=== PATIENT | female | born 1955 | race Caucasian/White ===

== ENCOUNTER 2016-06-05 23:19 | Emergency (ER) | payer OTHER ==
[~2016-06-05 23:19] MED LIST: /ESOM40CA; ALBU17IN INH; ANAS0.12; ASPI81TA7 PO; ASPI81TAEC PO; ATOR40TA PO; CEFT500T3 PO; CILO100T PO; CILO50TA PO; COLA100C2; DEPA500T2 PO; GABA800T PO; GABA800T3; JANT10TA; JANT5TAB; JANT7.5T; LEVO50TA2; LIPI80TA; NICO14DI TD; NICO14PA TD; OMEP20CA3 PO; OMEP40CA2 PO; OXYC-517 PO; OXYC10TA12 PO; OXYC40TA12 PO; PARO30TA PO; PAXI20TA; PLAV75TA2; PROT20TA11 PO; SUCR1TAB56 PO; VICO5TAB; XARE20TA PO
[2016-06-06] MEDS ORDERED: HYDROmorphone HCL 1 MG/ML SYRINGE (J1170) As Ordered ONE (00:12)
--- NOTE | 2016-06-06 00:36 | EDDOCDS ---
Nurse's Notes [facility] Name: Marisol Disla Age: 60 yrs Sex: Female : 1955 Arrival Date: 06/05/2016 Time: 23:19 Bed 6 Private MD: Morris Navarro D Diagnosis: Other chronic pain-neck;Opioid dependence Presentation: 06/05 23:30 Presenting complaint: Patient states: Had surgery on her carotids two months ago in 1 [place] (Dr. Melara) and states she has increased pain in back and sides of neck. Pain is currently 7/10. Pt is restless and anxious in triage area. Risk Factors No acute neurological deficit is noted. Adult Sepsis Screening: The patient does not have new or worsening altered mentation. Patient's respiratory rate is less than 22. Systolic blood pressure is greater than 100. Patient has a qSOFA score of 0- Negative Sepsis Screen. Suicide/Homicide risk assessment- the patient denies having any suicidal and/or homicidal ideations and does not present with any other emotional, behavioral or mental health complaints. Status: Patient is not a patient services assistant or dependent. Transition of care: patient was not received from another setting of care. 23:30 Acuity: WIN Level 3 lf1 23:30 Method Of Arrival: Wheelchair lf1 Triage Assessment: 23:37 General: Appears distressed, obese, uncomfortable, unkempt, Behavior is anxious, fussy, lf1 restless. Pain: Location: neck Pain currently is 7 out of 10 on a pain scale. HIV screening NA for this visit Offered previously. Neurological: Level of Consciousness is awake, alert, Oriented to person, place, time. EENT: No deficits noted. Respiratory: Respiratory effort is even, unlabored, Respiratory pattern is regular. GI: Reports nausea. Derm: Skin is normal. Musculoskeletal: Reports pain in neck, shoulder, right arm. Injury Description: No known injury. Historical: - Allergies: Fentanyl (shortness of breath); Imitrex (Hypertension); PROPOFOL (itching); Toradol (itching); - Home Meds: 1. aspirin 81 mg Oral tab 1 tab once daily (Last dose: 06/05/2016 12:00) 2. atorvastatin 40 mg oral tab 1 tab once daily (Last dose: 06/05/2016 12:00) 3. cilostazol 100 mg oral tab 1 tab 2 times per day (Last dose: 06/05/2016 12:00) 4. gabapentin 800 mg Oral tab 1 tab four times a day (Last dose: 06/05/2016 12:00) 5. oxycodone 20 mg Oral TR12 1 tab four times a day (Last dose: 06/05/2016 19:00) 6. OxyContin 40 mg Oral Tb12 1 tab every 12 hours (Last dose: 06/05/2016 12:00) 7. paroxetine HCl 30 mg Oral tab 2 tabs once daily (Last dose: 06/05/2016 12:00) 8. Protonix 40 mg Oral TbEC once daily (Last dose: 06/05/2016 12:00) 9. Xarelto 20 mg oral tab 1 tab once daily (Last dose: 06/05/2016 12:00) - PMHx: CAD; DVT; GERD; Hypercholesterolemia; Migraine Headaches; Stroke; - PSHx: Cholecystectomy; ; Appendectomy; Tonsillectomy; Hysterectomy; fempop x4; Carpal Tunnel Repair- Left; aorotic bypass graft; Above Knee Amputation- Left (April 14, 2009); - Social history: Smoking status: Patient uses tobacco products, heavy tobacco smoker. No barriers to communication noted, The patient speaks fluent Serbian, Speaks appropriately for age, Preferred Language: Serbian. - Family history: No immediate family members are acutely ill. - : The pt / caregiver states he / she is on anticoagulants: Xarelto Home medication list is obtained from the patient. - Exposure Risk Screening:: None identified. Screenin/28 00:21 Screening information is obtained from the patient. Fall risk: At risk due to gait nn1 disturbance. Assistance ADL's: requires no assistance with activities of daily living. Abuse/DV Screen: The patient / caregiver reports he/she is: not in a situation that causes fear, pain or injury. Nutritional screening: No deficits noted. Advance Directives: There is no active DNR order. home support is adequate. Assessment: 00:20 General: Appears in no apparent distress, uncomfortable, Behavior is appropriate for nn1 age, cooperative. Pain: Location: back and neck Pain currently is 8 out of 10 on a pain scale. Pain began 1 day ago. Neurological: Level of Consciousness is awake, alert, obeys commands, Oriented to person, place, time. Respiratory: Airway is patent Respiratory effort is even, unlabored, Respiratory pattern is regular, symmetrical. Derm: Skin is pink, warm & dry. 00:34 Pain: Pain currently is 5 out of 10 on a pain scale. nn1 Vital Signs: 06/05 23:21 BP 121 / 69; Pulse 92; Resp 20; Temp 99.1(O); Pulse Ox 96% on R/A; Weight 100.24 kg lr2 (R); Height 5 ft. 8 in. (172.72 cm) (R); Pain 7/10; 06/06 00:35 BP 126 / 56; Pulse 88; Resp 20; Temp 98.7(O); Pulse Ox 97% on R/A; Pain 5/10; nn1 06/05 23:21 Body Mass Index 33.60 (100.24 kg, 172.72 cm) lr2 Vitals: 06/05 23:21 Log In Time: June 05, 2016 at 23:19. lr2 ED Course: 23:21 Patient visited by Swapna Pryor. lr2 23:21 Patient moved to Waiting lr2 23:22 Morris Navarro is Private Physician. lr2 23:23 Patient moved to Pre RCE lr2 23:34 Triage Initiated lf1 23:44 Patient moved to 6 cz 23:49 Naun Torres DO is Attending Physician. cs11 23:49 Patient visited by Naun Torres DO. cs11 06/06 00:00 Morris Navarro is Referral Physician. cs11 00:22 No IV's were initiated during this patient's visit. No procedures done that require nn1 assistance. 00:36 The patient / caregiver is instructed regarding the plan of care and ED course. nn1 Administered Medications: 00:20 Drug: Dilaudid - HYDROmorphone 1 mg [hydromorphone 1 mg/mL injection syringe (1 mL)] nn1 Route: IM; Site: right deltoid; Order Results: There are currently no results for this order. Outcome: 00:01 Discharge ordered by Provider. cs11 00:35 Discharge Assessment: Patient awake, alert and oriented x 3. No cognitive and/or nn1 functional deficits noted. Patient verbalized understanding of disposition instructions. patient administered narcotics - yes. Pt provided with safe discharge. The following High Risk Discharge criteria are identified: None. Discharged to home via wheelchair, with family. Condition: stable. No special radiology studies were completed. Property :Personal belongings accompany Pt. 00:36 Patient left the ED. nn1 Signatures: Chris Zhou, RN RN cz Savanna Stevens RN RN lf1 Naun Torres DO DO 11 Kofi Wesley RN RN nn1 Swapna Pryor MTDD
--- NOTE | 2016-06-06 00:36 | EDDOCDS ---
Physician Documentation [facility] Name: Marisol Disla Age: 60 yrs Sex: Female : 1955 Arrival Date: 06/05/2016 Time: 23:19 Bed 6 Private MD: Morris Navarro D Disposition: 06/06/16 00:01 Discharged to Home/Self Care. Impression: Other chronic pain - neck, Opioid dependence. - Condition is Stable. - Medication Reconciliation, Local Pharmacy Hours form. - Follow up: Morris Navarro; When: Call to arrange an appointment; Reason: Recheck today's complaints. - Problem is chronic. - Symptoms have improved. Historical: - Allergies: Fentanyl (shortness of breath); Imitrex (Hypertension); PROPOFOL (itching); Toradol (itching); - Home Meds: 1. aspirin 81 mg Oral tab 1 tab once daily (Last dose: 06/05/2016 12:00) 2. atorvastatin 40 mg oral tab 1 tab once daily (Last dose: 06/05/2016 12:00) 3. cilostazol 100 mg oral tab 1 tab 2 times per day (Last dose: 06/05/2016 12:00) 4. gabapentin 800 mg Oral tab 1 tab four times a day (Last dose: 06/05/2016 12:00) 5. oxycodone 20 mg Oral TR12 1 tab four times a day (Last dose: 06/05/2016 19:00) 6. OxyContin 40 mg Oral Tb12 1 tab every 12 hours (Last dose: 06/05/2016 12:00) 7. paroxetine HCl 30 mg Oral tab 2 tabs once daily (Last dose: 06/05/2016 12:00) 8. Protonix 40 mg Oral TbEC once daily (Last dose: 06/05/2016 12:00) 9. Xarelto 20 mg oral tab 1 tab once daily (Last dose: 06/05/2016 12:00) - PMHx: CAD; DVT; GERD; Hypercholesterolemia; Migraine Headaches; Stroke; - PSHx: Cholecystectomy; ; Appendectomy; Tonsillectomy; Hysterectomy; fempop x4; Carpal Tunnel Repair- Left; aorotic bypass graft; Above Knee Amputation- Left (April 14, 2009); - Social history: Smoking status: Patient uses tobacco products, heavy tobacco smoker. No barriers to communication noted, The patient speaks fluent Japanese, Speaks appropriately for age, Preferred Language: Japanese. - Family history: No immediate family members are acutely ill. - : The pt / caregiver states he / she is on anticoagulants: Xarelto Home medication list is obtained from the patient. - Exposure Risk Screening:: None identified. Vital Signs: 06/05 23:21 BP 121 / 69; Pulse 92; Resp 20; Temp 99.1(O); Pulse Ox 96% on R/A; Weight 100.24 kg / lr2 220.99 lbs (R); Height 5 ft. 8 in. (172.72 cm) (R); Pain 7/10; 06/06 00:35 BP 126 / 56; Pulse 88; Resp 20; Temp 98.7(O); Pulse Ox 97% on R/A; Pain 5/10; nn1 06/05 23:21 Body Mass Index 33.60 (100.24 kg, 172.72 cm) lr2 MDM: 00:01 Dilaudid - HYDROmorphone 1 mg IM once ordered. cs11 00:21 Financial registration complete. [facility] Administered Medications: 00:20 Drug: Dilaudid - HYDROmorphone 1 mg [hydromorphone 1 mg/mL injection syringe (1 mL)] nn1 Route: IM; Site: right deltoid; Signatures: Savanna Stevens,RN RN lf1 Naun Torres DO DO cs11 Marni Jacques [facility] Kofi Wesley RN RN nn1 MTDD
--- NOTE | 2016-06-08 01:37 | EDDOCDS ---
Physician Documentation [facility] Name: Marisol Disla Age: 60 yrs Sex: Female : 1955 Arrival Date: 06/05/2016 Time: 23:19 Bed 6 Private MD: Morris Navarro D Disposition: 06/06/16 00:01 Discharged to Home/Self Care. Impression: Other chronic pain - neck, Opioid dependence. - Condition is Stable. - Medication Reconciliation, Local Pharmacy Hours form. - Follow up: Morris Navarro; When: Call to arrange an appointment; Reason: Recheck today's complaints. - Problem is chronic. - Symptoms have improved. Historical: - Allergies: Fentanyl (shortness of breath); Imitrex (Hypertension); PROPOFOL (itching); Toradol (itching); - Home Meds: 1. aspirin 81 mg Oral tab 1 tab once daily (Last dose: 06/05/2016 12:00) 2. atorvastatin 40 mg oral tab 1 tab once daily (Last dose: 06/05/2016 12:00) 3. cilostazol 100 mg oral tab 1 tab 2 times per day (Last dose: 06/05/2016 12:00) 4. gabapentin 800 mg Oral tab 1 tab four times a day (Last dose: 06/05/2016 12:00) 5. oxycodone 20 mg Oral TR12 1 tab four times a day (Last dose: 06/05/2016 19:00) 6. OxyContin 40 mg Oral Tb12 1 tab every 12 hours (Last dose: 06/05/2016 12:00) 7. paroxetine HCl 30 mg Oral tab 2 tabs once daily (Last dose: 06/05/2016 12:00) 8. Protonix 40 mg Oral TbEC once daily (Last dose: 06/05/2016 12:00) 9. Xarelto 20 mg oral tab 1 tab once daily (Last dose: 06/05/2016 12:00) - PMHx: CAD; DVT; GERD; Hypercholesterolemia; Migraine Headaches; Stroke; - PSHx: Cholecystectomy; ; Appendectomy; Tonsillectomy; Hysterectomy; fempop x4; Carpal Tunnel Repair- Left; aorotic bypass graft; Above Knee Amputation- Left (April 14, 2009); - Social history: Smoking status: Patient uses tobacco products, heavy tobacco smoker. No barriers to communication noted, The patient speaks fluent Indonesian, Speaks appropriately for age, Preferred Language: Indonesian. - Family history: No immediate family members are acutely ill. - : The pt / caregiver states he / she is on anticoagulants: Xarelto Home medication list is obtained from the patient. - Exposure Risk Screening:: None identified. Vital Signs: 06/05 23:21 BP 121 / 69; Pulse 92; Resp 20; Temp 99.1(O); Pulse Ox 96% on R/A; Weight 100.24 kg / lr2 220.99 lbs (R); Height 5 ft. 8 in. (172.72 cm) (R); Pain 7/10; 06/06 00:35 BP 126 / 56; Pulse 88; Resp 20; Temp 98.7(O); Pulse Ox 97% on R/A; Pain 5/10; nn1 06/05 23:21 Body Mass Index 33.60 (100.24 kg, 172.72 cm) lr2 MDM: 00:01 Dilaudid - HYDROmorphone 1 mg IM once ordered. cs11 00:21 Financial registration complete. [facility] 01:29 [facility] Payment Agreement was scanned into [employer] and attached to record. [facility] Administered Medications: 00:20 Drug: Dilaudid - HYDROmorphone 1 mg [hydromorphone 1 mg/mL injection syringe (1 mL)] nn1 Route: IM; Site: right deltoid; Signatures: Savanna Stevens RN RN lf1 Naun Torres DO DO cs11 Marni Jacques [facility] Kofi Wesley RN RN nn1 The chart was reviewed and I authenticate all verbal orders and agree with the evaluation and treatment provided.Attachments: 01:29 [facility] Payment Agreement [facility] Chart Complete MTDD
--- NOTE | 2016-06-08 01:38 | EDDOCDS ---
Nurse's Notes [facility] Name: Marisol Disla Age: 60 yrs Sex: Female : 1955 Arrival Date: 06/05/2016 Time: 23:19 Bed 6 Private MD: Morris Navarro D Diagnosis: Other chronic pain-neck;Opioid dependence Presentation: 06/05 23:30 Presenting complaint: Patient states: Had surgery on her carotids two months ago in 1 [place] (Dr. Melara) and states she has increased pain in back and sides of neck. Pain is currently 7/10. Pt is restless and anxious in triage area. Risk Factors No acute neurological deficit is noted. Adult Sepsis Screening: The patient does not have new or worsening altered mentation. Patient's respiratory rate is less than 22. Systolic blood pressure is greater than 100. Patient has a qSOFA score of 0- Negative Sepsis Screen. Suicide/Homicide risk assessment- the patient denies having any suicidal and/or homicidal ideations and does not present with any other emotional, behavioral or mental health complaints. Status: Patient is not a food services director or dependent. Transition of care: patient was not received from another setting of care. 23:30 Acuity: WIN Level 3 lf1 23:30 Method Of Arrival: Wheelchair lf1 Triage Assessment: 23:37 General: Appears distressed, obese, uncomfortable, unkempt, Behavior is anxious, fussy, lf1 restless. Pain: Location: neck Pain currently is 7 out of 10 on a pain scale. HIV screening NA for this visit Offered previously. Neurological: Level of Consciousness is awake, alert, Oriented to person, place, time. EENT: No deficits noted. Respiratory: Respiratory effort is even, unlabored, Respiratory pattern is regular. GI: Reports nausea. Derm: Skin is normal. Musculoskeletal: Reports pain in neck, shoulder, right arm. Injury Description: No known injury. Historical: - Allergies: Fentanyl (shortness of breath); Imitrex (Hypertension); PROPOFOL (itching); Toradol (itching); - Home Meds: 1. aspirin 81 mg Oral tab 1 tab once daily (Last dose: 06/05/2016 12:00) 2. atorvastatin 40 mg oral tab 1 tab once daily (Last dose: 06/05/2016 12:00) 3. cilostazol 100 mg oral tab 1 tab 2 times per day (Last dose: 06/05/2016 12:00) 4. gabapentin 800 mg Oral tab 1 tab four times a day (Last dose: 06/05/2016 12:00) 5. oxycodone 20 mg Oral TR12 1 tab four times a day (Last dose: 06/05/2016 19:00) 6. OxyContin 40 mg Oral Tb12 1 tab every 12 hours (Last dose: 06/05/2016 12:00) 7. paroxetine HCl 30 mg Oral tab 2 tabs once daily (Last dose: 06/05/2016 12:00) 8. Protonix 40 mg Oral TbEC once daily (Last dose: 06/05/2016 12:00) 9. Xarelto 20 mg oral tab 1 tab once daily (Last dose: 06/05/2016 12:00) - PMHx: CAD; DVT; GERD; Hypercholesterolemia; Migraine Headaches; Stroke; - PSHx: Cholecystectomy; ; Appendectomy; Tonsillectomy; Hysterectomy; fempop x4; Carpal Tunnel Repair- Left; aorotic bypass graft; Above Knee Amputation- Left (April 14, 2009); - Social history: Smoking status: Patient uses tobacco products, heavy tobacco smoker. No barriers to communication noted, The patient speaks fluent Croatian, Speaks appropriately for age, Preferred Language: Croatian. - Family history: No immediate family members are acutely ill. - : The pt / caregiver states he / she is on anticoagulants: Xarelto Home medication list is obtained from the patient. - Exposure Risk Screening:: None identified. Screenin/28 00:21 Screening information is obtained from the patient. Fall risk: At risk due to gait nn1 disturbance. Assistance ADL's: requires no assistance with activities of daily living. Abuse/DV Screen: The patient / caregiver reports he/she is: not in a situation that causes fear, pain or injury. Nutritional screening: No deficits noted. Advance Directives: There is no active DNR order. home support is adequate. Assessment: 00:20 General: Appears in no apparent distress, uncomfortable, Behavior is appropriate for nn1 age, cooperative. Pain: Location: back and neck Pain currently is 8 out of 10 on a pain scale. Pain began 1 day ago. Neurological: Level of Consciousness is awake, alert, obeys commands, Oriented to person, place, time. Respiratory: Airway is patent Respiratory effort is even, unlabored, Respiratory pattern is regular, symmetrical. Derm: Skin is pink, warm & dry. 00:34 Pain: Pain currently is 5 out of 10 on a pain scale. nn1 Vital Signs: 06/05 23:21 BP 121 / 69; Pulse 92; Resp 20; Temp 99.1(O); Pulse Ox 96% on R/A; Weight 100.24 kg lr2 (R); Height 5 ft. 8 in. (172.72 cm) (R); Pain 7/10; 06/06 00:35 BP 126 / 56; Pulse 88; Resp 20; Temp 98.7(O); Pulse Ox 97% on R/A; Pain 5/10; nn1 06/05 23:21 Body Mass Index 33.60 (100.24 kg, 172.72 cm) lr2 Vitals: 06/05 23:21 Log In Time: June 05, 2016 at 23:19. lr2 ED Course: 23:21 Patient visited by Swapna Pryor. lr2 23:21 Patient moved to Waiting lr2 23:22 Morris Navarro is Private Physician. lr2 23:23 Patient moved to Pre RCE lr2 23:34 Triage Initiated lf1 23:44 Patient moved to 6 cz 23:49 Naun Torres DO is Attending Physician. cs11 23:49 Patient visited by Naun Torres DO. cs11 06/06 00:00 Morris Navarro is Referral Physician. cs11 00:22 No IV's were initiated during this patient's visit. No procedures done that require nn1 assistance. 00:36 The patient / caregiver is instructed regarding the plan of care and ED course. nn1 01:29 [facility] Payment Agreement was scanned into [employer] and attached to record. [facility] 01:31 Patient name changed from Marisol\S\\S\Naif\S\ to Marisol\S\Jennie\S\Naif. EDMS Administered Medications: 00:20 Drug: Dilaudid - HYDROmorphone 1 mg [hydromorphone 1 mg/mL injection syringe (1 mL)] nn1 Route: IM; Site: right deltoid; Order Results: There are currently no results for this order. Outcome: 00:01 Discharge ordered by Provider. cs11 00:35 Discharge Assessment: Patient awake, alert and oriented x 3. No cognitive and/or nn1 functional deficits noted. Patient verbalized understanding of disposition instructions. patient administered narcotics - yes. Pt provided with safe discharge. The following High Risk Discharge criteria are identified: None. Discharged to home via wheelchair, with family. Condition: stable. No special radiology studies were completed. Property :Personal belongings accompany Pt. 00:36 Patient left the ED. nn1 Signatures: Dispatcher [employer] Chris Spence, RN RN cz Savanna StevensRN RN lf1 Naun Torres, DO cs11 Marni Jacques NikkoleRN RN nn1 Swapna Pryor2 Chart Complete MOHAN
--- NOTE | 2016-06-08 01:38 | EDDOCDS ---
Physician Documentation [facility] Name: Marisol Disla Age: 60 yrs Sex: Female : 1955 Arrival Date: 06/05/2016 Time: 23:19 Bed 6 Private MD: Morris Navarro D Disposition: 06/06/16 00:01 Discharged to Home/Self Care. Impression: Other chronic pain - neck, Opioid dependence. - Condition is Stable. - Medication Reconciliation, Local Pharmacy Hours form. - Follow up: Morris Navarro; When: Call to arrange an appointment; Reason: Recheck today's complaints. - Problem is chronic. - Symptoms have improved. Historical: - Allergies: Fentanyl (shortness of breath); Imitrex (Hypertension); PROPOFOL (itching); Toradol (itching); - Home Meds: 1. aspirin 81 mg Oral tab 1 tab once daily (Last dose: 06/05/2016 12:00) 2. atorvastatin 40 mg oral tab 1 tab once daily (Last dose: 06/05/2016 12:00) 3. cilostazol 100 mg oral tab 1 tab 2 times per day (Last dose: 06/05/2016 12:00) 4. gabapentin 800 mg Oral tab 1 tab four times a day (Last dose: 06/05/2016 12:00) 5. oxycodone 20 mg Oral TR12 1 tab four times a day (Last dose: 06/05/2016 19:00) 6. OxyContin 40 mg Oral Tb12 1 tab every 12 hours (Last dose: 06/05/2016 12:00) 7. paroxetine HCl 30 mg Oral tab 2 tabs once daily (Last dose: 06/05/2016 12:00) 8. Protonix 40 mg Oral TbEC once daily (Last dose: 06/05/2016 12:00) 9. Xarelto 20 mg oral tab 1 tab once daily (Last dose: 06/05/2016 12:00) - PMHx: CAD; DVT; GERD; Hypercholesterolemia; Migraine Headaches; Stroke; - PSHx: Cholecystectomy; ; Appendectomy; Tonsillectomy; Hysterectomy; fempop x4; Carpal Tunnel Repair- Left; aorotic bypass graft; Above Knee Amputation- Left (April 14, 2009); - Social history: Smoking status: Patient uses tobacco products, heavy tobacco smoker. No barriers to communication noted, The patient speaks fluent Maori, Speaks appropriately for age, Preferred Language: Maori. - Family history: No immediate family members are acutely ill. - : The pt / caregiver states he / she is on anticoagulants: Xarelto Home medication list is obtained from the patient. - Exposure Risk Screening:: None identified. Vital Signs: 06/05 23:21 BP 121 / 69; Pulse 92; Resp 20; Temp 99.1(O); Pulse Ox 96% on R/A; Weight 100.24 kg / lr2 220.99 lbs (R); Height 5 ft. 8 in. (172.72 cm) (R); Pain 7/10; 06/06 00:35 BP 126 / 56; Pulse 88; Resp 20; Temp 98.7(O); Pulse Ox 97% on R/A; Pain 5/10; nn1 06/05 23:21 Body Mass Index 33.60 (100.24 kg, 172.72 cm) lr2 MDM: 00:01 Dilaudid - HYDROmorphone 1 mg IM once ordered. cs11 00:21 Financial registration complete. [facility] 01:29 [facility] Payment Agreement was scanned into [employer] and attached to record. [facility] Administered Medications: 00:20 Drug: Dilaudid - HYDROmorphone 1 mg [hydromorphone 1 mg/mL injection syringe (1 mL)] nn1 Route: IM; Site: right deltoid; Signatures: Savanna Stevens RN RN lf1 Naun Torres DO DO cs11 Marni Jacques [facility] Kofi Wesley RN RN nn1 The chart was reviewed and I authenticate all verbal orders and agree with the evaluation and treatment provided.Attachments: 01:29 [facility] Payment Agreement [facility] Chart Complete MTDD
== END 2016-06-06 00:36 | disposition home or self-care (01) ==
LOC: M ED 23:19
DX: M54.2 Cervicalgia (principal); G89.29 Other chronic pain; F11.20 Opioid dependence, uncomplicated; I25.10 Atherosclerotic heart disease of native coronary artery without angina pectoris; K21.9 Gastro-esophageal reflux disease without esophagitis; E78.00 Pure hypercholesterolemia, unspecified; G43.909 Migraine, unspecified, not intractable, without status migrainosus; F17.210 Nicotine dependence, cigarettes, uncomplicated; Z89.612 Acquired absence of left leg above knee; Z86.718 Personal history of other venous thrombosis and embolism; Z79.01 Long term (current) use of anticoagulants; Z79.82 Long term (current) use of aspirin; Z79.899 Other long term (current) drug therapy; Z88.5 Allergy status to narcotic agent; Z88.8 Allergy status to other drugs, medicaments and biological substances

== ENCOUNTER → 2016-09-20 | Outpatient (CLI) | payer OTHER ==
[~2016-09-20] MED LIST changes: -OXYC40TA12 PO; +OXYC40TA13 PO
--- NOTE | 2016-09-20 16:04 | REP ---
MRI LEFT WRIST: TECHNIQUE: Multiple sequences obtained in the axial, coronal, and sagittal planes. There is no definite tear of the triangular fibrocartilage complex. The scapholunate and lunatotriquetral ligaments appear intact. The flexor and extensor tendons appear intact. There is on evidence for tendosynovitis. Carpal tunnel region appears unremarkable. There is a history of prior surgery at the base of the thumb. There appears to have been resection of portions of the trapezium bone and distal scaphoid bone. There is ill-defined soft tissue signal which is hypointense on T1 and T2 compatible with postsurgical fibrotic scarring. No fluid collection, cyst, or joint effusion is seen. There is mild to moderate narrow edema in the capitate bone laterally with no other abnormal marrow signal. IMPRESSION: No evidence for tendon or ligament tear. Triangular fibrocartilage complex would be better evaluated with an MR arthrogram if clinically indicated. Postsurgical soft tissue scarring at the base of the first metacarpal. Nonspecific marrow edema in the capitate bone primarily in the lateral aspect. This could be related to arthritic change versus bone bruising. Signed by Juan J Nicholson MD 09/20/2016 07:49 P
== END ==
LOC: M RAD 13:52
PROVIDERS: ATTEND Plastic Surgery Surgery of the Hand
DX: M25.532 Pain in left wrist (principal)

== ENCOUNTER → 2017-01-24 | Outpatient (CLI) | payer OTHER ==
[~2017-01-24] MED LIST changes: +ASPI1TAB15 PO; -ASPI81TA7 PO; -ATOR40TA PO; +ATOR40TA75 PO; -OXYC40TA13 PO; +OXYC40TA29 PO
--- NOTE | 2017-01-24 13:46 | REP ---
Report below cancelled as exam ordered using wrong patient ) (ordering provider aware incorrect patient). Comparison made to wrong patient as well. Incorrect order (#[id number]) cancelled and exam re- ordered on correct patient ([id number]). Correct patient exam read by Dr. Leong - - see report #[id number]. Chest two views HISTORY: Preop Comparison: 07/29/2013 The lungs are clear. The heart is normal in size. The pulmonary vasculature is normal in appearance. The bony structure is intact. IMPRESSION: No acute disease. edited: 02/06/2017 0939 tkf MTDD
--- NOTE | 2017-01-26 17:50 | REP ---
PA and lateral chest three views: Comparison 10/25/2015. There is a small nodular density inferior left lung today measuring 6 mm, decreased in size from the prior study. Lung thorne otherwise clear. Cardiac size is upper normal. The pravin, mediastinum, and bony thorax are unremarkable. Impression: Essentially negative PA and lateral chest. The small nodule inferiorly in the right lung has decreased size from the prior study. Surgical clips are incidentally noted in the left shoulder, unchanged.
== END ==
LOC: M CLY 12:43
PROVIDERS: ATTEND Family Medicine
DX: M25.532 Pain in left wrist (principal)

== ENCOUNTER → 2017-01-24 | Outpatient (REF) | payer OTHER ==
[2017-01-24 17:30] LABS: BASO % 0.5 % (0.0-1.0); IMMATURE GRANULOCYTE % 0.5 % (0-0); LYMPH # 1.9 10^3/uL (1.5-4.5); LYMPH % 24.7 % (24.0-44.0); MEAN CORPUSCULAR HEMOGLOBIN 26.6 pg (27.0-33.0); MEAN CORPUSCULAR HGB CONC 30.5 g/dl (32.0-36.5); MEAN CORPUSCULAR VOLUME 86.9 fl (80.0-96.0); MONO # 0.7 10^3/uL (0.0-0.8); MONO % 9.7 % (0.0-5.0); NEUTROPHILS # 4.9 10^3/uL (1.8-7.7); NEUTROPHILS % 64.6 % (36.0-66.0); PLATELET COUNT, AUTOMATED 220 10^3/uL (150-450); RED CELL DISTRIBUTION WIDTH 14.6 % (11.5-14.5); WHITE BLOOD COUNT 7.6 10^3/uL (4.0-10.0)
[2017-01-24 17:40] LABS: ALBUMIN 3.3 GM/DL (3.2-5.2); ALBUMIN/GLOBULIN RATIO 0.77 (1.00-1.93); ALKALINE PHOSPHATASE 172 U/L (45-117); ALT/SGPT 13 U/L (12-78); ANION GAP 5 MEQ/L (8-16); AST/SGOT 8 U/L (15-37); BILIRUBIN,TOTAL 0.2 MG/DL (0.2-1.0); BLOOD UREA NITROGEN 7 MG/DL (7-18); CALCIUM LEVEL 8.4 MG/DL (8.5-10.1); CARBON DIOXIDE LEVEL 32 MEQ/L (21-32); CHLORIDE LEVEL 100 MEQ/L (98-107); CHOLESTEROL LEVEL 188 MG/DL (<200); CREATININE FOR GFR 0.77 MG/DL (0.55-1.02); GLOMERULAR FILTRATION RATE > 60.0 (>51); GLUCOSE, FASTING 127 MG/DL (70-105); POTASSIUM SERUM 3.7 MEQ/L (3.5-5.1); SODIUM LEVEL 137 MEQ/L (136-145); TOTAL PROTEIN 7.6 GM/DL (6.4-8.2); TRIGLYCERIDES LEVEL 283 MG/DL (<150)
[2017-01-24 17:44] LABS: INR 1.07
== END ==
LOC: M SFHCCLAY 12:50
PROVIDERS: ATTEND Family Medicine
DX: M25.532 Pain in left wrist (principal); Z01.818 Encounter for other preprocedural examination; R73.01 Impaired fasting glucose; E78.2 Mixed hyperlipidemia

== ENCOUNTER → 2017-01-31 | Outpatient (CLI) | payer OTHER ==
--- NOTE | 2017-01-31 11:34 | REP ---
CT of the left femur: Axial images are acquired helical scanning and a reformatted sagittal and coronal projections. Comparison is the plain film study 09/30/2009. The the patient has an [id number] amputation. This was also present on the comparison study. At the distal tip of the femoral stump there is a 1.3 cm bone spur pointing posteriorly. This was also present on the prior study. In the soft tissues distal to this spur extending posteriorly, there is a soft tissue mass-like density extending posteriorly to the skin surface. This could represent fibrosis, edema, inflammation or infection. There is slight skin thickening posteriorly. There is no focal fluid collection to suggest abscess. There are no lytic, blastic or destructive skeletal changes to suggest osteomyelitis. There is a 6 mm calcification in the soft tissues distal to the stump and there are calcifications in the soft tissues medial to the distal stump. Impression: Fibrosis versus inflammation in the soft tissues posterior to the distal tip of the stump . There are calcifications adjacent to the distal tip of the stump within the soft tissues. There are no lytic, blastic or destructive skeletal changes. There is a 13 mm spur pointing posteriorly from the distal tip of the stump. Signed by Juan J Leong MD 01/31/2017 11:26 A
== END ==
LOC: M RAD 10:13
PROVIDERS: ATTEND Nurse Practitioner
DX: M89.9 Disorder of bone, unspecified (principal)

== ENCOUNTER → 2017-06-07 | Outpatient (REF) | payer OTHER ==
[2017-06-08 11:56] LABS: ALBUMIN 3.3 GM/DL (3.2-5.2); ALBUMIN/GLOBULIN RATIO 0.79 (1.00-1.93); ALKALINE PHOSPHATASE 157 U/L (45-117); ALT/SGPT 11 U/L (12-78); ANION GAP 5 MEQ/L (8-16); AST/SGOT 14 U/L (7-37); BILIRUBIN,TOTAL 0.2 MG/DL (0.2-1.0); BLOOD UREA NITROGEN 9 MG/DL (7-18); CALCIUM LEVEL 8.5 MG/DL (8.5-10.1); CARBON DIOXIDE LEVEL 29 MEQ/L (21-32); CHLORIDE LEVEL 105 MEQ/L (98-107); CREATININE FOR GFR 0.75 MG/DL (0.55-1.30); GLOMERULAR FILTRATION RATE > 60.0 (>51); GLUCOSE, FASTING 127 MG/DL (70-100); POTASSIUM SERUM 4.1 MEQ/L (3.5-5.1); SODIUM LEVEL 139 MEQ/L (136-145); TOTAL PROTEIN 7.5 GM/DL (6.4-8.2)
[2017-06-08 12:39] LABS: ESTIMATED AVERAGE GLUCOSE 143 MG/DL (60-110); HEMOGLOBIN A1c 6.6 %
== END ==
LOC: M SFHCCLAY 14:51
DX: E11.42 Type 2 diabetes mellitus with diabetic polyneuropathy (principal)
CPT/HCPCS: 83036

== ENCOUNTER → 2017-06-07 | Outpatient (CLI) | payer OTHER | LOC: M CLY 14:59 | DX: M19.032 Primary osteoarthritis, left wrist (principal) | CPT/HCPCS: 73110 ==

== ENCOUNTER → 2017-09-12 | Outpatient (REF) | payer OTHER ==
[2017-09-12 17:19] LABS: ESTIMATED AVERAGE GLUCOSE 151 MG/DL (60-110); HEMOGLOBIN A1c 6.9 %
[2017-09-12 17:47] LABS: ALBUMIN 3.3 GM/DL (3.2-5.2); ALBUMIN/GLOBULIN RATIO 0.75 (1.00-1.93); ALKALINE PHOSPHATASE 138 U/L (45-117); ALT/SGPT 12 U/L (12-78); ANION GAP 6 MEQ/L (8-16); AST/SGOT 9 U/L (7-37); BILIRUBIN,TOTAL 0.2 MG/DL (0.2-1.0); BLOOD UREA NITROGEN 10 MG/DL (7-18); CALCIUM LEVEL 8.5 MG/DL (8.5-10.1); CARBON DIOXIDE LEVEL 28 MEQ/L (21-32); CHLORIDE LEVEL 105 MEQ/L (98-107); CREATININE FOR GFR 0.79 MG/DL (0.55-1.30); GLOMERULAR FILTRATION RATE > 60.0 (>51); GLUCOSE, FASTING 122 MG/DL (70-100); SODIUM LEVEL 139 MEQ/L (136-145); TOTAL PROTEIN 7.7 GM/DL (6.4-8.2)
== END ==
LOC: M SFHCCLAY 13:26
DX: E11.42 Type 2 diabetes mellitus with diabetic polyneuropathy (principal); R94.6 Abnormal results of thyroid function studies
CPT/HCPCS: 84443

== ENCOUNTER 2017-09-25 06:16 | Day surgery (SDC) | payer OTHER ==
[2017-09-25] MEDS ORDERED: LR 1,000 ML IV ×3 (06:30→09:15)
[2017-09-25] MEDS ORDERED: LIDOCAINE 1% MDV 20ML VIAL SQ (06:30)
[2017-09-25] MEDS ORDERED: ONDANSETRON 4MG/2ML VIAL (J2405) As Ordered (08:05)
[2017-09-25] MEDS ORDERED: MIDAZOLAM INJ 2 MG/2 ML VIAL (J2250) As Ordered (08:05)
[2017-09-25] MEDS ORDERED: dexameTHASONE 4 MG/ML 1ML VIAL (J1100) As Ordered (08:05)
[2017-09-25] MEDS ORDERED: PROPOFOL 200 MG/20 ML VIAL As Ordered (08:05)
[2017-09-25] MEDS ORDERED: LIDOCAINE 2% INJ 100 MG/5 ML SDV (FOR ANES.) As Ordered (08:05)
[2017-09-25] MEDS ORDERED: fentaNYL 100 MCG/2 ML INJECTION (J3010) As Ordered ×2 (08:05→09:40)
[2017-09-25] MEDS ORDERED: SUCCINYLCHOLINE 100 MG/5 ML SYRINGE (J0330) As Ordered (08:05)
[2017-09-25] MEDS ORDERED: ROCURONIUM BROMIDE 50 MG/5 ML VIAL As Ordered (08:08)
[2017-09-25] MEDS: BUPIVACAINE HCL 0.25% 30 ML VIAL As Ordered (08:26)
[2017-09-25] MEDS ORDERED: ACETAMINOPH W/CODEINE #3 TAB UD PO ×2 (09:00)
[2017-09-25] MEDS ORDERED: ALBUTEROL SULFATE 2.5 MG/0.5 ML INH NEB SOLN As Ordered (09:01)
[2017-09-25] MEDS: ALBUTEROL SULFATE 2.5 MG/0.5 ML INH NEB SOLN INH (09:05)
[2017-09-25] MEDS ORDERED: ONDANSETRON 4MG/2ML VIAL (J2405) IV (09:15)
[2017-09-25] MEDS: PERCOCET 5MG/325MG TAB PO (09:33)
[2017-09-25] MEDS: fentaNYL 100 MCG/2 ML INJECTION (J3010) IV ×3 (09:43→10:02)
== END 2017-09-25 11:11 | disposition home or self-care (01) ==
LOC: M SDC 06:16
DX: G56.01 Carpal tunnel syndrome, right upper limb (principal); G56.21 Lesion of ulnar nerve, right upper limb; E11.9 Type 2 diabetes mellitus without complications; E03.9 Hypothyroidism, unspecified; K21.9 Gastro-esophageal reflux disease without esophagitis; Z79.899 Other long term (current) drug therapy; Z79.82 Long term (current) use of aspirin; Z86.73 Personal history of transient ischemic attack (TIA), and cerebral infarction without residual deficits; F17.210 Nicotine dependence, cigarettes, uncomplicated; I25.10 Atherosclerotic heart disease of native coronary artery without angina pectoris; Z88.8 Allergy status to other drugs, medicaments and biological substances; D64.9 Anemia, unspecified
CPT/HCPCS: 64718

== ENCOUNTER → 2018-04-12 | Outpatient (REF) | payer OTHER ==
[~2018-04-12] MED LIST changes: -GABA800T PO; +GABA800T4 PO; +PREG100CA PO
[2018-04-12 19:13] LABS: ALBUMIN 3.3 GM/DL (3.2-5.2); ALT/SGPT 14 U/L (12-78); BILIRUBIN,TOTAL 0.2 MG/DL (0.2-1.0); BLOOD UREA NITROGEN 10 MG/DL (7-18); CALCIUM LEVEL 8.3 MG/DL (8.8-10.2); CARBON DIOXIDE LEVEL 25 MEQ/L (21-32); CHLORIDE LEVEL 105 MEQ/L (98-107); CHOLESTEROL LEVEL 193 MG/DL (<200); CHOLESTEROL RISK RATIO 4.488 (<5); CREATININE FOR GFR 0.96 MG/DL (0.55-1.30); GLOMERULAR FILTRATION RATE > 60.0 (>45); GLUCOSE, FASTING 114 MG/DL (70-100); HDL CHOLESTEROL 43 MG/DL (>40); LDL CHOLESTEROL 113 MG/DL (<100); NON-HDL-C 150 MG/DL; POTASSIUM SERUM 3.8 MEQ/L (3.5-5.1); SODIUM LEVEL 139 MEQ/L (136-145); TOTAL PROTEIN 7.5 GM/DL (6.4-8.2); TRIGLYCERIDES LEVEL 187 MG/DL (<150)
[2018-04-12 19:21] LABS: MAU/CREAT RATIO 52.7 MCG/MG (0.0-30.0)
[2018-04-12 19:38] LABS: HEMOGLOBIN A1c 6.6 %
== END ==
LOC: M SFHCCLAY 10:53
PROVIDERS: ATTEND Family Medicine
DX: E11.42 Type 2 diabetes mellitus with diabetic polyneuropathy (principal)

== ENCOUNTER 2018-05-25 21:21 | Day surgery (SDC) | payer OTHER ==
[~2018-05-25] VITALS: Ht 154.9 cm; Wt 100.0 kg
[2018-05-25] MEDS ORDERED: GLUCAGON FOR INJ 1 MG VIAL (J1610) IV STA (22:15)
[2018-05-25] MEDS ORDERED: IPRATROPIUM 0.5MG/ALBUTEROL 2.5MG INH SOL UD 3ML (DUONEB)(J7620) NEB ONE (23:00)
[2018-05-26] MEDS ORDERED: VENTAER INH (01:25)
[2018-05-26] MEDS ORDERED: LYRI200C PO (01:27)
[2018-05-26] MEDS ORDERED: PARO40TA2 PO (01:27)
[2018-05-26] MEDS ORDERED: LR 1,000 ML IV SCH ×2 (01:27→05:45)
[2018-05-26] MEDS ORDERED: OXYC15TA76 PO (01:28)
[2018-05-26] MEDS ORDERED: OXYC60TA8 PO (01:29)
[2018-05-26] MEDS ORDERED: SYMB16INH INH (01:30)
[2018-05-26] MEDS ORDERED: NEUR800T PO (01:30)
[2018-05-26] MEDS ORDERED: BUSP5TA PO (01:31)
[2018-05-26 02:02] LABS: HEMATOCRIT 42.2 % (36.0-47.0); HEMOGLOBIN 13.3 g/dl (12.0-15.5); MEAN CORPUSCULAR HEMOGLOBIN 26.8 pg (27.0-33.0); MEAN CORPUSCULAR HGB CONC 31.5 g/dl (32.0-36.5); MEAN CORPUSCULAR VOLUME 85.1 fl (80.0-96.0); PLATELET COUNT, AUTOMATED 207 10^3/uL (150-450); RED BLOOD COUNT 4.96 10^6/uL (4.00-5.40)
[2018-05-26] MEDS ORDERED: LIDOCAINE 2% INJ 100 MG/5 ML SDV (FOR ANES.) As Ordered ONE (02:05)
[2018-05-26] MEDS ORDERED: SUCCINYLCHOLINE 100 MG/5 ML SYRINGE (J0330) As Ordered ONE (02:06)
[2018-05-26] MEDS ORDERED: ONDANSETRON 4MG/2ML VIAL (J2405) As Ordered ONE (02:06)
[2018-05-26] MEDS ORDERED: PROPOFOL 200 MG/20 ML VIAL As Ordered ONE (02:06)
[2018-05-26] MEDS ORDERED: dexameTHASONE 4 MG/ML 1ML VIAL (J1100) As Ordered ONE (02:06)
[2018-05-26] MEDS ORDERED: METOCLOPRAMIDE INJ 10MG/2ML VIAL (J2765) As Ordered ONE (02:06)
[2018-05-26 02:23] LABS: BLOOD UREA NITROGEN 8 MG/DL (7-18); CALCIUM LEVEL 8.6 MG/DL (8.8-10.2); CARBON DIOXIDE LEVEL 28 MEQ/L (21-32); CHLORIDE LEVEL 105 MEQ/L (98-107); CREATININE FOR GFR 0.77 MG/DL (0.55-1.30); GLOMERULAR FILTRATION RATE > 60.0 (>45); GLUCOSE, FASTING 103 MG/DL (70-100); POTASSIUM SERUM 4.4 MEQ/L (3.5-5.1); SODIUM LEVEL 140 MEQ/L (136-145)
[2018-05-26] MEDS ORDERED: MORPHINE 10 MG/ML 1ML VIAL (J2270) As Ordered ONE (02:37)
[2018-05-26] MEDS ORDERED: ROCURONIUM BROMIDE 50 MG/5 ML VIAL As Ordered ONE ×2 (02:49→03:48)
[2018-05-26] MEDS ORDERED: ePHEDrine SULFATE 25 MG/5 ML(5MG/ML) SYRINGE As Ordered ONE (03:01)
[2018-05-26] MEDS ORDERED: PHENYLephrine HCL 500 MCG/5 ML (100MCG/ML) SYRINGE (J2370) As Ordered ONE ×2 (03:01→03:41)
[2018-05-26] MEDS ORDERED: SUGAMMADEX SODIUM 500 MG/5 ML VIAL (BRIDION) As Ordered ONE (03:49)
[2018-05-26] MEDS ORDERED: LEVALBUTEROL 1.25 MG/0.5 ML CONCENTRATE NEB As Ordered ONE (05:42)
[2018-05-26] MEDS ORDERED: MORPHINE 10 MG/ML 1ML VIAL (J2270) IV PRN (05:45)
[2018-05-26] MEDS ORDERED: ALBUTEROL 90 MCG/ACT 8GM HFA INHALER INH PRN (05:45)
[2018-05-26] MEDS ORDERED: ONDANSETRON 4MG/2ML VIAL (J2405) IV PRN (05:45)
[2018-05-26 06:30] VITALS: BP 130/61
[2018-05-26] MEDS ORDERED: LEVALBUTEROL 1.25 MG/0.5 ML CONCENTRATE NEB INH ONE (06:30)
[2018-05-26 07:00] VITALS: BP 131/61
[2018-05-26 07:30] VITALS: BP 134/64
[2018-05-26] MEDS ORDERED: SYMBICORT 160/4.5MCG INHALER 6GM INH SCH (09:00)
--- NOTE | 2018-05-28 18:03 | RO ---
DATE OF PROCEDURE: 05/26/2018 PREOPERATIVE DIAGNOSIS: Esophageal food impaction. POSTOPERATIVE DIAGNOSIS: Esophageal food impaction. PROCEDURE PERFORMED: Esophagogastroduodenoscopy with removal of food impaction. SURGEON: Dr. Scott Soto ANESTHESIA: General. INDICATIONS FOR PROCEDURE: Patient is a 62-year-old woman who reported having pot roast of beef on 05/25/2018. She reports having taken a bite of the roast and found that her swallowing was obstructed at this point. During the course of the evening, she had recurring episodes of spitting up. In the emergency department, they had tried several times giving her thang natalee to try to stimulate passage without success. She is now for upper endoscopy and relief of her impacted food bolus. DESCRIPTION OF PROCEDURE: The patient was brought to the operating room. She was placed under general anesthesia. She was rolled into a left lateral position. The adult video endoscope was inserted and advanced under continuous video monitoring. A bolus of meat was identified in her distal esophagus. Initial attempts to try gently to push this through were without any success. I then attempted to use a Dennis net to grasp a portion of the meat, but it was impossible to get the net to engage. I subsequently used a snare again to try to grasp portions of the food bolus, but this was also very limited success. I then obtained a grasping forceps to attempt removal. Ultimately, it proved to be very difficult. The meat was too soft to grasp and remove in one bolus but too firm to allow this to pass through into the stomach. Therefore, a prolonged period of time was taken to pick away multiple small fragments of the food bolus. A total of approximately 2-1/2 hours was spent whittling the piece of meat down to a size and breaking into portions that could be passed through into the stomach. Ultimately the entire bolus was cleared. Probably half or two-thirds was removed with multiple passes of the scope and the rest could be advanced into the stomach with the scope. There was not any discrete abnormality or stricture noted in the distal esophagus. This appeared just to have hung up just superior to the gastroesophageal junction. The stomach was examined, and there were no obvious abnormalities. The pylorus distended normally, and the first and second portions of the duodenum were also noted and appeared normal. The patient tolerated the procedure well without apparent complication. She was awakened in the operating room, extubated and moved to the recovery room in stable condition. MOHAN
== END 2018-05-26 08:32 | disposition home or self-care (01) ==
LOC: M ED 21:21 → M SDC 22:49 → M PED 05-26 06:30 → M SDC 05-26 08:32
PROVIDERS: ATTEND Surgery
DX: T18.128A Food in esophagus causing other injury, initial encounter (principal); Y92.000 Kitchen of unspecified non-institutional (private) residence as the place of occurrence of the external cause; I10 Essential (primary) hypertension; E78.5 Hyperlipidemia, unspecified; J44.9 Chronic obstructive pulmonary disease, unspecified; E66.9 Obesity, unspecified; G47.30 Sleep apnea, unspecified; M54.5 Low back pain; Z79.01 Long term (current) use of anticoagulants; Z79.51 Long term (current) use of inhaled steroids; Z79.899 Other long term (current) drug therapy; Z88.1 Allergy status to other antibiotic agents; Z88.8 Allergy status to other drugs, medicaments and biological substances; Z86.73 Personal history of transient ischemic attack (TIA), and cerebral infarction without residual deficits
CPT/HCPCS: 43247; 80048; 85027; 94640; 96361; 96374; 99284; J0330; J1100; J1610; J2270; J2370; J2405; J2765

== ENCOUNTER 2018-09-21 05:55 | Inpatient (IN) | payer OTHER ==
[~2018-09-21] VITALS: Ht 175.3 cm; Wt 93.3 kg
[~2018-09-21 05:55] MED LIST changes: -/ESOM40CA; +BUSP5TA PO; +LYRI200C PO; +NEUR800T PO; +NEXI1CAP3; +OXYC15TA76 PO; +OXYC60TA8 PO; +PARO40TA2 PO; +SYMB16INH INH; +VENTAER INH
[2018-09-21] MEDS ORDERED: IPRATROPIUM 0.5MG/ALBUTEROL 2.5MG INH SOL UD 3ML (DUONEB)(J7620) NEB ONE (06:45)
[2018-09-21 07:25] LABS: BASO % 0.2 % (0.0-1.0); HEMATOCRIT 35.4 % (36.0-47.0); HEMOGLOBIN 11.6 g/dl (12.0-15.5); LYMPH # 0.4 10^3/uL (1.5-4.5); LYMPH % 3.2 % (24.0-44.0); MEAN CORPUSCULAR HEMOGLOBIN 26.6 pg (27.0-33.0); MEAN CORPUSCULAR HGB CONC 32.8 g/dl (32.0-36.5); MEAN CORPUSCULAR VOLUME 81.2 fl (80.0-96.0); MONO # 0.7 10^3/uL (0.0-0.8); MONO % 5.5 % (0.0-5.0); NEUTROPHILS # 11.7 10^3/uL (1.8-7.7); NEUTROPHILS % 89.2 % (36.0-66.0); PLATELET COUNT, AUTOMATED 190 10^3/uL (150-450); RED BLOOD COUNT 4.36 10^6/uL (4.00-5.40); WHITE BLOOD COUNT 13.2 10^3/uL (4.0-10.0)
[2018-09-21 07:51] LABS: ALBUMIN 2.3 GM/DL (3.2-5.2); ALT/SGPT 9 U/L (12-78); BILIRUBIN,DIRECT 0.4 MG/DL (0.0-0.2); BLOOD UREA NITROGEN 7 MG/DL (7-18); CALCIUM LEVEL 8.4 MG/DL (8.8-10.2); CARBON DIOXIDE LEVEL 27 MEQ/L (21-32); CHLORIDE LEVEL 94 MEQ/L (98-107); CK-MB VALUE MASS < 1.0 NG/ML (<3.6); CPK CREATINE PHOSPHOKINASE 54 U/L (26-192); CREATININE FOR GFR 0.82 MG/DL (0.55-1.30); GLOMERULAR FILTRATION RATE > 60.0 (>45); GLUCOSE, FASTING 146 MG/DL (70-100); MB/CK RELATIVE INDEX 1.85 (< OR =4); NT-PRO BNP 1037 PG/ML (<125); POTASSIUM SERUM 3.2 MEQ/L (3.5-5.1); SODIUM LEVEL 129 MEQ/L (136-145); TOTAL PROTEIN 7.7 GM/DL (6.4-8.2); TROPONIN I < 0.02 NG/ML (< 0.10)
[2018-09-21 07:51] LABS: INFLUENZA A AMPLIFICATION NEGATIVE (NEGATIVE); INFLUENZA B AMPLIFICATION NEGATIVE (NEGATIVE)
[2018-09-21] MEDS ORDERED: DOXYCYCLINE HYCLATE 100 MG in D5W MINI-BAG PLUS 100 ML IV ONE (08:00)
[2018-09-21] MEDS ORDERED: cefTRIAXone SOD 2 GM in D5W MINI-BAG PLUS 50 ML IV ONE (08:00)
[2018-09-21] MEDS ORDERED: ACETAMINOPHEN 325 MG TAB PO ONE (08:45)
[2018-09-21] MEDS ORDERED: ENOXAPARIN 40 MG/0.4 ML SYRINGE (J1650) SC SCH (09:00)
[2018-09-21] MEDS: NICOTINE 14 MG/24 HR TRANSDERMAL TD SCH (09:00)
[2018-09-21] MEDS ORDERED: NICOTINE 14 MG/24 HR TRANSDERMAL TD SCH (09:00)
[2018-09-21] MEDS: KCL 10MEQ/100ML SWI (KRUN) 10 MEQ in APPROPRIATE DILUENT 1 EA IV SCH ×3 (09:00→12:08)
[2018-09-21] MEDS ORDERED: NICO14DI24 TD (09:11)
[2018-09-21] MEDS ORDERED: AZITHROMYCIN INJ 500 MG, VIAL MATE ADAPTER 1 EACH in D5W 250 ML IV ONE (09:15)
[2018-09-21] MEDS ORDERED: busPIRone 5 MG TAB PO PRN (09:30)
[2018-09-21] MEDS ORDERED: KCL 40MEQ IN D5/0.45NS 1000ML 1,000 ML IV SCH (09:30)
[2018-09-21] MEDS: GASTROGRAFIN SOLUTION 30ML PO SCH ×2 (09:35→10:08)
[2018-09-21 09:38] LABS: HEMOGLOBIN A1c 6.6 %
[2018-09-21] MEDS ORDERED: LEVALBUTEROL 1.25 MG/0.5 ML CONCENTRATE NEB INH PRN (09:45)
--- NOTE | 2018-09-21 10:17 | REP ---
CHEST, TWO VIEWS: Two views of the chest are performed. There is dense right lower lobe infiltrate. Mild chronic changes are seen in the left lung. There is mild infiltrate in the right upper lobe. Right hilum is prominent and underlying right hilar adenopathy is not excluded. Heart is not significantly enlarged. IMPRESSION: Dense right lower lobe infiltrate. Mild right upper lobe infiltrate. Suspect right hilar adenopathy. Electronically Signed by Juan J Nicholson MD 09/21/2018 07:22 P
--- NOTE | 2018-09-21 10:21 | REP ---
CT CHEST WITHOUT IV CONTRAST: CT chest was performed without IV contrast. Sagittal and coronal reconstruction images are performed. Comparison made with prior study of 11/22/2015. There is dense infiltrate in the superior portion of the right lower lobe with consolidation and air bronchograms. Posteriorly there is an oval nodular opacity 1.2 cm in diameter This appears to have increased in size compared the prior study. I suspect right hilar adenopathy. Although evaluation is limited without IV contrast. There is a 1.1 cm lymph node in the subcarinal region and a 1 cm lymph node in the precarinal region. Heart is not enlarged there is no pleural or pericardial effusion. There is mild atherosclerotic calcification of the thoracic aorta without aneurysm. There is underlying scattered fibrotic change bilaterally which is stable. There is also mild patchy infiltrate in the right upper lobe posterolaterally. In the visualized portions of the upper abdomen there are cysts seen in the liver, the largest is in the left lobe superiorly, measuring approximately 3.2 cm in diameter. The adrenal glands are normal. There are degenerative changes of the spine. IMPRESSION: Dense consolidative infiltrate in the superior aspect of the right lower lobe with air bronchograms. In this region posteriorly there is a subpleural oval nodule which has increased since prior study of 11/22/2015 measuring 1.2 cm in diameter. I also suspect right hilar adenopathy although evaluation is limited without the use of intravenous contrast. There is mild patchy infiltrate in the right upper lobe. Followup is recommended to exclude underlying neoplasm. Electronically Signed by Juan J Nicholson MD 09/21/2018 07:22 P
[2018-09-21] MEDS ORDERED: KCL 40MEQ in NS 1000ML 1,000 ML IV SCH (10:30)
--- NOTE | 2018-09-21 10:34 | HPE ---
DATE OF ADMISSION: 09/21/2018 PRIMARY CARE PROVIDER: Dr. Navarro CHIEF COMPLAINT: Abdominal pain, diarrhea, cough, shortness of breath. 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 The patient also complains of diffuse abdominal pain and decreased appetite without any weight loss. She has noted increasing urinary frequency without dysuria or urgency. The patient denies any flank pain. In the emergency room, she was found to have a community-acquired pneumonia and treated with IV ceftriaxone. Urinalysis is pending. She had a white count of 13,000 but remained afebrile with a temperature of 98.1. The hospitalist was called to admit for pneumonia and evaluation of the patient's diarrhea. The patient denies any chest pain, pressure or tightness. She otherwise denies any dyspnea on exertion. She has a chronic left above the knee amputation stump. PAST MEDICAL HISTORY: 1. Peripheral vascular disease. 2. Left below the knee amputation. 3. Esophageal impaction in May 2018 with extraction, esophagogastroduodenoscopy (EGD) by Dr. Soto. 4. Depression. 5. Obstructive sleep apnea. 6. Hypothyroidism. 7. CVA. 8. Chronic pain. 9. Reflux. 10. Migraines. 11. Hypercholesterolemia. 12. Deep vein thrombosis (DVT). 13. Coronary artery disease. 14. 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 15. Diabetic neuropathy. 16. Neuroma of the left amputation stump. 17. COPD. 18. Anxiety. 19. Uterine cancer with bilateral oophorectomy and hysterectomy in 1984. PAST SURGICAL HISTORY: 1. Peripheral vascular disease with bilateral carotid endarterectomies. 2. Left above the knee amputation. 3. Left carpal tunnel. 4. Right ulnar decompression. 5. Right carpal tunnel with Dr. Kelley 09/2017. 6. Bilateral breast biopsy, negative, 03/2018. 7. Hysterectomy. 8. section. 9. Appendectomy. 10. Tonsillectomy. 11. Aortic bypass graft. HOME MEDICATIONS: - albuterol two puffs every 4 hours as needed - aspirin 81 mg daily - atorvastatin 40 mg daily - Symbicort two puffs inhaled twice a day - buspirone 5 mg twice a day as needed for anxiety - nicotine patch 14 mg daily - gabapentin 800 mg twice a day - oxycodone 15 mg by mouth every 6 hours as needed - oxycodone 60 mg every 12 hours - paroxetine 60 mg daily - Lyrica 200 mg three times a day - Xarelto 20 daily ALLERGIES: FENTANYL causes breathing issues, TORADOL, SUMATRIPTAN, TETRACYCLINE, ZETIA causes cramps, IMITREX causes hypertension, TRAMADOL causes itching, MORPHINE causes headaches, itching. AMITRIPTYLINE causes fogginess, fatigue. CYMBALTA causes headache. ANORO ELLIPTA felt throat irritation, SPIRIVA with lack of therapeutic effect. SOCIAL HISTORY: Previously smoked a pack a day for 20 years. Lives alone. Social alcohol use. History of cocaine, last use was over 7 years ago. FAMILY HISTORY: Five sisters, one with breast cancer. Both parents with heart disease. REVIEW OF SYSTEMS: The patient had a fever of 102 two days ago. No chills currently. No night sweats. No weight gain or weight loss. Negative aside from positive findings in history of present illness. 12-point system obtained. PHYSICAL EXAMINATION: Temperature 98.1, pulse 89, respiratory rate 22, blood pressure 123/50, 95% on room air. GENERAL: The patient is awake, alert, oriented times three. Answering questions appropriately. She is moaning at the bedside, lying on the right side on the stretcher. She is not use accessory muscles. No cyanosis. No clubbing. No icterus. No jaundice. Pupils are round and reactive. Moist mucous membranes. Missing teeth and poor dentition. NECK: Supple with full range of motion. No jugular venous distention (JVD), cervical lymphadenopathy, thyromegaly. LUNGS: Diminished. Bilateral wheezing and crackles in right base. Air entry is diminished with prolonged expiration. HEART: S1, S2. Sinus rhythm. No murmurs, rubs or gallops. ABDOMEN: Obese, soft. Tender diffusely. No rebound or guarding. Positive bowel sounds times four quadrants. EXTREMITIES: Left above the knee amputation. No pitting edema, cyanosis or any clubbing. LABORATORY DATA: White count 13, hemoglobin 11, hematocrit 35, platelet count 190. Sodium 129, potassium 3.2, chloride 94, bicarbonate 27, BUN 7, creatinine 0.82, glucose 146, lactic acid of 1.5, calcium 8.4, total bilirubin 1, direct bilirubin 0.4, AST 17, ALT 9, alkaline phosphatase 121, total CK 54, MB fraction less than 1, troponin is less than 0.02, BNP 1037, total protein 7.7, albumin 2.3. Microbiology: GI panel pending. Urine Legionella, urine Streptococcus, blood cultures, sputum culture, respiratory panel are all pending. CT of the chest on 09/21/2018 at 0753 hours is pending official report. Chest x-ray is pending report. ASSESSMENT AND PLAN: 62-year-old with right basilar pneumonia with diarrhea. PLAN: 1. Community-acquired pneumonia. The patient will be admitted to medical/surgical floor as an inpatient for two midnights. She will complete 7 days of IV ceftriaxone, five days of azithromycin. We will check sputum culture, urine Legionella, Streptococcus pneumo antigen in the urine, two sets of blood cultures, tailor antibiotics accordingly. Nebulizer treatments, supplemental oxygen if the patient clinically worsens. 2. Diarrhea. GI panel has been obtained. Bacid to prevent Clostridium (C.) difficile. 3. Chronic obstructive pulmonary disease (COPD) exacerbation with audible wheezing secondary to pneumonia. The patient will be given Solu-Medrol, nebulizer treatments around the clock and continued on until clinically improved. Supplemental oxygen if needed. 4. Sepsis, tachycardia, increased respiratory rate, and increased white count of 13,000 secondary to community-acquired pneumonia. The patient will be given antibiotic and has supplemental oxygen if needed. Nebulizer treatments. 5. Hyponatremia secondary to diarrhea. Normal saline bolus times 1 liter. Recheck metabolic panel and monitor for mental status changes. 6. Peripheral vascular disease, status post left above the knee amputation. Postoperative management per outpatient surgeon. 7. Reflux disease. Continue on proton pump inhibitor. 8. Migraine headaches. Currently no issues. 9. History of CVA and deep vein thrombosis (DVT). Continue on anticoagulation. 10. History of uterine cancer, status post hysterectomy and bilateral oophorectomy, chronic. 11. Hypokalemia, supplemented, secondary to diarrhea. 12. History of pulmonary nodule. Outpatient followup. 13. History of obstructive sleep apnea. May consider resuming home continuous positive airway pressure (CPAP) at home settings. 14. Obesity. Body Mass Index (BMI) of 31, complicating care.
[2018-09-21 11:15] VITALS: BP 115/56
--- NOTE | 2018-09-21 11:36 | REP ---
CT ABDOMEN AND PELVIS WITH ORAL CONTRAST: CT abdomen and pelvis performed with oral contrast only. No IV contrast was administered. There are cystic structures in the liver, the largest is in the left lobe, measuring approximately 3.2 cm in maximum diameter. The spleen, adrenals, pancreas, and kidneys are grossly unremarkable. There is no renal, ureteral, or bladder calculus and no hydroureteronephrosis. Atherosclerotic calcifications are noted of the abdominal aorta. There is evidence of prior aortobifemoral bypass graft surgery. There is no adenopathy. There is no free air or free fluid. No bowel wall thickening is seen. There is no evidence of bowel obstruction. Patient has had a prior cholecystectomy. No pelvic mass is seen. The patient has had a hysterectomy. Urinary bladder is not well distended and not optimally evaluated. There are degenerative changes of the spine. IMPRESSION: No acute intra-abdominal or pelvic pathology. Cysts are again seen in the liver. There is evidence of prior aortobifemoral bypass graft surgery. No free air or free fluid. No evidence of bowel obstruction or inflammation. Prior cholecystectomy. Electronically Signed by Juan J Nicholson MD 09/21/2018 07:26 P
[2018-09-21] MEDS: LEVALBUTEROL 1.25 MG/0.5 ML CONCENTRATE NEB INH SCH ×4 (11:57→23:27)
[2018-09-21] MEDS: SYMBICORT 160/4.5MCG INHALER 6GM INH SCH ×2 (11:57→20:31)
[2018-09-21] MEDS: IPRATROPIUM 0.02% SOLN 0.5MG/2.5 ML NEB INH SCH ×4 (11:57→23:27)
[2018-09-21] MEDS: methylPREDNISolone INJ 125 MG/2 ML VIAL (J2930) IV SCH ×2 (12:01→22:08)
[2018-09-21] MEDS: LACTOBACILLUS ACIDOPHILUS CAP (BACID) PO SCH ×2 (12:02→18:41)
[2018-09-21] MEDS: GABAPENTIN 400 MG CAP PO SCH ×2 (12:02→22:09)
[2018-09-21] MEDS: ATORVASTATIN 20 MG TAB PO SCH (12:02)
[2018-09-21] MEDS: OMEPRAZOLE 20 MG CAP PO SCH ×2 (12:02→22:08)
[2018-09-21] MEDS: CILOSTAZOL 100 MG TAB (PLETAL) PO SCH ×2 (12:02→22:09)
[2018-09-21] MEDS: PARoxetine 20 MG TAB PO SCH (12:03)
[2018-09-21] MEDS: PREGABALIN 100 MG CAP (LYRICA) PO SCH ×3 (12:03→22:08)
[2018-09-21] MEDS: ASPIRIN 81 MG ENTERIC TAB PO SCH (12:09)
[2018-09-21] MEDS: oxyCODONE 20 MG CR TAB PO SCH ×2 (12:17→22:08)
[2018-09-21] MEDS ORDERED: POTASSIUM CHLORIDE 10 MEQ SR TABLET PO ONE ×2 (13:15→14:15)
[2018-09-21] MEDS ORDERED: ALPRAZolam 0.5 MG TAB PO ONE (13:15)
[2018-09-21 22:00] VITALS: BP 111/62
[2018-09-22] MEDS: IPRATROPIUM 0.02% SOLN 0.5MG/2.5 ML NEB INH SCH ×6 (03:03→23:44)
[2018-09-22] MEDS: LEVALBUTEROL 1.25 MG/0.5 ML CONCENTRATE NEB INH SCH ×7 (03:03→23:44)
[2018-09-22 06:00] VITALS: BP 126/89
[2018-09-22 06:16] LABS: HEMATOCRIT 36.7 % (36.0-47.0); HEMOGLOBIN 11.7 g/dl (12.0-15.5); MEAN CORPUSCULAR HEMOGLOBIN 25.9 pg (27.0-33.0); MEAN CORPUSCULAR HGB CONC 31.9 g/dl (32.0-36.5); MEAN CORPUSCULAR VOLUME 81.2 fl (80.0-96.0); PLATELET COUNT, AUTOMATED 258 10^3/uL (150-450); RED BLOOD COUNT 4.52 10^6/uL (4.00-5.40); WHITE BLOOD COUNT 14.5 10^3/uL (4.0-10.0)
[2018-09-22 06:32] LABS: ALBUMIN 2.4 GM/DL (3.2-5.2); BILIRUBIN,TOTAL 0.3 MG/DL (0.2-1.0); CALCIUM LEVEL 9.6 MG/DL (8.8-10.2); CREATININE FOR GFR 1.55 MG/DL (0.55-1.30); GLOMERULAR FILTRATION RATE 36.3 (>45); MAGNESIUM LEVEL 2.3 MG/DL (1.8-2.4); POTASSIUM SERUM 3.9 MEQ/L (3.5-5.1); TOTAL PROTEIN 8.2 GM/DL (6.4-8.2)
[2018-09-22] MEDS: SYMBICORT 160/4.5MCG INHALER 6GM INH SCH (07:55)
[2018-09-22] MEDS: TIOTROPIUM INHALER/CAPSULE (SPIRIVA) INH SCH (08:00)
[2018-09-22] MEDS ORDERED: NS 1,000 ML IV ONE (09:00)
[2018-09-22] MEDS: NICOTINE 14 MG/24 HR TRANSDERMAL TD SCH (09:27)
[2018-09-22] MEDS: ASPIRIN 81 MG ENTERIC TAB PO SCH (09:32)
[2018-09-22] MEDS: PREGABALIN 100 MG CAP (LYRICA) PO SCH ×3 (09:32→21:45)
[2018-09-22] MEDS: OMEPRAZOLE 20 MG CAP PO SCH ×2 (09:32→21:45)
[2018-09-22] MEDS: AZITHROMYCIN 250 MG TAB PO SCH (09:32)
[2018-09-22] MEDS: RIVAROXABAN 20 MG TAB (XARELTO) PO SCH (09:32)
[2018-09-22] MEDS: CILOSTAZOL 100 MG TAB (PLETAL) PO SCH ×2 (09:32→21:45)
[2018-09-22] MEDS: oxyCODONE 20 MG CR TAB PO SCH ×2 (09:32→21:45)
[2018-09-22] MEDS: ATORVASTATIN 20 MG TAB PO SCH (09:32)
[2018-09-22] MEDS: LACTOBACILLUS ACIDOPHILUS CAP (BACID) PO SCH ×3 (09:32→17:34)
[2018-09-22] MEDS: PARoxetine 20 MG TAB PO SCH (09:32)
[2018-09-22] MEDS: methylPREDNISolone INJ 125 MG/2 ML VIAL (J2930) IV SCH ×4 (09:33→23:55)
[2018-09-22] MEDS: cefTRIAXone SOD 2 GM in D5W MINI-BAG PLUS 50 ML IV SCH (09:33)
--- NOTE | 2018-09-22 10:45 | IPNPDOC ---
Date Seen The patient was seen on 09/22/18. Progress Note SUBJECTIVE: Sob is improved but still with audible wheezing despite iv solumedrol, nebs. c/o yellow thick productive sputum. no sputum sample sent yet. no c/o fever or chills. 09/21/18 CT chest:" subpleural oval nodule which has increased since prior study of 11/22/2015 measuring 1.2 cm in diameter. I also suspect right hilar adenopathy." PHYSICAL EXAMINATION: VITALS: PLS SEE BELOW GENERAL: The patient is awake, alert, oriented times three. Answering questions appropriately. She is moaning at the bedside, lying on the right side on the stretcher. She is not use accessory muscles. No cyanosis. No clubbing. No icterus. No jaundice. Pupils are round and reactive. Moist mucous membranes. Missing teeth and poor dentition. NECK: Supple with full range of motion. No jugular venous distention (JVD), cervical lymphadenopathy, thyromegaly. LUNGS: Diminished. Bilateral wheezing and crackles in right base. Air entry is diminished with prolonged expiration.rhonchi b/l. HEART: S1, S2. Sinus rhythm. No murmurs, rubs or gallops. ABDOMEN: Obese, soft. Tender diffusely. No rebound or guarding. Positive bowel sounds times four quadrants. EXTREMITIES: Left above the knee amputation. No pitting edema, cyanosis or any clubbing. ADMISSION LABORATORY DATA: White count 13, hemoglobin 11, hematocrit 35, platelet count 190. Sodium 129, potassium 3.2, chloride 94, bicarbonate 27, BUN 7, creatinine 0.82, glucose 146, lactic acid of 1.5, calcium 8.4, total bilirubin 1, direct bilirubin 0.4, AST 17, ALT 9, alkaline phosphatase 121, total CK 54, MB fraction less than 1, troponin is less than 0.02, BNP 1037, total protein 7.7, albumin 2.3. Microbiology: GI panel pending. Urine Legionella, urine Streptococcus, blood cultures, sputum culture, respiratory panel are all pending. LABORATORY DATA, IMAGING STUDIES, MICROBIOLOGY: PLS SEE BELOW 09/21/18 CT chest was performed without IV contrast. Sagittal and coronal reconstruction images are performed. Comparison made with prior study of 11/22/2015. There is dense infiltrate in the superior portion of the right lower lobe with consolidation and air bronchograms. Posteriorly there is an oval nodular opacity 1.2 cm in diameter This appears to have increased in size compared the prior study. I suspect right hilar adenopathy. Although evaluation is limited without IV contrast. There is a 1.1 cm lymph node in the subcarinal region and a 1 cm lymph node in the precarinal region. Heart is not enlarged there is no pleural or pericardial effusion. There is mild atherosclerotic calcification of the thoracic aorta without aneurysm. There is underlying scattered fibrotic change bilaterally which is stable. There is also mild patchy infiltrate in the right upper lobe posterolaterally. In the visualized portions of the upper abdomen there are cysts seen in the liver, the largest is in the left lobe superiorly, measuring approximately 3.2 cm in diameter. The adrenal glands are normal. There are degenerative changes of the spine. IMPRESSION: Dense consolidative infiltrate in the superior aspect of the right lower lobe with air bronchograms. In this region posteriorly there is a subpleural oval nodule which has increased since prior study of 11/22/2015 measuring 1.2 cm in diameter. I also suspect right hilar adenopathy although evaluation is limited without the use of intravenous contrast. There is mild patchy infiltrate in the right upper lobe. Followup is recommended to exclude underlying neoplasm. Electronically Signed by Juan J Nicholson MD 09/21/2018 07:22 P 09/21/18 CT abdomen and pelvis performed with oral contrast only. No IV contrast was administered. There are cystic structures in the liver, the largest is in the left lobe, measuring approximately 3.2 cm in maximum diameter. The spleen, adrenals, pancreas, and kidneys are grossly unremarkable. There is no renal, ureteral, or bladder calculus and no hydroureteronephrosis. Atherosclerotic calcifications are noted of the abdominal aorta. There is evidence of prior aortobifemoral bypass graft surgery. There is no adenopathy. There is no free air or free fluid. No bowel wall thickening is seen. There is no evidence of bowel obstruction. Patient has had a prior cholecystectomy. No pelvic mass is seen. The patient has had a hysterectomy. Urinary bladder is not well distended and not optimally evaluated. There are degenerative changes of the spine. IMPRESSION: No acute intra-abdominal or pelvic pathology. Cysts are again seen in the liver. There is evidence of prior aortobifemoral bypass graft surgery. No free air or free fluid. No evidence of bowel obstruction or inflammation. Prior cholecystectomy. 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 The patient also complains of diffuse abdominal pain and decreased appetite without any weight loss. She has noted increasing urinary frequency without dysuria or urgency. The patient denies any flank pain. In the emergency room, she was found to have a community-acquired pneumonia and treated with IV ceftriaxone. Urinalysis is pending. She had a white count of 13,000 but remained afebrile with a temperature of 98.1. The hospitalist was called to admit for pneumonia and evaluation of the patient's diarrhea. The patient denies any chest pain, pressure or tightness. Right lower lobe postobstructive pneumonia: -admitted to medical/surgical floor as an inpatient for two midnights. She will complete 7 days of IV ceftriaxone, five days of azithromycin. We will check sputum culture, urine Legionella, Streptococcus pneumo antigen in the urine, two sets of blood cultures, tailor antibiotics accordingly. Nebulizer treatments, supplemental oxygen if the patient clinically worsens. Pulmonary nodule -enlarging per Dr. Nicholson 09/21/18 -09/21/18 CT chest :"subpleural oval nodule which has increased since prior study of 11/22/2015 measuring 1.2 cm in diameter. I also suspect right hilar adenopathy " -once acute infectious process is resolved, biopsy of new enlarging nodule is warranted to rule out malignancy. Diarrhea. GI panel has been obtained. Bacid to prevent Clostridium (C.) difficile. Chronic obstructive pulmonary disease (COPD) exacerbation with audible wheezing secondary to pneumonia. The patient will be given Solu-Medrol, nebulizer treatments around the clock and continued on until clinically improved. Supplemental oxygen if needed. Sepsis, tachycardia, increased respiratory rate, and increased white count of 13,000 secondary to community-acquired pneumonia. The patient will be given antibiotic and has supplemental oxygen if needed. Nebulizer treatments. Hyponatremia secondary to diarrhea. Normal saline bolus times 1 liter. Recheck metabolic panel and monitor for mental status changes. Peripheral vascular disease, status post left above the knee amputation. Postoperative management per outpatient surgeon. Reflux disease. Continue on proton pump inhibitor. Migraine headaches. Currently no issues. History of CVA and deep vein thrombosis (DVT). Continue on anticoagulation. History of uterine cancer, status post hysterectomy and bilateral oophorectomy, chronic. Hypokalemia, supplemented, secondary to diarrhea. History of obstructive sleep apnea. May consider resuming home continuous positive airway pressure (CPAP) at home settings. Obesity. Body Mass Index (BMI) of 31, complicating care. VS, I&O[facility]O Vital Signs Date Time Temp Pulse Resp B/P (MAP) Pulse Ox O2 Delivery O2 Flow Rate FiO2 09/22/18 09:32 18 09/22/18 06:00 97.0 83 126/89 (101) 91 09/21/18 11:11 Room Air I&O- Last 24 Hours up to 6 AM 09/22/18 06:00 Intake Total 1550 ml Output Total 250 ml Balance 1300 ml Laboratory Data 24H LABS Laboratory Tests 2 09/22/18 05:46: Nucleated Red Blood Cells % (auto) 0.0, Anion Gap 8, Glomerular Filtration Rate 36.3L, Blood Urea Nitrogen 20#H, Creatinine 1.55#H, Sodium Level 135L, Potassium Level 3.9#, Chloride Level 103, Carbon Dioxide Level 24, Calcium Level 9.6, Aspartate Amino Transf (AST/SGOT) 13, Alanine Aminotransferase (ALT/SGPT) 10L, Alkaline Phosphatase 123H, Total Bilirubin 0.3#, Total Protein 8.2, Albumin 2.4L , Magnesium Level 2.3, Albumin/Globulin Ratio 0.41L CBC/BMP Laboratory Tests 09/22/18 05:46 Red Blood Count 4.52, Mean Corpuscular Volume 81.2, Mean Corpuscular Hemoglobin 25.9 L, Mean Corpuscular Hemoglobin Concent 31.9 L, Red Cell Distribution Width 15.9 H, Calcium Level 9.6, Aspartate Amino Transf (AST/SGOT) 13, Alanine Aminotransferase (ALT/SGPT) 10 L, Alkaline Phosphatase 123 H, Total Bilirubin 0.3 #, Total Protein 8.2, Albumin 2.4 L Microbiology Microbiology 09/21/18 Blood Culture - Preliminary, Resulted No growth after 24 hours . All specim... 09/21/18 Gastrointestinal Tract Panel (PCR) - Final, Complete 09/22/18 Respiratory Virus Panel (PCR) ([facility]) - Final, Complete ERIC CANTRELL MD Sep 22, 2018 10:38
[2018-09-22] MEDS ORDERED: LEVALBUTEROL 1.25 MG/0.5 ML CONCENTRATE NEB NEB ONE (11:00)
[2018-09-22] MEDS: oxyCODONE 5MG TAB PO PRN (11:36)
[2018-09-22 14:00] VITALS: BP 157/70
[2018-09-22] MEDS ORDERED: THIAMINE HCL 200 MG/2 ML VIAL (J3411) IV ONE (14:00)
[2018-09-22] MEDS: ONDANSETRON 4MG/2ML VIAL (J2405) IV PRN (17:33)
--- NOTE | 2018-09-22 18:44 | ECGEPIP ---
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
[2018-09-22] MEDS: BUDESONIDE 0.5 MG/2 ML INHALATION SUSPENSION INH SCH (20:00)
[2018-09-22 22:00] VITALS: BP 150/67
[2018-09-23] MEDS: LEVALBUTEROL 1.25 MG/0.5 ML CONCENTRATE NEB INH SCH ×6 (04:00→23:48)
[2018-09-23] MEDS: IPRATROPIUM 0.02% SOLN 0.5MG/2.5 ML NEB INH SCH ×6 (04:00→23:48)
[2018-09-23 06:00] VITALS: BP 135/60
[2018-09-23] MEDS: methylPREDNISolone INJ 125 MG/2 ML VIAL (J2930) IV SCH ×3 (06:03→17:02)
--- NOTE | 2018-09-23 07:33 | REP ---
MRI BRAIN WITHOUT CONTRAST: Multiple sequences obtained in the sagittal and axial planes. No IV contrast was administered. The study is limited by patient motion. Comparison made with prior MRI of 03/21/2016. There is mild to moderate atrophy. There is no midline shift or mass effect. There is an area of old ischemic change and gliosis in the left posterior parietal and occipital region which is unchanged since the prior exam. No acute abnormalities are seen on the diffusion weighted or ADC images. There is no acute infarct. No mass effect or white matter edema is seen. There is no other signal abnormality in the brain, brain stem or cerebellum. The seventh and eighth cranial nerve complexes are grossly unremarkable. Mild scattered opacification is seen in bilateral ethmoid sinuses. IMPRESSION: Stable chronic findings. No acute infarct or other acute edema or mass effect. Scattered moderate mucosal thickening in the ethmoid sinuses. Please note that in order to completely exclude a metastatic lesion, MRI should be performed with IV contrast. Electronically Signed by Juan J Nicholson MD 09/23/2018 08:32 A
[2018-09-23] MEDS: BUDESONIDE 0.5 MG/2 ML INHALATION SUSPENSION INH SCH ×2 (08:25→19:49)
[2018-09-23] MEDS: TIOTROPIUM INHALER/CAPSULE (SPIRIVA) INH SCH (08:25)
[2018-09-23] MEDS: cefTRIAXone SOD 2 GM in D5W MINI-BAG PLUS 50 ML IV SCH (08:36)
[2018-09-23] MEDS: oxyCODONE 20 MG CR TAB PO SCH ×2 (08:37→21:46)
[2018-09-23] MEDS: NICOTINE 14 MG/24 HR TRANSDERMAL TD SCH (08:38)
[2018-09-23] MEDS: LACTOBACILLUS ACIDOPHILUS CAP (BACID) PO SCH ×3 (08:38→17:02)
[2018-09-23] MEDS: ASPIRIN 81 MG ENTERIC TAB PO SCH (08:38)
[2018-09-23] MEDS: PARoxetine 20 MG TAB PO SCH (08:38)
[2018-09-23] MEDS: RIVAROXABAN 20 MG TAB (XARELTO) PO SCH (08:38)
[2018-09-23] MEDS: ATORVASTATIN 20 MG TAB PO SCH (08:38)
[2018-09-23] MEDS: AZITHROMYCIN 250 MG TAB PO SCH (08:38)
[2018-09-23] MEDS: PREGABALIN 100 MG CAP (LYRICA) PO SCH ×3 (08:38→21:38)
[2018-09-23] MEDS: OMEPRAZOLE 20 MG CAP PO SCH ×2 (08:38→21:38)
[2018-09-23] MEDS: CILOSTAZOL 100 MG TAB (PLETAL) PO SCH ×2 (09:32→21:38)
[2018-09-23 09:45] LABS: HEMATOCRIT 31.9 % (36.0-47.0); HEMOGLOBIN 10.1 g/dl (12.0-15.5); MEAN CORPUSCULAR HEMOGLOBIN 26.6 pg (27.0-33.0); MEAN CORPUSCULAR HGB CONC 31.7 g/dl (32.0-36.5); MEAN CORPUSCULAR VOLUME 84.2 fl (80.0-96.0); PLATELET COUNT, AUTOMATED 269 10^3/uL (150-450); RED BLOOD COUNT 3.79 10^6/uL (4.00-5.40); WHITE BLOOD COUNT 11.8 10^3/uL (4.0-10.0)
[2018-09-23 10:27] LABS: CALCIUM LEVEL 8.4 MG/DL (8.8-10.2); CREATININE FOR GFR 1.5 MG/DL (0.55-1.30); GLOMERULAR FILTRATION RATE 37.7 (>45); LYMPHOCYTES 2 % (16-52); METAMYELOCYTES 1 % (0-0); MONOCYTES 2 % (0-8); MYELOCYTES 2 % (0-0); NEUTROPHILS 93 % (35-75); PLATELET ESTIMATE NORMAL (NORMAL); POTASSIUM SERUM 4.2 MEQ/L (3.5-5.1)
[2018-09-23 10:28] LABS: ANISOCYTOSIS 1+
[2018-09-23] MEDS ORDERED: NS 500 ML IV ONE (10:45)
[2018-09-23] MEDS: NS 1,000 ML IV SCH (10:56)
--- NOTE | 2018-09-23 11:00 | IPNPDOC ---
Date Seen The patient was seen on 09/23/18. Progress Note SUBJECTIVE: Pt denies visual hallucinations. "I was making that up, but do you see the cat there?" Looking at the ceiling, pt said she has ceramics at home that look like the frog, there. MRI brain-no CVA. MRI brain w contrast to rule out mets pending. creatinine 1.55 on ivfluids to prevent contrast nephropathy. no fevers overnights. still w wheezing and cough productive of yellow sputum, afebrile without chills. Pt agrees to have a biopsy for pulmonary nodule, but once respirtaory status improves. PHYSICAL EXAMINATION: VITALS: PLS SEE BELOW GENERAL: The patient is awake, alert, oriented times three. Answering questions appropriately. She is moaning at the bedside, lying on the right side on the stretcher. She is not use accessory muscles. No cyanosis. No clubbing. No icterus. No jaundice. Pupils are round and reactive. Moist mucous membranes. Missing teeth and poor dentition. NECK: Supple with full range of motion. No jugular venous distention (JVD), cervical lymphadenopathy, thyromegaly. LUNGS: Diminished. Bilateral wheezing and crackles in right base. Air entry is diminished with prolonged expiration.rhonchi b/l. HEART: S1, S2. Sinus rhythm. No murmurs, rubs or gallops. ABDOMEN: Obese, soft. Tender diffusely. No rebound or guarding. Positive bowel sounds times four quadrants. EXTREMITIES: Left above the knee amputation. No pitting edema, cyanosis or any clubbing. ADMISSION LABORATORY DATA: White count 13, hemoglobin 11, hematocrit 35, platelet count 190. Sodium 129, potassium 3.2, chloride 94, bicarbonate 27, BUN 7, creatinine 0.82, glucose 146, lactic acid of 1.5, calcium 8.4, total bilirubin 1, direct bilirubin 0.4, AST 17, ALT 9, alkaline phosphatase 121, total CK 54, MB fraction less than 1, troponin is less than 0.02, BNP 1037, total protein 7.7, albumin 2.3. Microbiology: GI panel pending. Urine Legionella, urine Streptococcus, blood cultures, sputum culture, respiratory panel are all pending. LABORATORY DATA, IMAGING STUDIES, MICROBIOLOGY: PLS SEE BELOW 09/21/18 CT chest was performed without IV contrast. Sagittal and coronal reconstruction images are performed. Comparison made with prior study of 11/22/2015. There is dense infiltrate in the superior portion of the right lower lobe with consolidation and air bronchograms. Posteriorly there is an oval nodular opacity 1.2 cm in diameter This appears to have increased in size compared the prior study. I suspect right hilar adenopathy. Although evaluation is limited without IV contrast. There is a 1.1 cm lymph node in the subcarinal region and a 1 cm lymph node in the precarinal region. Heart is not enlarged there is no pleural or pericardial effusion. There is mild atherosclerotic calcification of the thoracic aorta without aneurysm. There is underlying scattered fibrotic change bilaterally which is stable. There is also mild patchy infiltrate in the right upper lobe posterolaterally. In the visualized portions of the upper abdomen there are cysts seen in the liver, the largest is in the left lobe superiorly, measuring approximately 3.2 cm in diameter. The adrenal glands are normal. There are degenerative changes of the spine. IMPRESSION: Dense consolidative infiltrate in the superior aspect of the right lower lobe with air bronchograms. In this region posteriorly there is a subpleural oval nodule which has increased since prior study of 11/22/2015 measuring 1.2 cm in diameter. I also suspect right hilar adenopathy although evaluation is limited without the use of intravenous contrast. There is mild patchy infiltrate in the right upper lobe. Followup is recommended to exclude underlying neoplasm. Electronically Signed by Juan J Nicholson MD 09/21/2018 07:22 P 09/21/18 CT abdomen and pelvis performed with oral contrast only. No IV contrast was administered. There are cystic structures in the liver, the largest is in the left lobe, measuring approximately 3.2 cm in maximum diameter. The spleen, adrenals, pancreas, and kidneys are grossly unremarkable. There is no renal, ureteral, or bladder calculus and no hydroureteronephrosis. Atherosclerotic calcifications are noted of the abdominal aorta. There is evidence of prior aortobifemoral bypass graft surgery. There is no adenopathy. There is no free air or free fluid. No bowel wall thickening is seen. There is no evidence of bowel obstruction. Patient has had a prior cholecystectomy. No pelvic mass is seen. The patient has had a hysterectomy. Urinary bladder is not well distended and not optimally evaluated. There are degenerative changes of the spine. IMPRESSION: No acute intra-abdominal or pelvic pathology. Cysts are again seen in the liver. There is evidence of prior aortobifemoral bypass graft surgery. No free air or free fluid. No evidence of bowel obstruction or inflammation. Prior cholecystectomy. 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 The patient also complains of diffuse abdominal pain and decreased appetite without any weight loss. She has noted increasing urinary frequency without dysuria or urgency. The patient denies any flank pain. In the emergency room, she was found to have a community-acquired pneumonia and treated with IV ceftriaxone. Urinalysis is pending. She had a white count of 13,000 but remained afebrile with a temperature of 98.1. The hospitalist was called to admit for pneumonia and evaluation of the patient's diarrhea. The patient denies any chest pain, pressure or tightness. Right lower lobe postobstructive pneumonia: -admitted to medical/surgical floor as an inpatient for two midnights. She will complete 7 days of IV ceftriaxone, five days of azithromycin. We will check sputum culture, urine Legionella, Streptococcus pneumo antigen in the urine, two sets of blood cultures, tailor antibiotics accordingly. Nebulizer treatments, supplemental oxygen if the patient clinically worsens. Pulmonary nodule -enlarging per Dr. Nicholson 09/21/18 -09/21/18 CT chest :"subpleural oval nodule which has increased since prior study of 11/22/2015 measuring 1.2 cm in diameter. I also suspect right hilar adenopathy " -once acute infectious process is resolved, biopsy of new enlarging nodule is warranted to rule out malignancy. Diarrhea. GI panel has been obtained. Bacid to prevent Clostridium (C.) difficile. Acute encephalopathy may be due to pneumonia r/o mets from known pulm nodule most likely malignancy. Chronic obstructive pulmonary disease (COPD) exacerbation with audible wheezing secondary to pneumonia. The patient will be given Solu-Medrol, nebulizer treatments around the clock and continued on until clinically improved. Supplemental oxygen if needed. Sepsis, tachycardia, increased respiratory rate, and increased white count of 13,000 secondary to community-acquired pneumonia. The patient will be given antibiotic and has supplemental oxygen if needed. Nebulizer treatments. Hyponatremia secondary to diarrhea. Normal saline bolus times 1 liter. Recheck metabolic panel and monitor for mental status changes. Peripheral vascular disease, status post left above the knee amputation. Postoperative management per outpatient surgeon. Reflux disease. Continue on proton pump inhibitor. Migraine headaches. Currently no issues. History of CVA and deep vein thrombosis (DVT). Continue on anticoagulation. History of uterine cancer, status post hysterectomy and bilateral oophorectomy, chronic. Hypokalemia, supplemented, secondary to diarrhea. History of obstructive sleep apnea. May consider resuming home continuous positive airway pressure (CPAP) at home settings. Obesity. Body Mass Index (BMI) of 31, complicating care. VS, I&O, 24H, Fishbone Vital Signs/I&O Vital Signs Date Time Temp Pulse Resp B/P (MAP) Pulse Ox O2 Delivery O2 Flow Rate FiO2 09/23/18 08:37 22 09/23/18 06:00 96.9 74 135/60 (85) 93 09/21/18 11:11 Room Air I&O- Last 24 Hours up to 6 AM 09/23/18 06:00 Intake Total 4230 ml Output Total 300 ml Balance 3930 ml Laboratory Data Microbiology Microbiology 09/21/18 Blood Culture - Preliminary, Resulted No growth after 24 hours . All specim... 09/21/18 Gastrointestinal Tract Panel (PCR) - Final, Complete 09/22/18 Gram Stain - Final, Resulted 09/22/18 Sputum Culture, Resulted Pending 09/22/18 Respiratory Virus Panel (PCR) ([facility]) - Final, Complete ERIC CANTRELL MD Sep 23, 2018 08:47
[2018-09-23 14:00] VITALS: BP 130/89
[2018-09-23] MEDS ORDERED: PROHANCE 279.3MG/ML 5ML VIAL (A9576) As Ordered ONE (20:30)
[2018-09-23 22:00] VITALS: BP 124/78
--- NOTE | 2018-09-23 22:29 | REPVR ---
EXAM: MR Head With Contrast EXAM DATE/TIME: 09/23/2018 8:50 PM CLINICAL HISTORY: 62 years old, female; Abnormal findings; Abnormal radiologic findings of head/skull; Not specified; Patient HX: F/u prior noncon mri on pacs; Additional info: R/O mets pulmonary nodule most likely malignancy TECHNIQUE: Imaging protocol: MR of the head with intravenous contrast. Contrast material: PROHANCE; Contrast volume: 8 ml; Contrast route: 20G ANGIOCATH; COMPARISON: MRI-Brain without Contrast 09/22/2018 1:21 PM FINDINGS: Brain: No contrast is seen in the brain to suggest any abnormality. Exam is also limited by motion artifact. Ventricles: Mild prominence of the ventricles and sulci representing mild volume loss. Bones/joints: Unremarkable. Soft tissues: Normal. Sinuses: Mild mucosal thickening of ethmoidal air cells. Mastoid air cells: Normal as visualized. No mastoid effusion. Orbits: Unremarkable. IMPRESSION: No contrast is seen in the brain to suggest any abnormality. Exam is also limited by motion artifact. Repeat exam with contrast if clinically concerned for metastatic disease. Electronically signed by: Jess Ramos On 09/23/2018 22:28:56 PM
[2018-09-24] MEDS: methylPREDNISolone INJ 125 MG/2 ML VIAL (J2930) IV SCH ×4 (00:43→17:11)
[2018-09-24] MEDS: LEVALBUTEROL 1.25 MG/0.5 ML CONCENTRATE NEB INH SCH ×4 (02:49→16:00)
[2018-09-24] MEDS: IPRATROPIUM 0.02% SOLN 0.5MG/2.5 ML NEB INH SCH ×4 (02:49→16:00)
[2018-09-24 06:00] VITALS: BP 162/69
[2018-09-24] MEDS: NS 1,000 ML IV SCH (06:42)
[2018-09-24] MEDS: TIOTROPIUM INHALER/CAPSULE (SPIRIVA) INH SCH (07:45)
[2018-09-24] MEDS: BUDESONIDE 0.5 MG/2 ML INHALATION SUSPENSION INH SCH (07:46)
[2018-09-24] MEDS: AZITHROMYCIN 250 MG TAB PO SCH (08:22)
[2018-09-24] MEDS: ATORVASTATIN 20 MG TAB PO SCH (08:22)
[2018-09-24] MEDS: RIVAROXABAN 20 MG TAB (XARELTO) PO SCH (08:22)
[2018-09-24] MEDS: PARoxetine 20 MG TAB PO SCH (08:22)
[2018-09-24] MEDS: NICOTINE 14 MG/24 HR TRANSDERMAL TD SCH (08:22)
[2018-09-24] MEDS: PREGABALIN 100 MG CAP (LYRICA) PO SCH ×3 (08:22→21:54)
[2018-09-24] MEDS: CILOSTAZOL 100 MG TAB (PLETAL) PO SCH ×2 (08:22→21:54)
[2018-09-24] MEDS: cefTRIAXone SOD 2 GM in D5W MINI-BAG PLUS 50 ML IV SCH (08:22)
[2018-09-24] MEDS: LACTOBACILLUS ACIDOPHILUS CAP (BACID) PO SCH ×3 (08:22→17:11)
[2018-09-24] MEDS: OMEPRAZOLE 20 MG CAP PO SCH ×2 (08:22→21:54)
[2018-09-24] MEDS: oxyCODONE 20 MG CR TAB PO SCH ×2 (08:23→21:55)
[2018-09-24] MEDS: ASPIRIN 81 MG ENTERIC TAB PO SCH (08:23)
[2018-09-24] MEDS: oxyCODONE 5MG TAB PO PRN ×2 (12:19→18:54)
[2018-09-24] MEDS: ONDANSETRON 4MG/2ML VIAL (J2405) IV PRN (13:58)
[2018-09-24 14:00] VITALS: BP 153/67
--- NOTE | 2018-09-24 19:09 | IPNPDOC ---
Subjective Date Seen The patient was seen on 09/24/18. Subjective Chief Complaint/HPI The patient feels fatigued and "lousy." She denies a fever, chills, but has chronic cough and shortness of breath. Wheezing has improved, but she still has difficulty breathing. She has pain in the amputation stump. General: Reports: Fatigue Constitutional: Denies: Chills, Fever, Malaise, Night Sweats, Weakness, Fatigue, Weight Loss, Lethargy, Other Eyes: Denies: Pain, Vision change, Conjunctivae inflammation, Eyelid inflammation, Redness, Other ENT: Denies: Head Aches, Ear Pain, Dysphagia, Sinus Congestion, Post Nasal Drip, Sore Throat, Epistaxis, Other Symptoms Skin: Denies: Rash, Lesions, Jaundice, Bruising, Itching, Dry, Breakdown, Nail Changes, Other Pulmonary: Reports: Dyspnea, Cough Cardiovascular: Denies: Chest Pain, Palpitations, Orthopnea, Paroxysmal Noc. Dyspnea, Edema, Lt Headedness, Other Symptoms Gastrointestinal: Denies: Nausea, Vomiting, Abdominal Pain, Diarrhea, Constipation, Melena, Hematochezia, Other Symptoms Genitourinary: Denies: Dysuria, Frequency, Incontinence, Hematuria, Retention, Other Symptoms Hematologic: Denies: Bruising, Bleeding Excessively, Petecchia, Purpura, Enlarged Lymph Nodes, Other Hematologic Endocrine: Denies: Polydipsia, Polyphagia, Polyuria, Heat Intolerance, Cold Intolerance, Other Endocrine Sx Musculoskeletal: Denies: Neck Pain, Back Pain, Shoulder Pain, Arm Pain, Hand Pain, Leg Pain, Foot Pain, Joint Pain, Muscle Pain, Spasms, Other Symptoms Neurological: Denies: Weakness, Numbness, Incoordination, Change in speech, Confusion, Seizures, Other Symptoms Psych: Denies: Mood Normal, Anxiety, Depression, Memory Issues, Thoughts of Self Harm, Anger, Thoughts of Harming Other, Other Psych Objective Physical Examination General Exam: Positive: Alert Eye Exam: Positive: PERRLA, Conjunctiva & lids normal ENT Exam: Positive: Atraumatic Neck Exam: Positive: Supple Chest Exam: Positive: Wheezing Heart Exam: Positive: Rate Normal Telemetry: Positive: No significant arrhythmia Abdomen Exam: Positive: Normal bowel sounds Extremity Exam: Positive: Other (no edema) Skin Exam: Positive: Nl turgor and temperature Neuro Exam: Positive: Normal Speech Psych Exam: Positive: Mood NL Assessment /Plan Assessment # Right lower lobe pneumonia, acute exacerbation of COPD, sepsis from community acquired pneumonia - Continue ceftriazone and azithromycin - Taper down solu-medrol to 40 q8h. Continue breathing treatment. # Pulmonary nodule - Enlarging per Dr. Nicholson 09/21/18. 09/21/18 CT chest :"subpleural oval nodule which has increased since prior study of 11/22/2015 measuring 1.2 cm in diameter. I also suspect right hilar adenopathy" Once acute infectious process is resolved, biopsy of new enlarging nodule is warranted to rule out malignancy. # Diarrhea - Improved. # Acute encephalopathy - Likely due to pneumonia # Peripheral vascular disease, status post left above the knee amputation. Postoperative management per outpatient surgeon. - Cont. cilostazol. # History of CVA and deep vein thrombosis (DVT) - Cont. xarelto # Depression - Cont. home medications. # History of uterine cancer, status post hysterectomy and bilateral oophorectomy, chronic. Plan/VTE VTE Prophylaxis Ordered?: Yes VS, I&O, 24H, Fishbone Vital Signs/I&O Vital Signs Date Time Temp Pulse Resp B/P (MAP) Pulse Ox O2 Delivery O2 Flow Rate FiO2 09/24/18 18:54 18 09/24/18 14:00 96.4 89 153/67 (95) 94 09/24/18 12:49 1.0 09/21/18 11:11 Room Air I&O- Last 24 Hours up to 6 AM 09/24/18 06:00 Intake Total 2620 ml Output Total 1450 ml Balance 1170 ml Laboratory Data Microbiology Microbiology 09/21/18 Blood Culture - Preliminary, Resulted No Growth after 72 hours. All specime... 09/21/18 Gastrointestinal Tract Panel (PCR) - Final, Complete 09/22/18 Gram Stain - Final, Complete 09/22/18 Sputum Culture - Final, Complete Yeast Like Organism 09/22/18 Respiratory Virus Panel (PCR) (JOHN) - Final, Complete TAMRA CALDERÓN MD Sep 24, 2018 19:09
[2018-09-24 22:00] VITALS: BP 152/67
[2018-09-24] MEDS: SYMBICORT 160/4.5MCG INHALER 6GM INH SCH (22:53)
[2018-09-24] MEDS: IPRATROPIUM 0.5MG/ALBUTEROL 2.5MG INH SOL UD 3ML (DUONEB)(J7620) NEB SCH (22:54)
[2018-09-25] MEDS: methylPREDNISolone INJ 40 MG/1 ML VIAL (J2920) IV SCH ×3 (01:39→17:05)
[2018-09-25] MEDS: IPRATROPIUM 0.5MG/ALBUTEROL 2.5MG INH SOL UD 3ML (DUONEB)(J7620) NEB SCH ×4 (02:00→19:49)
[2018-09-25 06:00] VITALS: BP 177/74
[2018-09-25 06:44] LABS: HEMATOCRIT 31.6 % (36.0-47.0); MEAN CORPUSCULAR HEMOGLOBIN 26.7 pg (27.0-33.0); MEAN CORPUSCULAR HGB CONC 31.6 g/dl (32.0-36.5); MEAN CORPUSCULAR VOLUME 84.3 fl (80.0-96.0); PLATELET COUNT, AUTOMATED 296 10^3/uL (150-450); RED BLOOD COUNT 3.75 10^6/uL (4.00-5.40); WHITE BLOOD COUNT 7.6 10^3/uL (4.0-10.0)
[2018-09-25 07:07] LABS: ALBUMIN 2.2 GM/DL (3.2-5.2); ALT/SGPT 12 U/L (12-78); BILIRUBIN,TOTAL 0.2 MG/DL (0.2-1.0); BLOOD UREA NITROGEN 21 MG/DL (7-18); CALCIUM LEVEL 8.5 MG/DL (8.8-10.2); CARBON DIOXIDE LEVEL 28 MEQ/L (21-32); CHLORIDE LEVEL 107 MEQ/L (98-107); CREATININE FOR GFR 0.95 MG/DL (0.55-1.30); GLOMERULAR FILTRATION RATE > 60.0 (>45); GLUCOSE, FASTING 125 MG/DL (70-100); SODIUM LEVEL 140 MEQ/L (136-145); TOTAL PROTEIN 6.7 GM/DL (6.4-8.2)
[2018-09-25] MEDS: NICOTINE 14 MG/24 HR TRANSDERMAL TD SCH (08:42)
[2018-09-25] MEDS: CILOSTAZOL 100 MG TAB (PLETAL) PO SCH ×2 (08:42→21:58)
[2018-09-25] MEDS: cefTRIAXone SOD 2 GM in D5W MINI-BAG PLUS 50 ML IV SCH (08:42)
[2018-09-25] MEDS: ASPIRIN 81 MG ENTERIC TAB PO SCH (08:43)
[2018-09-25] MEDS: LACTOBACILLUS ACIDOPHILUS CAP (BACID) PO SCH ×3 (08:43→17:05)
[2018-09-25] MEDS: ATORVASTATIN 20 MG TAB PO SCH (08:43)
[2018-09-25] MEDS: PARoxetine 20 MG TAB PO SCH (08:43)
[2018-09-25] MEDS: OMEPRAZOLE 20 MG CAP PO SCH ×2 (08:43→21:58)
[2018-09-25] MEDS: AZITHROMYCIN 250 MG TAB PO SCH (08:44)
[2018-09-25] MEDS: RIVAROXABAN 20 MG TAB (XARELTO) PO SCH (08:44)
[2018-09-25] MEDS: PREGABALIN 100 MG CAP (LYRICA) PO SCH ×3 (08:44→21:58)
[2018-09-25] MEDS: oxyCODONE 20 MG CR TAB PO SCH ×2 (08:44→21:59)
[2018-09-25] MEDS: SYMBICORT 160/4.5MCG INHALER 6GM INH SCH ×2 (08:47→19:49)
[2018-09-25] MEDS: oxyCODONE 5MG TAB PO PRN (13:50)
[2018-09-25 14:00] VITALS: BP 149/67
[2018-09-25] MEDS ORDERED: LORazepam 0.5 MG TAB PO PRN (15:30)
--- NOTE | 2018-09-25 16:56 | IPNPDOC ---
Subjective Date Seen The patient was seen on 09/25/18. Subjective Chief Complaint/HPI The patient feels better today. She still has cough and shortness of breath, overall feeling better today. She feels anxious. No fevers, chills, nausea, or vomiting. General: Denies: ROS Unobtainable, Chills, Night Sweats, Fatigue, Malaise, Normal Appetite, Other Symptoms Constitutional: Denies: Chills, Fever, Malaise, Night Sweats, Weakness, Fatigue, Weight Loss, Lethargy, Other Eyes: Denies: Pain, Vision change, Conjunctivae inflammation, Eyelid inflammation, Redness, Other ENT: Denies: Head Aches, Ear Pain, Dysphagia, Sinus Congestion, Post Nasal D rip, Sore Throat, Epistaxis, Other Symptoms Skin: Denies: Rash, Lesions, Jaundice, Bruising, Itching, Dry, Breakdown, Nail Changes, Other Pulmonary: Reports: Dyspnea, Cough Cardiovascular: Denies: Chest Pain, Palpitations, Orthopnea, Paroxysmal Noc. Dyspnea, Edema, Lt Headedness, Other Symptoms Gastrointestinal: Denies: Nausea, Vomiting, Abdominal Pain, Diarrhea, Constipation, Melena, Hematochezia, Other Symptoms Genitourinary: Denies: Dysuria, Frequency, Incontinence, Hematuria, Retention, Other Symptoms Hematologic: Denies: Bruising, Bleeding Excessively, Petecchia, Purpura, Enlarged Lymph Nodes, Other Hematologic Endocrine: Denies: Polydipsia, Polyphagia, Polyuria, Heat Intolerance, Cold Intolerance, Other Endocrine Sx Musculoskeletal: Denies: Neck Pain, Back Pain, Shoulder Pain, Arm Pain, Hand Pain, Leg Pain, Foot Pain, Joint Pain, Muscle Pain, Spasms, Other Symptoms Neurological: Denies: Weakness, Numbness, Incoordination, Change in speech, Confusion, Seizures, Other Symptoms Psych: Reports: Anxiety Objective Physical Examination General Exam: Positive: Alert Eye Exam: Positive: PERRLA, Conjunctiva & lids normal ENT Exam: Positive: Atraumatic Neck Exam: Positive: Supple Chest Exam: Positive: Wheezing Heart Exam: Positive: Rate Normal Telemetry: Positive: No significant arrhythmia Abdomen Exam: Positive: Normal bowel sounds Extremity Exam: Positive: Other (no edema) Skin Exam: Positive: Nl turgor and temperature Neuro Exam: Positive: Normal Speech Psych Exam: Positive: Mood NL Assessment /Plan Assessment # Right lower lobe pneumonia, acute exacerbation of COPD, sepsis from community acquired pneumonia - Continue ceftriazone and azithromycin - Taper down solu-medrol to 40 q12h from tonight. Continue breathing treatment. # Pulmonary nodule - Enlarging per Dr. Nicholson 09/21/18. 09/21/18 CT chest :"subpleural oval nodule which has increased since prior study of 11/22/2015 measuring 1.2 cm in diameter. I also suspect right hilar adenopathy" Once acute infectious process is resolved, biopsy of new enlarging nodule is warranted to rule out malignancy. # Diarrhea - Improved. # Acute kidney injury - This is likely from sepsis. Improved today. # Acute encephalopathy - Likely due to pneumonia # Peripheral vascular disease, status post left above the knee amputation. Postoperative management per outpatient surgeon. - Cont. cilostazol. # History of CVA and deep vein thrombosis (DVT) - Cont. xarelto # Depression - Cont. home medications. # History of uterine cancer, status post hysterectomy and bilateral ooph orectomy, chronic. Plan/VTE VTE Prophylaxis Ordered?: Yes VS, I&O, 24H, [facility] Vital Signs/I&O Vital Signs Date Time Temp Pulse Resp B/P (MAP) Pulse Ox O2 Delivery O2 Flow Rate FiO2 09/25/18 14:50 16 09/25/18 14:00 97.6 90 149/67 (94) 95 09/24/18 12:49 1.0 09/21/18 11:11 Room Air I&O- Last 24 Hours up to 6 AM 09/25/18 06:00 Intake Total 2450 ml Output Total 0 ml Balance 2450 ml Laboratory Data 24H LABS Laboratory Tests 2 09/25/18 06:08: Nucleated Red Blood Cells % (auto) 0.8H, Anion Gap 5L, Glomerular Filtration Rate > 60.0, Blood Urea Nitrogen 21H, Creatinine 0.95, Sodium Level 140#, Potassium Level 5.0, Chloride Level 107, Carbon Dioxide Level 28, Calcium Level 8.5L, Aspartate Amino Transf (AST/SGOT) 15, Alanine Aminotransferase (ALT/SGPT) 12, Alkaline Phosphatase 85, Total Bilirubin 0.2, Total Protein 6.7, Albumin 2.2L, Albumin/Globulin Ratio 0.49L CBC/BMP Laboratory Tests 09/25/18 06:08 Red Blood Count 3.75 L, Mean Corpuscular Volume 84.3, Mean Corpuscular Hemoglobin 26.7 L, Mean Corpuscular Hemoglobin Concent 31.6 L, Red Cell Distribution Width 17.0 H, Calcium Level 8.5 L, Aspartate Amino Transf (AST/SGOT) 15, Alanine Aminotransferase (ALT/SGPT) 12, Alkaline Phosphatase 85, Total Bilirubin 0.2, Total Protein 6.7, Albumin 2.2 L Microbiology Microbiology 09/21/18 Blood Culture - Preliminary, Resulted No Growth after 72 hours. All specime... 09/21/18 Gastrointestinal Tract Panel (PCR) - Final, Complete 09/22/18 Gram Stain - Final, Complete 09/22/18 Sputum Culture - Final, Complete Yeast Like Organism 09/22/18 Respiratory Virus Panel (PCR) (JOHN) - Final, Complete TAMRA CALDERÓN MD Sep 25, 2018 16:56
[2018-09-25 22:00] VITALS: BP 136/79
[2018-09-26] MEDS: methylPREDNISolone INJ 40 MG/1 ML VIAL (J2920) IV SCH (01:14)
[2018-09-26] MEDS: IPRATROPIUM 0.5MG/ALBUTEROL 2.5MG INH SOL UD 3ML (DUONEB)(J7620) NEB SCH ×4 (02:00→20:00)
[2018-09-26 06:00] VITALS: BP 144/68
[2018-09-26 06:33] LABS: HEMATOCRIT 35.1 % (36.0-47.0); MEAN CORPUSCULAR HEMOGLOBIN 26.4 pg (27.0-33.0); MEAN CORPUSCULAR HGB CONC 31.3 g/dl (32.0-36.5); MEAN CORPUSCULAR VOLUME 84.2 fl (80.0-96.0); PLATELET COUNT, AUTOMATED 329 10^3/uL (150-450); RED BLOOD COUNT 4.17 10^6/uL (4.00-5.40); WHITE BLOOD COUNT 9.6 10^3/uL (4.0-10.0)
[2018-09-26 06:53] LABS: ALBUMIN 2.2 GM/DL (3.2-5.2); ALT/SGPT 12 U/L (12-78); BILIRUBIN,TOTAL 0.3 MG/DL (0.2-1.0); BLOOD UREA NITROGEN 18 MG/DL (7-18); CALCIUM LEVEL 8.6 MG/DL (8.8-10.2); CARBON DIOXIDE LEVEL 28 MEQ/L (21-32); CHLORIDE LEVEL 106 MEQ/L (98-107); CREATININE FOR GFR 0.91 MG/DL (0.55-1.30); GLOMERULAR FILTRATION RATE > 60.0 (>45); GLUCOSE, FASTING 153 MG/DL (70-100); POTASSIUM SERUM 4.7 MEQ/L (3.5-5.1); SODIUM LEVEL 139 MEQ/L (136-145); TOTAL PROTEIN 6.4 GM/DL (6.4-8.2)
[2018-09-26] MEDS: SYMBICORT 160/4.5MCG INHALER 6GM INH SCH ×2 (07:33→19:29)
[2018-09-26] MEDS: NICOTINE 14 MG/24 HR TRANSDERMAL TD SCH (08:33)
[2018-09-26] MEDS: oxyCODONE 20 MG CR TAB PO SCH ×2 (08:33→20:46)
[2018-09-26] MEDS: LACTOBACILLUS ACIDOPHILUS CAP (BACID) PO SCH ×3 (08:34→17:18)
[2018-09-26] MEDS: ATORVASTATIN 20 MG TAB PO SCH (08:34)
[2018-09-26] MEDS: RIVAROXABAN 20 MG TAB (XARELTO) PO SCH (08:34)
[2018-09-26] MEDS: OMEPRAZOLE 20 MG CAP PO SCH ×2 (08:34→20:42)
[2018-09-26] MEDS: CILOSTAZOL 100 MG TAB (PLETAL) PO SCH ×2 (08:34→20:42)
[2018-09-26] MEDS: ASPIRIN 81 MG ENTERIC TAB PO SCH (08:34)
[2018-09-26] MEDS: PARoxetine 20 MG TAB PO SCH (08:34)
[2018-09-26] MEDS: PREGABALIN 100 MG CAP (LYRICA) PO SCH ×3 (08:34→20:43)
[2018-09-26] MEDS: cefTRIAXone SOD 2 GM in D5W MINI-BAG PLUS 50 ML IV SCH (08:39)
[2018-09-26] MEDS: oxyCODONE 5MG TAB PO PRN (12:18)
[2018-09-26] MEDS: predniSONE 20 MG TAB PO SCH (12:18)
--- NOTE | 2018-09-26 12:32 | IPNPDOC ---
Subjective Date Seen The patient was seen on 09/26/18. Subjective Chief Complaint/HPI Cough and wheezing have improved. Denies a fever, chills. Overall physical strength has improved. I explained that she has a nodule, 1.2 cm in RLL, growing, and she understood. General: Denies: ROS Unobtainable, Chills, Night Sweats, Fatigue, Malaise, Normal Appetite, Other Symptoms Constitutional: Denies: Chills, Fever, Malaise, Night Sweats, Weakness, Fatigue, Weight Loss, Lethargy, Other Eyes: Denies: Pain, Vision change, Conjunctivae inflammation, Eyelid inflammation, Redness, Other ENT: Denies: Head Aches, Ear Pain, Dysphagia, Sinus Congestion, Post Nasal Drip, Sore Throat, Epistaxis, Other Symptoms Skin: Denies: Rash, Lesions, Jaundice, Bruising, Itching, Dry, Breakdown, Nail Changes, Other Pulmonary: Reports: Dyspnea, Cough Cardiovascular: Denies: Chest Pain, Palpitations, Orthopnea, Paroxysmal Noc. Dyspnea, Edema, Lt Headedness, Other Symptoms Gastrointestinal: Denies: Nausea, Vomiting, Abdominal Pain, Diarrhea, Constipation, Melena, Hematochezia, Other Symptoms Genitourinary: Denies: Dysuria, Frequency, Incontinence, Hematuria, Retention, Other Symptoms Hematologic: Denies: Bruising, Bleeding Excessively, Petecchia, Purpura, Enlarged Lymph Nodes, Other Hematologic Endocrine: Denies: Polydipsia, Polyphagia, Polyuria, Heat Intolerance, Cold Intolerance, Other Endocrine Sx Musculoskeletal: Denies: Neck Pain, Back Pain, Shoulder Pain, Arm Pain, Hand Pain, Leg Pain, Foot Pain, Joint Pain, Muscle Pain, Spasms, Other Symptoms Neurological: Denies: Weakness, Numbness, Incoordination, Change in speech, Confusion, Seizures, Other Symptoms Psych: Denies: Mood Normal, Anxiety, Depression, Memory Issues, Thoughts of Self Harm, Anger, Thoughts of Harming Other, Other Psych Objective Physical Examination General Exam: Positive: Alert Eye Exam: Positive: PERRLA, Conjunctiva & lids normal ENT Exam: Positive: Atraumatic Neck Exam: Positive: Supple Chest Exam: Positive: Clear to auscultation (wheezing has improved) Heart Exam: Positive: Rate Normal Telemetry: Positive: No significant arrhythmia Abdomen Exam: Positive: Normal bowel sounds Extremity Exam: Positive: Other (no edema) Skin Exam: Positive: Nl turgor and temperature Neuro Exam: Positive: Normal Speech Psych Exam: Positive: Mood NL Assessment /Plan Assessment # Right lower lobe pneumonia, acute exacerbation of COPD, sepsis from community acquired pneumonia - Continue ceftriazone and azithromycin - Taper off solu-medrol, starting prednisone 40 mg daily from today. # Pulmonary nodule - Enlarging per Dr. Nicholson 09/21/18. 09/21/18 CT chest :"subpleural oval nodule which has increased since prior study of 11/22/2015 measuring 1.2 cm in diameter. I also suspect right hilar adenopathy" Once acute infectious process is resolved, biopsy of new enlarging nodule is warranted to rule out malignancy. - This was updated the patient. She has active pneumonia currently, and she will need biopsy of the nodule after her pneumonia is cleared. She has an appointment on 09/30/2018, and she will discuss it with her PCP. # Diarrhea - Improved. # Acute kidney injury - This is likely from sepsis. Resolved. # Acute encephalopathy - Likely due to pneumonia # Peripheral vascular disease, status post left above the knee amputation. Postoperative management per outpatient surgeon. - Cont. cilostazol. # History of CVA and deep vein thrombosis (DVT) - Cont. xarelto # Depression - Cont. home medications. # History of uterine cancer, status post hysterectomy and bilateral oophorectomy, chronic. Plan/VTE VTE Prophylaxis Ordered?: Yes VS, I&O, 24H, Fishbone Vital Signs/I&O Vital Signs Date Time Temp Pulse Resp B/P (MAP) Pulse Ox O2 Delivery O2 Flow Rate FiO2 09/26/18 12:18 18 09/26/18 06:00 98.0 68 144/68 (93) 96 09/24/18 12:49 1.0 09/21/18 11:11 Room Air I&O- Last 24 Hours up to 6 AM 09/26/18 06:00 Intake Total 2230 ml Output Total 0 ml Balance 2230 ml Laboratory Data 24H LABS Laboratory Tests 2 09/26/18 06:08: Nucleated Red Blood Cells % (auto) 1.4H, Anion Gap 5L, Glomerular Filtration Rate > 60.0, Blood Urea Nitrogen 18, Creatinine 0.91, Sodium Level 139, Potassium Level 4.7, Chloride Level 106, Carbon Dioxide Level 28, Calcium Level 8.6L, Aspartate Amino Transf (AST/SGOT) 9, Alanine Aminotransferase (ALT/SGPT) 12, Alkaline Phosphatase 81, Total Bilirubin 0.3, Total Protein 6.4, Albumin 2.2L, Albumin/Globulin Ratio 0.52L CBC/BMP Laboratory Tests 09/26/18 06:08 Red Blood Count 4.17, Mean Corpuscular Volume 84.2, Mean Corpuscular Hemoglobin 26.4 L, Mean Corpuscular Hemoglobin Concent 31.3 L, Red Cell Distribution Width 17.2 H, Calcium Level 8.6 L, Aspartate Amino Transf (AST/SGOT) 9, Alanine Aminotransferase (ALT/SGPT) 12, Alkaline Phosphatase 81, Total Bilirubin 0.3, Total Protein 6.4, Albumin 2.2 L Microbiology Microbiology 09/21/18 Blood Culture - Final, Complete NO GROWTH AFTER 5 DAYS 09/21/18 Gastrointestinal Tract Panel (PCR) - Final, Complete 09/22/18 Gram Stain - Final, Complete 09/22/18 Sputum Culture - Final, Complete Yeast Like Organism 09/22/18 Respiratory Virus Panel (PCR) (JOHN) - Final, Complete TAMRA CALDERÓN MD Sep 26, 2018 12:32
[2018-09-26] MEDS ORDERED: FLUC150T PO (12:36)
[2018-09-26] MEDS ORDERED: CEFD1CAP8 PO (12:36)
[2018-09-26] MEDS ORDERED: RISATAB3 PO (12:36)
[2018-09-26] MEDS ORDERED: PRED20TA PO (12:36)
[2018-09-26 14:00] VITALS: BP 114/59
[2018-09-26 22:00] VITALS: BP 127/60
[2018-09-27] MEDS: oxyCODONE 5MG TAB PO PRN (00:35)
[2018-09-27] MEDS: IPRATROPIUM 0.5MG/ALBUTEROL 2.5MG INH SOL UD 3ML (DUONEB)(J7620) NEB SCH ×2 (00:47→07:21)
[2018-09-27] MEDS: cefTRIAXone SOD 1 GM in D5W MINI-BAG PLUS 50 ML IV ONE ×2 (05:59→06:36)
[2018-09-27 06:00] VITALS: BP 140/72
[2018-09-27 06:27] LABS: HEMATOCRIT 30.8 % (36.0-47.0); HEMOGLOBIN 9.7 g/dl (12.0-15.5); MEAN CORPUSCULAR HEMOGLOBIN 25.9 pg (27.0-33.0); MEAN CORPUSCULAR HGB CONC 31.5 g/dl (32.0-36.5); MEAN CORPUSCULAR VOLUME 82.4 fl (80.0-96.0); PLATELET COUNT, AUTOMATED 305 10^3/uL (150-450); RED BLOOD COUNT 3.74 10^6/uL (4.00-5.40); WHITE BLOOD COUNT 11.8 10^3/uL (4.0-10.0)
[2018-09-27 06:48] LABS: ALT/SGPT 12 U/L (12-78); BILIRUBIN,TOTAL 0.2 MG/DL (0.2-1.0); BLOOD UREA NITROGEN 19 MG/DL (7-18); CALCIUM LEVEL 8.1 MG/DL (8.8-10.2); CARBON DIOXIDE LEVEL 30 MEQ/L (21-32); CHLORIDE LEVEL 105 MEQ/L (98-107); CREATININE FOR GFR 0.77 MG/DL (0.55-1.30); GLOMERULAR FILTRATION RATE > 60.0 (>45); GLUCOSE, FASTING 109 MG/DL (70-100); POTASSIUM SERUM 4.2 MEQ/L (3.5-5.1); SODIUM LEVEL 141 MEQ/L (136-145); TOTAL PROTEIN 5.7 GM/DL (6.4-8.2)
[2018-09-27] MEDS: SYMBICORT 160/4.5MCG INHALER 6GM INH SCH (07:21)
[2018-09-27] MEDS: OMEPRAZOLE 20 MG CAP PO SCH (08:24)
[2018-09-27] MEDS: ASPIRIN 81 MG ENTERIC TAB PO SCH (08:24)
[2018-09-27] MEDS: PARoxetine 20 MG TAB PO SCH (08:24)
[2018-09-27] MEDS: CILOSTAZOL 100 MG TAB (PLETAL) PO SCH (08:24)
[2018-09-27] MEDS: ATORVASTATIN 20 MG TAB PO SCH (08:24)
[2018-09-27] MEDS: NICOTINE 14 MG/24 HR TRANSDERMAL TD SCH (08:24)
[2018-09-27] MEDS: predniSONE 20 MG TAB PO SCH (08:24)
[2018-09-27] MEDS: RIVAROXABAN 20 MG TAB (XARELTO) PO SCH (08:24)
[2018-09-27] MEDS: PREGABALIN 100 MG CAP (LYRICA) PO SCH (08:24)
[2018-09-27] MEDS: LACTOBACILLUS ACIDOPHILUS CAP (BACID) PO SCH (08:24)
[2018-09-27] MEDS: oxyCODONE 20 MG CR TAB PO SCH (08:52)
--- NOTE | 2018-09-27 13:21 | DS.PDOC ---
Discharge Summary General Date of Admission Sep 21, 2018 at 08:43 Date of Discharge 09/27/2018 Discharge Summary PROCEDURES PERFORMED DURING STAY: [None]. ADMITTING DIAGNOSES: 1. Shortness of breath DISCHARGE DIAGNOSES: 1. COPD exacerbation COMPLICATIONS/CHIEF COMPLAINT: Abd Pain. 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 The patient also complains of diffuse abdominal pain and decreased appetite without any weight loss. She has noted increasing urinary frequency without dysuria or urgency. The patient denies any flank pain. In the emergency room, she was found to have a community-acquired pneumonia and treated with IV ceftriaxone. Urinalysis is pending. She had a white count of 13,000 but remained afebrile with a temperature of 98.1. The hospitalist was called to admit for pneumonia and evaluation of the patient's diarrhea. The patient denies any chest pain, pressure or tightness. HOSPITAL COURSE: For right lower lobe pneumonia, acute exacerbation of COPD, sepsis from community acquired pneumonia. The patient was started on solumedrol initially, and it was tapered down to prednisone. The patient received ceftriazone and azithromycin. The patient was discharged on cefdinir 300 BID and prednisone 40 for two more days. Before discharge, she did not have any wheezing, and she was breathing on RA without any issues. CT chest showed a 1.2 cm mass: Enlarging per Dr. Nicholson 09/21/18. 09/21/18 CT chest :"subpleural oval nodule which has increased since prior study of 11/22/2015 measuring 1.2 cm in diameter. I also suspect right hilar adenopathy" Once acute infectious process is resolved, biopsy of new enlarging nodule is warranted to rule out malignancy. This was updated the patient. She has active pneumonia currently, and she will need biopsy of the nodule after her pneumonia is cleared. She has an appointment on 09/30/2018, and she will discuss it with her PCP. She had acute kidney injury, and this is likely from sepsis. Resolved. She has a history of CVA and deep vein thrombosis (DVT). Cont. xarelto. DISCHARGE MEDICATIONS: Please see below. ALLERGIES: Please see below. PHYSICAL EXAMINATION ON DISCHARGE: VITAL SIGNS: Please see below. General Exam: Positive: Alert Eye Exam: Positive: PERRLA, Conjunctiva & lids normal ENT Exam: Positive: Atraumatic Neck Exam: Positive: Supple Chest Exam: Positive: Clear to auscultation (wheezing has improved) Heart Exam: Positive: Rate Normal Telemetry: Positive: No significant arrhythmia Abdomen Exam: Positive: Normal bowel sounds Extremity Exam: Positive: Other (no edema) Skin Exam: Positive: Nl turgor and temperature Neuro Exam: Positive: Normal Speech Psych Exam: Positive: Mood NL LABORATORY DATA: Please see below. DISCHARGE PLAN: She will be seen by her PCP on 09/30/2018. Vital Signs/I&Os Vital Signs Date Time Temp Pulse Resp B/P (MAP) Pulse Ox O2 Delivery O2 Flow Rate FiO2 09/27/18 08:52 18 09/27/18 06:00 97.2 74 140/72 (94) 92 09/26/18 14:00 2.0 09/21/18 11:11 Room Air I&O- Last 24 Hours up to 6 AM 09/27/18 06:00 Intake Total 2340 ml Output Total 100 ml Balance 2240 ml Laboratory Data Labs 24H Laboratory Tests 2 09/27/18 06:02: Nucleated Red Blood Cells % (auto) 1.1H, Anion Gap 6L, Glomerular Filtration Rate > 60.0, Blood Urea Nitrogen 19H, Creatinine 0.77, Sodium Level 141, Potassium Level 4.2, Chloride Level 105, Carbon Dioxide Level 30, Calcium Level 8.1L, Aspartate Amino Transf (AST/SGOT) 6L, Alanine Aminotransferase (ALT/SGPT) 12, Alkaline Phosphatase 70, Total Bilirubin 0.2, Total Protein 5.7L, Albumin 2.0L, Albumin/Globulin Ratio 0.54L CBC/BMP Laboratory Tests 09/27/18 06:02 Red Blood Count 3.74 L, Mean Corpuscular Volume 82.4, Mean Corpuscular Hemoglobin 25.9 L, Mean Corpuscular Hemoglobin Concent 31.5 L, Red Cell Distribution Width 17.4 H, Calcium Level 8.1 L, Aspartate Amino Transf (AST/SGOT) 6 L, Alanine Aminotransferase (ALT/SGPT) 12, Alkaline Phosphatase 70, Total Bilirubin 0.2, Total Protein 5.7 L, Albumin 2.0 L Microbiology Microbiology 09/21/18 Blood Culture - Final, Complete NO GROWTH AFTER 5 DAYS 09/21/18 Gastrointestinal Tract Panel (PCR) - Final, Complete 09/22/18 Gram Stain - Final, Complete 09/22/18 Sputum Culture - Final, Complete Yeast Like Organism 09/22/18 Respiratory Virus Panel (PCR) (JOHN) - Final, Complete Discharge Medications Scheduled Aspirin (Aspirin EC) 81 Mg Tabec, 81 MG PO DAILY, (Reported) Atorvastatin Calcium (Atorvastatin Calcium) 40 Mg Tab, 40 MG PO DAILY, (Reported) Budesonide/Formoterol (Symbicort 160-4.5 Mcg Inhaler) 60 Puff/Inhaler Aers, 2 PUFF INH BID, (Reported) Cefdinir (Cefdinir) 300 Mg Capsule, 300 MG PO BID Cilostazol (Cilostazol) 100 Mg Tab, 100 MG PO BID, (Reported) Fluconazole (Fluconazole) 150 Mg Tablet, 150 MG PO ONCE for yeast infection Gabapentin (Neurontin) 800 Mg Tab, 800 MG PO BID, (Reported) L.acidoph/L.bulg/B.bif/S.therm (Jeannette-Bid Caplet) 1 Each Tablet, 2 EA PO WM Nicotine (Nicotine Patch) 14 Mg Patch.td24, 14 MG TD DAILY, (Reported) Omeprazole (Omeprazole) 40 Mg Cap, 40 MG PO BID, (Reported) PT HAS A NEW SCRIPT FOR PANTOPRAZOLE 40MG BID TO TRY AND SEE WHICH MED WORKS BETTER Oxycodone HCl (Oxycontin) 60 Mg Tab, 60 MG PO Q12H, (Reported) Paroxetine HCl (Paroxetine HCl) 40 Mg Tab, 60 MG PO DAILY, (Reported) Prednisone (Prednisone) 20 Mg Tablet, 40 MG PO DAILY Pregabalin (Lyrica) 200 Mg Cap, 200 MG PO TID, (Reported) Rivaroxaban (Xarelto) 20 Mg Tab, 20 MG PO DAILY, (Reported) Scheduled PRN Albuterol Sulfate (Ventolin Hfa) 108 Mcg/Act Aer, 2 PUFFS INH Q4H PRN for SHORTNESS OF BREATH, (Reported) Buspirone HCl (Buspirone HCl) 5 Mg Tab, 5 MG PO BID PRN for ANXIETY, (Reported) Oxycodone Hcl (Oxycodone HCl) 15 Mg Tab, 15 MG PO Q6H PRN for PAIN, (Reported) Allergies Coded Allergies: fentanyl (Verified Allergy, Severe, Can't Breath, 09/21/18) ketorolac (Verified Allergy, Intermediate, Hives, 09/21/18) sumatriptan (Verified Allergy, Intermediate, Elevated HR & BP , 09/21/18) tetracycline (Verified Allergy, Intermediate, Rash, 09/21/18) TAMRA CALDERÓN MD Sep 27, 2018 13:21
== END 2018-09-27 09:09 | disposition home or self-care (01) | DRG 720 ==
LOC: M ED 05:55 → M ED INP 08:43 → M MSPAV 11:15
PROVIDERS: ADMIT General Practice; ATTEND Internal Medicine
DX: A41.9 Sepsis, unspecified organism (principal); G93.41 Metabolic encephalopathy; N17.9 Acute kidney failure, unspecified; J18.9 Pneumonia, unspecified organism; E11.51 Type 2 diabetes mellitus with diabetic peripheral angiopathy without gangrene; J44.1 Chronic obstructive pulmonary disease with (acute) exacerbation; E87.1 Hypo-osmolality and hyponatremia; G43.909 Migraine, unspecified, not intractable, without status migrainosus; I25.10 Atherosclerotic heart disease of native coronary artery without angina pectoris; F41.9 Anxiety disorder, unspecified; Z86.72 Personal history of thrombophlebitis; Z85.42 Personal history of malignant neoplasm of other parts of uterus; E78.00 Pure hypercholesterolemia, unspecified; R91.1 Solitary pulmonary nodule; Z86.718 Personal history of other venous thrombosis and embolism; Z79.01 Long term (current) use of anticoagulants; Z79.82 Long term (current) use of aspirin; Z79.899 Other long term (current) drug therapy; Z88.8 Allergy status to other drugs, medicaments and biological substances; Z89.512 Acquired absence of left leg below knee; G47.33 Obstructive sleep apnea (adult) (pediatric); Z87.891 Personal history of nicotine dependence; R19.7 Diarrhea, unspecified; K21.9 Gastro-esophageal reflux disease without esophagitis; E87.6 Hypokalemia; E66.9 Obesity, unspecified; Z68.31 Body mass index [BMI] 31.0-31.9, adult

== ENCOUNTER 2018-10-09 13:18 | Emergency (ER) | payer OTHER ==
[~2018-10-09] VITALS: Ht 172.7 cm; Wt 97.3 kg
[~2018-10-09 13:18] MED LIST changes: +OMEP1CAP73 PO; -OMEP20CA4 PO; -OMEP40CA2 PO; +OMEP40CA97 PO
[2018-10-09 15:07] LABS: BASO % 0.3 % (0.0-1.0); HEMATOCRIT 41.2 % (36.0-47.0); HEMOGLOBIN 12.3 g/dl (12.0-15.5); LYMPH # 1.8 10^3/uL (1.5-4.5); MEAN CORPUSCULAR HEMOGLOBIN 26.7 pg (27.0-33.0); MEAN CORPUSCULAR HGB CONC 29.9 g/dl (32.0-36.5); MEAN CORPUSCULAR VOLUME 89.6 fl (80.0-96.0); MONO # 0.5 10^3/uL (0.0-0.8); NEUTROPHILS # 3.7 10^3/uL (1.8-7.7); PLATELET COUNT, AUTOMATED 216 10^3/uL (150-450)
[2018-10-09] MEDS ORDERED: MORPHINE 4 MG/ML 1ML VIAL/SYRINGE (J2270) IV ONE (15:30)
[2018-10-09] MEDS ORDERED: NS 1,000 ML IV ONE (15:30)
[2018-10-09 15:32] LABS: ALBUMIN 2.9 GM/DL (3.2-5.2); ALT/SGPT 15 U/L (12-78); BILIRUBIN,DIRECT < 0.1 MG/DL (0.0-0.2); BILIRUBIN,TOTAL < 0.1 MG/DL (0.2-1.0); BLOOD UREA NITROGEN 13 MG/DL (7-18); CALCIUM LEVEL 8.2 MG/DL (8.8-10.2); CARBON DIOXIDE LEVEL 29 MEQ/L (21-32); CHLORIDE LEVEL 105 MEQ/L (98-107); CREATININE FOR GFR 1.27 MG/DL (0.55-1.30); GLOMERULAR FILTRATION RATE 45.5 (>45); GLUCOSE, FASTING 120 MG/DL (70-100); POTASSIUM SERUM 4.3 MEQ/L (3.5-5.1); SODIUM LEVEL 143 MEQ/L (136-145)
--- NOTE | 2018-10-09 16:19 | REP ---
Clinical: Hematuria and flank pain. Technique: Axial noncontrast images from the lung bases to the pubic symphysis with coronal and sagittal re-formations. Comparison: 09/21/2018. Findings: Lung bases are clear. Visualized heart and pericardium normal. Scattered hepatic hypodensities remain stable and consistent with cysts. Spleen, pancreas, bilateral adrenal glands and kidneys are normal. Specifically, no perinephric stranding, hydroureteronephrosis, intrarenal or obstructing ureteral calculi are identified. The enteric system is without obstruction or acute inflammatory process. Pelvis demonstrates collapsed normal bladder and evidence of prior hysterectomy. Atherosclerotic changes to the aorta and vasculature noted without aneurysm. Evidence for aorto-biiliac stent graft. Musculoskeletal structures demonstrate degenerative changes without focal osseous abnormality. Impression: No acute abdominopelvic pathology appreciated. Chronic stable changes. Electronically Signed by Robbin Cadet MD 10/09/2018 04:11 P
--- NOTE | 2018-10-09 16:21 | REP ---
Clinical: Cough with recent pneumonia . Comparison: 09/21/2018 . Technique: PA and lateral. Findings: The mediastinum and cardiac silhouette are normal. The lung thorne are clear and without acute consolidation, effusion, or pneumothorax. Previous multifocal pneumonia resolved. The skeletal structures are intact and normal. Impression: 1. No acute cardiopulmonary process. Electronically Signed by Robbin Cadet MD 10/09/2018 04:12 P
[2018-10-09] MEDS ORDERED: diazePAM 5 MG TAB PO ONE (16:45)
[2018-10-09 18:37] VITALS: BP 105/60
[2018-11-19] MEDS ORDERED: BUSP5TA PO (08:54)
[2018-11-19] MEDS ORDERED: ALBU83IN INH (08:54)
== END 2018-10-09 18:47 | disposition home or self-care (01) ==
LOC: M ED 13:18
DX: M54.5 Low back pain (principal); G89.29 Other chronic pain; R31.9 Hematuria, unspecified; I10 Essential (primary) hypertension; K21.9 Gastro-esophageal reflux disease without esophagitis; E03.9 Hypothyroidism, unspecified; G43.909 Migraine, unspecified, not intractable, without status migrainosus; Z88.1 Allergy status to other antibiotic agents; Z88.5 Allergy status to narcotic agent; Z88.8 Allergy status to other drugs, medicaments and biological substances; Z88.4 Allergy status to anesthetic agent; Z79.899 Other long term (current) drug therapy; Z79.01 Long term (current) use of anticoagulants; Z79.82 Long term (current) use of aspirin; Z79.51 Long term (current) use of inhaled steroids; Z86.19 Personal history of other infectious and parasitic diseases; Z87.09 Personal history of other diseases of the respiratory system
CPT/HCPCS: 36415; 71046; 74176; 80048; 80076; 81001; 85025; 96361; 96374; 96375; 99284; J2270

== ENCOUNTER → 2018-10-09 | Outpatient (REF) | payer OTHER ==
[~2018-10-09] MED LIST changes: +CEFD1CAP8 PO; +FLUC150T PO; +NICO14DI24 TD; -OMEP20CA3 PO; +OMEP20CA4 PO; +PRED20TA PO; +RISATAB3 PO
[2018-10-09 18:09] LABS: BASO % 0.3 % (0.0-1.0); HEMATOCRIT 41.2 % (36.0-47.0); HEMOGLOBIN 12.4 g/dl (12.0-15.5); LYMPH # 1.9 10^3/uL (1.5-4.5); LYMPH % 30.7 % (24.0-44.0); MEAN CORPUSCULAR HEMOGLOBIN 26.2 pg (27.0-33.0); MEAN CORPUSCULAR HGB CONC 30.1 g/dl (32.0-36.5); MEAN CORPUSCULAR VOLUME 86.9 fl (80.0-96.0); MONO # 0.5 10^3/uL (0.0-0.8); MONO % 7.9 % (0.0-5.0); NEUTROPHILS # 3.7 10^3/uL (1.8-7.7); NEUTROPHILS % 60.4 % (36.0-66.0); PLATELET COUNT, AUTOMATED 232 10^3/uL (150-450); RED BLOOD COUNT 4.74 10^6/uL (4.00-5.40); WHITE BLOOD COUNT 6.1 10^3/uL (4.0-10.0)
[2018-10-09 18:20] LABS: FOLATE 4.3 NG/ML (>5.4)
== END ==
LOC: M SFHCCLAY 11:17
PROVIDERS: ATTEND Family Medicine
DX: D64.9 Anemia, unspecified (principal)

== ENCOUNTER → 2018-10-17 | Outpatient (REF) | payer OTHER ==
[~2018-10-17] MED LIST changes: +ALBU83IN INH; +PANT-23 PO; +PANT40TA3
== END ==
LOC: M SFHCCLAY 13:56
PROVIDERS: ATTEND Family Medicine
DX: R31.9 Hematuria, unspecified (principal); N39.0 Urinary tract infection, site not specified

== ENCOUNTER → 2018-10-28 | Outpatient (REF) | payer OTHER ==
[~2018-10-28] MED LIST changes: -ALBU83IN INH; -OMEP1CAP73 PO; +OMEP20CA4 PO; +OMEP40CA2 PO; -OMEP40CA97 PO
== END ==
LOC: M SFHCCLAY 16:20
PROVIDERS: ATTEND Family Medicine
DX: N39.0 Urinary tract infection, site not specified (principal)

== ENCOUNTER 2018-10-29 15:21 | Inpatient (IN) | payer OTHER ==
[~2018-10-29] VITALS: Ht 172.7 cm; Wt 99.1 kg
[~2018-10-29 15:21] MED LIST changes: -PANT-23 PO; -PANT40TA3
[2018-10-29] MEDS ORDERED: PANT40TA3 (16:14)
[2018-10-29] MEDS ORDERED: NS 1,000 ML IV ONE (16:30)
--- NOTE | 2018-10-29 17:12 | REP ---
Right shoulder three views: There is acromioclavicular osteoarthritis. The glenohumeral joint is unremarkable. There is no fracture or dislocation. There are no calcifications or foreign bodies. Impression: Acromioclavicular osteoarthritis, otherwise negative right shoulder. Electronically Signed by Juan J Leong MD 10/29/2018 05:04 P
--- NOTE | 2018-10-29 17:15 | REP ---
AP pelvis: There is no pelvic fracture. Mineralization is normal. The sacroiliac articulations are unremarkable. The hip articulations are unremarkable. Send there are surgical clips in the mid lower abdomen and in the hip areas bilaterally. Impression: Negative AP pelvis. Right hip two views: Mineralization and joint space are normal. There is no fracture or dislocation. There are no calcifications or foreign bodies. There are surgical clips in the right femoral area. Impression: Essentially negative right hip. Electronically Signed by Juan J Leong MD 10/29/2018 05:07 P
--- NOTE | 2018-10-29 17:17 | REP ---
Portable AP chest, the patient supine: Comparison is 10/09/2018. The lung thorne are clear. Cardiac size is normal. The pravin, mediastinum, skeletal structures are unremarkable. Taking into consideration positioning. Impression: Negative AP supine portable chest. Electronically Signed by Juan J Leong MD 10/29/2018 05:09 P
[2018-10-29] MEDS ORDERED: IPRATROPIUM 0.5MG/ALBUTEROL 2.5MG INH SOL UD 3ML (DUONEB)(J7620) NEB ONE (17:30)
[2018-10-29] MEDS: MORPHINE 2 MG/ML 1ML SYRINGE (J2270) IV PRN ×4 (17:48→22:37)
[2018-10-29 17:49] LABS: BASO % 0.2 % (0.0-1.0); HEMOGLOBIN 11.2 g/dl (12.0-15.5); LYMPH # 1.4 10^3/uL (1.5-4.5); LYMPH % 10.2 % (24.0-44.0); MEAN CORPUSCULAR HEMOGLOBIN 25.9 pg (27.0-33.0); MEAN CORPUSCULAR HGB CONC 30.3 g/dl (32.0-36.5); MEAN CORPUSCULAR VOLUME 85.5 fl (80.0-96.0); MONO # 0.7 10^3/uL (0.0-0.8); MONO % 5.2 % (0.0-5.0); NEUTROPHILS # 11.3 10^3/uL (1.8-7.7); PLATELET COUNT, AUTOMATED 185 10^3/uL (150-450); RED BLOOD COUNT 4.33 10^6/uL (4.00-5.40); WHITE BLOOD COUNT 13.4 10^3/uL (4.0-10.0)
[2018-10-29 18:01] LABS: INR 1.49; PROTHROMBIN TIME 17.7 SECONDS (11.8-14.0)
[2018-10-29 18:02] LABS: PARTIAL THROMBOPLASTIN TIME 44.9 SECONDS (25.0-38.4)
[2018-10-29 18:23] LABS: ALBUMIN 2.7 GM/DL (3.2-5.2); ALT/SGPT 15 U/L (12-78); BILIRUBIN,DIRECT < 0.1 MG/DL (0.0-0.2); BILIRUBIN,TOTAL 0.2 MG/DL (0.2-1.0); BLOOD UREA NITROGEN 16 MG/DL (7-18); CALCIUM LEVEL 7.9 MG/DL (8.8-10.2); CARBON DIOXIDE LEVEL 29 MEQ/L (21-32); CHLORIDE LEVEL 102 MEQ/L (98-107); CK-MB VALUE MASS 9.1 NG/ML (<3.6); CPK CREATINE PHOSPHOKINASE 3322 U/L (26-192); CREATININE FOR GFR 1.19 MG/DL (0.55-1.30); GLOMERULAR FILTRATION RATE 49.1 (>45); GLUCOSE, FASTING 198 MG/DL (70-100); MB/CK RELATIVE INDEX 0.27 (< OR =4); NT-PRO BNP 3737 PG/ML (<125); POTASSIUM SERUM 4.4 MEQ/L (3.5-5.1); SODIUM LEVEL 137 MEQ/L (136-145); THYROID STIMULATING HORMONE 0.596 uIU/ML (0.358-3.740); TOTAL PROTEIN 6.5 GM/DL (6.4-8.2); TROPONIN I 0.06 NG/ML (< 0.10)
[2018-10-29] MEDS ORDERED: ISOVUE-370 76% 100ML VIAL (Q9967) As Ordered ONE (18:49)
--- NOTE | 2018-10-29 19:44 | REPVR ---
EXAM: CT Abdomen and Pelvis With Contrast EXAM DATE/TIME: 10/29/2018 6:48 PM CLINICAL HISTORY: 63 years old, female; Abdominal pain TECHNIQUE: Imaging protocol: Axial computed tomography images of the abdomen and pelvis with intravenous contrast. Coronal and sagittal reformatted images were created and reviewed. Radiation optimization: All CT scans at this facility use at least one of these dose optimization techniques: automated exposure control; mA and/or kV adjustment per patient size (includes targeted exams where dose is matched to clinical indication); or iterative reconstruction. Contrast material: ISO 370; Contrast volume: 100 ml; Contrast route: IV; COMPARISON: CT ABD PELVIS W/O CONTRAST 10/09/2018 3:52 PM FINDINGS: Lungs: Bibasilar patchy infiltrates associated with thickened bronchial earl with several segments of bronchi occluded with inspissated secretions. Findings consistent with multifocal pneumonitis and bronchitis. Liver: There are cysts in the liver measuring up to 3.1 cm in the left lobe. No complex features demonstrated. Gallbladder and bile ducts: There has been a cholecystectomy. Pancreas: Normal. No ductal dilation. Spleen: Normal. No splenomegaly. Adrenals: Normal. No mass. Kidneys and ureters: Normal. No hydronephrosis. Stomach and bowel: There is modest increased feces throughout the colon consistent with constipation. Appendix: No evidence of appendicitis. Intraperitoneal space: Normal. No free air. No significant fluid collection. Vasculature: The aorta demonstrates moderate atherosclerotic calcification. Status post aortobiiliac stent graft. There is occlusion of the left common iliac, external iliac, and common femoral arteries. Right iliac arteries patent. Lymph nodes: Normal. No enlarged lymph nodes. Bladder: Unremarkable as visualized. Reproductive: There has been a hysterectomy. Bones/joints: Compression deformity of the superior endplate of L2 stable in comparison to the earlier examination of 10/09/2018. Posterior disc protrusion L5-S1 which may impinge on the left S1 exiting nerve. Mild central spinal stenosis L3-4 and L4-5. Soft tissues: Unremarkable. IMPRESSION: 1. Bibasilar patchy infiltrates associated with thickened bronchial earl with several segments of bronchi occluded with inspissated secretions. Findings consistent with multifocal pneumonitis and bronchitis. 2. There has been a cholecystectomy. 3. The aorta demonstrates moderate atherosclerotic calcification. Status post aortobiiliac stent graft. There is occlusion of the left common iliac, external iliac, and common femoral arteries. Right iliac arteries patent. 4. There has been a hysterectomy. 5. There is modest increased feces throughout the colon consistent with constipation. Electronically signed by: Esau Fan On 10/29/2018 19:44:15 PM
[2018-10-29] MEDS ORDERED: PANT-23 PO (21:52)
[2018-10-29] MEDS ORDERED: oxyCODONE 5MG TAB PO PRN (22:15)
[2018-10-29] MEDS ORDERED: busPIRone 5 MG TAB PO PRN (22:15)
[2018-10-29] MEDS ORDERED: PERCOCET 5MG/325MG TAB PO PRN (22:15)
[2018-10-29] MEDS ORDERED: ACETAMINOPHEN TAB 650MG DOSE (2X325MG) PO PRN (22:15)
--- NOTE | 2018-10-29 22:26 | HPEPDOC ---
General Date of Admission 10/29/18 Date of Service: Oct 29, 2018 Attending Physician: GURPREET DUKES MD Chief Complaint The patient is a 63-year-old female admitted with a reason for visit of Fall-Jer e Pain. Source: Patient Exam Limitations: No limitations Timing/Duration: Day(s) Severity: Moderate Associated Symptoms: Other (pain right side of body) History of Present Illness 63 years old white female presented to the ED with chief complaints of fall last night into bed from a standing position and landed on the right side complaining of her difficulty ambulating ever since. Complaining of right-sided arm and leg pain. Patient has a history of left leg amputation. No loss of consciousness and no syncope. No chest pain, no shortness of breath, no nausea, vomiting, diarrhea. We are asked to admit patient for observation and physical therapy evaluation in a.m. Home Medications Scheduled Aspirin (Aspirin EC) 81 Mg Tabec, 81 MG PO DAILY, (Reported) Atorvastatin Calcium (Atorvastatin Calcium) 40 Mg Tab, 40 MG PO DAILY, (Reported) Budesonide/Formoterol (Symbicort 160-4.5 Mcg Inhaler) 60 Puff/Inhaler Aers, 2 PUFF INH BID, (Reported) Cilostazol (Cilostazol) 100 Mg Tab, 100 MG PO BID, (Reported) Gabapentin (Neurontin) 800 Mg Tab, 800 MG PO BID, (Reported) Oxycodone HCl (Oxycontin) 60 Mg Tab, 60 MG PO Q12H, (Reported) Pantoprazole Sodium (Pantoprazole Sodium) 40 Mg Tablet.dr, 40 MG PO BID, (Reported) Paroxetine HCl (Paroxetine HCl) 40 Mg Tab, 60 MG PO DAILY, (Reported) Pregabalin (Lyrica) 200 Mg Cap, 200 MG PO TID, (Reported) Rivaroxaban (Xarelto) 20 Mg Tab, 20 MG PO DAILY, (Reported) Scheduled PRN Albuterol Sulfate (Ventolin Hfa) 108 Mcg/Act Aer, 2 PUFFS INH QID PRN for SHORTNESS OF BREATH, (Reported) Buspirone HCl (Buspirone HCl) 5 Mg Tab, 5 MG PO BID PRN for ANXIETY, (Reported) Oxycodone Hcl (Oxycodone HCl) 15 Mg Tab, 15 MG PO Q6H PRN for PAIN, (Reported) Allergies Coded Allergies: fentanyl (Verified Allergy, Severe, Can't Breath, 09/21/18) ketorolac (Verified Allergy, Intermediate, Hives, 09/21/18) tetracycline (Verified Allergy, Intermediate, Rash, 09/21/18) sumatriptan (Verified Adverse Reaction, Intermediate, Elevated HR & BP , 10/29/18) Past Medical History Medical History Compartment syndrome, TIA, migraine headache. DVT left arm smoker with chronic emphysema, left eye, blackouts history of leukoplakia and throat chronic pain syndrome, DJD, bulging disc Surgical History Colonoscopy fissurectomy, appendectomy, cholecystectomy, carpal tunnel, right arm. Left BKA, lumpectomy, , hysterectomy with bilateral nephrectomy Family History Significant Family History: No pertinent family hx Social History * Smoker: current smoker Alcohol: Denies Drugs: denies A-FIB/CHADSVASC A-FIB History Current/History of A-Fib/PAF?: No Current PO Anticoag Therapy: Yes Review of Systems Constitutional: Denies: Chills, Fever, Malaise, Night Sweats, Weakness, Fatigue, Weight Loss, Lethargy, Other Eyes: Denies: Pain, Vision change, Conjunctivae inflammation, Eyelid inflammation, Redness, Other ENT: Denies: Head Aches, Ear Pain, Dysphagia, Sinus Congestion, Post Nasal Drip, Sore Throat, Epistaxis, Other Symptoms Skin: Denies: Rash, Lesions, Jaundice, Bruising, Itching, Dry, Breakdown, Nail Changes, Other Pulmonary: Denies: Dyspnea, Cough, Pleuritic Chest Pain, Other Symptoms Cardiovascular: Denies: Chest Pain, Palpitations, Orthopnea, Paroxysmal Noc. Dyspnea, Edema, Lt Headedness, Other Symptoms Gastrointestinal: Denies: Nausea, Vomiting, Abdominal Pain, Diarrhea, Constipation, Melena, Hematochezia, Other Symptoms Genitourinary: Denies: Dysuria, Frequency, Incontinence, Hematuria, Retention, Other Symptoms Hematologic: Denies: Bruising, Bleeding Excessively, Petecchia, Purpura, Enlarged Lymph Nodes, Other Hematologic Endocrine: Denies: Polydipsia, Polyphagia, Polyuria, Heat Intolerance, Cold Intolerance, Other Endocrine Sx Musculoskeletal: Reports: Other Symptoms Neurological: Denies: Weakness, Numbness, Incoordination, Change in speech, Confusion, Seizures, Other Symptoms Psych: Denies: Mood Normal, Anxiety, Depression, Memory Issues, Thoughts of Self Harm, Anger, Thoughts of Harming Other, Other Psych Physical Examination General Exam: Positive: Alert Eye Exam: Positive: PERRLA, Conjunctiva & lids normal ENT Exam: Positive: Atraumatic, Mucous membr. moist/pink Neck Exam: Positive: Supple, JVD, thyromegaly Chest Exam: Positive: Clear to auscultation, Normal air movement Heart Exam: Positive: Rate Normal, Normal S1, Normal S2 Abdomen Exam: Positive: Normal bowel sounds Extremity Exam: Positive: Normal pulses Skin Exam: Positive: Nl turgor and temperature Psych Exam: Positive: Mental status NL, Mood NL, Oriented x 3 Vital Signs Vital Signs Date Time Temp Pulse Resp B/P (MAP) Pulse Ox O2 Delivery O2 Flow Rate FiO2 10/29/18 21:54 20 10/29/18 21:30 79 131/63 (85) 95 Room Air 10/29/18 19:09 3.0 10/29/18 18:48 98.7 Laboratory Data Labs 24H Laboratory Tests 2 10/29/18 17:33: Immature Granulocyte % (Auto) 0.4, White Blood Count 13.4H, Red Blood Count 4.33, Hemoglobin 11.2L, Hematocrit 37.0, Mean Corpuscular Volume 85.5, Mean Corpuscular Hemoglobin 25.9L, Mean Corpuscular Hemoglobin Concent 30.3L, Red Cell Distribution Width 17.3H, Platelet Count 185, Neutrophils (%) (Auto) 84.0H, Lymphocytes (%) (Auto) 10.2L, Monocytes (%) (Auto) 5.2H, Eosinophils (%) (Auto) 0.0, Basophils (%) (Auto) 0.2, Neutrophils # (Auto) 11.3H, Lymphocytes # (Auto) 1.4L, Monocytes # (Auto) 0.7, Eosinophils # (Auto) 0.0, Basophils # (Auto) 0.0, Nucleated Red Blood Cells % (auto) 0.0, Prothrombin Time 17.7H, Prothromb Time International Ratio 1.49, Activated Partial Thromboplast Time 44.9H, Anion Gap 6L, Glomerular Filtration Rate 49.1, Calcium Level 7.9L, Aspartate Amino Transf (AST/SGOT) 118H, Alanine Aminotransferase (ALT/SGPT) 15, Alkaline Phosphatase 130H, Total Bilirubin 0.2, Direct Bilirubin < 0.1, Total Creatine Kinase 3322H, Creatine Kinase MB 9.1H, Creatine Kinase MB Relative Index 0.27, Troponin I 0.06, C-Reactive Protein, Quantitative 13.70H, QN-Nxh-L-Type Natriuretic Peptide 3737H, Total Protein 6.5, Albumin 2.7L, Albumin/Globulin Ratio 0.71L, Thyroid Stimulating Hormone (TSH) 0.596 CBC/BMP Laboratory Tests 10/29/18 17:33 Red Blood Count 4.33, Mean Corpuscular Volume 85.5, Mean Corpuscular Hemoglobin 25.9 L, Mean Corpuscular Hemoglobin Concent 30.3 L, Red Cell Distribution Width 17.3 H, Neutrophils (%) (Auto) 84.0 H, Lymphocytes (%) (Auto) 10.2 L, Monocytes (%) (Auto) 5.2 H, Eosinophils (%) (Auto) 0.0, Basophils (%) (Auto) 0.2, Neutrophils # (Auto) 11.3 H, Lymphocytes # (Auto) 1.4 L, Monocytes # (Auto) 0.7, Eosinophils # (Auto) 0.0, Basophils # (Auto) 0.0 Problems (1) Decreased ambulation status Status: Acute Problem Text: 66 years old female with a left BKA. His status post fall, complaining of severe right-sided pain and unable to ambulate Admit to [facility] Physical therapy in a.m. Pain management Continue home meds Possible discharge once cleared by physical therapy DVT prophylaxis, patient is already on anticoagulation for DVT Regular diet Activity as tolerated Plan / VTE VTE Prophylaxis Ordered?: Yes GURPREET DUKES MD Oct 29, 2018 22:26
[2018-10-29] MEDS: GABAPENTIN 400 MG CAP PO SCH (22:37)
[2018-10-29] MEDS: PREGABALIN 100 MG CAP (LYRICA) PO SCH (22:37)
[2018-10-29 23:30] VITALS: BP 123/69
[2018-10-29] MEDS: oxyCODONE 20 MG CR TAB PO SCH (23:48)
[2018-10-30] MEDS: CILOSTAZOL 100 MG TAB (PLETAL) PO SCH ×3 (00:27→21:00)
--- NOTE | 2018-10-30 00:28 | ECGEPIP ---
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
[2018-10-30 05:56] VITALS: BP 112/82
[2018-10-30 07:23] LABS: HEMATOCRIT 33.2 % (36.0-47.0); HEMOGLOBIN 10.1 g/dl (12.0-15.5); MEAN CORPUSCULAR HEMOGLOBIN 25.8 pg (27.0-33.0); MEAN CORPUSCULAR HGB CONC 30.4 g/dl (32.0-36.5); MEAN CORPUSCULAR VOLUME 84.9 fl (80.0-96.0); PLATELET COUNT, AUTOMATED 172 10^3/uL (150-450); RED BLOOD COUNT 3.91 10^6/uL (4.00-5.40); WHITE BLOOD COUNT 9.3 10^3/uL (4.0-10.0)
[2018-10-30] MEDS: SYMBICORT 160/4.5MCG INHALER 6GM INH SCH ×2 (07:46→20:00)
[2018-10-30 08:15] LABS: ALBUMIN 2.4 GM/DL (3.2-5.2); ALT/SGPT 13 U/L (12-78); BILIRUBIN,TOTAL 0.4 MG/DL (0.2-1.0); BLOOD UREA NITROGEN 12 MG/DL (7-18); CARBON DIOXIDE LEVEL 31 MEQ/L (21-32); CHLORIDE LEVEL 102 MEQ/L (98-107); CPK CREATINE PHOSPHOKINASE 2285 U/L (26-192); CREATININE FOR GFR 0.82 MG/DL (0.55-1.30); GLOMERULAR FILTRATION RATE > 60.0 (>45); GLUCOSE, FASTING 137 MG/DL (70-100); MAGNESIUM LEVEL 1.9 MG/DL (1.8-2.4); POTASSIUM SERUM 3.6 MEQ/L (3.5-5.1); SODIUM LEVEL 137 MEQ/L (136-145); TOTAL PROTEIN 6.5 GM/DL (6.4-8.2)
[2018-10-30] MEDS: PREGABALIN 100 MG CAP (LYRICA) PO SCH ×2 (08:20→16:42)
[2018-10-30] MEDS: GABAPENTIN 400 MG CAP PO SCH (08:20)
[2018-10-30] MEDS: oxyCODONE 20 MG CR TAB PO SCH (08:21)
[2018-10-30] MEDS ORDERED: ATORVASTATIN 20 MG TAB PO SCH (09:00)
[2018-10-30] MEDS ORDERED: ASPIRIN 81 MG ENTERIC TAB PO SCH (09:00)
[2018-10-30] MEDS ORDERED: PARoxetine 20 MG TAB PO SCH (09:00)
[2018-10-30] MEDS ORDERED: RIVAROXABAN 20 MG TAB (XARELTO) PO SCH ×2 (09:00→18:00)
[2018-10-30] MEDS ORDERED: ENOXAPARIN 40 MG/0.4 ML SYRINGE (J1650) SC SCH (09:00)
--- NOTE | 2018-10-30 11:58 | IPNPDOC ---
Subjective Date Seen The patient was seen on 10/30/18. Subjective Chief Complaint/HPI Patient seen and examined at the bedside. Denies any acute complaints at this time. States that it has been more difficult to ambulate due to her underlying left AKA as she has had a recurrent falls. Objective Physical Examination General Exam: Positive: Alert, Cooperative, No Acute Distress ENT Exam: Positive: Atraumatic, Mucous membr. moist/pink Neck Exam: Negative: JVD Chest Exam: Positive: Clear to auscultation, Normal air movement Heart Exam: Positive: Rate Normal, Normal S1, Normal S2 Abdomen Exam: Positive: Soft; Negative: Tenderness Extremity Exam: Positive: Other (left AKA); Negative: Tenderness, Swelling Psych Exam: Positive: Mental status NL, Mood NL, Oriented x 3 Assessment /Plan Plan/VTE VTE Prophylaxis Ordered?: Yes Plan Ambulatory Dysfunction PT on board for functional optimization Rhabdomyolysis 2/2 Fall CPK Improving History of PVD s/p Left AKA Continue Pletal, aspirin, statin COPD Continue therapy as ordered History of DVT Continue Xarelto History of uterine cancer, status post hysterectomy and bilateral oophorectomy Follow-up as an outpatient Known Left Lung Nodule Patient extensively counseled on the need to follow up with this as an outpatient. She has verbalized understanding of the same, and has assured me that she will follow up with this and the concern that this might be underlying malignancy. Obesity BMI of 31 Complicating medical care VS, I&O, 24H, Fishbone Vital Signs/I&O Vital Signs Date Time Temp Pulse Resp B/P (MAP) Pulse Ox O2 Delivery O2 Flow Rate FiO2 10/30/18 08:21 18 10/30/18 05:56 98.7 85 112/82 (92) 93 2.0 10/29/18 22:38 Room Air I&O- Last 24 Hours up to 6 AM 10/30/18 06:00 Intake Total 955 ml Output Total 450 ml Balance 505 ml Laboratory Data 24H LABS Laboratory Tests 2 10/29/18 17:33: Immature Granulocyte % (Auto) 0.4, White Blood Count 13.4H, Red Blood Count 4.33, Hemoglobin 11.2L, Hematocrit 37.0, Mean Corpuscular Volume 85.5, Mean Corpuscular Hemoglobin 25.9L, Mean Corpuscular Hemoglobin Concent 30.3L, Red Cell Distribution Width 17.3H, Platelet Count 185, Neutrophils (%) (Auto) 84.0H, Lymphocytes (%) (Auto) 10.2L, Monocytes (%) (Auto) 5.2H, Eosinophils (%) (Auto) 0.0, Basophils (%) (Auto) 0.2, Neutrophils # (Auto) 11.3H, Lymphocytes # (Auto) 1.4L, Monocytes # (Auto) 0.7, Eosinophils # (Auto) 0.0, Basophils # (Auto) 0.0, Nucleated Red Blood Cells % (auto) 0.0, Prothrombin Time 17.7H, Prothromb Time International Ratio 1.49, Activated Partial Thromboplast Time 44.9H, Anion Gap 6L, Glomerular Filtration Rate 49.1, Calcium Level 7.9L, Aspartate Amino Transf (AST/SGOT) 118H, Alanine Aminotransferase (ALT/SGPT) 15, Alkaline Phosphatase 130H, Total Bilirubin 0.2, Direct Bilirubin < 0.1, Total Creatine Kinase 3322H, Creatine Kinase MB 9.1H, Creatine Kinase MB Relative Index 0.27, Troponin I 0.06, C-Reactive Protein, Quantitative 13.70H, MV-Hcm-Q-Type Natriuretic Peptide 3737H, Total Protein 6.5, Albumin 2.7L, Albumin/Globulin Ratio 0.71L, Thyroid Stimulating Hormone (TSH) 0.596 10/30/18 06:53: Nucleated Red Blood Cells % (auto) 0.0, Anion Gap 4L, Glomerular Filtration Rate > 60.0, Calcium Level 8.0L, Aspartate Amino Transf (AST/SGOT) 100H, Alanine Aminotransferase (ALT/SGPT) 13, Alkaline Phosphatase 111, Total Bilirubin 0.4#, Total Creatine Kinase 2285H, Total Protein 6.5, Albumin 2.4L, Albumin/Globulin Ratio 0.59L, Blood Urea Nitrogen 12, Creatinine 0.82, Sodium Level 137, Potassium Level 3.6, Chloride Level 102, Carbon Dioxide Level 31, Magnesium Level 1.9 CBC/BMP Laboratory Tests 10/29/18 17:33 Red Blood Count 4.33, Mean Corpuscular Volume 85.5, Mean Corpuscular Hemoglobin 25.9 L, Mean Corpuscular Hemoglobin Concent 30.3 L, Red Cell Distribution Width 17.3 H, Neutrophils (%) (Auto) 84.0 H, Lymphocytes (%) (Auto) 10.2 L, Monocytes (%) (Auto) 5.2 H, Eosinophils (%) (Auto) 0.0, Basophils (%) (Auto) 0.2, Neutrophils # (Auto) 11.3 H, Lymphocytes # (Auto) 1.4 L, Monocytes # (Auto) 0.7, Eosinophils # (Auto) 0.0, Basophils # (Auto) 0.0 10/30/18 06:53 Red Blood Count 3.91 L, Mean Corpuscular Volume 84.9, Mean Corpuscular H emoglobin 25.8 L, Mean Corpuscular Hemoglobin Concent 30.4 L, Red Cell Distribution Width 17.4 H, Calcium Level 8.0 L, Aspartate Amino Transf (AST/SGOT) 100 H, Alanine Aminotransferase (ALT/SGPT) 13, Total Creatine Kinase 2285 H, Alkaline Phosphatase 111, Total Bilirubin 0.4 #, Total Protein 6.5, Al bumin 2.4 L HOUSTON RICHARD MD Oct 30, 2018 11:58
[2018-10-30 12:24] VITALS: BP 140/70
[2018-10-30] MEDS: ALBUTEROL 90 MCG/ACT 8GM HFA INHALER INH PRN ×2 (12:30→13:12)
[2018-10-30 13:02] LABS: ABG BASE EXCESS 0.2 (-2.0-2.0); ABG HCO3 27.1 MEQ/L (22.0-26.0); ABG O2 SATURATION 90.3 % (95.0-99.0); ABG PARTIAL PRESSURE CO2 54.4 mmHg (35.0-45.0); ABG PARTIAL PRESSURE O2 62.3 mmHg (75.0-100.0); ABG STANDARD HCO3 24.5 MEQ/L (22.0-26.0); ABG TOTAL CO2 28.8 MEQ/L (23.0-31.0); ABG pH (ARTERIAL) 7.316 UNITS (7.350-7.450)
[2018-10-30] MEDS ORDERED: NALOXONE INJ 0.4 MG/1 ML VIAL (J2310) As Ordered ONE (13:26)
[2018-10-30] MEDS: NALOXONE INJ 0.4 MG/1 ML VIAL (J2310) IV PRN ×6 (13:28→19:00)
[2018-10-30 14:00] VITALS: BP 114/72
[2018-10-30] MEDS: IPRATROPIUM 0.5MG/ALBUTEROL 2.5MG INH SOL UD 3ML (DUONEB)(J7620) NEB SCH ×2 (14:00→20:00)
[2018-10-30] MEDS ORDERED: IPRATROPIUM 0.5MG/ALBUTEROL 2.5MG INH SOL UD 3ML (DUONEB)(J7620) NEB PRN (15:00)
[2018-10-30 16:22] VITALS: BP 98/65
[2018-10-30] MEDS ORDERED: HALOPERIDOL 5 MG/ML VIAL (J1630) IM STA (19:56)
[2018-10-30] MEDS ORDERED: diphenhydrAMINE INJ 50MG/ML VIAL (J1200) IM ONE (21:00)
--- NOTE | 2018-10-30 22:21 | IPNPDOC ---
Text Note Date of Service The patient was seen on 10/30/18. NOTE Called by RN to see patient as she is been very agitated and refusing any int ervention, treatment and even speaking to her by nursing staff. Patient seen and examined in the room. Patient very agitated uses foul language to express her frustrations, belligerent and she thinks that nursing staff is putting some kind of chemicals in her tissues and they are making her feel sick and thaats why she now has wheezing.I tried to calm her down, but she refused to listen to any of my considerations. 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 He recommended Haldol 5 mg followed by Benadryl 50 mg followed by again Haldol 5 mg in a few hours for agitation , which is most likely secondary to delirium. Patient wants to sign out AMA, but she is not Able mentally to sign out AMA . Unless Her healthcare proxy comes, and they're willing to sign her off but will try to talk her healthcare proxy omce they get here. Pt refused to listen to any suggestions and was continuously using foul language for me to get out of the the room. VS,Fishbone, I+O VS, Fishbone, I+O Laboratory Tests 10/30/18 06:53 Red Blood Count 3.91 L, Mean Corpuscular Volume 84.9, Mean Corpuscular Hemoglobin 25.8 L, Mean Corpuscular Hemoglobin Concent 30.4 L, Red Cell Distribution Width 17.4 H, Calcium Level 8.0 L, Aspartate Amino Transf (AST/SGOT) 100 H, Alanine Aminotransferase (ALT/SGPT) 13, Total Creatine Kinase 2285 H, Alkaline Phosphatase 111, Total Bilirubin 0.4 #, Total Protein 6.5, Albumin 2.4 L Vital Signs Date Time Temp Pulse Resp B/P (MAP) Pulse Ox O2 Delivery O2 Flow Rate FiO2 10/30/18 16:22 98.6 104 14 98/65 (29) 93 2.0 10/29/18 22:38 Room Air I&O- Last 24 Hours up to 6 AM 10/30/18 06:00 Intake Total 955 ml Output Total 450 ml Balance 505 ml GURPREET DUKES MD Oct 30, 2018 22:21
[2018-11-19] MEDS ORDERED: BUSP5TA PO (08:54)
[2018-11-19] MEDS ORDERED: ALBU83IN INH (08:54)
== END 2018-10-30 21:55 | disposition left against medical advice (07) | DRG 351 ==
LOC: M ED 15:21 → EDBD 15:21 → M ED INP 15:22 → M MS4PR 23:30 → M ICU 10-30 13:25 → OBSVTOIN 10-30 15:59
PROVIDERS: ADMIT Internal Medicine; ATTEND Internal Medicine
DX: M62.82 Rhabdomyolysis (principal); J44.9 Chronic obstructive pulmonary disease, unspecified; Z89.612 Acquired absence of left leg above knee; Z79.01 Long term (current) use of anticoagulants; Z86.718 Personal history of other venous thrombosis and embolism; Z85.42 Personal history of malignant neoplasm of other parts of uterus; R91.1 Solitary pulmonary nodule; I73.9 Peripheral vascular disease, unspecified; R29.6 Repeated falls

== ENCOUNTER → 2018-11-06 | Outpatient (REF) | payer OTHER ==
[~2018-11-06] MED LIST changes: +PANT-23 PO; +PANT40TA3
== END ==
LOC: M SFHCCLAY 15:06
PROVIDERS: ATTEND Nurse Practitioner Family
DX: N76.1 Subacute and chronic vaginitis (principal)

== ENCOUNTER → 2018-11-18 | Outpatient (CLI) | payer OTHER ==
[~2018-11-18] MED LIST changes: +ALBU83IN INH; +OMEP1CAP73 PO; -OMEP20CA4 PO; -OMEP40CA2 PO; +OMEP40CA97 PO
[2018-11-18 14:20] LABS: PLATELET COUNT, AUTOMATED 281 10^3/uL (150-450)
[2018-11-18 14:32] LABS: INR 1.33; PARTIAL THROMBOPLASTIN TIME 41.7 SECONDS (25.0-38.4); PROTHROMBIN TIME 16.2 SECONDS (11.8-14.0)
== END ==
LOC: M SMT 13:46
PROVIDERS: ATTEND Internal Medicine Pulmonary Disease
DX: R91.1 Solitary pulmonary nodule (principal); Z79.01 Long term (current) use of anticoagulants

== ENCOUNTER 2019-01-03 18:13 | Emergency (ER) | payer OTHER ==
[~2019-01-03] VITALS: Ht 172.7 cm; Wt 96.4 kg
[~2019-01-03 18:13] MED LIST changes: -OMEP1CAP73 PO; +OMEP20CA4 PO; +OMEP40CA2 PO; -OMEP40CA97 PO
[2019-01-03] MEDS ORDERED: ALBUTEROL SULFATE 2.5 MG/0.5 ML INH NEB SOLN As Ordered ONE (18:47)
[2019-01-03] MEDS ORDERED: ALBUTEROL SULFATE 2.5 MG/0.5 ML INH NEB SOLN NEB ONE (19:00)
--- NOTE | 2019-01-03 19:23 | REP ---
AP PORTABLE CHEST: 01/03/2019. Comparison: 10/29/2018, CT chest 09/21/2018. Clinical history: Dyspnea and cough. Findings: Lordotic projection limits evaluation of the posterior and lower lung zones. There is peribronchial thickening consistent with reactive airway disease or bronchitis. Some increased markings in the right medial base may reflect some patchy infiltrate. (She had an extensive right lower lobe pneumonia on the 09/21/2018 CT exam). No definite effusion. Heart not enlarged. Aorta and airway intact. No widening the mediastinum. Impression: 1. Patchy right medial base opacity suggesting infiltrate or atelectasis in the right lower lobe medial basal segment. The posterior lower lung zones are not well evaluated on this lordotic chest. 2. No cardiomegaly or edema. Electronically Signed by Aaron Hermosillo MD 01/03/2019 08:28 P
[2019-01-03 19:59] LABS: INFLUENZA A AMPLIFICATION NEGATIVE (NEGATIVE); INFLUENZA B AMPLIFICATION NEGATIVE (NEGATIVE)
[2019-01-03 20:08] LABS: BASO % 0.6 % (0.0-1.0); HEMATOCRIT 45.4 % (36.0-47.0); HEMOGLOBIN 13.7 g/dl (12.0-15.5); LYMPH # 1.8 10^3/uL (1.5-5.0); LYMPH % 24.6 % (24.0-44.0); MEAN CORPUSCULAR HEMOGLOBIN 25.2 pg (27.0-33.0); MEAN CORPUSCULAR HGB CONC 30.2 g/dl (32.0-36.5); MEAN CORPUSCULAR VOLUME 83.5 fl (80.0-96.0); MONO # 0.5 10^3/uL (0.0-0.8); MONO % 7.4 % (0.0-5.0); NEUTROPHILS # 4.8 10^3/uL (1.5-8.5); NEUTROPHILS % 66.7 % (36.0-66.0); PLATELET COUNT, AUTOMATED 254 10^3/uL (150-450); RED BLOOD COUNT 5.44 10^6/uL (4.00-5.40); WHITE BLOOD COUNT 7.3 10^3/uL (4.0-10.0)
[2019-01-03] MEDS ORDERED: NALOXONE INJ 2 MG/2 ML SYRINGE (J2310) IV STA (20:20)
[2019-01-03 20:22] LABS: BLOOD UREA NITROGEN 10 MG/DL (7-18); CALCIUM LEVEL 9.2 MG/DL (8.8-10.2); CARBON DIOXIDE LEVEL 29 MEQ/L (21-32); CHLORIDE LEVEL 107 MEQ/L (98-107); CREATININE FOR GFR 1.35 MG/DL (0.55-1.30); GLOMERULAR FILTRATION RATE 42.4 (>45); GLUCOSE, FASTING 107 MG/DL (70-100); SODIUM LEVEL 142 MEQ/L (136-145)
--- NOTE | 2019-01-03 20:23 | ECGEPIP ---
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
[2019-01-03 20:41] LABS: ALBUMIN 3.5 GM/DL (3.2-5.2); ALT/SGPT 11 U/L (12-78); BILIRUBIN,DIRECT 0.1 MG/DL (0.0-0.2); BILIRUBIN,TOTAL 0.3 MG/DL (0.2-1.0); ETHYL ALCOHOL (ETHANOL) < 0.003 % (0.000-0.010); TOTAL PROTEIN 8.2 GM/DL (6.4-8.2)
[2019-01-03 22:31] VITALS: BP 189/84
== END 2019-01-03 23:50 | disposition home or self-care (01) ==
LOC: M ED 18:13 → EDBD 18:13 → M ED 23:50
DX: F11.229 Opioid dependence with intoxication, unspecified (principal); J44.9 Chronic obstructive pulmonary disease, unspecified; K21.9 Gastro-esophageal reflux disease without esophagitis; I73.9 Peripheral vascular disease, unspecified; Z79.899 Other long term (current) drug therapy; Z79.82 Long term (current) use of aspirin; Z79.01 Long term (current) use of anticoagulants; Z88.1 Allergy status to other antibiotic agents; Z88.8 Allergy status to other drugs, medicaments and biological substances; F17.210 Nicotine dependence, cigarettes, uncomplicated
CPT/HCPCS: 36415; 36600; 71045; 80048; 80076; 82803; 85025; 87040; 87502; 93005; 93041; 96374; 99285; G0480; J2310

== ENCOUNTER → 2019-01-07 | Outpatient (REF) | payer OTHER | LOC: M SFHCCLAY 11:03 | PROVIDERS: ATTEND Family Medicine | DX: T81.31XA Disruption of external operation (surgical) wound, not elsewhere classified, initial encounter (principal) ==

== ENCOUNTER → 2019-04-04 | Outpatient (CLI) | payer OTHER ==
[~2019-04-04] MED LIST changes: +ISOVUE-370 76% 100ML VIAL (Q9967) As Ordered ONE; +OMEP-172 PO; -OMEP20CA4 PO; -OMEP40CA2 PO; +OMEP40CA97 PO
--- NOTE | 2019-04-04 12:09 | REP ---
CT LEFT FEMUR: CT left femur performed in the axial plane. Sagittal and coronal reconstruction images are performed. Comparison made with prior study of 01/31/2017. Patient complains of increased pain after recent stump revision 3 months ago. Callus formation is seen at the distal end of the remaining femur. I do not see evidence of acute fracture or acute osseous destruction. Multiple metallic clips are seen in the soft tissues of the left inguinal region and also in the thigh. There are scattered vascular calcifications. I do not see a definite fluid collection in the soft tissues. There is ill-defined soft tissue density adjacent to the distal end of the remaining femur. This probably represents postsurgical scarring. However, superimposed cellulitis at that location would be impossible to exclude. Clinical correlation is necessary. Electronically Signed by Juan J Nicholson MD 04/04/2019 05:12 P
== END ==
LOC: M RAD 10:30
PROVIDERS: ATTEND Nurse Practitioner
DX: T87.89 Other complications of amputation stump (principal); L84 Corns and callosities; Z89.512 Acquired absence of left leg below knee
CPT/HCPCS: 73701; Q9967

== ENCOUNTER → 2019-05-26 | Outpatient (REF) | payer OTHER ==
[~2019-05-26] MED LIST changes: -ISOVUE-370 76% 100ML VIAL (Q9967) As Ordered ONE; -OMEP-172 PO; +OMEP1CAP73 PO
[2019-05-27 11:41] LABS: BASO % 0.8 % (0.0-1.0); HEMATOCRIT 41.1 % (36.0-47.0); HEMOGLOBIN 12.6 g/dl (12.0-15.5); LYMPH # 1.7 10^3/uL (1.5-5.0); LYMPH % 33.2 % (24.0-44.0); MEAN CORPUSCULAR HEMOGLOBIN 25.7 pg (27.0-33.0); MEAN CORPUSCULAR HGB CONC 30.7 g/dl (32.0-36.5); MEAN CORPUSCULAR VOLUME 83.7 fl (80.0-96.0); MONO # 0.4 10^3/uL (0.0-0.8); MONO % 7.8 % (0.0-5.0); NEUTROPHILS # 2.9 10^3/uL (1.5-8.5); NEUTROPHILS % 57.8 % (36.0-66.0); PLATELET COUNT, AUTOMATED 209 10^3/uL (150-450); RED BLOOD COUNT 4.91 10^6/uL (4.00-5.40)
[2019-05-27 11:42] LABS: ALBUMIN 3.5 GM/DL (3.2-5.2); ALT/SGPT 13 U/L (12-78); BILIRUBIN,TOTAL 0.1 MG/DL (0.2-1.0); BLOOD UREA NITROGEN 9 MG/DL (7-18); CALCIUM LEVEL 8.9 MG/DL (8.8-10.2); CARBON DIOXIDE LEVEL 31 MEQ/L (21-32); CHLORIDE LEVEL 104 MEQ/L (98-107); CHOLESTEROL LEVEL 195 MG/DL (<200); CHOLESTEROL RISK RATIO 4.534 (<5); CREATININE FOR GFR 0.94 MG/DL (0.55-1.30); GLOMERULAR FILTRATION RATE > 60.0 (>45); GLUCOSE, FASTING 157 MG/DL (70-100); HDL CHOLESTEROL 43 MG/DL (>40); IRON (FE) 39 UG/DL (50-170); LDL CHOLESTEROL 103 MG/DL (<100); NON-HDL-C 152 MG/DL; POTASSIUM SERUM 4.3 MEQ/L (3.5-5.1); SODIUM LEVEL 139 MEQ/L (136-145); TOTAL PROTEIN 7.6 GM/DL (6.4-8.2); TRIGLYCERIDES LEVEL 246 MG/DL (<150)
[2019-05-27 12:06] LABS: HEMOGLOBIN A1c 6.1 %
== END ==
LOC: M SFHCCLAY 14:55
PROVIDERS: ATTEND Family Medicine
DX: E11.42 Type 2 diabetes mellitus with diabetic polyneuropathy (principal); E78.2 Mixed hyperlipidemia; D64.9 Anemia, unspecified

== ENCOUNTER → 2019-09-15 | Outpatient (REF) | payer OTHER ==
[~2019-09-15] MED LIST changes: +OXYC-1 PO; -OXYC15TA76 PO; -PARO30TA PO; +PARO30TA65 PO
[2019-09-16 11:47] LABS: BASO # 0.1 10^3/uL (0.0-0.2); BASO % 0.9 % (0.0-1.0); HEMATOCRIT 40.9 % (36.0-47.0); HEMOGLOBIN 12.1 g/dl (12.0-15.5); LYMPH # 1.6 10^3/uL (1.5-5.0); LYMPH % 29.8 % (24.0-44.0); MEAN CORPUSCULAR HEMOGLOBIN 24.4 pg (27.0-33.0); MEAN CORPUSCULAR HGB CONC 29.6 g/dl (32.0-36.5); MEAN CORPUSCULAR VOLUME 82.6 fl (80.0-96.0); MONO # 0.6 10^3/uL (0.0-0.8); MONO % 11.1 % (0.0-5.0); NEUTROPHILS # 3.2 10^3/uL (1.5-8.5); NEUTROPHILS % 57.5 % (36.0-66.0); PLATELET COUNT, AUTOMATED 270 10^3/uL (150-450); RED BLOOD COUNT 4.95 10^6/uL (4.00-5.40); WHITE BLOOD COUNT 5.5 10^3/uL (4.0-10.0)
[2019-09-16 12:08] LABS: ALBUMIN 3.2 GM/DL (3.2-5.2); ALT/SGPT 13 U/L (12-78); BILIRUBIN,TOTAL 0.3 MG/DL (0.2-1.0); BLOOD UREA NITROGEN 11 MG/DL (7-18); CALCIUM LEVEL 8.9 MG/DL (8.8-10.2); CARBON DIOXIDE LEVEL 32 MEQ/L (21-32); CHLORIDE LEVEL 104 MEQ/L (98-107); CREATININE FOR GFR 0.88 MG/DL (0.55-1.30); GLOMERULAR FILTRATION RATE > 60.0 (>45); GLUCOSE, FASTING 70 MG/DL (70-100); POTASSIUM SERUM 4.2 MEQ/L (3.5-5.1); SODIUM LEVEL 137 MEQ/L (136-145); TOTAL PROTEIN 7.8 GM/DL (6.4-8.2)
[2019-09-16 13:10] LABS: HEMOGLOBIN A1c 6.6 %
== END ==
LOC: M SFHCCLAY 14:38
PROVIDERS: ATTEND Family Medicine
DX: E78.2 Mixed hyperlipidemia (principal); I73.9 Peripheral vascular disease, unspecified; E11.42 Type 2 diabetes mellitus with diabetic polyneuropathy

== ENCOUNTER 2020-01-01 13:11 | Emergency (ER) | payer OTHER ==
[~2020-01-01] VITALS: Ht 172.7 cm; Wt 95.9 kg
[~2020-01-01 13:11] MED LIST changes: +ASPI-546 PO; -ASPI1TAB15 PO; +PANT40TA29; -PANT40TA3
[2020-01-01 14:03] LABS: HEMATOCRIT 42.1 % (36.0-47.0); HEMOGLOBIN 12.7 g/dl (12.0-15.5); MEAN CORPUSCULAR HGB CONC 30.2 g/dl (32.0-36.5); PLATELET COUNT, AUTOMATED 199 10^3/uL (150-450); RED BLOOD COUNT 5.07 10^6/uL (4.00-5.40)
--- NOTE | 2020-01-01 14:30 | REPVR ---
PROCEDURE INFORMATION: Exam: XR Chest, 1 View Exam date and time: 01/01/2020 2:09 PM Age: 64 years old Clinical indication: Screening exam; Pre-operative exam; Other: Leg; Additional info: Preop for leg surgery TECHNIQUE: Imaging protocol: XR of the chest Views: 1 view. COMPARISON: CR PORTABLE CHEST X-RAY 01/03/2019 6:36 PM FINDINGS: Tubes, catheters and devices: Electronic device projects over the left hemithorax. Lungs: Mild linear atelectasis or scarring in the left lung base. No confluent consolidation. Pleural space: Unremarkable. No pleural effusion. No pneumothorax. Heart/Mediastinum: Unremarkable. No cardiomegaly. Bones/joints: Degenerative change of the spine. Left acromioclavicular joint DJD. IMPRESSION: No acute cardiopulmonary abnormality. Electronically signed by: Carol Burns On 01/01/2020 14:29:52 PM
[2020-01-01] MEDS ORDERED: NS 500 ML IV ONE (15:00)
[2020-01-01 15:10] LABS: BLOOD UREA NITROGEN 10 MG/DL (7-18); CALCIUM LEVEL 9.1 MG/DL (8.8-10.2); CARBON DIOXIDE LEVEL 28 MEQ/L (21-32); CHLORIDE LEVEL 105 MEQ/L (98-107); CREATININE FOR GFR 0.88 MG/DL (0.55-1.30); GLOMERULAR FILTRATION RATE > 60.0 (>45); GLUCOSE, FASTING 109 MG/DL (70-100); SODIUM LEVEL 140 MEQ/L (136-145)
[2020-01-01] MEDS ORDERED: NALOXONE INJ 0.4MG/1ML VIAL (J2310 PER 1MG) IV STA (15:52)
[2020-01-01 17:00] VITALS: BP 146/76
--- NOTE | 2020-01-01 20:56 | ECGEPIP ---
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
== END 2020-01-01 17:07 | disposition short-term general hospital (02) ==
LOC: M ED 13:11
DX: I99.8 Other disorder of circulatory system (principal); E03.9 Hypothyroidism, unspecified; I63.9 Cerebral infarction, unspecified; F17.200 Nicotine dependence, unspecified, uncomplicated; Z79.51 Long term (current) use of inhaled steroids; Z79.891 Long term (current) use of opiate analgesic; Z88.1 Allergy status to other antibiotic agents; Z88.6 Allergy status to analgesic agent; Z88.8 Allergy status to other drugs, medicaments and biological substances; Z89.612 Acquired absence of left leg above knee
CPT/HCPCS: 71045; 80048; 82803; 83605; 85027; 93005; 96361; 96374; 99284; J2310; U0002

== ENCOUNTER → 2020-06-04 | Outpatient (REF) | payer OTHER ==
[~2020-06-04] MED LIST changes: +ASPI-569 PO; -ASPI81TAEC PO
[2020-06-04 16:49] LABS: ALBUMIN 3.3 GM/DL (3.2-5.2); ALT/SGPT 12 U/L (12-78); BILIRUBIN,TOTAL 0.1 MG/DL (0.2-1.0); BLOOD UREA NITROGEN 8 MG/DL (7-18); CALCIUM LEVEL 8.7 MG/DL (8.8-10.2); CARBON DIOXIDE LEVEL 26 MEQ/L (21-32); CHLORIDE LEVEL 107 MEQ/L (98-107); CHOLESTEROL LEVEL 190 MG/DL (<200); CREATININE FOR GFR 0.85 MG/DL (0.55-1.30); GLOMERULAR FILTRATION RATE > 60.0 (>45); GLUCOSE, FASTING 178 MG/DL (70-100); HDL CHOLESTEROL 46 MG/DL (>40); LDL CHOLESTEROL 102 MG/DL (<100); NON-HDL-C 144 MG/DL; POTASSIUM SERUM 5.1 MEQ/L (3.5-5.1); SODIUM LEVEL 140 MEQ/L (136-145); TOTAL PROTEIN 7.6 GM/DL (6.4-8.2); TRIGLYCERIDES LEVEL 210 MG/DL (<150)
[2020-06-04 17:52] LABS: HEMOGLOBIN A1c 6.6 %
== END ==
LOC: M SFHCCLAY 11:08
PROVIDERS: ATTEND Family Medicine
DX: E11.42 Type 2 diabetes mellitus with diabetic polyneuropathy (principal); E78.2 Mixed hyperlipidemia

== ENCOUNTER → 2020-11-01 | Outpatient (REF) | payer OTHER ==
[~2020-11-01] MED LIST changes: +OMEP40CA4 PO; -OMEP40CA97 PO
[2020-11-01 16:46] LABS: BASO % 0.3 % (0.0-1.0); EOS % 0.2 % (0.0-3.0); HEMATOCRIT 32.5 % (36.0-47.0); HEMOGLOBIN 9.4 g/dl (12.0-15.5); LYMPH % 18.1 % (24.0-44.0); MEAN CORPUSCULAR HEMOGLOBIN 24.9 pg (27.0-33.0); MEAN CORPUSCULAR HGB CONC 28.9 g/dl (32.0-36.5); MONO # 0.5 10^3/uL (0.0-0.8); MONO % 9.2 % (2.0-8.0); NEUTROPHILS # 4.1 10^3/uL (1.5-8.5); NEUTROPHILS % 71.7 % (36.0-66.0); PLATELET COUNT, AUTOMATED 244 10^3/uL (150-450); RED BLOOD COUNT 3.78 10^6/uL (4.00-5.40); WHITE BLOOD COUNT 5.8 10^3/uL (4.0-10.0)
[2020-11-01 17:06] LABS: ALBUMIN 2.6 GM/DL (3.2-5.2); ALT/SGPT 12 U/L (12-78); BILIRUBIN,TOTAL 0.3 MG/DL (0.2-1.0); BLOOD UREA NITROGEN 6 MG/DL (7-18); C REACTIVE PROTEIN QUANTITATIV 4.24 MG/DL (0.00-0.30); CALCIUM LEVEL 8.5 MG/DL (8.8-10.2); CARBON DIOXIDE LEVEL 30 MEQ/L (21-32); CHLORIDE LEVEL 106 MEQ/L (98-107); CREATININE FOR GFR 0.88 MG/DL (0.55-1.30); GLOMERULAR FILTRATION RATE > 60.0 (>45); GLUCOSE, FASTING 135 MG/DL (70-100); POTASSIUM SERUM 3.8 MEQ/L (3.5-5.1); SODIUM LEVEL 140 MEQ/L (136-145); TOTAL PROTEIN 7.3 GM/DL (6.4-8.2); VANCOMYCIN LEVEL TROUGH 13.1 UG/ML (10.0-20.0)
[2020-11-01 17:18] LABS: ERYTHROCYTE SEDIMENTATION RATE 58 mm/hr (0-30)
== END ==
LOC: M LAB REF 15:50
PROVIDERS: ATTEND Internal Medicine Infectious Disease
DX: T82.7XXD Infection and inflammatory reaction due to other cardiac and vascular devices, implants and grafts, subsequent encounter (principal); Z79.2 Long term (current) use of antibiotics

== ENCOUNTER → 2020-11-08 | Outpatient (REF) | payer OTHER ==
[2020-11-08 17:34] LABS: ALBUMIN 2.9 GM/DL (3.2-5.2); ALT/SGPT 10 U/L (12-78); BILIRUBIN,TOTAL 0.2 MG/DL (0.2-1.0); BLOOD UREA NITROGEN 9 MG/DL (7-18); C REACTIVE PROTEIN QUANTITATIV 5.12 MG/DL (0.00-0.30); CALCIUM LEVEL 8.4 MG/DL (8.8-10.2); CARBON DIOXIDE LEVEL 29 MEQ/L (21-32); CHLORIDE LEVEL 104 MEQ/L (98-107); CREATININE FOR GFR 0.94 MG/DL (0.55-1.30); GLOMERULAR FILTRATION RATE > 60.0 (>45); GLUCOSE, FASTING 112 MG/DL (70-100); POTASSIUM SERUM 3.8 MEQ/L (3.5-5.1); SODIUM LEVEL 138 MEQ/L (136-145); TOTAL PROTEIN 7.5 GM/DL (6.4-8.2); VANCOMYCIN LEVEL TROUGH 11.1 UG/ML (10.0-20.0)
[2020-11-08 17:39] LABS: BASO % 0.4 % (0.0-1.0); EOS % 0.2 % (0.0-3.0); HEMOGLOBIN 9.5 g/dl (12.0-15.5); LYMPH # 1.4 10^3/uL (1.5-5.0); LYMPH % 26.1 % (24.0-44.0); MEAN CORPUSCULAR HEMOGLOBIN 25.2 pg (27.0-33.0); MEAN CORPUSCULAR HGB CONC 28.8 g/dl (32.0-36.5); MEAN CORPUSCULAR VOLUME 87.5 fl (80.0-96.0); MONO # 0.6 10^3/uL (0.0-0.8); NEUTROPHILS # 3.2 10^3/uL (1.5-8.5); NEUTROPHILS % 60.5 % (36.0-66.0); PLATELET COUNT, AUTOMATED 242 10^3/uL (150-450); RED BLOOD COUNT 3.77 10^6/uL (4.00-5.40); WHITE BLOOD COUNT 5.3 10^3/uL (4.0-10.0)
[2020-11-08 18:51] LABS: ERYTHROCYTE SEDIMENTATION RATE 50 mm/hr (0-30)
== END ==
LOC: M LAB REF 15:44
PROVIDERS: ATTEND Internal Medicine Infectious Disease
DX: Z79.2 Long term (current) use of antibiotics (principal); Z79.899 Other long term (current) drug therapy

== ENCOUNTER 2020-11-12 15:44 | Emergency (ER) | payer OTHER ==
[~2020-11-12] VITALS: Ht 172.7 cm; Wt 100.0 kg
[2020-11-12 15:44] VITALS: BP 159/67
[~2020-11-12 15:44] MED LIST changes: -ALBU83IN INH; +ALBU83IN NEB; -CEFD1CAP8 PO; +CEFD300C41 PO; -FLUC150T PO; +FLUC150T9 PO
[2020-11-12] MEDS ORDERED: VANCOMYCIN HCL 2,000 MG in D5W 500 ML IV ONE (17:55)
[2020-11-12] MEDS ORDERED: VANCOMYCIN HCL 1,000 MG, VIAL MATE ADAPTER 1 EACH in NS 250 ML IV ONE ×2 (18:00→19:00)
== END 2020-11-12 19:40 | disposition left against medical advice (07) ==
LOC: M ED 18:40
DX: T82.524A Displacement of infusion catheter, initial encounter (principal); Z53.9 Procedure and treatment not carried out, unspecified reason; G43.909 Migraine, unspecified, not intractable, without status migrainosus; Z86.718 Personal history of other venous thrombosis and embolism; G47.33 Obstructive sleep apnea (adult) (pediatric); C55 Malignant neoplasm of uterus, part unspecified; E03.9 Hypothyroidism, unspecified; F17.200 Nicotine dependence, unspecified, uncomplicated; Z88.8 Allergy status to other drugs, medicaments and biological substances; Z88.1 Allergy status to other antibiotic agents; Z79.899 Other long term (current) drug therapy

== ENCOUNTER → 2020-11-17 | Outpatient (REF) | payer OTHER ==
[~2020-11-17] MED LIST changes: +ATOR80TA59 PO; +CEFD1CAP8 PO; -CEFD300C41 PO; +FLUC150T PO; -FLUC150T9 PO; +OXYC20TA2 PO
[2020-11-17 17:04] LABS: BASO % 0.3 % (0.0-1.0); HEMATOCRIT 28.6 % (36.0-47.0); HEMOGLOBIN 8.2 g/dl (12.0-15.5); LYMPH # 1.4 10^3/uL (1.5-5.0); LYMPH % 22.2 % (24.0-44.0); MEAN CORPUSCULAR HEMOGLOBIN 24.6 pg (27.0-33.0); MEAN CORPUSCULAR HGB CONC 28.7 g/dl (32.0-36.5); MEAN CORPUSCULAR VOLUME 85.6 fl (80.0-96.0); MONO # 0.8 10^3/uL (0.0-0.8); MONO % 11.7 % (2.0-8.0); NEUTROPHILS # 4.2 10^3/uL (1.5-8.5); NEUTROPHILS % 65.2 % (36.0-66.0); PLATELET COUNT, AUTOMATED 154 10^3/uL (150-450); RED BLOOD COUNT 3.34 10^6/uL (4.00-5.40); WHITE BLOOD COUNT 6.4 10^3/uL (4.0-10.0)
[2020-11-17 17:57] LABS: ALBUMIN 2.6 GM/DL (3.2-5.2); BILIRUBIN,TOTAL 0.3 MG/DL (0.2-1.0); C REACTIVE PROTEIN QUANTITATIV 10.2 MG/DL (0.00-0.30); CALCIUM LEVEL 8.3 MG/DL (8.8-10.2); CREATININE FOR GFR 3.05 MG/DL (0.55-1.30); GLOMERULAR FILTRATION RATE 16.5 (>45); POTASSIUM SERUM 3.5 MEQ/L (3.5-5.1); TOTAL PROTEIN 6.8 GM/DL (6.4-8.2)
[2020-11-17 17:58] LABS: VANCOMYCIN LEVEL TROUGH 40.3 UG/ML (10.0-20.0)
[2020-11-17 19:34] LABS: ERYTHROCYTE SEDIMENTATION RATE 65 mm/hr (0-30)
== END ==
LOC: M LAB REF 15:49
PROVIDERS: ATTEND Internal Medicine Infectious Disease
DX: T82.7XXD Infection and inflammatory reaction due to other cardiac and vascular devices, implants and grafts, subsequent encounter (principal); Z79.2 Long term (current) use of antibiotics

== ENCOUNTER 2020-11-19 15:15 | Inpatient (IN) | payer OTHER ==
[~2020-11-19] VITALS: Ht 172.7 cm; Wt 104.2 kg
[~2020-11-19 15:15] MED LIST changes: -ATOR80TA59 PO; -OXYC20TA2 PO
[2020-11-19 15:40] LABS: BASO % 0.1 % (0.0-1.0); HEMATOCRIT 29.9 % (36.0-47.0); HEMOGLOBIN 8.7 g/dl (12.0-15.5); LYMPH # 0.3 10^3/uL (1.5-5.0); LYMPH % 3.1 % (24.0-44.0); MEAN CORPUSCULAR HEMOGLOBIN 24.2 pg (27.0-33.0); MEAN CORPUSCULAR HGB CONC 29.1 g/dl (32.0-36.5); MEAN CORPUSCULAR VOLUME 83.1 fl (80.0-96.0); MONO # 0.4 10^3/uL (0.0-0.8); MONO % 3.5 % (2.0-8.0); NEUTROPHILS # 9.9 10^3/uL (1.5-8.5); NEUTROPHILS % 92.5 % (36.0-66.0); PLATELET COUNT, AUTOMATED 210 10^3/uL (150-450); WHITE BLOOD COUNT 10.7 10^3/uL (4.0-10.0)
[2020-11-19] MEDS ORDERED: COMBIVENT RESPIMAT 100-20MCG INHALER 4GM INH ONE (15:50)
[2020-11-19 15:58] LABS: ABG BASE EXCESS -3.4 (-2.0-2.0); ABG O2 SATURATION 98.2 % (95.0-99.0); ABG PARTIAL PRESSURE O2 124.7 mmHg (75.0-100.0); ABG STANDARD HCO3 21.7 MEQ/L (22.0-26.0); ABG TOTAL CO2 23.3 MEQ/L (23.0-31.0); ABG pH (ARTERIAL) 7.348 UNITS (7.350-7.450)
--- NOTE | 2020-11-19 16:19 | REP ---
INDICATION: CHEST PAIN. COMPARISON: 01/01/2020 TECHNIQUE: AP view FINDINGS: Removed lungs clear. Heart not enlarged. No failure or effusion. PICC line in place with tip in right atrium. IMPRESSION: PICC line in place with tip in the right atrium. <Electronically signed by Konstantin Mckeon > 11/19/20 [id number]
[2020-11-19 16:56] LABS: ALBUMIN 2.7 GM/DL (3.2-5.2); BILIRUBIN,DIRECT 0.1 MG/DL (0.0-0.2); BILIRUBIN,TOTAL 0.2 MG/DL (0.2-1.0); CALCIUM LEVEL 7.9 MG/DL (8.8-10.2); CK-MB VALUE MASS 4.2 NG/ML (<3.6); CREATININE FOR GFR 3.04 MG/DL (0.55-1.30); FREE T4 1.12 NG/DL (0.76-1.46); GLOMERULAR FILTRATION RATE 16.5 (>45); MB/CK RELATIVE INDEX 1.97 (< OR =4); POTASSIUM SERUM 3.6 MEQ/L (3.5-5.1); THYROID STIMULATING HORMONE 0.618 uIU/ML (0.358-3.740); TOTAL PROTEIN 7.5 GM/DL (6.4-8.2); TROPONIN I 0.17 NG/ML (< 0.10)
[2020-11-19] MEDS ORDERED: SODIUM CHLORIDE 0.9% INJ 10 ML SYR IV PRN (17:00)
[2020-11-19] MEDS ORDERED: OXYC20TA2 PO (17:10)
[2020-11-19] MEDS ORDERED: IPRATROPIUM 0.5MG/ALBUTEROL 2.5MG INH SOL UD 3ML (DUONEB) NEB ONE ×2 (17:45→20:15)
[2020-11-19] MEDS ORDERED: LABETALOL 100MG/20ML VIAL IV STA ×2 (17:53→19:17)
[2020-11-19] MEDS ORDERED: ATOR80TA59 PO (20:37)
[2020-11-19] MEDS ORDERED: HOME MED LIST COMPLETE! XX SCH (20:40)
[2020-11-19] MEDS ORDERED: MAALOX 30 ML SUSP *UDC PO PRN (21:30)
[2020-11-19] MEDS ORDERED: MOM 30ML SUSPENSION UDC PO PRN (21:30)
[2020-11-19] MEDS ORDERED: ALBUTEROL 90 MCG/ACT 8GM HFA INHALER INH PRN (21:30)
[2020-11-19] MEDS ORDERED: LABETALOL 100MG TAB PO ONE (21:50)
[2020-11-19] MEDS ORDERED: LABETALOL 100MG TAB PO SCH (22:30)
--- NOTE | 2020-11-19 22:58 | HPEPDOC ---
[facility] Medical History & Physical Date of Admission Nov 19, 2020 Date of Service: Nov 19, 2020 Primary Care Physician: Morris Navarro Attending Physician: JAYLEN PERSON MD History and Physical TIME OF SERVICE [id number] CHIEF COMPLAINT: shortness of breath HISTORY OF PRESENT ILLNESS: , a 65 yr old F, noticed that she was short of breath when she woke up this morning; as the day went on her shortness of breath got worse. Her shortness of breath is worse with any exertion and even with minimal exertion such as turning over in bed or sitting up. The breathing improved a bit with the nebs that she received in the ER. She can't think of anything that might have triggered her symptoms. She denies missing any doses of medications, denies having any sick contacts or traveling. She denies having a runny nose, fever, chills, change in her chronic cough, chest pain or dizziness. She denies feeling like she is choking or like her shortness of breath is worse when she lies down flat on her back. Per ER intake notes EMS put her on CPAP prior to transport, at the time her O2 sats were 98%; when they removed the CPAP her O2 sats dropped to 65% on room air. Per d/w recently had a revised axillo-fem bypass; her course was complicated by a post-procedure infection which required revision in September. The plan initially was to send the patient to [facility] for continuity of care, but her file was reviewed by the Utilization management team at [facility] who declined her transfer. With regards to the wound the patient reports that the drain has been removed and the wound is healing well. ROS: 10 point ROS negative except as listed in HPI PAST MEDICAL / SURGICAL HISTORY: PVD s/p right axillo fem by pass in August of 2020 & Left AKA (prior hx of left fem-pop bypass with subsequent thrombectomy & balloon angioplasty to manage thrombosis, subsequent debridement to manage skin & fat necrosis of groin incision), Depression, DARRICK (unable to tolerate CPAP), Hypothyroidism, Hx of right arm DVT, Hx of left temporal & parietal embolic CVA (work-up neg for cardiac source), DLP, Chronic Migraines, Chronic tension ROOT, Chronic HFrEF (30% Echo 2016), GERD, Chronic CAD, Esophageal food impaction requiring EGD, Carotid artery disease s/p CEA, Resection of bilateral benign breast lesion, Left ulnar decompression to manage carpal tunnel, PANDA to manage uterine cancer, Lap [place] SOCIAL HISTORY:She continues to smoke 11 to 12 cigarettes per day FAMILY HISTORY: father had CAD / mother had CAD / one sister has breast cancer and unspecified thyroid disease ALLERGIES: Please see below. HOME MEDICATIONS: Please see below. PHYSICAL EXAMINATION: Vital Signs Date Time Temp Pulse Resp B/P (MAP) Pulse Ox O2 Delivery O2 Flow Rate FiO2 11/19/20 15:35 96.9 86 22 162/69 (100) 98 Nasal Cannula 4.0 GENERAL APPEARANCE: well nourished & developed/ anxious INTEGUMENT: she is not pale, diaphoretic / she doesn't have plethora or peripheral cyanosis / she has flat keloid scars that are healing well from the recent aorto-fem bypass, there is no discharge or excessive redness / the incision site closer to her groin is covered in clean and dry dressings HEENT: EOMI / neck short therefore unable to assess for JVP CARDIOVASCULAR: RRR/NMRG/ trace RLE edema LUNGS: she has difficulties speaking a full sentence w/o stopping to take a breath / she is using her accessory muscles to breath / she is having difficulties moving air / she is coughing / she has severe wheezing which is even audible w/o a stethoscope / she is attempting to sit up and tripod ABDOMEN: contour obese MUSCULOSKELETAL: NCAT / ALISSA in arms and right leg NEUROLOGICAL: speech not dysarthric PSYCHIATRIC: A&Ox 3 / able to understand and follow simple commands LABORATORY DATA: Immature Granulocyte % (Auto) 0.8, Neutrophils (%) (Auto) 92.5H, Lymphocytes (%) (Auto) 3.1L, Monocytes (%) (Auto) 3.5, Eosinophils (%) (Auto) 0.0, Basophils (%) (Auto) 0.1, Neutrophils # (Auto) 9.9H, Lymphocytes # (Auto) 0.3L, Monocytes # (Auto) 0.4, Eosinophils # (Auto) 0.0, Basophils # (Auto) 0.0, Nucleated Red Blood Cells % (auto) 0.0, Anion Gap 9, Glomerular Filtration Rate 16.5L, Calcium Level 7.9L, Total Bilirubin 0.2, Direct Bilirubin 0.1, Aspartate Amino Transf (AST/SGOT) 35, Alanine Aminotransferase (ALT/SGPT) 87H, Alkaline Phosphatase 97, Total Creatine Kinase 213H, Creatine Kinase MB 4.2H, Creatine Kinase MB Relative Index 1.97, Troponin I 0.17H, TZ-Xxb-H-Type Natriuretic Peptide 38798K, Total Protein 7.5, Albumin 2.7L, Albumin/Globulin Ratio 0.6L, Thyroid Stimulating Hormone (TSH) 0.618, Free Thyroxine 1.12 Blood Gas Bicarbonate Standard 21.7L, Arterial Blood pH 7.348L, Arterial Blood Partial Pressure CO2 41.0, Arterial Blood Partial Pressure O2 124.7H, Arterial Blood Total CO2 23.3, Arterial Blood HCO3 22.0, Arterial Blood Base Excess - 3.4L, Arterial Blood Oxygen Saturation 98.2 Bedside Glucose (Misc Panel) 111 11/19/20 20:31: Troponin I 0.31#H IMAGING: Chest xray "FINDINGS: Removed lungs clear. Heart not enlarged. No failure or effusion. PICC line in place with tip in right atrium. IMPRESSION: PICC line in place with tip in the right atrium." MICROBIOLOGY: Respiratory panel is neg ASSESSMENT: is a 65 yr old F w PVD, Depression, Hypothyroidism, Hx of right arm DVT, Hx of embolic CVA, DLP, Migraines, Chronic HFrEF, CAD, Carotid artery disease who is admitted for acute COPD, HTN urgency, RITU, elevated troponins and subacute anemia. PLAN: 1. Dyspnea & wheezing 2/2 Acute COPD Likely 2/2 tobacco abuse Paramount chronic obstructive pulmonary disease risk scare (OCRS) guide to admission vs discharge in COPD exacerbation = 7 points = Very high risk Risk gr oup. 62.6 % Risk of adverse event (MA, intubation, etc;) Plan: admit to PCU / supplemental O2 / continuous pulse oximetry / aspiration precautions / DuoNeb Q6H, Albuterol Q1HP, Prednisone / will not give Levofloxacin because the patient does not have a change in her cough / smoking cessation education /the day time team can refer her to [employer] [employer] for repeat PFTs & referral for Pulmonary Rehab which has been shown to reduce exacerbation & mortality if patient attends within 4 weeks of episode of acute COPD 2 Hypertensive Crisis She is asymptomatic but the acute elevation in her CR and elevated troponin may be due to acutely elevated BP This may have also been triggered by tobacco abuse The EKG showed NSR w a rate of 91 and PVCs but no acute ST elevation Her BP hasn't improved despite several doses of labetalol Plan: will aim to lower BP by 25% w/in the first 2-4 hours with target BP of <160/100 / avoid excessive environmental stimuli / resume home meds + add hydralazine / low salt diet 3 RITU Likely due to accelerated HTN Despite the hx of CHF I don't think this is type 1 cardiorenal syndrome because clinically she is euvolemic Plan: place bryan to monitor UOP / manage HTN / f/u renal panel, Ulytes for FENa or FEUrea, PTH, Phoshp / renal US / hold nephrotoxic drugs /Nephrology consult 4 Elevated Troponin This is likely due to acute elevation in BP and reduced renal clearance of troponin because of the RITU Less likely NSTEMI bc she denied chest pain Plan: telemetry / trend troponin 5 Subacute Anemia Suspect this is anemia of renal disease Plan: f/u Iron panel w ferritin / trend Hg and aim for Hg >8 (bc she has CAD) 6 Chronic HFrEF (30% Echo 2016) Despite the elevated BNP, I suspect likely elevated as a result of COPD and reduced renal clearance of BNP, she is clinically euvolemic, there is no cardiomegaly or pulmonary vacular congestion on the chest xray and she doesn't have crackles or an excessive amount of LE edema Plan: f/u Is and Os / daily weights/ for unclear reasons she is not on a BB, ACEI, ARB or ARNI / the day time team may consider repeating an Echo to determine if she has HFrecEF during this admission if they feel that it is warranted 7 PVD / Carotid artery disease/ Chronic CAD / hx of CVA / DLP Plan: ASA, cilostazol & statin / f/u w Vascular on an out patient basis 8 Depression Plan: paroxetine 9 Chronic pain Plan: oxycodone 10 hx of UE DVT Plan: rivaroxaban 11 Class 2 obesity complicates 12 Tobacco abuse Plan: smoking cessation education DVT Px n/a she is on a DOAC Dispo: home after more than 2 midnight's stay Her LACE Index score is 13 points she is at high risk for readmission or within the next 30 days. A PFS consult has been placed Home Medications Scheduled Aspirin (Aspirin EC) 81 Mg Tabec, 81 MG PO DAILY Atorvastatin Calcium (Atorvastatin Calcium) 80 Mg Tablet, 80 MG PO DAILY Budesonide/Formoterol (Symbicort 160-4.5 Mcg Inhaler) 60 Puff/Inhaler Aers, 2 PUFF INH BID Buspirone HCl (Buspirone HCl) 5 Mg Tablet, 5 MG PO BID Cilostazol (Cilostazol) 100 Mg Tab, 100 MG PO BID Gabapentin (Neurontin) 800 Mg Tab, 800 MG PO BID Oxycodone HCl (Oxycontin) 60 Mg Tab, 60 MG PO Q12H Pantoprazole Sodium (Pantoprazole Sodium) 40 Mg Tablet.dr, 80 MG PO DAILY Paroxetine HCl (Paroxetine HCl) 40 Mg Tab, 60 MG PO DAILY Pregabalin (Lyrica) 200 Mg Cap, 200 MG PO BID Rivaroxaban (Xarelto) 20 Mg Tab, 20 MG PO DAILY Scheduled PRN Albuterol Sulf (Albuterol Sulfate) 2.5 Mg/3 Ml Vial.neb, 3 ML NEB Q4H PRN for SHORTNESS OF BREATH Albuterol Sulfate (Ventolin Hfa) 108 Mcg/Act Aer, 2 PUFFS INH Q4H PRN for SHORTNESS OF BREATH Oxycodone Hcl (Oxycodone HCl) 20 Mg Tablet, 20 MG PO Q4-6HP PRN for PAIN LEVEL 6-10 Allergies Coded Allergies: fentanyl (Verified Allergy, Severe, Can't Breath, 01/03/19) ketorolac (Verified Allergy, Intermediate, Hives, 01/03/19) tetracycline (Verified Allergy, Intermediate, Rash, 01/03/19) ezetimibe (Verified Allergy, Unknown, 01/01/20) sumatriptan (Verified Adverse Reaction, Intermediate, Elevated HR & BP , 01/03/19) A-FIB/CHADSVASC A-FIB History Current/History of A-Fib/PAF?: No Current PO Anticoag Therapy: No JAYLEN PERSON MD Nov 19, 2020 22:57
[2020-11-20] VITALS (8 sets, daily range): BP systolic 101–176; BP diastolic 54–83
[2020-11-20] MEDS ORDERED: FUROSEMIDE 40MG/4ML VIAL (J1940) IV SCH
[2020-11-20] MEDS: oxyCODONE 5MG TAB PO PRN (00:38)
[2020-11-20] MEDS: GABAPENTIN 400MG CAP PO SCH ×3 (00:39→21:00)
[2020-11-20] MEDS: busPIRone 5 MG TAB PO SCH ×3 (00:39→21:00)
[2020-11-20] MEDS: **hydrALAZINE** 50 MG TAB PO SCH ×5 (00:40→23:57)
[2020-11-20] MEDS: IPRATROPIUM 0.5MG/ALBUTEROL 2.5MG INH SOL UD 3ML (DUONEB) NEB SCH ×3 (01:02→13:16)
[2020-11-20] MEDS: CILOSTAZOL 100 MG TAB (PLETAL) PO SCH ×3 (02:06→17:11)
[2020-11-20] MEDS: oxyCODONE 20 MG CR TAB PO SCH ×3 (02:07→21:00)
[2020-11-20 04:45] LABS: CALCIUM LEVEL 8.2 MG/DL (8.8-10.2); CREATININE FOR GFR 2.79 MG/DL (0.55-1.30); GLOMERULAR FILTRATION RATE 18.2 (>45); MAGNESIUM LEVEL 1.7 MG/DL (1.8-2.4); PHOSPHORUS LEVEL 3.8 MG/DL (2.5-4.9); POTASSIUM SERUM 3.6 MEQ/L (3.5-5.1); TROPONIN I 0.38 NG/ML (< 0.10)
[2020-11-20 07:30] LABS: HEMATOCRIT 28.8 % (36.0-47.0); HEMOGLOBIN 8.4 g/dl (12.0-15.5); MEAN CORPUSCULAR HGB CONC 29.2 g/dl (32.0-36.5); MEAN CORPUSCULAR VOLUME 82.3 fl (80.0-96.0); PLATELET COUNT, AUTOMATED 214 10^3/uL (150-450); WHITE BLOOD COUNT 7.3 10^3/uL (4.0-10.0)
--- NOTE | 2020-11-20 08:55 | ECGEPIP ---
[facility] - ED Test Date: 2020-11-19 Pat Name: ABE KINSEY Department: Room: - Gender: Female Lead Cook: CAMILO : 1955 Requested By: DARREN Marcelino Order Number: [id number] Reading MD: Wicho Rojas Measurements Intervals Cope Rate: 91 P: 68 [place]: 136 QRS: 49 QRSD: 88 T: 0 QT: 364 QTc: 447 Interpretive Statements Sinus rhythm with occasional premature ventricular complexes and premature atrial complexes Nonspecific ST and T wave abnormality Electronically Signed on 11-20-2020 8:55:31 EDT by Wicho Rojas
[2020-11-20] MEDS ORDERED: predniSONE 20 MG TAB PO SCH (09:00)
[2020-11-20] MEDS: PREGABALIN 100 MG CAP (LYRICA) PO SCH ×2 (09:57→21:00)
[2020-11-20] MEDS: ATORVASTATIN 20 MG TAB PO SCH (09:57)
[2020-11-20] MEDS: PANTOPRAZOLE 40MG TAB (PROTONIX) PO SCH (09:57)
[2020-11-20] MEDS: PARoxetine 20MG TABLET PO SCH (09:58)
[2020-11-20] MEDS: RIVAROXABAN 20 MG TAB (XARELTO) PO SCH (09:58)
[2020-11-20] MEDS: ASPIRIN 81MG ENTERIC TABLET PO SCH (09:58)
[2020-11-20] MEDS ORDERED: POTASSIUM CHLORIDE 10 MEQ SR TABLET PO ONE (10:50)
--- NOTE | 2020-11-20 11:21 | REP ---
INDICATION: Shortness of breath. COMPARISON: 11/19/2020 TECHNIQUE: AP view FINDINGS: Chronic interstitial changes in both lungs. No evidence of active parenchymal disease. No interval change but compared to yesterday's exam. The heart is not enlarged. There is no failure or effusion. PICC line in place with tip in superior vena cava. IMPRESSION: No acute process and no interval change. <Electronically signed by Konstantin Mckeon > 11/20/20 1113
[2020-11-20] MEDS: FUROSEMIDE 100MG/10ML VIAL (J1940) IV SCH ×3 (12:03→23:57)
--- NOTE | 2020-11-20 12:48 | IPNPDOC ---
Text Note Date of Service The patient was seen on 11/20/20. NOTE SUBJECTIVE: -No acute complaints this morning, dyspnea has improved. OBJECTIVE: GENERAL APPEARANCE: well nourished & developed, NAD INTEGUMENT:Well healing scars from the recent aorto-fem bypass without discharge or excessive redness with incision site close to groin in clean and dry dressing HEENT: EOMI, MMM CARDIOVASCULAR: RRR, no m/r/g LUNGS: No tripoding this AM, wheezing still present but now rare with stethoscope, speaking without conversational dyspnea, no crackles, on 4L ABDOMEN: Obese, normoactive bowel sounds, soft, NTND NEUROLOGICAL: speech not dysarthric PSYCHIATRIC: A&Ox 3 LABORATORY DATA: Reviewed WBC 7.3 Hgb 8.4 platelets 214 na 142 K 3.6 Cr 2.79 IMAGING: Chest xray "FINDINGS: lungs clear. Heart not enlarged. No effusion. PICC line in place with tip in right atrium. MICROBIOLOGY: Respiratory panel is neg ASSESSMENT: 65 yr old F w PVD, Depression, Hypothyroidism, Hx of right arm DVT, Hx of embolic CVA, DLP, Migraines, Chronic HFrEF, CAD, Carotid artery disease who is admitted for acute COPD, HTN urgency, RITU, elevated troponins and cason bacute anemia. PLAN: Acute COPD exacerbation -supplemental O2 with goal >89% -aspiration precautions -DuoNeb Q6H -Albuterol Q4HP -continue Prednisone -smoking cessation education Hypertensive Crisis: Was asymptomatic but the acute elevation in her CR and elevated troponin may be due to acutely elevated BP -EKG showed NSR w a rate of 91 and PVCs but no acute ST elevation -amlodipine 10mg daily and 50Q6H hydralazine -2g salt diet 3 RITU: mildly improved -Likely 2/2 HTN -Despite the hx of CHF she is clinically euvolemic unlikely to be cardiorenal -monitor UOP -manage HTN -f/u renal US -avoid nephrotoxic drugs -Nephrology consult 4 Elevated Troponin: likely 2/2 acute elevation in BP and reduced renal clearance of troponin because of the RITU -Less likely NSTEMI -telemetry -Troponin eventually downtrended 5 Subacute Anemia -f/u Iron panel w ferritin / trend Hg and aim for Hg >8 6 Chronic HFrEF (30% Echo 2016) -Despite the elevated BNP, likely elevated as a result of COPD and reduced renal clearance of BNP, she is clinically euvolemic, there is no cardiomegaly or pulmonary vacular congestion on the chest xray and she doesn't have crackles or an excessive amount of LE edema -f/u Is and Os -daily weights -For unclear reasons she is not on a BB, ACEI, ARB or ARNI -TTE to determine if she has HFrEF and place on appropriate therapy 7 PVD / Carotid artery disease/ Chronic CAD / hx of CVA / DLP -ASA, cilostazol & statin -f/u w Vascular on an out patient basis 8 Depression -paroxetine 9 chronic pain -oxycodone per home script 10 hx of UE DVT -rivaroxaban DVT ppx: on rivaroxaban Dispo: home after more than 2 midnight's stay VS,Fishbone, I+O VS, Fishbone, I+O Laboratory Tests 11/19/20 15:31 11/20/20 03:59 11/20/20 06:59 Vital Signs Date Time Temp Pulse Resp B/P (MAP) Pulse Ox O2 Delivery O2 Flow Rate FiO2 11/20/20 06:00 4.0 11/20/20 05:37 176/83 11/20/20 05:09 97.5 75 18 98 Nasal Cannula I&O- Last 24 Hours up to 6 AM 11/20/20 06:00 Intake Total 60 ml Balance 60 ml CAYLA CHAVEZ MD Nov 20, 2020 09:00
[2020-11-20] MEDS: IRON SUCROSE 200 MG in NS 100 ML IV SCH (14:51)
--- NOTE | 2020-11-20 21:24 | CR ---
CONSULTATION DATE: 11/20/2020 REQUESTING PHYSICIAN: Kandy Mullen MD CONSULTING PHYSICIAN: Shen Rodas M.D. REASON FOR CONSULTATION: Management of acute kidney injury and volume status. CHIEF COMPLAINT: The patient presented to the hospital last night with progressive shortness of breath. HISTORY OF PRESENT ILLNESS: Miss Marisol Disla is a 65-year-old female with past medical history of peripheral vascular disease, status post left above-knee amputation in the past, near normal kidney function with a baseline creatinine of 0.9 as of November 08, 2020. History of heart failure with reduced ejection fraction, multiple other comorbidities as mentioned below. She presented to the hospital yesterday with progressive shortness of breath. It was getting worse with exertion. Even moving around in the bed was making her short of her breath. She used her nebulizations at home that did not help her much. She was taking her medications. She denied any fevers or chills or cough with phlegm. She was initially placed on CPAP in the emergency room because of hypoxemia. She was admitted under the hospitalist service last night with acute COPD exacerbation and hypertensive urgency. She was given steroids and nebulizations. Her creatinine on arrival was 3 so nephrology service was called for further help in the management of this patient. I saw and evaluated the patient today morning at the bedside. She was still in moderate respiratory distress. However, she reported that her breathing was slightly better today as compared with yesterday. PAST MEDICAL HISTORY: 1. Past medical history of baseline creatinine less than 1. 2. Peripheral vascular disease, status post right axillofemoral bypass in Aug, 2020 complicated by infection and nonhealing wound in the right groin. 3. History of left above-knee amputation because of peripheral vascular disease. 4. History of depression. 5. Obstructive sleep apnea. 6. Hypothyroidism. 7. Right arm DVT in the past. 8. History of left temporal and parietal embolic CVA. 9. Chronic migraines. 10. Chronic heart failure with reduced ejection fraction, LV ejection fraction of 30% as per echocardiogram done in 2016. 11. Carotid artery disease. 12. Status post carotid endarterectomy. PAST SURGICAL HISTORY: 1. Status post laparoscopic cholecystectomy. 2. Total abdominal hysterectomy in the past for uterine cancer. 3. Left ulnar decompression surgery. 4. Bilateral benign breast lesion surgery. 5. Carotid endarterectomy in the past. ALLERGIES: SHE IS ALLERGIC TO EZETIMIBE, FENTANYL, KETOROLAC, SUMATRIPTAN AND TETRACYCLINE. FAMILY HISTORY: No significant family history of end-stage renal disease requiring hemodialysis. SOCIAL HISTORY: She is an active smoker, smokes about 1/2 pack per day, denies any illicit drug abuse or alcohol abuse. REVIEW OF SYSTEMS: Constitutional: Denies any fevers or chills. Eyes: Denies any blurry vision, double vision. ENT: Denies any dysphagia, odynophagia. Cardiovascular: She reports orthopnea and lower extremity edema. Respiratory: She reports progressive shortness of breath. GI: Reports decreased appetite. She denies any constipation. Genitourinary: Reports decreased urine output. Musculoskeletal: Reports lower extremity edema. Hematological/Oncological: Denies any easy bleeding or bruising. Psych: Denies any depression or anxiety at this time. MONOGRAM MACHINE OPERATOR: Denies any strokes, seizures or weakness at this time. Endocrine: Reports history of hypothyroidism. All other review of systems is negative. PHYSICAL EXAM: GENERAL: The patient is awake, alert, oriented x3, moderate respiratory distress, laying in bed. VITAL SIGNS: Temperature is 97.1 degrees Fahrenheit, blood pressure is 101/59, pulse is 72, respiratory rate of 16, saturating 98% on nasal cannula at 3 liters. Her blood pressure overnight was running in 200s with one reading at 218/108. HEAD AND NECK: Extraocular muscles are intact. Pupils are equally round and reactive to light. Mucous membranes are moist. Neck is supple, moderately elevated JUVD is noted. CARDIOVASCULAR: S1, S2, regular rate. EXTREMITIES: 2+ edema of the right leg is noted. RESPIRATORY: Decreased breath sounds at the bases with inspiratory crackles at the bases and expiratory rhonchi in the upper lung zones. ABDOMEN: Soft, obese, positive bowel sounds. A midline abdominal surgical scar is noted. GENITOURINARY: She has an indwelling Dobbs catheter. MUSCULOSKELETAL: She has left above-knee amputation and the right leg has edema as mentioned above. MONOGRAM MACHINE OPERATOR: No focal deficits. Power is 5/5 in all extremities. LAB REVIEW: CBC showed a WBC of 7.3, it was 10.7 on arrival. Hemoglobin is 8.4. Platelets are 214. ABG done yesterday showed pH of 7.34, pCO2 of 41, pO2 of 124, bicarb 22. O2 sat is 98.2%. BMP done on arrival showed sodium 142, potassium 3.6, chloride 111, bicarb 22, BUN 32. Creatinine is 3. Calcium 7.9. BMP done today morning showed sodium 142, potassium 3.6, chloride 112, bicarb 22, BUN 37. Creatinine is 2.7. Glucose 127. Calcium is 8.2. Magnesium 1.7, iron level 43, TIBC 358. Transferrin saturation is 12. Ferritin is 150. Troponin is 0.38. Microbiology: Respiratory viral panel is negative. IMAGING: A chest x-ray was done today morning which showed chronic interstitial changes in both lungs. No active parenchymal disease. HOME MEDICATIONS: 1. Albuterol nebulizations. 2. Aspirin 81 mg daily. 3. Lipitor 80 mg p.o. daily. 4. Buspirone 5 mg. p.o. twice a day. 5. Cilostazol 100 mg p.o. twice a day. 6. Gabapentin 800 mg p.o. twice a day. 7. Oxycodone 60 mg q.12 hourly. 8. Protonix 80 mg p.o. daily. 9. Paroxetine 60 mg p.o. daily. 10. Lyrica 200 mg p.o. twice a day. 11. Xarelto 20 mg p.o. daily. CURRENT INPATIENT MEDICATIONS: The patient's medications were reviewed by myself. She is on: 1. Tylenol p.r.n. 2. Albuterol nebulizations. 3. DuoNeb nebulizations. 4. Mylanta p.r.n. 5. Amlodipine was 10 mg daily. I would decrease it to 5 mg p.o. daily with holding parameters. 6. Aspirin 81 mg p.o. daily. 7. Lipitor 50 mg p.o. daily. 8. Buspirone 5 mg. p.o. twice a day. 9. Cilostazol 100 mg p.o. twice a day. 10. Gabapentin 800 mg p.o. twice a day. 11. She was getting Hydralazine 50 mg p.o. q.6 hourly. I would decrease it to 25 mg q.6 hourly with holding parameters. 12. She was also given IV Labetalol last night. 13. Oxycodone 60 mg p.o. twice a day. 14. Protonix 80 mg p.o. daily. 15. Paroxetine 60 mg p.o. daily. 16. I gave her a dose of potassium chloride 40 mEq p.o. x1 dose. 17. She is on prednisone 40 mg p.o. daily. 18. Lyrica 200 mg p.o. twice a day. 19. Xarelto 20 mg p.o. daily. ASSESSMENT AND PLAN: 1. Acute renal failure. Patient is in decompensated heart failure and she came in with hypertensive urgency. Etiology is unclear but most likely patient has cardiorenal syndrome. She needs to be diuresed for decompensated heart failure as mentioned below. 2. Acute decompensated systolic congestive heart failure. Patient needs an echocardiogram. Latest echocardiogram is four years ago. However, at this time, I have started her on Lasix 80 mg IV q.8 hourly with a net negative fluid balance target of 2 liters a day. Hold the dose if it is more than 3 liters. Continue the Dobbs catheter at this time. 3. Hypertensive urgency. Patient's blood pressures are soft actually at this time. I would decrease the amlodipine dose to 5 mg daily and hydralazine to 25 mg p.o. three times a day. If renal function improves back to baseline, she might be started on Entresto. 4. Acute COPD exacerbation. Okay to continue prednisone and nebulizations at this time. The patient is an active smoker. If needed, she can be given empiric antibiotic coverage as well. 5. Elevated troponins. Most likely it is stress-induced ischemia because of elevated blood pressures and decompensated congestive heart failure. Optimization of the volume status is as mentioned above for CHF management. 6. Iron deficiency anemia. Patient has been started on IV Venofer. Thank you for involving me in the care of this patient. I shall be happy to follow the patient along with you tomorrow morning.
[2020-11-21 03:15] LABS: VENOUS BASE EXCESS -2.8 (-2.0-2.0); VENOUS HCO3 24.2 MEQ/L (23.0-27.0); VENOUS O2 SATURATION 94.1 % (60.0-80.0); VENOUS PARTIAL PRESSURE CO2 53.7 mmHg (38.0-50.0); VENOUS PARTIAL PRESSURE O2 79.1 mmHg (30.0-50.0); VENOUS PH 7.272 UNITS (7.330-7.430); VENOUS TOTAL CO2 25.9 MEQ/L (24.0-28.0)
[2020-11-21 03:18] LABS: HEMATOCRIT 28.6 % (36.0-47.0); HEMOGLOBIN 8.2 g/dl (12.0-15.5); LYMPH # 0.5 10^3/uL (1.5-5.0); LYMPH % 5.8 % (24.0-44.0); MEAN CORPUSCULAR HEMOGLOBIN 24.3 pg (27.0-33.0); MEAN CORPUSCULAR HGB CONC 28.7 g/dl (32.0-36.5); MEAN CORPUSCULAR VOLUME 84.9 fl (80.0-96.0); MONO # 0.6 10^3/uL (0.0-0.8); MONO % 6.7 % (2.0-8.0); NEUTROPHILS # 7.7 10^3/uL (1.5-8.5); NEUTROPHILS % 86.8 % (36.0-66.0); PLATELET COUNT, AUTOMATED 235 10^3/uL (150-450); RED BLOOD COUNT 3.37 10^6/uL (4.00-5.40); WHITE BLOOD COUNT 8.9 10^3/uL (4.0-10.0)
[2020-11-21 03:52] LABS: CALCIUM LEVEL 8.2 MG/DL (8.8-10.2); CREATININE FOR GFR 3.28 MG/DL (0.55-1.30); GLOMERULAR FILTRATION RATE 15.1 (>45); MAGNESIUM LEVEL 1.7 MG/DL (1.8-2.4); POTASSIUM SERUM 4.2 MEQ/L (3.5-5.1)
[2020-11-21 04:00] VITALS: BP 135/72
[2020-11-21] MEDS: **hydrALAZINE** 50 MG TAB PO SCH ×3 (07:31→18:37)
[2020-11-21] MEDS: IPRATROPIUM 0.5MG/ALBUTEROL 2.5MG INH SOL UD 3ML (DUONEB) NEB SCH ×3 (07:55→20:00)
--- NOTE | 2020-11-21 07:58 | REPVR ---
PROCEDURE INFORMATION: Exam: US Duplex Artery or Vein of the Abdominal and/or Reproductive Organs, Limited Exam date and time: 11/21/2020 6:48 AM Age: 65 years old Clinical indication: Condition or disease; Other: Hypertension, R/O viola; Additional info: Hypertension. R/O renal artery stenosis / brian TECHNIQUE: Imaging protocol: Real-time duplex ultrasound scan of the arterial or venous flow of the abdomen and/or reproductive organs, with color Doppler flow and spectral waveform analysis with image documentation. Exam focused on the region of clinical interest. Duplex images were received to evaluate vascular conditions. COMPARISON: Abdomen, limited US 10/28/2014 7:11 AM FINDINGS: Right kidney: No parvus tardus seen in the right kidney. Right renal resistive index measures 0.84 and 0.85 in the upper and mid kidney. The lower pole of the right kidney is obscured. The main right renal artery is obscured by bowel gas. Left kidney: The proximal left main renal artery is obscured by bowel gas. Peak systolic velocity in the mid left renal artery measures 97.6 cm. Peak systolic velocity in the distal left renal artery near the hilum measures 80.6 cm/s. No parvus tardus seen in the left kidney. Resistive index in the left kidney measures 0.76 in the upper pole, 0.76 in the mid pole and 0.81 in the lower pole. Aorta: Aortic peak systolic velocity measures 50.4 cm/s. IMPRESSION: 1. Significantly limited study due to patient's body habitus and gas with a centrally nonvisualization of the right main renal artery. No parvus tardus seen in the right kidney to suggest an indirect sign of hemodynamically significant right renal artery stenosis. 2. No Doppler evidence of renal artery stenosis in the mid and distal segments of the left main renal artery. Proximal left main renal artery is obscured by bowel gas however no parvus tardus seen in the left kidney to suggest an indirect sign of hemodynamically significant left renal artery stenosis. 3. Elevated bilateral renal resistive indices suggestive of medical renal disease PROCEDURE INFORMATION: Exam: US Retroperitoneal Limited, Kidneys Exam date and time: 11/21/2020 6:48 AM Age: 65 years old Clinical indication: Condition or disease; Other: Hypertension, R/O viola; Additional info: Hypertension. R/O renal artery stenosis / brian TECHNIQUE: Imaging protocol: Real-time ultrasound of the retroperitoneum with image documentation. Examination was focused on the kidneys. COMPARISON: Abdomen, limited US 10/28/2014 7:11 AM FINDINGS: Right kidney: The right kidney measures 9.9 x 5.0 x 5.0 cm. There is no gross right renal mass, cyst or hydronephrosis. Left kidney: The left kidney measures 12.3 x 5.4 x 6.4 cm. There is no gross left renal mass, cyst or hydronephrosis. Pancreas: The overall study is limited due to patient's body habitus and gas. IMPRESSION: Limited exam. Within limitations of the exam grossly unremarkable ultrasound of the right and left kidneys. Electronically signed by: Ramses Mcclain On 11/21/2020 07:57:38 AM
[2020-11-21 08:00] VITALS: BP 138/59
[2020-11-21] MEDS: RIVAROXABAN 20 MG TAB (XARELTO) PO SCH (08:34)
[2020-11-21] MEDS: CILOSTAZOL 100 MG TAB (PLETAL) PO SCH ×2 (08:34→18:37)
[2020-11-21] MEDS: FUROSEMIDE 100MG/10ML VIAL (J1940) IV SCH (08:34)
[2020-11-21] MEDS: IRON SUCROSE 200 MG in NS 100 ML IV SCH (09:57)
[2020-11-21] MEDS: oxyCODONE 20 MG CR TAB PO SCH ×2 (09:58→22:08)
[2020-11-21] MEDS: ASPIRIN 81MG ENTERIC TABLET PO SCH (09:58)
[2020-11-21] MEDS: PANTOPRAZOLE 40MG TAB (PROTONIX) PO SCH (09:58)
[2020-11-21] MEDS: ATORVASTATIN 20 MG TAB PO SCH (09:58)
[2020-11-21] MEDS: GABAPENTIN 400MG CAP PO SCH ×2 (09:59→20:16)
[2020-11-21] MEDS: PARoxetine 20MG TABLET PO SCH (09:59)
[2020-11-21] MEDS: PREGABALIN 100 MG CAP (LYRICA) PO SCH ×2 (09:59→20:16)
[2020-11-21] MEDS: amLODIPine 5 MG TAB PO SCH (09:59)
[2020-11-21] MEDS: busPIRone 5 MG TAB PO SCH ×2 (09:59→20:16)
[2020-11-21] MEDS ORDERED: methylPREDNISolone 125MG 2ML VIAL IV SCH ×2 (10:00→18:00)
[2020-11-21] MEDS ORDERED: cefTRIAXone SOD 1 GM in D5W MINI-BAG PLUS 50 ML IV SCH (10:00)
--- NOTE | 2020-11-21 10:17 | IPNPDOC ---
Text Note Date of Service The patient was seen on 11/21/20. NOTE SUBJECTIVE: -No acute complaints this morning, dyspnea has improved. OBJECTIVE: GENERAL APPEARANCE: well nourished & developed, NAD INTEGUMENT:Well healing scars from the recent aorto-fem bypass without discharge or excessive redness with incision site close to groin in clean and dry dressing HEENT: EOMI, MMM CARDIOVASCULAR: RRR, no m/r/g LUNGS: has diffuse wheezing on exam this morning, on 2L ABDOMEN: Obese, normoactive bowel sounds, soft, NTND NEUROLOGICAL: speech not dysarthric PSYCHIATRIC: A&Ox 3 LABORATORY DATA: Reviewed Cr 3.28 IMAGING: Chest xray "FINDINGS: lungs clear. Heart not enlarged. No effusion. PICC line in place with tip in right atrium. MICROBIOLOGY: Respiratory panel is neg ASSESSMENT: 65 yr old F w PVD, Depression, Hypothyroidism, Hx of right arm DVT, Hx of embolic CVA, DLP, Migraines, Chronic HFrEF, CAD, Carotid artery disease who is admitted for acute COPD, HTN urgency, RITU, elevated troponins and subacute anemia. PLAN: Acute COPD exacerbation -supplemental O2 with goal >89% -aspiration precautions -DuoNeb Q6H -Albuterol Q4HP -Discontinue Prednisone 40 QD and escalate to solumedrol 60mg TID -smoking cessation education Hypertensive Crisis: Was asymptomatic but the acute elevation in her CR and elevated troponin may be due to acutely elevated BP -EKG showed NSR w a rate of 91 and PVCs but no acute ST elevation -amlodipine 5mg daily and 25Q6H hydralazine -2g salt diet 3 RITU: congestive i/s/o CHF exacerbation -Likely 2/2 HTN and CHF exacerbation -monitor UOP -manage HTN as above -f/u renal US -avoid nephrotoxic drugs -Nephrology consulted, diuresing 4 Elevated Troponin: likely 2/2 acute elevation in BP and reduced renal clearance of troponin because of the RITU -Less likely NSTEMI -telemetry -Troponin eventually downtrended 5 Subacute Anemia -f/u Iron panel w ferritin / trend Hg and aim for Hg >8 -nephrology giving venofer 6 Acute on chronic HFrEF (30% Echo 2016) -Per nephrology, certainly in acute on chronic HF -f/u Is and Os -daily weights -For unclear reasons she is not on a BB, ACEI, ARB or ARNI -repeat TTE, last was 2015, f/u -diuresis per nephrology 7 PVD / Carotid artery disease/ Chronic CAD / hx of CVA / DLP -ASA, cilostazol & statin -f/u w Vascular on an out patient basis 8 Depression -paroxetine 9 chronic pain -oxycodone per home script 10 hx of UE DVT -rivaroxaban DVT ppx: on rivaroxaban Dispo: home after more than 2 midnight's stay VS,Fishbone, I+O VS, Fishbone, I+O Laboratory Tests 11/21/20 03:02 Vital Signs Date Time Temp Pulse Resp B/P (MAP) Pulse Ox O2 Delivery O2 Flow Rate FiO2 11/21/20 04:00 97.2 85 18 135/72 (93) 98 Nasal Cannula 2.0 I&O- Last 24 Hours up to 6 AM 11/21/20 06:00 Intake Total 360 ml Output Total 1575 ml Balance -1215 ml CAYLA CHAVEZ MD Nov 21, 2020 07:44
[2020-11-21] MEDS ORDERED: MAG SULF 1GM/100ML (MAG RUN) 1 GM in IV 1 EA IV ONE (10:45)
--- NOTE | 2020-11-21 11:14 | ECHO ---
ECHOCARDIOGRAM DATE OF PROCEDURE: 11/20/2020 Age: Gender: Female Height: 173 cm Weight: 101 kg REFERRING PHYSICIAN: Shen Rodas M.D. INDICATION: Heart failure, unspecified. MEASUREMENTS: 2D Measurements: Right ventricle 4.9 cm Left ventricle diastole 5.9 cm Interventricular septum 1.46 cm Posterior wall 1.58 cm Inferior vena cava 2.5 cm with marked reduction of respiratory variation Aortic root 3.4 cm Left atrial volume index 51 questionable Left atrium 4.7 cm Doppler Measurements: LVOT velocity 75.7 cm/sec Mitral E velocity 90.8 cm/sec Mitral A velocity 43.7 cm/sec Mitral E deceleration time 277 msec MITRAL ANNULAR TISSUE DOPPLER: E prime septal 8.6 cm/sec E prime lateral 8.1 cm/sec DESCRIPTION: Rhythm was sinus. This was a technically difficult echocardiogram. Some premature ventricular contractions (PVCs) were observed. CONCLUSIONS: 1. Mildly dilated left ventricle with moderate mixed eccentric/concentric left ventricular hypertrophy. Visual appearance of hyperdynamic left ventricular (LV) systolic function with left ventricular ejection fraction (LVEF) of 70% by visual estimate. LV diastolic assessment was somewhat indeterminate, but was suspicious for restrictive diastolic filling pattern (grade 3 or grade 4 LV diastolic dysfunction). 2. Mildly dilated right ventricle with right ventricular hypertrophy. Normal right ventricular systolic function. Pulmonary artery systolic pressure could not be estimated on this study. At least moderate right atrial dilatation. 3. At least mild mitral annular calcification. No mitral stenosis. 4. Inferior vena cava dilatation with marked reduction of respiratory perfusion suggestive of elevated central venous pressure of at least 20 mmHg. 5. At least moderate left atrial dilatation. 6. Miniscule amount of pericardial effusion seen over the left ventricle apex and superior aspect of the right atrium. No diastolic chamber collapse. 7. Technically difficult echocardiogram. 8. No significant hemodynamic valvular dysfunction detected. However, this was technically difficult.
[2020-11-21] MEDS ORDERED: LevoFLOXacin 750 MG TABLET PO SCH (11:15)
[2020-11-21 12:00] VITALS: BP 126/58
[2020-11-21] MEDS ORDERED: LevoFLOXacin IV 750 MG in IV 1 EA IV SCH (12:00)
[2020-11-21] MEDS: methylPREDNISolone 125MG 2ML VIAL IV SCH ×2 (12:42→20:16)
[2020-11-21 16:00] VITALS: BP 105/54
[2020-11-21] MEDS: oxyCODONE 5MG TAB PO PRN (18:41)
[2020-11-21 20:00] VITALS: BP 128/56
--- NOTE | 2020-11-21 21:35 | IPN ---
NEPHROLOGY PROGRESS NOTE DATE: 11/21/2020 SUBJECTIVE: The patient was seen and examined at the bedside today morning. She continues to complain of shortness of breath and wheezing. She was diuresed aggressively last night with Lasix. However despite the urine output, there is no significant improvement in her breathing and her renal function is actually worse today as compared with yesterday. Her creatinine has bumped up from 2.7 to 3.2 today. OBJECTIVE: VITAL SIGNS: Temperature is 97.4 degrees Fahrenheit, blood pressure 126/58, pulse is 83, respiratory rate of 20, saturating 97% on nasal cannula at 2 liters. INTAKE AND OUTPUT: Urine output recorded as 975 mL yesterday, 600 mL so far today since overnight. By the time I saw her weight on the bed scale is 103 kg. PHYSICAL EXAMINATION: GENERAL APPEARANCE: The patient is awake, alert, oriented x3, obese body habitus, laying in the bed. HEAD AND NECK: Extraocular muscles intact. Pupils are equally round and reactive to light. Mucous membranes are moist. Neck is supple. She has moderately elevated jugular venous distention. CARDIOVASCULAR: S1, S2, regular rate. EXTREMITIES: 1+ edema of the right lower extremity. RESPIRATORY: Decreased breath sounds at the bases with mild inspiratory crackles at the bases and expiratory rhonchi all over the lungs. She is wearing nasal cannula. ABDOMEN: Soft, obese, positive bowel sounds, nontender, no organomegaly. MUSCULOSKELETAL: The patient has left above the knee amputation and right extremity has 1+ edema. [employer]: No focal deficits. Power is 5/5 in all extremities. LAB REVIEW: CBC showed a WBC 8.9, hemoglobin 8.2, platelet count 235. BMP done today morning showed sodium 142, potassium 4.2, chloride 100, bicarbonate 27, BUN is 49, creatinine is 3.2. It was 2.7 yesterday. Procalcitonin is 0.26. IMAGING: A renal ultrasound was done today which showed a significantly limited study due to the patient's body habitus. No significant renal artery stenosis was noted. CURRENT INPATIENT MEDICATIONS: The patient's medications were all reviewed by myself. I started the patient on Ceftriaxone one gram IV daily. However later on I saw the Medical Team and started the patient on Levaquin 750 mg IV q. 48 hourly. She continues to be on IV Venofer. She was getting Lasix 80 mg IV q. 8 hourly. She has received 4 doses so far. I have stopped the Lasix at this time because of bump in the creatinine. She has been started on Solu-Medrol 60 mg IV q. 8 hourly. Oral Prednisone has been stopped. ASSESSMENT AND PLAN: 1. Acute renal failure superimposed on chronic kidney disease - The patient had a very sudden increase in the creatinine. Her renal function was near normal in the beginning of the month. However at this point she has a combination of COPD exacerbation and congestive heart failure exacerbation. Because of bump in the creatinine, I am holding the diuretic now. Further adjustment of the diuretic dose will be done tomorrow morning. 2. Acute decompensated systolic congestive heart failure the patient's latest echocardiogram was noted. It was done yesterday and that showed left ventricular ejection fraction of around 70% with grade 3 to grade 4 diastolic dysfunction. She had a dilated right ventricle. Pulmonary artery pressure was slightly elevated and inferior vena cava was dilated with marked reduction with respiratory movement, suggestive of elevated central venous pressure of at least 20 mm of mercury. The patient was given 4 doses of Lasix. Creatinine has bumped up. Further diuretics will be adjusted tomorrow morning. On repeat evaluation of her urine output in the evening, she was 1.6 liters negative which is adequate for today at least. 3. Acute COPD exacerbation - The patient symptomatically is not better, so her steroids were started IV. Oral Prednisone was stopped. I also started the patient empirically on IV Ceftriaxone. Later on Levaquin was started by the Medical Team. Although Levaquin is a good choice in this patient with acute COPD exacerbation, however, given the setting of acute renal failure and risk of worsening renal function with Levaquin and risk of crystal nephropathy, I am stopping the Levaquin and restarting the patient on a third generation cephalosporin and Cefepime, which would cover the patient for possible pseudomonas infection as well. 4. Hypertension - blood pressure is controlled with Hydralazine and Amlodipine. 5. Iron deficiency anemia - The patient is getting IV Venofer.
--- NOTE | 2020-11-21 22:10 | REPVR ---
PROCEDURE INFORMATION: Exam: US Duplex Right Lower Extremity Veins, Limited Exam date and time: 11/21/2020 9:40 PM Age: 65 years old Clinical indication: Edema, localized; Lower extremity, right; Prior surgery; Surgery date: 1-6 months; Surgery type: Muscle lift; Additional info: SOB right leg swelling TECHNIQUE: Imaging protocol: Real-time Duplex ultrasound of the Right Lower Extremity with 2-D devine scale, color Doppler flow and spectral waveform analysis with image documentation. Limited exam was focused on the right lower extremity veins. COMPARISON: US Abdomen 11/21/2020 6:27 AM FINDINGS: Right deep veins: There is a dressing in place at the right groin. Therefore the right common femoral vein could not be evaluated. The femoral, proximal profunda femoral and popliteal veins are patent without thrombus. Normal Doppler waveforms. Normal compressibility and/or augmentation response. Right superficial veins: Unremarkable. Saphenofemoral junction is patent without thrombus. Soft tissues: Leg swelling. IMPRESSION: No evidence of deep vein thrombosis. Electronically signed by: Jeffrey Watson On 11/21/2020 22:09:56 PM
[2020-11-21 23:55] VITALS: BP 185/84
[2020-11-22] VITALS (17 sets, daily range): BP systolic 143–177; BP diastolic 67–98; O2SAT 90–96
[2020-11-22] MEDS ORDERED: MORPHINE 2 MG/ML 1ML VIAL (J2270) IV ONE ×2 (00:05→01:05)
[2020-11-22] MEDS: **hydrALAZINE** 50 MG TAB PO SCH ×4 (00:10→18:06)
[2020-11-22] MEDS: oxyCODONE 5MG TAB PO PRN ×2 (01:09→12:34)
[2020-11-22] MEDS: IPRATROPIUM 0.5MG/ALBUTEROL 2.5MG INH SOL UD 3ML (DUONEB) NEB SCH ×4 (01:34→19:53)
[2020-11-22 02:16] LABS: HEMATOCRIT 29.5 % (36.0-47.0); HEMOGLOBIN 8.6 g/dl (12.0-15.5); LYMPH # 0.3 10^3/uL (1.5-5.0); LYMPH % 3.5 % (24.0-44.0); MEAN CORPUSCULAR HEMOGLOBIN 24.5 pg (27.0-33.0); MEAN CORPUSCULAR HGB CONC 29.2 g/dl (32.0-36.5); MONO # 0.2 10^3/uL (0.0-0.8); MONO % 2.4 % (2.0-8.0); NEUTROPHILS # 8.1 10^3/uL (1.5-8.5); NEUTROPHILS % 92.3 % (36.0-66.0); PLATELET COUNT, AUTOMATED 238 10^3/uL (150-450); RED BLOOD COUNT 3.51 10^6/uL (4.00-5.40); WHITE BLOOD COUNT 8.8 10^3/uL (4.0-10.0)
[2020-11-22 02:53] LABS: BILIRUBIN,TOTAL 0.2 MG/DL (0.2-1.0); C REACTIVE PROTEIN QUANTITATIV 1.59 MG/DL (0.00-0.30); CREATININE FOR GFR 3.09 MG/DL (0.55-1.30); GLOMERULAR FILTRATION RATE 16.2 (>45); MAGNESIUM LEVEL 1.7 MG/DL (1.8-2.4); POTASSIUM SERUM 4.3 MEQ/L (3.5-5.1); TOTAL PROTEIN 7.8 GM/DL (6.4-8.2)
[2020-11-22] MEDS ORDERED: MORPHINE 4 MG/ML 1ML VIAL/SYRINGE (J2270) IV ONE (03:15)
--- NOTE | 2020-11-22 03:23 | IPNPDOC ---
Text Note Date of Service Significant event. The patient was seen on 11/22/20. NOTE Notify patient with excruciating right lower extremity pain. Patient has had right lower extremity pain that has been vague and investigated however this is an acute change. Patient seen at bedside, writhing and moaning. She is flushed in appearance and complaining of 10 out of 10 right lower extremity pain from her buttock wrapping around to the back of her right knee. The right lower extremity does not appear swollen. It is pink in color, however cool and with decreased pedal pulse. Patient does have a known history of PAD. She had a ultrasound of the right lower extremity completed today that was negative for DVT but imaging was limited given patient has a right femoral site wound. When asked patient to determine 1 spot of pain she notes a singular excruciating point of her right glute. She describes the pain as "charley horse". And she is constantly moving in bed. The right groin wound appears dressing is disheveled but not saturated. There is no overt drainage or redness/erythema to the surrounding area -there is hyperpigmentation suggesting multiple procedure/wound stage healing previously -however the current wound bed does have some milky coloration to it. When asked regarding the wound site patient reports that she "had to have a muscle pulled up". Given patient's clinical presentation with out of proportion examination , significant history of recent surgery, right groin wound, as well as fasciotomy and PAD. Will opt for CT of the pelvis glute region without contrast given patient's RITU and a right lower extremity arterial ultrasound stat. Will check lab work CBC, CMP, mag, lactic. Consider differentials. Pain control. Pending data for further intervention. WCTM VS,Fishbone, I+O VS, Fishbone, I+O Laboratory Tests 11/22/20 02:04 Vital Signs Date Time Temp Pulse Resp B/P (MAP) Pulse Ox O2 Delivery O2 Flow Rate FiO2 11/22/20 01:39 18 11/22/20 00:10 126/58 11/21/20 23:55 2.0 11/21/20 23:55 97.9 92 92 Nasal Cannula I&O- Last 24 Hours up to 6 AM 11/22/20 05:59 Intake Total 660 ml Output Total 2150 ml Balance -1490 ml PEDRO SONI NP Nov 22, 2020 03:23
[2020-11-22] MEDS: methylPREDNISolone 125MG 2ML VIAL IV SCH ×3 (03:42→21:40)
--- NOTE | 2020-11-22 04:10 | IPNPDOC ---
Text Note Date of Service The patient was seen on 11/22/20. NOTE Patient seen at bedside. Patient reports that her right gluteal pain has cecily nged. Now it is a throbbing 10 out of 10 pain she is still rocking and writhing in bed. Upon examination she does react when SI joint palpated and lower lumbar region. She does endorse that it increases pain. She reports a history of low back pain chronic. She denies a history of sciatica. Right foot is cool but is uncovered. It is pink and reassuringly with brisk cap refill. She has no se nsory changes to the right lower extremity no numbness and tingling. She reserves the pain is concentrated to the right glutes and throbbing. She is status post 4 mg morphine blood pressure 177/71 2 L nasal cannula 97% respiratory rate 22. CT pending. Lab work reassuring with lactic 3.1 and CPK 41. We will offer symptom management/supportive care. Consider low back imaging pending CT. WCTM. VS,Fishbone, I+O VS, Fishbone, I+O Laboratory Tests 11/22/20 02:04 Vital Signs Date Time Temp Pulse Resp B/P (MAP) Pulse Ox O2 Delivery O2 Flow Rate FiO2 11/22/20 03:52 96.2 101 18 177/98 (124) 96 Nasal Cannula 4.0 I&O- Last 24 Hours up to 6 AM 11/22/20 06:00 Intake Total 660 ml Output Total 2150 ml Balance -1490 ml PEDRO SONI NP Nov 22, 2020 04:10
[2020-11-22] MEDS ORDERED: MAGNESIUM OXIDE 400MG TAB (MAG-OX) PO ONE (04:35)
--- NOTE | 2020-11-22 04:48 | REPVR ---
PROCEDURE INFORMATION: Exam: CT Pelvis Without Contrast Exam date and time: 11/22/2020 3:18 AM Age: 65 years old Clinical indication: Pain; Other: Right glute; Prior surgery; Additional info: R pelvis to R glute- possible abscess/ myositis TECHNIQUE: Imaging protocol: Computed tomography images of the pelvis without contrast. Radiation optimization: All CT scans at this facility use at least one of these dose optimization techniques: automated exposure control; mA and/or kV adjustment per patient size (includes targeted exams where dose is matched to clinical indication); or iterative reconstruction. COMPARISON: CT ABD/PEL W/IV CONTRAST ONLY 10/29/2018 6:47 PM FINDINGS: Intraperitoneal space: Unremarkable. No free air. No significant fluid collection. Vasculature: A vascular bypass graft is noted in the right lateral subcutaneous abdominal wall extending to the right common femoral artery. There is a fluid collection around the distal aspect of the graft in the right lateral abdominal wall measuring 3.9 x 1.8 x 9.4 cm. Femoral and iliac stents are noted. Vascular patency cannot be evaluated on this and unenhanced exam. Approximately 50% stenosis of the graft distal graft. Lymph nodes: Unremarkable. No enlarged lymph nodes. Urinary bladder: Urinary bladder is decompressed by a Dobbs catheter. Reproductive: Normal as visualized. Bones/joints: Degenerative changes in the spine and pelvis. Asymmetric osteopenia of the left hip and femur. Soft tissues: Mild subcutaneous edema. Left hip and leg musculature are atrophic. IMPRESSION: 1. Subcutaneous fluid collection associated with the distal end of the vascular graft concerning for abscess. 2. Asymmetric atrophy of the left hip and leg musculature and osteopenia of the left hip and femur. Electronically signed by: Curt Quiros On 11/22/2020 04:47:50 AM
[2020-11-22] MEDS: MORPHINE 2 MG/ML 1ML VIAL (J2270) IV PRN ×3 (04:55→15:51)
[2020-11-22] MEDS: LIDOCAINE 5% (LIDODERM) PATCH TD PRN (04:56)
--- NOTE | 2020-11-22 05:17 | IPNPDOC ---
Text Note Date of Service The patient was seen on 11/22/20. NOTE CT pelvis results show concern for abscess collection. Collection around the distal aspect of the graft in the right lateral abdominal wall measuring 3.9 x 1.8 x 9.4 cm. Perhaps patient is feeling radiating pain to the back versus underlying MSK type pain. Patient on Maxipime -thankfully no leukocytosis or lactic acidosis with the labs that were drawn. Ct did note patency could not be evaluated on the exam of the graft itself given on hand-and it was estimated at approximately 50% stenosis of the graft. Patient will be getting the arterial ultrasound today. Plan to monitor for any worsening signs symptoms of infection. Anticipate patient will need IR consult in the morning regarding drainage of abscess. VS,Fishbone, I+O VS, Fishbone, I+O Laboratory Tests 11/22/20 02:04 Vital Signs Date Time Temp Pulse Resp B/P (MAP) Pulse Ox O2 Delivery O2 Flow Rate FiO2 11/22/20 04:55 96.2 101 18 177/98 96 Nasal Cannula 4.0 I&O- Last 24 Hours up to 6 AM 11/22/20 06:00 Intake Total 660 ml Output Total 2150 ml Balance -1490 ml PEDRO SONI NP Nov 22, 2020 05:17
[2020-11-22 07:40] LABS: BASO % 0.2 % (0.0-1.0); HEMATOCRIT 30.1 % (36.0-47.0); HEMOGLOBIN 8.7 g/dl (12.0-15.5); LYMPH # 0.3 10^3/uL (1.5-5.0); LYMPH % 3.2 % (24.0-44.0); MEAN CORPUSCULAR HEMOGLOBIN 24.1 pg (27.0-33.0); MEAN CORPUSCULAR HGB CONC 28.9 g/dl (32.0-36.5); MEAN CORPUSCULAR VOLUME 83.4 fl (80.0-96.0); MONO # 0.2 10^3/uL (0.0-0.8); MONO % 1.5 % (2.0-8.0); NEUTROPHILS # 9.2 10^3/uL (1.5-8.5); PLATELET COUNT, AUTOMATED 265 10^3/uL (150-450); RED BLOOD COUNT 3.61 10^6/uL (4.00-5.40); WHITE BLOOD COUNT 9.9 10^3/uL (4.0-10.0)
[2020-11-22 07:53] LABS: INR 2.13; PROTHROMBIN TIME 24.2 SECONDS (12.7-14.5)
[2020-11-22 07:54] LABS: PARTIAL THROMBOPLASTIN TIME 53.7 SECONDS (25.9-37.0)
[2020-11-22 08:17] LABS: CALCIUM LEVEL 8.2 MG/DL (8.8-10.2); CREATININE FOR GFR 3.11 MG/DL (0.55-1.30); GLOMERULAR FILTRATION RATE 16.1 (>45); MAGNESIUM LEVEL 1.9 MG/DL (1.8-2.4); POTASSIUM SERUM 4.5 MEQ/L (3.5-5.1)
[2020-11-22] MEDS: ATORVASTATIN 20 MG TAB PO SCH (08:35)
[2020-11-22] MEDS: PARoxetine 20MG TABLET PO SCH (08:36)
[2020-11-22] MEDS: PANTOPRAZOLE 40MG TAB (PROTONIX) PO SCH (08:36)
[2020-11-22] MEDS: RIVAROXABAN 20 MG TAB (XARELTO) PO SCH (08:37)
[2020-11-22] MEDS: oxyCODONE 20 MG CR TAB PO SCH ×2 (08:37→21:41)
[2020-11-22] MEDS: PREGABALIN 100 MG CAP (LYRICA) PO SCH ×2 (08:37→21:41)
[2020-11-22] MEDS: ASPIRIN 81MG ENTERIC TABLET PO SCH (08:37)
[2020-11-22] MEDS: CILOSTAZOL 100 MG TAB (PLETAL) PO SCH ×2 (08:37→18:06)
[2020-11-22] MEDS: busPIRone 5 MG TAB PO SCH ×2 (08:38→21:41)
[2020-11-22] MEDS: amLODIPine 5 MG TAB PO SCH (08:38)
[2020-11-22] MEDS ORDERED: GABAPENTIN 400MG CAP PO SCH (09:00)
[2020-11-22] MEDS: CEFEPIME HCL 1 GM in D5W MINI-BAG PLUS 50 ML IV SCH (09:30)
[2020-11-22] MEDS: IRON SUCROSE 200 MG in NS 100 ML IV SCH (10:04)
[2020-11-22 11:21] LABS: FOLATE 4.2 NG/ML (>5.4)
--- NOTE | 2020-11-22 12:12 | IPNPDOC ---
Text Note Date of Service The patient was seen on 11/22/20. NOTE SUBJECTIVE: -Continues to have gluteal pain, improved from prior -Afebrile OBJECTIVE: GENERAL APPEARANCE: well nourished & developed, NAD INTEGUMENT:Well healing scars from the recent aorto-fem bypass without discharge or excessive redness with incision site close to groin in clean and dry dressing HEENT: EOMI, MMM CARDIOVASCULAR: RRR, no m/r/g LUNGS: has diffuse wheezing on exam this morning, on 2L ABDOMEN: Obese, normoactive bowel sounds, soft, NTND NEUROLOGICAL: speech not dysarthric PSYCHIATRIC: A&Ox 3 LABORATORY DATA: Reviewed Cr 3.28 IMAGING: Chest xray "FINDINGS: lungs clear. Heart not enlarged. No effusion. PICC line in place with tip in right atrium. Ct pelvis: Intraperitoneal space: Unremarkable. No free air. No significant fluid collection. Vasculature: A vascular bypass graft is noted in the right lateral subcutaneous abdominal wall extending to the right common femoral artery. There is a fluid collection around the distal aspect of the graft in the right lateral abdominal wall measuring 3.9 x 1.8 x 9.4 cm. Femoral and iliac stents are noted. Vascular patency cannot be evaluated on this and unenhanced exam. Approximately 50% stenosis of the graft distal graft. Lymph nodes: Unremarkable. No enlarged lymph nodes. Urinary bladder: Urinary bladder is decompressed by a Dobbs catheter. Reproductive: Normal as visualized. Bones/joints: Degenerative changes in the spine and pelvis. Asymmetric osteopenia of the left hip and femur. Soft tissues: Mild subcutaneous edema. Left hip and leg musculature are atrophic. Bilateral LE venous doppler US: IMPRESSION: 1. Subcutaneous fluid collection associated with the distal end of the vascular graft concerning for abscess. 2. Asymmetric atrophy of the left hip and leg musculature and osteopenia of the left hip and femur. Right deep veins: There is a dressing in place at the right groin. Therefore the right common femoral vein could not be evaluated. The femoral, proximal profunda femoral and popliteal veins are patent without thrombus. Normal Doppler waveforms. Normal compressibility and/or augmentation response. Right superficial veins: Unremarkable. Saphenofemoral junction is patent without thrombus. Soft tissues: Leg swelling. IMPRESSION: No evidence of deep vein thrombosis. MICROBIOLOGY: Respiratory panel is neg ASSESSMENT: 65 yr old F w PVD, Depression, Hypothyroidism, Hx of right arm DVT, Hx of embolic CVA, DLP, Migraines, Chronic HFrEF, CAD, Carotid artery disease who is admitted for acute COPD, HTN urgency, RITU, elevated troponins and subacute anemia now found to have fluid collection around the distal aspect of her axillo-fem graft in the right lateral abdominal wall measuring 3.9 x 1.8 x 9.4 cm. PLAN: Acute COPD exacerbation -supplemental O2 with goal >89% -aspiration precautions -DuoNeb Q6H -Albuterol Q4HP -Continue solumedrol 60mg TID -smoking cessation education Hypertensive Crisis: Was asymptomatic but the acute elevation in her CR and elevated troponin may be due to acutely elevated BP. Resolved. -EKG showed NSR w a rate of 91 and PVCs but no acute ST elevation -amlodipine 5mg daily and 25Q6H hydralazine -also on loop diuretic -2g salt diet 3 RITU: congestive i/s/o CHF exacerbation -Likely 2/2 HTN and CHF exacerbation -monitor UOP -manage HTN as above -f/u renal US -avoid nephrotoxic drugs -Nephrology consulted, diuresing 4 Elevated Troponin: likely 2/2 acute elevation in BP and reduced renal clearance of troponin because of the RITU -Less likely NSTEMI -telemetry -Troponin eventually downtrended 5 Subacute Anemia -f/u Iron panel w ferritin / trend Hg and aim for Hg >8 -nephrology giving venofer 6 Acute on chronic HFrEF (30% Echo 2016) -Per nephrology, certainly in acute on chronic HF -f/u Is and Os -daily weights -For unclear reasons she is not on a BB, ACEI, ARB or ARNI -repeat TTE, last was 2015, f/u -diuresis per nephrology 7 PVD / Carotid artery disease/ Chronic CAD / hx of CVA / DLP -ASA, cilostazol & statin -f/u w Vascular on an out patient basis 8 Depression -paroxetine 9 chronic pain -oxycodone per home script 10 hx of UE DVT -rivaroxaban 11. Fluid collection around the distal aspect of her axillo-fem graft in the right lateral abdominal wall measuring 3.9 x 1.8 x 9.4 cm i/s/o 08/2020 graft surgery that was c/b graft infection and revision in 09/2020. -placed on cefepime -called [facility] for potential graft infection/abscess, pending more discussion, no beds available -consulting vascular surgery, Dr. Rivera --> recommended transfer to [facility] --> will be reaching out to [facility] vascular to hopefully help with expediency of transfer DVT ppx: on rivaroxaban Dispo: home after more than 2 midnight's stay VS,Fishbone, I+O VS, Fishbone, I+O Laboratory Tests 11/22/20 02:04 11/22/20 07:24 Vital Signs Date Time Temp Pulse Resp B/P (MAP) Pulse Ox O2 Delivery O2 Flow Rate FiO2 11/22/20 08:38 90 145/67 11/22/20 08:37 18 Nasal Cannula 4.0 11/22/20 08:34 97.4 96 I&O- Last 24 Hours up to 6 AM 11/22/20 06:00 Intake Total 660 ml Output Total 2500 ml Balance -1840 ml CAYLA CHAVEZ MD Nov 22, 2020 08:58
--- NOTE | 2020-11-22 12:21 | REP ---
INDICATION: extreme RLE pain, hx PAD TECHNIQUE: Right lower extremity arterial ultrasound with Doppler FINDINGS: Patient refused the parameters necessary for ankle brachial index calculation. All numeric values represent peak systolic velocity in cm/SEC. LEGAL EXAMINER: 21.1 monophasic Profunda: 21.7 monophasic SFA proximal: 17.7 monophasic SFA mid: 8.0 monophasic SFA distal: 6.7 monophasic The remainder of the interrogated vessels in the right lower extremity are seen to be occluded. The technologist noted some occluded vessels in the right upper extremity. This is a lower extremity exam however. IMPRESSION: As above. Since the technologist imaged some occluded upper extremity vessels on the right, a right upper extremity arterial ultrasound may be prudent if clinically relevant. No upper extremity images were obtained. <Electronically signed by Filiberto Polanco > 11/22/20 [id number]
--- NOTE | 2020-11-22 12:57 | CR.PDOC ---
General Date of Consultation: Nov 22, 2020 Consultation REASON FOR CONSULTATION/CHIEF COMPLAINT: Right leg pain and incidental fluid collection identified around an axillofemoral bypass graft. HISTORY OF PRESENT ILLNESS: Marisol gallagher, is a 65 year old woman who has a complicated vascular surgery history. She is being admitted for CHF exacerbation with worsening oxygen demand. During workup it was noted that she has been having right calf and foot pain similar to prior to her axillo right femoral bypass. The history she gives is poor but she does recall having an axillary to femoral bypass graft performed by Dr. Belle in September, she had a complicated hospital stay and there was concern for infection around the graft, she unde rwent revisional surgery including a muscle flap on the right groin. Ultimately after a prolonged hosptial stay she was discharged. She saw Dr. Belle as late as last week. At that point her foot was not hurting. She thinks the pain started shortly after that and she has been having pain now for at least 3-5 days. The foot is cool and slightly mottled. There are doppler signals but no palpable pulses. Her right groin is partially healed and there is no evidence on physical exam of fluctuance or tenderness around the graft site. Overall she has pain all over (palpable of the left femoral for example gives complaint of pain). I Do think however the pain in her right foot is worse than the other complaints. A duplex was done in hospital and this showed no evidence of flow in the graft. The SFA and PFA are patent with low velocity (20cm/s) flow. The popliteal distally is occluded. Of note she is a prior amputee with the left above knee amputation stump well healed. She is dependent on this leg to preserve ambulation status. ALLERGIES: Please see below. HOME MEDICATIONS: Please see below. Impression/Plan: She has rest pain after her ax-fem graft occluded. She either will need a revisional procedure or a major amputation. Given complex medical history and well known to Dr. Belle added to the lack of immediate urgency to this I would recommend transfer to [facility] as soon as a bed becomes available. I called the transfer center at [facility] myself at 11:30am and requested transfer. I also spoke to Dr. Belle who has accepted the patient. Please heparinize patient with 18units/kg/hr heparin gtt and keep NPO. Please test for Covid as patient may need operative revision or thrombolysis in the next few days. Vital Signs/I&O Vital Signs Date Time Temp Pulse Resp B/P (MAP) Pulse Ox O2 Delivery O2 Flow Rate FiO2 11/22/20 12:34 20 96 Nasal Cannula 3.0 11/22/20 12:33 145/68 11/22/20 12:24 98.0 85 I&O- Last 24 Hours up to 6 AM 11/22/20 06:00 Intake Total 660 ml Output Total 2500 ml Balance -1840 ml Laboratory Data Labs 24H Laboratory Tests 2 11/22/20 02:04: Immature Granulocyte % (Auto) 1.8, Neutrophils (%) (Auto) 92.3H, Lymphocytes (%) (Auto) 3.5L, Monocytes (%) (Auto) 2.4, Eosinophils (%) (Auto) 0.0, Basophils (%) (Auto) 0.0, Neutrophils # (Auto) 8.1, Lymphocytes # (Auto) 0.3L, Monocytes # (Auto) 0.2, Eosinophils # (Auto) 0.0, Basophils # (Auto) 0.0, Nucleated Red Blood Cells % (auto) 0.0, Anion Gap 7L, Glomerular Filtration Rate 16.2L, Lactic Acid Level 1.3, Calcium Level 8.0L, Magnesium Level 1.7L, Total Bilirubin 0.2, Aspartate Amino Transf (AST/SGOT) 14, Alanine Aminotransferase (ALT/SGPT) 54, Alkaline Phosphatase 86, Lactate Dehydrogenase 200, Total Creatine Kinase 41#, C-Reactive Protein, Quantitative 1.59H, Total Protein 7.8, Albumin 3.0L, Albumin/Globulin Ratio 0.6L 11/22/20 07:24: Immature Granulocyte % (Auto) 2.1, Neutrophils (%) (Auto) 93.0H, Lymphocytes (%) (Auto) 3.2L, Monocytes (%) (Auto) 1.5L, Eosinophils (%) (Auto) 0.0, Basophils (%) (Auto) 0.2, Neutrophils # (Auto) 9.2H, Lymphocytes # (Auto) 0.3L, Monocytes # (Auto) 0.2, Eosinophils # (Auto) 0.0, Basophils # (Auto) 0.0, Nucleated Red Blood Cells % (auto) 0.0, Anion Gap 6L, Glomerular Filtration Rate 16.1L, Calcium Level 8.2L, Magnesium Level 1.9, Prothrombin Time 24.2H, Prothromb Time International Ratio 2.13, Activated Partial Thromboplast Time 53.7H CBC/BMP Laboratory Tests 11/22/20 02:04 11/22/20 07:24 Microbiology Microbiology 11/22/20 Blood Culture, Received Pending 11/19/20 Respiratory Virus Panel (PCR) (JOHN) - Final, Complete Allergies Coded Allergies: fentanyl (Verified Allergy, Severe, Can't Breath, 01/03/19) ketorolac (Verified Allergy, Intermediate, Hives, 01/03/19) tetracycline (Verified Allergy, Intermediate, Rash, 01/03/19) ezetimibe (Verified Allergy, Unknown, 01/01/20) sumatriptan (Verified Adverse Reaction, Intermediate, Elevated HR & BP , 01/03/19) Home Medications Scheduled Aspirin (Aspirin EC) 81 Mg Tabec, 81 MG PO DAILY, (Reported) Atorvastatin Calcium (Atorvastatin Calcium) 80 Mg Tablet, 80 MG PO DAILY, (Reported) Budesonide/Formoterol (Symbicort 160-4.5 Mcg Inhaler) 60 Puff/Inhaler Aers, 2 PUFF INH BID, (Reported) Buspirone HCl (Buspirone HCl) 5 Mg Tablet, 5 MG PO BID, (Reported) Cilostazol (Cilostazol) 100 Mg Tab, 100 MG PO BID, (Reported) Gabapentin (Neurontin) 800 Mg Tab, 800 MG PO BID, (Reported) Oxycodone HCl (Oxycontin) 60 Mg Tab, 60 MG PO Q12H, (Reported) Pantoprazole Sodium (Pantoprazole Sodium) 40 Mg Tablet.dr, 80 MG PO DAILY, (R eported) Paroxetine HCl (Paroxetine HCl) 40 Mg Tab, 60 MG PO DAILY, (Reported) Pregabalin (Lyrica) 200 Mg Cap, 200 MG PO BID, (Reported) Rivaroxaban (Xarelto) 20 Mg Tab, 20 MG PO DAILY, (Reported) Scheduled PRN Albuterol Sulf (Albuterol Sulfate) 2.5 Mg/3 Ml Vial.neb, 3 ML NEB Q4H PRN for SHORTNESS OF BREATH, (Reported) Albuterol Sulfate (Ventolin Hfa) 108 Mcg/Act Aer, 2 PUFFS INH Q4H PRN for SHORTNESS OF BREATH, (Reported) Oxycodone Hcl (Oxycodone HCl) 20 Mg Tablet, 20 MG PO Q4-6HP PRN for PAIN LEVEL 6 -10, (Reported) Allen Rivera MD Nov 22, 2020 12:57
[2020-11-22] MEDS ORDERED: SODIUM CHLORIDE 0.9% INJ 10 ML SYR IV PRN (14:10)
[2020-11-22] MEDS: SODIUM CHLORIDE 0.9% INJ 10 ML SYR IV SCH (15:52)
[2020-11-22] MEDS ORDERED: **NOTE PATIENT COMMENT** MISC XX PRN (21:00)
--- NOTE | 2020-11-22 21:53 | IPN ---
NEPHROLOGY PROGRESS NOTE DATE: 11/19/2020 SUBJECTIVE: The patient was seen and examined this morning at the bedside. She complains of significant pain in the right pelvis, going to right gluteus and into the right lower extremity. She had a CT of the pelvis without contrast overnight and it showed a fluid collection at the distal aspect of her vascular bypass graft, that is about 4 cm by 9 cm. The patient was seen by Vascular Surgery today and a duplex was done which showed no evidence of flow in the graft, and a plan has been made for transfer of the patient to [facility] when a bed becomes available. The patient tells me that her shortness of breath has been roughly unchanged the past 24 hours. She continues to require 3 liters via nasal cannula. OBJECTIVE: VITAL SIGNS: Temperature 96.8, pulse 98, respiratory rate 19, blood pressure 161/77, saturating 91-92% on 3 liters nasal cannula. Weight in the bed scale today is 104.8 kg. INTAKE AND OUTPUT: Urine output today is 875 mL. Urine output yesterday was 2.7 liters. GENERAL APPEARANCE: The patient is seen lying in bed, awake, alert, oriented, in mild distress, morbidly obese female. HEENT: The extraocular muscles are intact. Tongue is moist. NECK: Supple. Jugular veins are not elevated. HEART: Regular rate and rhythm, S1, S2. LUNGS: Diffuse wheezing on exam. She is on nasal cannula. There is no accessory muscle use nor tachypnea. ABDOMEN: Obese, soft and there are bowel sounds. EXTREMITIES: The patient has a left above the knee amputation and right lower extremity has trace edema. NEUROLOGICAL: She is oriented x3, conversational and cooperative with the physical exam. LABORATORY STUDIES: Sodium 138, potassium 4.5, bicarbonate 26, BUN 55, creatinine 3.1, magnesium 1.9, hemoglobin 8.7, platelet count 265. Blood cultures drawn and pending. INPATIENT MEDICATIONS: The patient continues on IV Cefepime. She was started on a Heparin drip and her Xarelto was stopped. I discontinued her Gabapentin. She received several doses of Morphine. PROBLEMS: 1. Acute kidney injury, non oliguric - The patient has a baseline creatinine of less than 1 and renal function was at baseline as recently as 2 weeks ago (on November 08 her creatinine was 0.9). She now has an acute kidney injury in the setting of occlusion of her axillofemoral bypass graft, and also concern for possible abscess and infection around the graft site, at its distal aspect in the right lateral abdominal wall. I would continue to hold diuretics today. Her last dose of IV Lasix was on November 21 at 8:00 a.m. Her creatinine has been fairly unchanged over the course of this admission at 3.0 on admission and 3.1 today. There is a Dobbs catheter and imaging shows no renal obstruction. 2. Occlusion of right axillofemoral bypass graft and incidental fluid collection at the distal aspect of the graft - This patient is pending urgent transfer to [facility] as soon as a bed becomes available. She is now n.p.o. on Heparin drip. 3. Chronic systolic congestive heart failure echocardiogram in 2016 with left ventricular ejection fraction of 30% and repeat echocardiogram done on this admission now shows left ventricular ejection fraction of 70% along with grade 3 or grade 4 diastolic dysfunction. Her CVP on the echocardiogram was estimated to be at least 20 mm of mercury. She was diuresed on this admission. She made 2.7 liters of urine yesterday. I am holding diuretics today given the occlusion of her right lower extremity graft and threatening ischemia to her legs. 4. Hypertension systolics are ranging from 140's to 160's today and pain is certainly playing a role. Pain medication is adjusted by the Primary Service, and she continues on Amlodipine and Hydralazine. 5. Anemia - hemoglobin was in normal range a year ago but on labs available from this year, her hemoglobin has been 8-9. She did have iron deficiency. She has not needed any blood transfusions thus far in this admission. Latest hemoglobin is 8.7. She is on IV Heparin now because of occlusion of her graft and she is receiving GI prophylaxis with Protonix.
[2020-11-23] VITALS: BP 151/72
[2020-11-23] MEDS: **hydrALAZINE** 50 MG TAB PO SCH ×4 (00:54→17:57)
[2020-11-23] MEDS: IPRATROPIUM 0.5MG/ALBUTEROL 2.5MG INH SOL UD 3ML (DUONEB) NEB SCH ×4 (01:55→20:00)
[2020-11-23] MEDS: busPIRone 5 MG TAB PO SCH ×2 (03:00→08:46)
[2020-11-23] MEDS: MORPHINE 2 MG/ML 1ML VIAL (J2270) IV PRN ×3 (03:47→09:56)
[2020-11-23] MEDS: methylPREDNISolone 125MG 2ML VIAL IV SCH ×2 (03:47→16:41)
[2020-11-23 04:00] VITALS: BP 171/75
[2020-11-23] MEDS: oxyCODONE 5MG TAB PO PRN (04:56)
[2020-11-23] MEDS: SODIUM CHLORIDE 0.9% INJ 10 ML SYR IV SCH ×2 (06:07→17:57)
[2020-11-23 06:12] LABS: BASO % 0.1 % (0.0-1.0); HEMATOCRIT 28.2 % (36.0-47.0); HEMOGLOBIN 8.2 g/dl (12.0-15.5); LYMPH # 0.3 10^3/uL (1.5-5.0); LYMPH % 3.8 % (24.0-44.0); MEAN CORPUSCULAR HEMOGLOBIN 24.6 pg (27.0-33.0); MEAN CORPUSCULAR HGB CONC 29.1 g/dl (32.0-36.5); MEAN CORPUSCULAR VOLUME 84.7 fl (80.0-96.0); MONO # 0.3 10^3/uL (0.0-0.8); NEUTROPHILS # 7.1 10^3/uL (1.5-8.5); NEUTROPHILS % 90.8 % (36.0-66.0); PLATELET COUNT, AUTOMATED 256 10^3/uL (150-450); RED BLOOD COUNT 3.33 10^6/uL (4.00-5.40); WHITE BLOOD COUNT 7.8 10^3/uL (4.0-10.0)
[2020-11-23 06:53] LABS: CALCIUM LEVEL 8.3 MG/DL (8.8-10.2); CREATININE FOR GFR 2.79 MG/DL (0.55-1.30); GLOMERULAR FILTRATION RATE 18.2 (>45); POTASSIUM SERUM 3.8 MEQ/L (3.5-5.1)
[2020-11-23] MEDS ORDERED: HEPARIN DRIP 25,000 UNITS in IV 1 EA IV SCH (08:00)
[2020-11-23] MEDS ORDERED: HEPARIN SOD (PORCINE) 5000UNITS/ML 1ML VIAL/SYRINGE IV PRN (08:00)
[2020-11-23 08:05] VITALS: BP 142/65
[2020-11-23 08:13] VITALS: BP 146/65
[2020-11-23] MEDS: oxyCODONE 20 MG CR TAB PO SCH (08:44)
[2020-11-23] MEDS: ATORVASTATIN 20 MG TAB PO SCH (08:45)
[2020-11-23] MEDS: PARoxetine 20MG TABLET PO SCH (08:45)
[2020-11-23] MEDS: PREGABALIN 100 MG CAP (LYRICA) PO SCH (08:45)
[2020-11-23] MEDS: PANTOPRAZOLE 40MG TAB (PROTONIX) PO SCH (08:45)
[2020-11-23] MEDS: ASPIRIN 81MG ENTERIC TABLET PO SCH (08:45)
[2020-11-23] MEDS: CEFEPIME HCL 1 GM in D5W MINI-BAG PLUS 50 ML IV SCH (08:46)
[2020-11-23] MEDS: CILOSTAZOL 100 MG TAB (PLETAL) PO SCH ×2 (08:46→16:42)
[2020-11-23] MEDS: amLODIPine 5 MG TAB PO SCH (08:46)
[2020-11-23] MEDS ORDERED: HYDROMORPHONE HCL 0.5 MG/ 0.5 ML SYRINGE (J1170 PER 1) IV PRN (10:40)
[2020-11-23] MEDS ORDERED: NALOXONE INJ 0.4MG/1ML VIAL (J2310 PER 1MG) IV PRN (10:45)
--- NOTE | 2020-11-23 10:50 | IPNPDOC ---
Text Note Date of Service The patient was seen on 11/23/20. NOTE SUBJECTIVE: -Continues to have severe RLE pain. -Afebrile OBJECTIVE: GENERAL APPEARANCE: well nourished & developed, NAD INTEGUMENT: Healing scars from the recent aorto-fem bypass without discharge or excessive redness with incision site close to groin in clean and dry dressing. Mottling pattern of RLE foot this AM HEENT: EOMI, MMM CARDIOVASCULAR: RRR, no m/r/g LUNGS: has diffuse wheezing on exam this morning, on 2L ABDOMEN: Obese, normoactive bowel sounds, soft, NTND NEUROLOGICAL: speech not dysarthric PSYCHIATRIC: A&Ox 3 EXT: RLE with severe pain requiring scheduled pain meds, TTP and at rest, cool foot, skin mottling. LABORATORY DATA: Reviewed Cr 2.79 IMAGING: Chest xray "FINDINGS: lungs clear. Heart not enlarged. No effusion. PICC line in place with tip in right atrium. Ct pelvis: Intraperitoneal space: Unremarkable. No free air. No significant fluid collection. Vasculature: A vascular bypass graft is noted in the right lateral subcutaneous abdominal wall extending to the right common femoral artery. There is a fluid collection around the distal aspect of the graft in the right lateral abdominal wall measuring 3.9 x 1.8 x 9.4 cm. Femoral and iliac stents are noted. Vascular patency cannot be evaluated on this and unenhanced exam. Approximately 50% stenosis of the graft distal graft. Lymph nodes: Unremarkable. No enlarged lymph nodes. Urinary bladder: Urinary bladder is decompressed by a Dobbs catheter. Reproductive: Normal as visualized. Bones/joints: Degenerative changes in the spine and pelvis. Asymmetric osteopenia of the left hip and femur. Soft tissues: Mild subcutaneous edema. Left hip and leg musculature are atrophic. Bilateral LE venous doppler US: IMPRESSION: 1. Subcutaneous fluid collection associated with the distal end of the vascular graft concerning for abscess. 2. Asymmetric atrophy of the left hip and leg musculature and osteopenia of the left hip and femur. Right deep veins: There is a dressing in place at the right groin. Therefore the right common femoral vein could not be evaluated. The femoral, proximal profunda femoral and popliteal veins are patent without thrombus. Normal Doppler waveforms. Normal compressibility and/or augmentation response. Right superficial veins: Unremarkable. Saphenofemoral junction is patent without thrombus. Soft tissues: Leg swelling. IMPRESSION: No evidence of deep vein thrombosis. RLE arterial US: Patient refused the parameters necessary for ankle brachial index calculation. All numeric values represent peak systolic velocity in cm/SEC. EMS DIRECTOR: 21.1 monophasic Profunda: 21.7 monophasic SFA proximal: 17.7 monophasic SFA mid: 8.0 monophasic SFA distal: 6.7 monophasic The remainder of the interrogated vessels in the right lower extremity are seen to be occluded. The technologist noted some occluded vessels in the right upper extremity. This is a lower extremity exam however. IMPRESSION: As above. Since the technologist imaged some occluded upper extremity vessels on the right, a right upper extremity arterial ultrasound may be prudent if clinically relevant. No upper extremity images were obtained. Renal Ultrasound: Right kidney: No parvus tardus seen in the right kidney. Right renal resistive index measures 0.84 and 0.85 in the upper and mid kidney. The lower pole of the right kidney is obscured. The main right renal artery is obscured by bowel gas. Left kidney: The proximal left main renal artery is obscured by bowel gas. Peak systolic velocity in the mid left renal artery measures 97.6 cm. Peak systolic velocity in the distal left renal artery near the hilum measures 80.6 cm/s. No parvus tardus seen in the left kidney. Resistive index in the left kidney measures 0.76 in the upper pole, 0.76 in the mid pole and 0.81 in the lower pole. Aorta: Aortic peak systolic velocity measures 50.4 cm/s. IMPRESSION: 1. Significantly limited study due to patient's body habitus and gas with a centrally nonvisualization of the right main renal artery. No parvus tardus seen in the right kidney to suggest an indirect sign of hemodynamically significant right renal artery stenosis. 2. No Doppler evidence of renal artery stenosis in the mid and distal segments of the left main renal artery. Proximal left main renal artery is obscured by bowel gas however no parvus tardus seen in the left kidney to suggest an indirect sign of hemodynamically significant left renal artery stenosis. 3. Elevated bilateral renal resistive indices suggestive of medical renal disease MICROBIOLOGY: Respiratory panel is neg ASSESSMENT: 65 yr old F w PVD, Depression, Hypothyroidism, Hx of right arm DVT, Hx of embolic CVA, DLP, Migraines, Chronic HFrEF, CAD, Carotid artery disease who is admitted for acute COPD, HTN urgency, RITU, elevated troponins and subacute anemia now found to have fluid collection around the distal aspect of her axillo-fem graft in the right lateral abdominal wall measuring 3.9 x 1.8 x 9.4 cm with severe RLE pain with vascular recommending transfer to [facility]. PLAN: Acute COPD exacerbation -supplemental O2 with goal >89% -aspiration precautions -DuoNeb Q6H -Albuterol Q4HP -Continue solumedrol reduce to 60mg BID -smoking cessation education Hypertensive Crisis: Was asymptomatic but the acute elevation in her CR and elevated troponin may be due to acutely elevated BP. Resolved. -EKG showed NSR w a rate of 91 and PVCs but no acute ST elevation -amlodipine 5mg daily and 25Q6H hydralazine -also on loop diuretic per nephrology -2g salt diet 3 RITU: congestive i/s/o CHF exacerbation -Likely 2/2 HTN and CHF exacerbation -monitor UOP -manage HTN as above -renal US as above -avoid nephrotoxic drugs -Nephrology consulted, s/p diuresis 4 Elevated Troponin: likely 2/2 acute elevation in BP and reduced renal clearance of troponin because of the RITU -Less likely NSTEMI -telemetry -Troponin eventually downtrended 5 Subacute Anemia -f/u Iron panel w ferritin / trend Hg and aim for Hg >8 -nephrology giving venofer 6 Acute on chronic HFrEF (30% Echo 2016) -Per nephrology, certainly in acute on chronic HF -f/u Is and Os -daily weights -For unclear reasons she is not on a BB, ACEI, ARB or ARNI -f/u TTE read, last was 2015, f/u -s/p diuresis per nephrology 7 PVD / Carotid artery disease/ Chronic CAD / hx of CVA / DLP -ASA, cilostazol & statin -vascular onboard, pending transfer to [facility], on heparin gtt 8 Depression -paroxetine 9 chronic pain -DC'd all PO meds, starting on dilaudid 1mgQ3P with PRN narcan for severe limb ischemic pain 10 hx of UE DVT -rivaroxaban 11. Fluid collection around the distal aspect of her axillo-fem graft in the right lateral abdominal wall measuring 3.9 x 1.8 x 9.4 cm i/s/o 08/2020 graft surgery that was c/b graft infection and revision in 09/2020 with severe RLE pain -on cefepime -called [facility] for potential graft infection/abscess, pending transfer, no beds available -consulting vascular surgery, Dr. Rivera --> recommended transfer to [facility] -->He spoke with Dr. Malone about has rest pain after her ax-fem graft occluded. She either will need a revisional procedure or a major amputation. Given complex medical history and well known to Dr. Belle added to the lack of immediate urgency he recommended transfer to [facility] as soon as a bed becomes available. -Vascular recommended NPO and heparin gtt -pain management with dilaudid 1Q3IV PRN, with PRN narcan for RR<7 DVT ppx: Dc'd xarelto, now on heparin gtt Dispo: Pending transfer to [facility] VS,[place], I+O VS, [place]bone, I+O Laboratory Tests 11/23/20 05:55 11/23/20 05:56 Vital Signs Date Time Temp Pulse Resp B/P (MAP) Pulse Ox O2 Delivery O2 Flow Rate FiO2 11/23/20 08:13 97.6 87 18 146/65 (92) 95 11/23/20 08:05 Nasal Cannula 3.0 I&O- Last 24 Hours up to 6 AM 11/23/20 06:00 Intake Total 280 ml Output Total 525 ml Balance -245 ml CAYLA CHAVEZ MD Nov 23, 2020 08:47
--- NOTE | 2020-11-23 12:50 | IPN ---
NEPHROLOGY PROGRESS NOTE DATE: 11/23/2020 SUBJECTIVE: The patient is seen and examined this morning at the bedside. She has only one complaint and it is a major complaint severe right lower extremity pain. She continues on a Heparin drip and is pending transfer to [facility] once a bed is available. Diuretics have been held the past two days. She is on a stable amount of oxygen, 3 liters via nasal cannula. She remains n.p.o. Her renal function has slightly improved as compared to yesterday. A Dobbs catheter is in place. OBJECTIVE: VITAL SIGNS: Temperature 97.6, pulse 98, respiratory rate 20, blood pressure 136/83, saturating 95% on 3 liters nasal cannula. INTAKE AND OUTPUT: Intake yesterday was only recorded as 300 mL. Urine output yesterday was 875 mL. Weight in the bed scale today is 107 kg which is increased as compared to the past couple days and probably inaccurate. PHYSICAL EXAMINATION: GENERAL APPEARANCE: The patient is seen lying in bed in moderate distress from pain, obese female, awake, alert, nursing staff present at the bedside. HEENT: The extraocular muscles are intact. Tongue is dry. NECK: Supple. Jugular vein does not look elevated. HEART: Regular, S1, S2. No murmur. LUNGS: Wheezing and there is mild tachypnea due to pain and shallow inspiration. She is nasal cannula. ABDOMEN: Obese, soft and nontender. GENITOURINARY: Indwelling Dobbs catheter draining clear yellow urine. 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 There was no edema on the right. The foot is cool to cough. LABORATORY STUDIES: Sodium 138, potassium 3.8, bicarbonate 24, BUN 59, creatinine 2.7, glucose 333, magnesium 2.0, hemoglobin 8.2, platelet count 256. Blood cultures no growth for 24 hours times one set. INPATIENT MEDICATIONS: The patient is receiving Cefepime one gram IV daily. She is on a Heparin drip. She is receiving Proventil and DuoNebs, Amlodipine 5 mg p.o. daily, Aspirin 81 mg p.o. daily, Lipitor 80 mg p.o. daily, Cilostazol 100 mg p.o. twice daily, Hydralazine 25 mg p.o. q. 6 hourly, Dilaudid p.r.n. for pain, Solu-Medrol 60 mg IV twice daily, Narcan p.r.n., Protonix 80 mg p.o. daily, Paxil 60 mg p.o. daily. PROBLEMS: 1. Acute non oliguric kidney injury in the setting of ischemic limb - The patient also has a history of congestive heart failure. She has been n.p.o. since yesterday. Her diuretics have been held for the past two days. I would continue to hold diuretics at this time. Her creatinine has come down slightly to 2.7. Her electrolytes are acceptable. She has a Dobbs catheter. 2. Hypertension - blood pressures are acceptable on the current regimen. There is no hypotension. I made no changes to her blood pressure medications at this time. 3. Diastolic congestive heart failure echocardiogram done November 20 shows left ventricular systolic ejection fraction of 70% with grade 3 to grade 4 diastolic dysfunction. The patient has been n.p.o. since yesterday. Her diuretics have been held the past two days. She is requiring supplemental oxygen but it is in the setting of a COPD exacerbation. I would continue to hold diuretics at this time while the patient is n.p.o. Most recent lung imaging (chest x-ray November 20) did not show any pulmonary vascular congestion or effusions. 4. Anemia with iron deficiency - hemoglobin is 8.2 on the latest labs. She did receive Venofer on this admission for iron level less than 50 and transferrin saturation of 12%. There is no need for transfusion at this time. 5. COPD exacerbation managed by the Primary Service she is on supplemental oxygen, bronchodilators and steroids. 6. Peripheral vascular disease/carotid artery disease/coronary artery disease/occlusion of axillofemoral graft managed by Vascular Surgery - The patient is n.p.o. on Heparin drip and is pending urgent transfer to [place]. If they have no bed available, may need to consider what more can be done in terms of transferring the patient for surgical care.
[2020-11-23 13:48] VITALS: BP 122/66
[2020-11-23] MEDS: HYDROmorphone HCL 2 MG/ML 1ML VIAL (J1170) IV PRN (14:02)
[2020-11-23 16:10] VITALS: BP 143/65
[2020-11-23] MEDS ORDERED: NS 1,000 ML IV SCH (17:20)
[2020-11-23] MEDS ORDERED: ROCURONIUM BROMIDE 50 MG/5 ML VIAL As Ordered ONE ×3 (17:57→21:43)
[2020-11-23] MEDS ORDERED: LIDOCAINE 2% 100MG/5ML SDV (FOR ANES.) As Ordered ONE (17:57)
[2020-11-23] MEDS ORDERED: propofoL 200 MG/20 ML VIAL As Ordered ONE (17:58)
[2020-11-23] MEDS ORDERED: HYDROmorphone HCL 2 MG/ML 1ML VIAL (J1170) As Ordered ONE ×2 (17:58→21:45)
[2020-11-23] MEDS ORDERED: MIDAZOLAM INJ 2MG/2ML VIAL (J2250 PER 1MG) As Ordered ONE (17:58)
[2020-11-23] MEDS ORDERED: HEPARIN SOD (PORCINE) 5000UNITS/ML 1ML VIAL/SYRINGE As Ordered ONE ×5 (18:07→22:46)
[2020-11-23 18:56] LABS: INR 1.75; PROTHROMBIN TIME 20.8 SECONDS (12.7-14.5)
[2020-11-23 19:01] LABS: PARTIAL THROMBOPLASTIN TIME > 120.0 SECONDS (25.9-37.0)
[2020-11-23] MEDS ORDERED: CEFEPIME 1GM VIAL (MAXIPIME) (J0692 PER 500MG) As Ordered ONE (19:06)
[2020-11-23] MEDS ORDERED: ALTEPLASE 2MG/2ML VIAL XX ONE (19:25)
[2020-11-23] MEDS ORDERED: NITROGLYCERIN IN D5W 25MG/250ML (100MCG/ML) As Ordered ONE (19:36)
[2020-11-23] MEDS ORDERED: PHENYLephrine 500MCG 5ML (100MCG/ML) SYRINGE As Ordered ONE (19:55)
[2020-11-23] MEDS ORDERED: THROMBIN SOLN 20,000 UNITS KIT As Ordered ONE ×2 (20:11→22:41)
[2020-11-23] MEDS ORDERED: SUGAMMADEX SODIUM 500 MG/5 ML VIAL (BRIDION) As Ordered ONE (22:46)
[2020-11-23] MEDS ORDERED: dexameTHASONE 4 MG/ML 1ML VIAL (J1100 PER 1MG) As Ordered ONE (22:46)
[2020-11-23] MEDS ORDERED: ONDANSETRON 4MG/2ML VIAL As Ordered ONE (22:46)
[2020-11-23] MEDS ORDERED: oxyCODONE 5MG TAB PO PRN (23:45)
[2020-11-23] MEDS ORDERED: ONDANSETRON 4MG/2ML VIAL IV PRN (23:45)
[2020-11-24] VITALS (22 sets, daily range): BP systolic 100–200; BP diastolic 56–99
[2020-11-24] MEDS: HYDROMORPHONE HCL 0.5 MG/ 0.5 ML SYRINGE (J1170 PER 1) IV PRN ×2 (00:15→01:19)
[2020-11-24] MEDS ORDERED: ACETAMINOPHEN 500 MG TAB PO ONE (00:30)
[2020-11-24] MEDS: HYDROmorphone HCL 2 MG/ML 1ML VIAL (J1170) IV PRN ×7 (01:09→20:24)
[2020-11-24] MEDS: ACETAMINOPHEN TAB 650MG DOSE (2X325MG) PO PRN (02:34)
[2020-11-24] MEDS ORDERED: NS 1,000 ML IV ONE (03:00)
[2020-11-24] MEDS: **hydrALAZINE** 50 MG TAB PO SCH ×4 (03:00→18:22)
[2020-11-24] MEDS: methylPREDNISolone 125MG 2ML VIAL IV SCH (03:08)
[2020-11-24] MEDS: SODIUM CHLORIDE 0.9% INJ 10 ML SYR IV SCH ×2 (05:38→18:00)
[2020-11-24 05:57] LABS: BASO % 0.1 % (0.0-1.0); HEMATOCRIT 26.1 % (36.0-47.0); HEMOGLOBIN 7.8 g/dl (12.0-15.5); LYMPH # 0.2 10^3/uL (1.5-5.0); LYMPH % 1.2 % (24.0-44.0); MEAN CORPUSCULAR HEMOGLOBIN 25.4 pg (27.0-33.0); MEAN CORPUSCULAR HGB CONC 29.9 g/dl (32.0-36.5); MONO # 0.7 10^3/uL (0.0-0.8); MONO % 3.9 % (2.0-8.0); NEUTROPHILS # 16.9 10^3/uL (1.5-8.5); NEUTROPHILS % 93.7 % (36.0-66.0); PLATELET COUNT, AUTOMATED 186 10^3/uL (150-450); RED BLOOD COUNT 3.07 10^6/uL (4.00-5.40); WHITE BLOOD COUNT 18.1 10^3/uL (4.0-10.0)
[2020-11-24 06:38] LABS: CALCIUM LEVEL 7.7 MG/DL (8.8-10.2); CREATININE FOR GFR 2.11 MG/DL (0.55-1.30); GLOMERULAR FILTRATION RATE 25.2 (>45); POTASSIUM SERUM 4.1 MEQ/L (3.5-5.1)
[2020-11-24] MEDS: IPRATROPIUM 0.5MG/ALBUTEROL 2.5MG INH SOL UD 3ML (DUONEB) NEB SCH ×3 (07:28→20:05)
[2020-11-24] MEDS ORDERED: HEPARIN SOD (PORCINE) 5000UNITS/ML 1ML VIAL/SYRINGE IV PRN (08:25)
[2020-11-24] MEDS: HEPARIN DRIP 25,000 UNITS in IV 1 EA IV SCH ×2 (09:04→18:18)
--- NOTE | 2020-11-24 09:20 | RO ---
OPERATIVE NOTE DATE OF OPERATION: Sunday PREOPERATIVE DIAGNOSIS: Right leg acute limb ischemia. POSTOPERATIVE DIAGNOSIS: Right leg acute limb ischemia. PROCEDURE PERFORMED: 1. Right dtjgxcva-dg-eterilj artery bypass graft thrombectomy. 2. Exploration of the profunda femoral artery and ligation of the profunda femoral artery of the right leg. 3. Right axillofemoral bypass to right yiwpk-xcu-jgea popliteal artery bypass graft using 6 mm polytetrafluoroethylene (PTFE) in an extra-anatomic fashion. SURGEON: Allen Rivera MD FRONT END UI DEVELOPER: No qualified certified surgical assistant was available for the procedure. ANESTHESIA: General endotracheal. ESTIMATED BLOOD LOSS: One liter. Case should be coded as a modifier 22 for difficulty given the fact that this is at least his 7th or 8th re-do surgery and her morbid obesity complicated this also in addition to her severe comorbidities. SPECIMENS: None. COMPLICATIONS: None. PROCEDURE INDICATIONS: Mrs. Marisol Disla is a 65-year-old lady who presented with acute kidney injury, congestive heart failure, and a cold right leg which had been ongoing for at 3-5 days in duration. She is well known to Dr. Belle at [facility]. He has done multiple procedures on her in the past. She has already had an aortobifemoral bypass by Dr. Bueno very remotely in the past. There is a left grivj-sxg-akhs amputation and she has multiple scars from surgeries on her right leg, which she does not know exactly what they were for. Her most recent surgery was a right chyvtfpa-kg-cyyvgrd bypass that was complicated by a wound infection in the groin requiring a sartorius muscle flap and a prolonged stay at [facility]. Ultimately, she healed that and was home for about a month and then suddenly the right leg became cool in the last week or so shortly after seeing Dr. Belle approximately 7-8 days ago in [place]. In either case, with this presentation, she presented to [facility] and I contacted Dr. Belle at [facility]. He is willing to accept the patient; however, there were no hospital beds due to volume overload at [facility]. She might be able to tolerate another day of it healing and thus I allowed her to stay at [facility] while awaiting transfer to [facility]; however, the following day, which was today, after attempting to retransfer her to [facility], there were still no beds likely due to COVID pandemic and we attempted [facility] and other surrounding hospitals, all of which were full. As a result of that, I elected to proceed with a complicated revascularization here at [facility], which I had explained to the patient was quite a large procedure for our hospital here. The patient, nonetheless, agreed to move forward and I felt like waiting any longer would permit her leg to permanent ischemia and not function, and I felt that she would ultimately not have any benefit if she waited any longer for revascularization. We elected to move forward under these extreme and challenging circumstances. PROCEDURE IN DETAIL: The risks, benefits and alternatives were explained to the patient and she was taken down to the operating room; consent obtained; placed on the operating room table; and placed under general anesthesia. A timeout was performed confirming the correct side and site of the procedure. Her entire right axilla, right chest wall, right groin and right leg were prepped and draped into the field. I started by making a transverse incision over the axillofemoral bypass graft on her right lateral abdominal wall trying to stay away from a previous fluid collection that was noted around the graft on previous imaging closer to the groin. With that incision in place, I dissected out the graft by creating a transverse arteriotomy and then using a #4 Anna, performed thrombectomy around 3070 downstream and 3070 for upstream towards the axilla. Downstream, I retrieved some clots but I was unable to pocket more than approximately 30 cm around the area of the femoral. I suspected there was a high-grade stenosis here or kink, or some sort of anatomic problem that was not just fresh thrombus. We did not get any back bleeding at this point. I then passed the Anna upstream towards the axilla and after two passes retrieved a significant amount dark clot and then brighter red clots. Ultimately, we got fresh backflow of blood and this was quite pulsatile. We then controlled the graft, attempted with a Glidewire and a [place] balloon to blindly pass the catheter slightly lower down and I performed a blind angioplasty of what I felt was the common femoral or profunda femoral artery. Nonetheless, this did not work. There was no evidence of back bleeding felt. I then went ahead and dissected and explored the right common femoral and profunda femoral where from a previous ultrasound during this hospitalization they had felt that the arteries were open. I made an incision between two previous incisions and just below the groin/inguinal crease, dissected down carefully sharply to the level of the sartorius muscle and vastus medialis muscle using Doppler on multiple occasions to attempt to identify a signal. Ultimately, I was able to identify the profunda femoral artery but this was rubbery, hard and had no flow within it. An arteriotomy confirmed that I was truly in the profunda, and despite access to the profunda, there was no significant flow and ultimately I aborted from this approach, ligated the profunda artery with Vicryl and silk ties as well as clips and then turned my attention to the below-knee popliteal artery. I then dissected the below-knee popliteal artery. This was rubbery, soft and arteriotomy confirmed antegrade and backward bleeding. I created a 1 cm incision and did an anastomosis and decided to perform an anastomosis with a 6 mm graft in a beveled fashion which was anastomosed to the distal anastomosis first and then flushed multiple times with saline after completion anastomosis for to ensure no clot formation. Heparin was re-administered liberally hourly. This allowed me to get as far away from the groin with the 70cm graft as possible.. I then tunneled it retrograde and performed a trough going through the profunda incision and down to the below-knee popliteal in the subcutaneous plane making sure not to twist it or kink it with a [place] tunneler used to secure it. Once it was tunneled, I then tunneled it more laterally as far as it could go but the graft did not extend as far up to the mid chest wall incision so I made a separate skip incision and dissected out the axillofemoral bypass graft closer towards the groin where there was more inflammation. I was able to perform an end-to-side anastomosis there using 5-0 Prolene sutures. Once completed, I injected 6 mg of tPA, 200 mcg of papaverine and waited approximately one hour while obtaining hemostasis of the needle hole bleeding to allow the graft to be fully saturated with tPA and give the best chance of dissolving any residual thrombus. I should note, the patient was fully heparinized throughout this portion of the procedure. Total blood loss at this point was around one liter in duration. At this point now, with a weak signal at the posterior tibial, I then decided to close up all wounds and did this is a stay fashion starting from proximal to distal, closing with 2-0 Vicryl sutures and thrombin Gelfoam placed in each wound bed and manual pressure held. Each incision was closed with Vicryl and stapled one by one including both tunneled incisions followed by the common femoral and profunda femoral incision which was closed in two layers of 2-0 Vicryl, skin franklyn and then finally the popliteal fossa which was closed with 2-0 Vicryl running and then skin franklyn. The leg was then wrapped and elevated with Kerlix, gauze, Reg wraps and Coban, and the patient was then transferred to the recovery room in stable condition. I was present and performed all critical portions of this procedure. OUTCOME: Successful right leg revascularization. I doubt that this bypass will last intermediate frame tender. I suspect she will end up with an amputation soon, and I will make sure to apprise her of this, that despite any successes we have now, it is unlikely that this will last intermediate frame tender. She will need to be on aspirin, Plavix and a blood thinner, lifelong, as long as the bypass graft remains patent. She can follow up with Dr. Belle in the future. MOHAN
[2020-11-24] MEDS ORDERED: NS 0.45% 1,000 ML IV SCH (10:25)
[2020-11-24] MEDS: CEFEPIME HCL 1 GM in D5W MINI-BAG PLUS 50 ML IV SCH ×2 (10:32→20:23)
[2020-11-24] MEDS: ASPIRIN 81MG ENTERIC TABLET PO SCH (10:38)
[2020-11-24] MEDS: PANTOPRAZOLE 40MG TAB (PROTONIX) PO SCH (10:39)
[2020-11-24] MEDS: amLODIPine 5 MG TAB PO SCH (10:39)
--- NOTE | 2020-11-24 10:39 | IPNPDOC ---
Text Note Date of Service The patient was seen on 11/24/20. NOTE INTERIM EVENTS: -Could not secure bed at [facility] or [facility]. Dr. Rivera took her to the OR yesterday evening and performed at R axilla to bifem thrombectomy, exploration and ligation of deep femoral artery, axillary to popliteal bypass graft and chemical thrombectomy. -She is now back on the heparin gtt and he is following closely. SUBJECTIVE: -Continues to have severe RLE pain requiring Dilaudid OBJECTIVE: GENERAL APPEARANCE: well nourished & developed, NAD EXTREMITIES: Mottling pattern of RLE foot, cold, unable to palpate DP pulse. TTP and at rest. 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 Heart not enlarged. No effusion. PICC line in place with tip in right atrium. Ct pelvis: Intraperitoneal space: Unremarkable. No free air. No significant fluid collection. Vasculature: A vascular bypass graft is noted in the right lateral subcutaneous abdominal wall extending to the right common femoral artery. There is a fluid collection around the distal aspect of the graft in the right lateral abdominal wall measuring 3.9 x 1.8 x 9.4 cm. Femoral and iliac stents are noted. Vascular patency cannot be evaluated on this and unenhanced exam. Approximately 50% stenosis of the graft distal graft. Lymph nodes: Unremarkable. No enlarged lymph nodes. Urinary bladder: Urinary bladder is decompressed by a Dobbs catheter. Reproductive: Normal as visualized. Bones/joints: Degenerative changes in the spine and pelvis. Asymmetric osteopenia of the left hip and femur. Soft tissues: Mild subcutaneous edema. Left hip and leg musculature are atrophic. Bilateral LE venous doppler US: IMPRESSION: 1. Subcutaneous fluid collection associated with the distal end of the vascular graft concerning for abscess. 2. Asymmetric atrophy of the left hip and leg musculature and osteopenia of the left hip and femur. Right deep veins: There is a dressing in place at the right groin. Therefore the right common femoral vein could not be evaluated. The femoral, proximal profunda femoral and popliteal veins are patent without thrombus. Normal Doppler waveforms. Normal compressibility and/or augmentation response. Right superficial veins: Unremarkable. Saphenofemoral junction is patent without thrombus. Soft tissues: Leg swelling. IMPRESSION: No evidence of deep vein thrombosis. RLE arterial US: Patient refused the parameters necessary for ankle brachial index calculation. All numeric values represent peak systolic velocity in cm/SEC. 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 The technologist noted some occluded vessels in the right upper extremity. This is a lower extremity exam however. IMPRESSION: As above. Since the technologist imaged some occluded upper extremity vessels on the right, a right upper extremity arterial ultrasound may be prudent if clinically relevant. No upper extremity images were obtained. Renal Ultrasound: Right kidney: No parvus tardus seen in the right kidney. Right renal resistive index measures 0.84 and 0.85 in the upper and mid kidney. The lower pole of the right kidney is obscured. The main right renal artery is obscured by bowel gas. Left kidney: The proximal left main renal artery is obscured by bowel gas. Peak systolic velocity in the mid left renal artery measures 97.6 cm. Peak systolic velocity in the distal left renal artery near the hilum measures 80.6 cm/s. No parvus tardus seen in the left kidney. Resistive index in the left kidney measures 0.76 in the upper pole, 0.76 in the mid pole and 0.81 in the lower pole. Aorta: Aortic peak systolic velocity measures 50.4 cm/s. IMPRESSION: 1. Significantly limited study due to patient's body habitus and gas with a centrally nonvisualization of the right main renal artery. No parvus tardus seen in the right kidney to suggest an indirect sign of hemodynamically significant right renal artery stenosis. 2. No Doppler evidence of renal artery stenosis in the mid and distal segments of the left main renal artery. Proximal left main renal artery is obscured by bowel gas however no parvus tardus seen in the left kidney to suggest an indirect sign of hemodynamically significant left renal artery stenosis. 3. Elevated bilateral renal resistive indices suggestive of medical renal disease MICROBIOLOGY: Respiratory panel is neg ASSESSMENT: 65 yr old F w PVD, Depression, Hypothyroidism, Hx of right arm DVT, Hx of embolic CVA, DLP, Migraines, Chronic HFrEF, CAD, Carotid artery disease who is admitted for acute COPD, HTN urgency, RITU, elevated troponins and subacute anemia now found to have fluid collection around the distal aspect of her axillo-fem graft in the right lateral abdominal wall measuring 3.9 x 1.8 x 9.4 cm with severe RLE pain with vascular recommending transfer to [facility]. PLAN: Acute COPD exacerbation -supplemental O2 with goal >89% -aspiration precautions -DuoNeb Q6H -Albuterol Q4HP -Continue solumedrol reduce to 60mg daily -smoking cessation education has been provided Hypertensive Crisis: Was asymptomatic but the acute elevation in her CR and elevated troponin may be due to acutely elevated BP. Resolved. -EKG showed NSR w a rate of 91 and PVCs but no acute ST elevation -amlodipine 5mg daily and 25Q6H hydralazine -also was on loop diuretic per nephrology -2g salt diet RITU: congestive i/s/o CHF exacerbation -Likely 2/2 HTN and CHF exacerbation -monitor UOP -manage HTN as above -renal US as above -avoid nephrotoxic drugs -Nephrology consulted, s/p diuresis Elevated Troponin: likely 2/2 acute elevation in BP and reduced renal clearance of troponin because of the RITU -Less likely NSTEMI -telemetry -Troponin eventually downtrended Acute on subacute Anemia, with slight downtrend postop -Goal Hg >8, will give 2u pRBCs today -nephrology gave venofer Acute on chronic HFrEF (30% Echo 2016) -Per nephrology, certainly in acute on chronic HF -f/u Is and Os -daily weights -For unclear reasons she is not on a BB, ACEI, ARB or ARNI -f/u TTE read, last was 2015, f/u -s/p diuresis per nephrology PVD / Carotid artery disease/ Chronic CAD / hx of CVA / DLP -ASA, cilostazol & statin -vascular onboard, s/p R axilla to bifem thrombectomy, exploration and ligation of deep femoral artery, axillary to popliteal bypass graft and chemical thrombectomy on 11/23. -On heparin gtt Depression -paroxetine Chronic pain -DC'd all PO meds, starting on dilaudid 1mgQ3P with PRN narcan for severe limb ischemic pain Hx of UE DVT -Dc'd rivaroxaban, on heparin gtt Fluid collection around the distal aspect of her axillo-fem graft in the right lateral abdominal wall measuring 3.9 x 1.8 x 9.4 cm i/s/o 08/2020 graft surgery that was c/b graft infection and revision in 09/2020 with severe RLE pain -on cefepime -will at least check a MRSA swab. For now will also add vanc -called [facility] for potential graft infection/abscess, no beds available, now s/p R axilla to bifem thrombectomy, exploration and ligation of deep femoral artery, axillary to popliteal bypass graft and chemical thrombectomy by Dr. Rivera on 11/24/2020 -per vascular on heparin gtt -pain management with dilaudid 1Q3IV PRN, with PRN narcan for RR<7 Acute on chronic limb ischemic with known severe PVD and noted fluid collection on distal aspect of axillo-fem graft with acute limb pain: -called [facility] for potential graft infection/abscess, no beds available, now s/p R axilla to bifem thrombectomy, exploration and ligation of deep femoral artery, axillary to popliteal bypass graft and chemical thrombectomy by Dr. Rivera on 11/24/2020 -per vascular on heparin gtt -pain management with dilaudid 1Q3IV PRN, with PRN narcan for RR<7 DVT ppx: on heparin gtt Dispo: PCU VS,Fishbone, I+O VS, Fishbone, I+O Laboratory Tests 11/24/20 05:39 Vital Signs Date Time Temp Pulse Resp B/P (MAP) Pulse Ox O2 Delivery O2 Flow Rate FiO2 11/24/20 08:03 82 20 139/64 97 Nasal Cannula 2.0 11/24/20 04:00 97.0 I&O- Last 24 Hours up to 6 AM 11/24/20 06:00 Intake Total 2727 ml Output Total 3710 ml Balance -983 ml CAYLA CHAVEZ MD Nov 24, 2020 08:47
[2020-11-24] MEDS: busPIRone 5 MG TAB PO SCH ×2 (10:40→21:00)
[2020-11-24] MEDS: CILOSTAZOL 100 MG TAB (PLETAL) PO SCH ×2 (10:40→18:21)
[2020-11-24] MEDS: PARoxetine 20MG TABLET PO SCH (10:40)
[2020-11-24] MEDS: ATORVASTATIN 20 MG TAB PO SCH (10:40)
[2020-11-24] MEDS ORDERED: VANCOMYCIN HCL 1,000 MG, VIAL MATE ADAPTER 1 EACH in NS 250 ML IV SCH (12:00)
[2020-11-24] MEDS ORDERED: VANCOMYCIN HCL 1,000 MG, VIAL MATE ADAPTER 1 EACH in NS 250 ML IV ONE (14:00)
[2020-11-24] MEDS: LIDOCAINE 5% (LIDODERM) PATCH TD PRN (15:44)
--- NOTE | 2020-11-24 21:38 | IPN ---
PROGRESS NOTE DATE: 11/24/2020 SUBJECTIVE: Ms. Marisol Schneider is seen and examined this morning at the bedside. I reviewed the operative note of Dr. Rivera from yesterday. It seems she had quite a challenging and difficult surgery, the like of which is not usually performed at the [facility]. She had about 1 liter of estimated blood loss. She did have 2 units of packed red blood cell transfused yesterday. Patient is seen this morning at the bedside lying in bed. She complains of ongoing pain. She denies shortness of breath. She tells me she is very thirsty and she wants to have something to drink. PHYSICAL EXAMINATION: VITAL SIGNS: Temperature 97.2, pulse 88, respiratory rate 20, blood pressure 134/61, saturating 98% on 2 liter nasal cannula. INTAKE/OUTPUT: Intake yesterday was 2.5 liters. Urine output yesterday was 2.2 liters. Estimated blood loss was 1 liter. Weight in the bed scale today was 107.9 kg. GENERAL: Patient was seen lying fairly flat in bed, morbidly obese female, awake, alert and in mild distress from pain. HEENT: Makes eye contact. Tongue is moist. Nasal cannula is in place. Neck veins are difficult to assess today. HEART: Heart sounds are regular, S1, S2. EXTREMITIES: There is edema of the right lower extremity and right lower extremity is wrapped in dressings up to the mid thigh. There are also various dressings in the right pelvic and right abdominal region. 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 There was no edema on the left stump. LUNGS: Show good breath sounds bilaterally. No crackle or rale. She is comfortable on 2 liters. ABDOMEN: Obese with some dressings on the right side. NEUROLOGIC: She is oriented x3. SKIN: Shows pallor. LABORATORY STUDIES: White count 18.1, hemoglobin 7.8, platelets 186,000. Sodium 143, potassium 4.1, bicarbonate 24, BUN 55, creatinine 2.1. INPATIENT MEDICATIONS: She did receive I.V. fluids yesterday and normal saline at 60 mL/hour. She remains on a Heparin drip. She remains on I.V. Cefepime and I.V. Vancomycin. She is also receiving DuoNebs p.r.n., Amlodipine 5 mg p.o. daily, aspirin 81 mg p.o. daily, Atorvastatin 80 mg p.o. daily, Buspar 5 mg p.o. b.i.d., Cilostazol 100 mg p.o. b.i.d., Heparin drip, Hydralazine 25 mg p.o. every 6 hours, Hydromorphone I.V. p.r.n., Solu-Medrol 60 mg I.V. daily, Protonix 80 mg p.o. daily, Paxil 60 mg p.o. daily. PROBLEMS: 1. Acute kidney injury in the setting of ischemic limb and also with history of congestive heart failure: Patient was n.p.o. yesterday, she did receive I.V. fluids yesterday, she also had 1 liter of blood loss yesterday, but then was subsequently transfused 2 units of packed red blood cells. Her peak creatinine on this admission was on 11/22/2020 with a creatinine of 3.1. Over the past 48 hours, creatinine has improved nicely to 2.1 today and this is the best her renal function has been since she was admitted. Once patient is tolerating a diet, I am going to stop the maintenance I.V. fluids that she is on because of her history of congestive heart failure. 2. Anemia in the setting of acute blood loss with recent blood loss in the OR: She was transfused 2 units yesterday. Her hemoglobin today is 7.8. I suggest she should be transfused 1 more unit of blood today. 3. Diastolic congestive heart failure: Echocardiogram done on this admission showed grade 3 to 4 diastolic dysfunction. Patient was n.p.o. since yesterday and receiving maintenance I.V. fluids. Once she is tolerating a diet, I will stop her I.V. fluids. Diuretics have been held the past several days in the setting of acute ischemic limb and pending revascularization. I would continue to hold diuretic today as well. 4. Hypertension: Blood pressures are acceptable on current regimen and no changes are being made. She is on Amlodipine and Hydralazine.
[2020-11-25] VITALS (14 sets, daily range): BP systolic 108–156; BP diastolic 49–85
[2020-11-25] MEDS: HYDROmorphone HCL 2 MG/ML 1ML VIAL (J1170) IV PRN ×6 (00:51→19:27)
[2020-11-25] MEDS: IPRATROPIUM 0.5MG/ALBUTEROL 2.5MG INH SOL UD 3ML (DUONEB) NEB SCH ×4 (01:26→19:46)
[2020-11-25] MEDS: methylPREDNISolone 125MG 2ML VIAL IV SCH (03:19)
[2020-11-25] MEDS: HEPARIN DRIP 25,000 UNITS in IV 1 EA IV SCH (05:21)
[2020-11-25] MEDS: **hydrALAZINE** 50 MG TAB PO SCH ×5 (05:21→23:59)
[2020-11-25] MEDS: SODIUM CHLORIDE 0.9% INJ 10 ML SYR IV SCH ×2 (05:34→19:17)
[2020-11-25 05:43] LABS: BASO % 0.1 % (0.0-1.0); HEMATOCRIT 21.1 % (36.0-47.0); LYMPH # 0.3 10^3/uL (1.5-5.0); LYMPH % 3.7 % (24.0-44.0); MEAN CORPUSCULAR HEMOGLOBIN 25.3 pg (27.0-33.0); MEAN CORPUSCULAR HGB CONC 29.9 g/dl (32.0-36.5); MEAN CORPUSCULAR VOLUME 84.7 fl (80.0-96.0); MONO # 0.5 10^3/uL (0.0-0.8); MONO % 5.3 % (2.0-8.0); NEUTROPHILS # 8.3 10^3/uL (1.5-8.5); NEUTROPHILS % 89.4 % (36.0-66.0); PLATELET COUNT, AUTOMATED 112 10^3/uL (150-450); RED BLOOD COUNT 2.49 10^6/uL (4.00-5.40); WHITE BLOOD COUNT 9.2 10^3/uL (4.0-10.0)
[2020-11-25 05:47] LABS: HEMOGLOBIN 6.3 g/dl (12.0-15.5)
[2020-11-25] MEDS ORDERED: MORPHINE 2 MG/ML 1ML VIAL (J2270) IV ONE (06:50)
[2020-11-25 07:13] LABS: CALCIUM LEVEL 7.2 MG/DL (8.8-10.2); CREATININE FOR GFR 1.6 MG/DL (0.55-1.30); GLOMERULAR FILTRATION RATE 34.7 (>45); POTASSIUM SERUM 3.8 MEQ/L (3.5-5.1); VANCOMYCIN RANDOM 25.8 UG/ML
[2020-11-25] MEDS: CILOSTAZOL 100 MG TAB (PLETAL) PO SCH ×2 (07:30→17:30)
[2020-11-25 09:08] LABS: INR 1.37; PROTHROMBIN TIME 17.3 SECONDS (12.7-14.5)
[2020-11-25 09:38] LABS: PARTIAL THROMBOPLASTIN TIME 125.7 SECONDS (25.9-37.0)
--- NOTE | 2020-11-25 10:50 | ROOPDOC ---
[facility] Report Of Operation Report of Operation DATE OF PROCEDURE: 11/25/20 PROCEDURE PERFORMED: left internal jugular central venous cannulation. PREPROCEDURE DIAGNOSES: critical limb ischemia. POSTPROCEDURE DIAGNOSES: critical limb ischemia. SURGEON: Dr Mark MD Procedure consent: from patient, written consent, signed. ANESTHESIA: Local 1% lidocaine 5cc. ESTIMATED BLOOD LOSS: Approximately 1 mL. COMPLICATIONS: none. PROCEDURE NOTE: A time out was performed. My hands were washed immediately prior to the procedure. I wore a surgical cap, mask with protective eyewear, full gown and sterile gloves throughout the procedure. The patient was placed in Trendelenburg position. Left neck region was prepped using chlorhexidine scrub and draped in sterile fashion using a full drape and sterile probe cover and sterile gel employed. The medial and lateral heads of the sternocleidomastoid muscle were identified as was the carotid pulse. The Internal Jugular vein was identified using the ultrasound. Anesthesia was achieved over the vein using 1% lidocaine. Using real-time out of plane guidance, the introducer needle was inserted into the Internal Jugular vein under direct ultrasound visualization. Venous blood was withdrawn. The syringe was removed and a guidewire was advanced into the introducer needle. The guidewire was visualized in the Internal Jugular Vein by ultrasound. A small incision was made at the skin surface with a scalpel and the introducer needle was exchanged for a dilator over the guidewire. After appropriate dilation was obtained, the dilator was exchanged over the wire for a triple lumen central venous catheter. The wire was removed and the catheter was sutured in place at 18 cm. A sterile sorbaview shield was placed over the catheter at the insertion site. The patient tolerated the procedure without any hemodynamic compromise. At time of procedure completion, all ports aspirated and flushed properly. Post-procedure chest x-ray is showed catheter tip at distal SVC with no pneumothorax. Estimated blood loss is 1cc. VIRGINIA MALIK MD Nov 25, 2020 10:50
[2020-11-25] MEDS: ATORVASTATIN 20 MG TAB PO SCH (11:06)
[2020-11-25] MEDS: oxyCODONE 20 MG CR TAB PO SCH ×2 (11:07→21:14)
[2020-11-25] MEDS: PARoxetine 20MG TABLET PO SCH (11:07)
[2020-11-25] MEDS: busPIRone 5 MG TAB PO SCH ×2 (11:07→21:12)
[2020-11-25] MEDS: ASPIRIN 81MG ENTERIC TABLET PO SCH (11:08)
[2020-11-25] MEDS: amLODIPine 5 MG TAB PO SCH (11:08)
[2020-11-25] MEDS: PANTOPRAZOLE 40MG TAB (PROTONIX) PO SCH (11:08)
--- NOTE | 2020-11-25 11:19 | IPNPDOC ---
Text Note Date of Service The patient was seen on 11/25/20. NOTE SUBJECTIVE: -Massive LE pain, writhing, franklyn and dressing bloody at this time, supratherapeutic INR, last was ~137 at 2AM, heparin on hold, H/H dropped to 6.3 OBJECTIVE: GENERAL APPEARANCE: moderate to severe distress in pain, writhing. EXTREMITIES: RLE foot pink, warm, however unable to palpate DP pulse even with doppler. TTP and at rest. 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 Heart not enlarged. No effusion. PICC line in place with tip in right atrium. Ct pelvis: Intraperitoneal space: Unremarkable. No free air. No significant fluid collection. Vasculature: A vascular bypass graft is noted in the right lateral subcutaneous abdominal wall extending to the right common femoral artery. There is a fluid collection around the distal aspect of the graft in the right lateral abdominal wall measuring 3.9 x 1.8 x 9.4 cm. Femoral and iliac stents are noted. Vascular patency cannot be evaluated on this and unenhanced exam. Approximately 50% stenosis of the graft distal graft. Lymph nodes: Unremarkable. No enlarged lymph nodes. Urinary bladder: Urinary bladder is decompressed by a Dobbs catheter. Reproductive: Normal as visualized. Bones/joints: Degenerative changes in the spine and pelvis. Asymmetric osteopenia of the left hip and femur. Soft tissues: Mild subcutaneous edema. Left hip and leg musculature are atrophic. Bilateral LE venous doppler US: IMPRESSION: 1. Subcutaneous fluid collection associated with the distal end of the vascular graft concerning for abscess. 2. Asymmetric atrophy of the left hip and leg musculature and osteopenia of the left hip and femur. Right deep veins: There is a dressing in place at the right groin. Therefore the right common femoral vein could not be evaluated. The femoral, proximal profunda femoral and popliteal veins are patent without thrombus. Normal Doppler waveforms. Normal compressibility and/or augmentation response. Right superficial veins: Unremarkable. Saphenofemoral junction is patent without thrombus. Soft tissues: Leg swelling. IMPRESSION: No evidence of deep vein thrombosis. RLE arterial US: Patient refused the parameters necessary for ankle brachial index calculation. All numeric values represent peak systolic velocity in cm/SEC. 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 The technologist noted some occluded vessels in the right upper extremity. This is a lower extremity exam however. IMPRESSION: As above. Since the technologist imaged some occluded upper extremity vessels on the right, a right upper extremity arterial ultrasound may be prudent if clinically relevant. No upper extremity images were obtained. Renal Ultrasound: Right kidney: No parvus tardus seen in the right kidney. Right renal resistive index measures 0.84 and 0.85 in the upper and mid kidney. The lower pole of the right kidney is obscured. The main right renal artery is obscured by bowel gas. Left kidney: The proximal left main renal artery is obscured by bowel gas. Peak systolic velocity in the mid left renal artery measures 97.6 cm. Peak systolic velocity in the distal left renal artery near the hilum measures 80.6 cm/s. No parvus tardus seen in the left kidney. Resistive index in the left kidney measures 0.76 in the upper pole, 0.76 in the mid pole and 0.81 in the lower pole. Aorta: Aortic peak systolic velocity measures 50.4 cm/s. IMPRESSION: 1. Significantly limited study due to patient's body habitus and gas with a centrally nonvisualization of the right main renal artery. No parvus tardus seen in the right kidney to suggest an indirect sign of hemodynamically significant right renal artery stenosis. 2. No Doppler evidence of renal artery stenosis in the mid and distal segments of the left main renal artery. Proximal left main renal artery is obscured by bowel gas however no parvus tardus seen in the left kidney to suggest an indirect sign of hemodynamically significant left renal artery stenosis. 3. Elevated bilateral renal resistive indices suggestive of medical renal disease MICROBIOLOGY: Respiratory panel is neg ASSESSMENT: 65 yr old F w PVD, Depression, Hypothyroidism, Hx of right arm DVT, Hx of embolic CVA, DLP, Migraines, Chronic HFrEF, CAD, Carotid artery disease who is admitted for acute COPD, HTN urgency, RITU, elevated troponins and subacute anemia now found to have fluid collection around the distal aspect of her axillo-fem graft in the right lateral abdominal wall measuring 3.9 x 1.8 x 9.4 cm with severe RLE pain with vascular recommending transfer to [facility]. PLAN: Acute COPD exacerbation -supplemental O2 with goal >89% -aspiration precautions -DuoNeb Q6H -Albuterol Q4HP -DC solumedrol 60mg daily IV to pred 40 PO -smoking cessation education has been provided Hypertensive Crisis: Was asymptomatic but the acute elevation in her CR and elevated troponin may be due to acutely elevated BP. Resolved. -EKG showed NSR w a rate of 91 and PVCs but no acute ST elevation -amlodipine 5mg daily and 25Q6H hydralazine -also was on loop diuretic per nephrology -2g salt diet RITU: congestive i/s/o CHF exacerbation, improved -Likely 2/2 HTN and CHF exacerbation -monitor UOP -manage HTN as above -renal US as above -avoid nephrotoxic drugs -Nephrology consulted, s/p diuresis Elevated Troponin: likely 2/2 acute elevation in BP and reduced renal clearance of troponin because of the RITU -Less likely NSTEMI -telemetry -Troponin eventually downtrended Acute on subacute Anemia, with slight downtrend postop -Goal Hg >8, will give 2u pRBCs today after TLC placement by pulm, appreciate placement of line. -nephrology gave venofer Acute on chronic HFrEF (30% Echo 2016) -Per nephrology, certainly in acute on chronic HF -f/u Is and Os -daily weights -For unclear reasons she is not on a BB, ACEI, ARB or ARNI -f/u TTE read, last was 2016, f/u -s/p diuresis per nephrology PVD / Carotid artery disease/ Chronic CAD / hx of CVA / DLP -ASA, cilostazol & statin -vascular onboard, s/p R axilla to bifem thrombectomy, exploration and ligation of deep femoral artery, axillary to popliteal bypass graft and chemical thrombectomy on 11/23. -On heparin gtt -In severe pain, increasing dilaudid to 3Q3 IV PRN for severe pain, restarting home oxycontin 60Q12H Depression -paroxetine Chronic pain -DC'd all PO meds, starting on dilaudid 1mgQ3P with PRN narcan for severe limb ischemic pain Hx of UE DVT -Dc'd rivaroxaban, on heparin gtt Fluid collection around the distal aspect of her axillo-fem graft in the right lateral abdominal wall measuring 3.9 x 1.8 x 9.4 cm i/s/o 08/2020 graft surgery that was c/b graft infection and revision in 09/2020 with severe RLE pain -on cefepime -MRSA negative. Had added vanc post op, ID consulted, to see her today -called [facility] for potential graft infection/abscess, no beds available, now s/p R axilla to bifem thrombectomy, exploration and ligation of deep femoral artery, axillary to popliteal bypass graft and chemical thrombectomy by Dr. Rivrea on 11/24/2020 -per vascular on heparin gtt -In severe pain, increasing dilaudid to 3Q3 IV PRN for severe pain, restarting home oxycontin 60Q12H. PRN narcan for RR<7 Acute on chronic limb ischemic with known severe PVD and noted fluid collection on distal aspect of axillo-fem graft with acute limb pain: -called [facility] for potential graft infection/abscess, no beds available, now s/p R axilla to bifem thrombectomy, exploration and ligation of deep femoral artery, axillary to popliteal bypass graft and chemical thrombectomy by Dr. Rivera on 11/24/2020 -per vascular on heparin gtt -In severe pain, increasing dilaudid to 3Q3 IV PRN for severe pain, restarting home oxycontin 60Q12H. PRN narcan for RR<7 Acute on chronic anemia with bloody franklyn and access dressings: -ordered for CT, however needs adequate pain manamagent to successfully obtain imaging, should be done within the next 2h -2u pRBCs -needs access pending TLC since she only has a single lumen picc. Pulm willing to place line, pending reduction of supratherapeutic PTT DVT ppx: on heparin gtt Dispo: PCU VS,Fishbone, I+O VS, Fishbone, I+O Laboratory Tests 11/25/20 05:21 Vital Signs Date Time Temp Pulse Resp B/P (MAP) Pulse Ox O2 Delivery O2 Flow Rate FiO2 11/25/20 08:03 38 11/25/20 06:58 97.3 90 142/61 95 Nasal Cannula 2.0 I&O- Last 24 Hours up to 6 AM 11/25/20 05:59 Intake Total 2905 ml Output Total 1700 ml Balance 1205 ml CAYLA CHAVEZ MD Nov 25, 2020 08:41
--- NOTE | 2020-11-25 11:33 | REP ---
INDICATION: central line placement COMPARISON: 11/20/2020 TECHNIQUE: Portable AP view of the chest FINDINGS: Left IJ line in satisfactory position within the subclavian vein/superior vena cava confluence. The mediastinum and cardiac silhouette are stable and within normal limits for portable technique. The lung thorne are relatively clear. No discrete focal consolidation, effusion, or pneumothorax. Skeletal structures are intact. IMPRESSION: No acute cardiopulmonary process appreciated. IJ line in satisfactory position. <Electronically signed by Robbin Cadet > 11/25/20 1123
[2020-11-25] MEDS: CEFEPIME HCL 1 GM in D5W MINI-BAG PLUS 50 ML IV SCH ×2 (11:50→21:12)
--- NOTE | 2020-11-25 13:12 | IPNPDOC ---
[facility], I&O, [facility]/I&O Vital Signs Date Time Temp Pulse Resp B/P (MAP) Pulse Ox O2 Delivery O2 Flow Rate FiO2 11/25/20 11:20 24 11/25/20 11:08 91 148/82 11/25/20 08:00 98.6 96 Nasal Cannula 2.0 I&O- Last 24 Hours up to 6 AM 11/25/20 06:00 Intake Total 2830 ml Output Total 1900 ml Balance 930 ml Laboratory Data 24H LABS Laboratory Tests 2 11/24/20 15:22: Activated Partial Thromboplast Time > 240.0*H 11/25/20 02:30: Activated Partial Thromboplast Time 137.0*H 11/25/20 05:21: Immature Granulocyte % (Auto) 1.5, Neutrophils (%) (Auto) 89.4H, Lymphocytes (%) (Auto) 3.7L, Monocytes (%) (Auto) 5.3, Eosinophils (%) (Auto) 0.0, Basophils (%) (Auto) 0.1, Neutrophils # (Auto) 8.3, Lymphocytes # (Auto) 0.3L, Monocytes # (Auto) 0.5, Eosinophils # (Auto) 0.0, Basophils # (Auto) 0.0, Nucleated Red Blood Cells % (auto) 0.0, Anion Gap 6L, Glomerular Filtration Rate 34.7L, C alcium Level 7.2L, Random Vancomycin Level 25.8 11/25/20 08:44: Activated Partial Thromboplast Time 125.7*H, Prothrombin Time 17.3H, Prothromb Time International Ratio 1.37 CBC/BMP Laboratory Tests 11/25/20 05:21 Microbiology Microbiology 11/22/20 Blood Culture - Preliminary, Resulted No Growth after 72 hours. All specime... 11/19/20 Respiratory Virus Panel (PCR) ([facility]) - Final, Complete Date of Service The patient was seen on 11/25/20. NOTE This morning nurses report loss of the PT signal that was previously present. The foot on my exam is warm and she does still have a PT signal. Remains on heparin. I am concerned that we do not know her true runoff in this disadvantaged bypass graft. I discussed this with the patient and we will move forward with an angiogram later today. R/B/A discussed with patient who agrees. Allen Rivera MD Nov 25, 2020 13:12
[2020-11-25] MEDS ORDERED: ISOVUE-370 76% 100ML VIAL As Ordered ONE (17:11)
[2020-11-25] MEDS ORDERED: HEPARIN SOD (PORCINE) 5000UNITS/ML 1ML VIAL/SYRINGE IV PRN (17:15)
[2020-11-25] MEDS ORDERED: HEPARIN DRIP 25,000 UNITS in IV 1 EA IV SCH (17:15)
--- NOTE | 2020-11-25 19:11 | REPVR ---
PROCEDURE INFORMATION: Exam: CT Abdomen And Pelvis Without Contrast Exam date and time: 11/25/2020 5:35 PM Age: 65 years old Clinical indication: Condition or disease; Other: Axpop graft + tibials); Prior surgery; Surgery date: Post-operative (0-2 days); Additional info: Drop in hemoglobin and recent vascular procedure TECHNIQUE: Imaging protocol: Computed tomography of the abdomen and pelvis without contrast. Radiation optimization: All CT scans at this facility use at least one of these dose optimization techniques: automated exposure control; mA and/or kV adjustment per patient size (includes targeted exams where dose is matched to clinical indication); or iterative reconstruction. COMPARISON: CT Pelvis without contrast 11/22/2020 3:11 AM FINDINGS: Lungs: Minimal dependent atelectasis is seen in both lung bases. Heart: The heart size is at the upper limits of normal. Liver: Hypodense masses are present in the medial and lateral segments of the left lobe of the liver. The largest of these measures 2.7 cm in AP diameter on image 26 of series 201. These masses have benign features with well-defined earl and internal homogeneous low attenuation density of less than 20 Hounsfield units and are likely small simple cysts or hemangiomas. No further follow-up is recommended. Reference: Management of Incidental Liver Lesions on CT: A White Paper of the ACR Incidental Findings Committee. Harman Stokes MD, et al. Journal of the [employer], Feb 2017, Volume 14, Issue 11, 3538-4834. Gallbladder and bile ducts: Prior cholecystectomy. The biliary ducts appear normal. Pancreas: Normal. No dilatation of the main pancreatic duct. Spleen: Normal. No splenomegaly. Adrenal glands: Normal. No mass. Kidneys and ureters: Normal. No hydronephrosis. Stomach and bowel: Unremarkable. No obstruction. No mucosal thickening. Appendix: No evidence of appendicitis. Intraperitoneal space: Unremarkable. No free air. No significant fluid collection. Vasculature: No abdominal aortic aneurysm. An aorticobifemoral vascular graft is present, together with a probable axillofemoral graft on the right. Lymph nodes: Unremarkable. No enlarged lymph nodes. Urinary bladder: There is a Dobbs catheter present within the decompressed urinary bladder. Reproductive: Probable prior hysterectomy. Bones/joints: Unremarkable. No acute fracture. Soft tissues: Unremarkable. IMPRESSION: 1. Minimal dependent atelectasis is seen in both lung bases. 2. The heart size is at the upper limits of normal. 3. Hypodense masses are present in the medial and lateral segments of the left lobe of the liver. The largest of these measures 2.7 cm in AP diameter on image 26 of series 201. These masses have benign features with well-defined earl and internal homogeneous low attenuation density of less than 20 Hounsfield units and are likely small simple cysts or hemangiomas. No further follow-up is recommended. Reference: Management of Incidental Liver Lesions on CT: A White Paper of the ACR Incidental Findings Committee. Harman Stokes MD, et al. Journal of the [employer] [employer], Feb 2017, Volume 14, Issue 11, 0555-2350. 4. Prior cholecystectomy. The biliary ducts appear normal. 5. No abdominal aortic aneurysm. An aorticobifemoral vascular graft is present, together with a probable axillofemoral graft on the right. 6. There is a Dobbs catheter present within the decompressed urinary bladder. 7. Probable prior hysterectomy. Electronically signed by: Jose Villa On 11/25/2020 19:10:37 PM
--- NOTE | 2020-11-25 20:06 | REPVR ---
PROCEDURE INFORMATION: Exam: CTA Angiogram of the Abdominal Aorta and Bilateral Lower Extremities (Run-off) With IV Contrast Exam date and time: 11/25/2020 5:35 PM Age: 65 years old Clinical indication: Condition or disease; Other: Axpop graft + tibials); Prior surgery; Surgery date: Post-operative (0-2 days); Additional info: With run off right leg (axpop graft + tibials) TECHNIQUE: Imaging protocol: CT angiogram of the abdominal aorta, pelvis and bilateral lower extremities with IV iodinated contrast. 3D rendering (Not supervised by radiologist): MIP and/or 3D reconstructed images were created by the technologist. Radiation optimization: All CT scans at this facility use at least one of these dose optimization techniques: automated exposure control; mA and/or kV adjustment per patient size (includes targeted exams where dose is matched to clinical indication); or iterative reconstruction. Contrast material: ISOVUE 370; Contrast volume: 100 ml; Contrast route: INTRAVENOUS (IV); COMPARISON: US Abdomen 11/21/2020 6:27 AM FINDINGS: Aorta: No aortic aneurysm. No aortic dissection. 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 Celiac trunk and mesenteric arteries: No occlusion or significant stenosis. The superior mesenteric artery is patent. The inferior mesenteric artery appears occluded. Renal arteries: No occlusion or significant stenosis. Right iliac arteries: The right iliac arteries are occluded. Right femoral/popliteal arteries: The right common femoral and the right superficial femoral arteries are patent, supplied by the axillofemoral vascular graft. Right infrapopliteal arteries: The right axillopopliteal vascular graft component supplies the anterior tibial artery and the peroneal artery down to the ankle and foot. The posterior tibial artery appears occluded at the level of the middle third of the right tibia. Left iliac arteries: The left iliac arteries are occluded. 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 Lungs: Minimal dependent atelectasis is seen in both lung bases. Heart: The heart size is at the upper limits of normal. Liver: Hypodense masses are present in the medial and lateral segments of the left lobe of the liver. The largest of these measures 2.7 cm in AP diameter on image 26 of series 201. These masses have benign features with well-defined earl and internal homogeneous low attenuation density of less than 20 Hounsfield units and are likely small simple cysts or hemangiomas. No further follow-up is recommended. Reference: Management of Incidental Liver Lesions on CT: A White Paper of the ACR Incidental Findings Committee. Harman Stokes MD, et al. Journal of the [employer], Feb 2017, Volume 14, Issue 11, 0248[address]45[address]. Impression. Gallbladder and bile ducts: Prior cholecystectomy. The biliary ducts appear normal. Pancreas: Normal. No dilatation of the main pancreatic duct. Spleen: Normal. No splenomegaly. Adrenal glands: Normal. No mass. Kidneys and ureters: Normal. No hydronephrosis. Stomach and bowel: Unremarkable. No obstruction. No mucosal thickening. Appendix: No evidence of appendicitis. Intraperitoneal space: Unremarkable. No free air. No significant fluid collection. Vasculature: No abdominal aortic aneurysm. Lymph nodes: Unremarkable. No enlarged lymph nodes. Urinary bladder: There is a Dobbs catheter present within the decompressed urinary bladder. Reproductive: Probable prior hysterectomy. Bones/joints: Unremarkable. No acute fracture. Soft tissues: Unremarkable. IMPRESSION: 1. No aortic aneurysm. No aortic dissection. 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 2. Celiac trunk and mesenteric arteries: No occlusion or significant stenosis. The superior mesenteric artery is patent. The inferior mesenteric artery appears occluded. 3. Renal arteries: No occlusion or significant stenosis. 4. Right lower extremity arteries: The right iliac arteries are occluded. The right common femoral and the right superficial femoral arteries are patent, supplied by the axillofemoral vascular graft. The right axillopopliteal vascular graft component supplies the anterior tibial artery and the peroneal artery down to the ankle and foot. The posterior tibial artery appears occluded at the level of the middle third of the right tibia. 5. Left lower extremity arteries: The left iliac arteries are occluded. 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 6. Minimal dependent atelectasis is seen in both lung bases. 7. The heart size is at the upper limits of normal. 8. Hypodense masses are present in the medial and lateral segments of the left lobe of the liver. The largest of these measures 2.7 cm in AP diameter on image 26 of series 201. These masses have benign features with well-defined earl and internal homogeneous low attenuation density of less than 20 Hounsfield units and are likely small simple cysts or hemangiomas. No further follow-up is recommended. Reference: Management of Incidental Liver Lesions on CT: A White Paper of the ACR Incidental Findings Committee. Harman Stokes MD, et al. Journal of the [employer], Feb 2017, Volume 14, Issue 11, 5762-7809. 8. Prior cholecystectomy. The biliary ducts appear normal. 9. There is a Dobbs catheter present within the decompressed urinary bladder. 10. Probable prior hysterectomy. Electronically signed by: Jose Villa On 11/25/2020 20:05:55 PM
--- NOTE | 2020-11-25 20:14 | IPN ---
NEPHROLOGY PROGRESS NOTE DATE: 11/25/2020 SUBJECTIVE: Ms. Disla is seen and examined this morning at the bedside. She states that her pain is considerably improved today. She denies any shortness of breath. She is for angiogram later today. Her hemoglobin dropped to 6.3 and she has been transfused 2 more units of packed red blood cells today. OBJECTIVE: VITAL SIGNS: Temperature 98.2, pulse 85, respiratory rate 20, blood pressure 112/54, saturating 97% on 2 liters nasal cannula. INTAKE AND OUTPUT: Intake yesterday was 3 liters. Urine output yesterday was 2 liters. Weight in the bed scale today is 105.7 kg. GENERAL: Patient is seen lying in bed. She was speaking on the phone at the time of my visit and looks more comfortable today as compared to prior days. HEENT: Extraocular muscles are intact. Tongue is moist. Nasal cannula is in place. Neck is supple. HEART SOUNDS: Regular. S1, S2. LUNGS: Breath sounds are symmetric. Anterior auscultation only. There was no wheezing or rhonchi. She looks comfortable on nasal cannula. ABDOMEN: Soft, obese. There are some bowel sounds. GENITOURINARY: There is an indwelling Dobbs catheter. EXTREMITIES: The right lower extremity did not have dressings on it today. There was edema notable. There is a left [id number] amputation. NEUROLOGIC: She is oriented times three, interactive, conversational and cooperative with physical examination, but is unable to move around much in bed secondary to pain. LABORATORY DATA: White count 9.2, hemoglobin 6.3, platelets 112. Sodium 144, potassium 3.8, bicarbonate 25, BUN 48, creatinine 1.6. IMAGING: CT of the abdomen and pelvis without contrast done today shows minimal dependent atelectasis in the lungs, hypodense masses in the medial and lateral segments of the left lobe of the liver with benign features. Renal system looks normal. Bladder is decompressed with Dobbs. Chest x-ray done today shows a new left internal jugular line and clear lung thorne. INPATIENT MEDICATIONS: Reviewed by myself. Patient continues on: - intravenous (IV) cefepime - heparin drip - IV vancomycin - amlodipine 5 mg daily - aspirin 81 mg by mouth daily - atorvastatin 80 mg by mouth daily - BuSpar 5 mg by mouth twice a day - cilostazol 100 mg by mouth twice a day - hydralazine 25 mg by mouth every 6 hours - Dilaudid as needed - Solu-Medrol 60 mg IV daily - morphine as needed - Narcan as needed - oxycodone 60 mg by mouth twice a day - Protonix 80 mg by mouth daily - Paxil 60 mg by mouth daily PROBLEMS: 1. Acute kidney injury, nonoliguric, in this patient with baseline creatinine of less than 1. Patient's creatinine peaked on November 22, 2020 (creatinine was 3.1). Since then, she has been in renal recovery and creatinine is down to 1.6 today. She did have lung imaging today that show no signs of any pulmonary edema or congestion. Her diuretics have been on hold for several days and, at this point, I would continue to hold the diuretics. Patient is encouraged for oral fluid intake, as tolerated. She is getting packed red blood cells transfusion today, so I am not going to put her on IV fluids. She is also for contrast-based procedure later today (angiogram) and we will keep a close eye on her renal function, as she is at significant risk of dye induced kidney injury given her recent acute kidney injury and significant anemia. Blood transfusions prior to contrast will help to mitigate that risk. 2. Acute blood loss anemia. Patient continues on a heparin drip for her recently revascularized right lower extremity. She reports bleeding overnight. Hemoglobin is down to 6.3 this morning. She is being transfused 2 units packed red blood cells. She should have a repeat CBC later this evening for surveillance of her blood counts. 3. Systolic congestive heart failure. Continue to hold diuretics at this time. She had lung imaging today that did not reveal any fluid problems. She is for angiogram later today and is not suitable for diuretic at this time. 4. Hypertension. Blood pressures have been stable and ranging from systolic 110s to 150s.
[2020-11-26] VITALS (10 sets, daily range): BP systolic 111–146; BP diastolic 54–72
[2020-11-26] MEDS: IPRATROPIUM 0.5MG/ALBUTEROL 2.5MG INH SOL UD 3ML (DUONEB) NEB SCH ×4 (00:58→19:43)
[2020-11-26] MEDS: methylPREDNISolone 125MG 2ML VIAL IV SCH (03:37)
[2020-11-26] MEDS: HYDROmorphone HCL 2 MG/ML 1ML VIAL (J1170) IV PRN ×4 (03:38→18:11)
[2020-11-26] MEDS ORDERED: HEPARIN SOD (PORCINE) 5000UNITS/ML 1ML VIAL/SYRINGE As Ordered ONE (03:45)
[2020-11-26 05:39] LABS: BASO % 0.2 % (0.0-1.0); HEMATOCRIT 26.8 % (36.0-47.0); HEMOGLOBIN 8.5 g/dl (12.0-15.5); LYMPH # 0.4 10^3/uL (1.5-5.0); LYMPH % 4.6 % (24.0-44.0); MEAN CORPUSCULAR HEMOGLOBIN 27.2 pg (27.0-33.0); MEAN CORPUSCULAR HGB CONC 31.7 g/dl (32.0-36.5); MEAN CORPUSCULAR VOLUME 85.9 fl (80.0-96.0); MONO # 0.5 10^3/uL (0.0-0.8); NEUTROPHILS # 7.6 10^3/uL (1.5-8.5); RED BLOOD COUNT 3.12 10^6/uL (4.00-5.40); WHITE BLOOD COUNT 8.8 10^3/uL (4.0-10.0)
[2020-11-26 05:40] LABS: PLATELET COUNT, AUTOMATED 78 10^3/uL (150-450)
[2020-11-26 06:02] LABS: CALCIUM LEVEL 7.2 MG/DL (8.8-10.2); CREATININE FOR GFR 1.55 MG/DL (0.55-1.30); VANCOMYCIN RANDOM 17.2 UG/ML
[2020-11-26] MEDS: **hydrALAZINE** 50 MG TAB PO SCH ×3 (06:47→18:00)
[2020-11-26] MEDS: SODIUM CHLORIDE 0.9% INJ 10 ML SYR IV SCH (06:47)
[2020-11-26] MEDS: CILOSTAZOL 100 MG TAB (PLETAL) PO SCH ×2 (07:30→17:30)
[2020-11-26] MEDS: amLODIPine 5 MG TAB PO SCH (09:00)
[2020-11-26 09:35] LABS: HEMATOCRIT 25.4 % (36.0-47.0); HEMOGLOBIN 8.1 g/dl (12.0-15.5)
[2020-11-26] MEDS: oxyCODONE 20 MG CR TAB PO SCH ×2 (11:09→21:55)
[2020-11-26] MEDS: CEFEPIME HCL 1 GM in D5W MINI-BAG PLUS 50 ML IV SCH (11:10)
[2020-11-26] MEDS: PANTOPRAZOLE 40MG TAB (PROTONIX) PO SCH (11:11)
[2020-11-26] MEDS: PARoxetine 20MG TABLET PO SCH (11:11)
[2020-11-26] MEDS: ASPIRIN 81MG ENTERIC TABLET PO SCH (11:11)
[2020-11-26] MEDS: busPIRone 5 MG TAB PO SCH ×2 (11:11→21:55)
[2020-11-26] MEDS: predniSONE 20 MG TAB PO SCH (11:12)
[2020-11-26] MEDS: ATORVASTATIN 20 MG TAB PO SCH (11:12)
--- NOTE | 2020-11-26 11:55 | IPNPDOC ---
Text Note Date of Service The patient was seen on 11/26/20. NOTE SUBJECTIVE: -LE pain is better controlled than yesterday AM OBJECTIVE: VITALS: see below GENERAL APPEARANCE: NAD, still reports severe pain in leg however. EXTREMITIES: RLE foot pink, warm, I am not able to palpate a DP pulse. TTP and at rest. 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 Heart not enlarged. No effusion. PICC line in place with tip in right atrium. Ct pelvis: Intraperitoneal space: Unremarkable. No free air. No significant fluid collection. Vasculature: A vascular bypass graft is noted in the right lateral subcutaneous abdominal wall extending to the right common femoral artery. There is a fluid collection around the distal aspect of the graft in the right lateral abdominal wall measuring 3.9 x 1.8 x 9.4 cm. Femoral and iliac stents are noted. Vascular patency cannot be evaluated on this and unenhanced exam. Approximately 50% stenosis of the graft distal graft. Lymph nodes: Unremarkable. No enlarged lymph nodes. Urinary bladder: Urinary bladder is decompressed by a Dobbs catheter. Reproductive: Normal as visualized. Bones/joints: Degenerative changes in the spine and pelvis. Asymmetric osteopenia of the left hip and femur. Soft tissues: Mild subcutaneous edema. Left hip and leg musculature are atrophic. Bilateral LE venous doppler US: IMPRESSION: 1. Subcutaneous fluid collection associated with the distal end of the vascular graft concerning for abscess. 2. Asymmetric atrophy of the left hip and leg musculature and osteopenia of the left hip and femur. Right deep veins: There is a dressing in place at the right groin. Therefore the right common femoral vein could not be evaluated. The femoral, proximal profunda femoral and popliteal veins are patent without thrombus. Normal Doppler waveforms. Normal compressibility and/or augmentation response. Right superficial veins: Unremarkable. Saphenofemoral junction is patent without thrombus. Soft tissues: Leg swelling. IMPRESSION: No evidence of deep vein thrombosis. RLE arterial US: Patient refused the parameters necessary for ankle brachial index calculation. All numeric values represent peak systolic velocity in cm/SEC. NURSING HOME PHYSICIAN: 21.1 monophasic Profunda: 21.7 monophasic SFA proximal: 17.7 monophasic SFA mid: 8.0 monophasic SFA distal: 6.7 monophasic The remainder of the interrogated vessels in the right lower extremity are seen to be occluded. The technologist noted some occluded vessels in the right upper extremity. This is a lower extremity exam however. IMPRESSION: As above. Since the technologist imaged some occluded upper extremity vessels on the right, a right upper extremity arterial ultrasound may be prudent if clinically relevant. No upper extremity images were obtained. Renal Ultrasound: Right kidney: No parvus tardus seen in the right kidney. Right renal resistive index measures 0.84 and 0.85 in the upper and mid kidney. The lower pole of the right kidney is obscured. The main right renal artery is obscured by bowel gas. Left kidney: The proximal left main renal artery is obscured by bowel gas. Peak systolic velocity in the mid left renal artery measures 97.6 cm. Peak systolic velocity in the distal left renal artery near the hilum measures 80.6 cm/s. No parvus tardus seen in the left kidney. Resistive index in the left kidney measures 0.76 in the upper pole, 0.76 in the mid pole and 0.81 in the lower pole. Aorta: Aortic peak systolic velocity measures 50.4 cm/s. IMPRESSION: 1. Significantly limited study due to patient's body habitus and gas with a centrally nonvisualization of the right main renal artery. No parvus tardus seen in the right kidney to suggest an indirect sign of hemodynamically significant right renal artery stenosis. 2. No Doppler evidence of renal artery stenosis in the mid and distal segments of the left main renal artery. Proximal left main renal artery is obscured by bowel gas however no parvus tardus seen in the left kidney to suggest an indirect sign of hemodynamically significant left renal artery stenosis. 3. Elevated bilateral renal resistive indices suggestive of medical renal disease CTA abd: Aorta: No aortic aneurysm. No aortic dissection. 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 Celiac trunk and mesenteric arteries: No occlusion or significant stenosis. The superior mesenteric artery is patent. The inferior mesenteric artery appears occluded. Renal arteries: No occlusion or significant stenosis. Right iliac arteries: The right iliac arteries are occluded. Right femoral/popliteal arteries: The right common femoral and the right superficial femoral arteries are patent, supplied by the axillofemoral vascular graft. Right infrapopliteal arteries: The right axillopopliteal vascular graft component supplies the anterior tibial artery and the peroneal artery down to the ankle and foot. The posterior tibial artery appears occluded at the level of the middle third of the right tibia. Left iliac arteries: The left iliac arteries are occluded. 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 Lungs: Minimal dependent atelectasis is seen in both lung bases. Heart: The heart size is at the upper limits of normal. Liver: Hypodense masses are present in the medial and lateral segments of the left lobe of the liver. The largest of these measures 2.7 cm in AP diameter on image 26 of series 201. These masses have benign features with well-defined earl and internal homogeneous low attenuation density of less than 20 Hounsfield units and are likely small simple cysts or hemangiomas. No further follow-up is recommended. Reference: Management of Incidental Liver Lesions on CT: A White Paper of the ACR Incidental Findings Committee. Harman Stokes MD, et al. Journal [employer] [employer], Feb 2017, Volume 14, Issue 11, 9704-3835. Impression. Gallbladder and bile ducts: Prior cholecystectomy. The biliary ducts appear normal. Pancreas: Normal. No dilatation of the main pancreatic duct. Spleen: Normal. No splenomegaly. Adrenal glands: Normal. No mass. Kidneys and ureters: Normal. No hydronephrosis. Stomach and bowel: Unremarkable. No obstruction. No mucosal thickening. Appendix: No evidence of appendicitis. Intraperitoneal space: Unremarkable. No free air. No significant fluid collection. Vasculature: No abdominal aortic aneurysm. Lymph nodes: Unremarkable. No enlarged lymph nodes. Urinary bladder: There is a Dobbs catheter present within the decompressed urinary bladder. Reproductive: Probable prior hysterectomy. Bones/joints: Unremarkable. No acute fracture. Soft tissues: Unremarkable. IMPRESSION: 1. No aortic aneurysm. No aortic dissection. 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 2. Celiac trunk and mesenteric arteries: No occlusion or significant stenosis. The superior mesenteric artery is patent. The inferior mesenteric artery appears occluded. 3. Renal arteries: No occlusion or significant stenosis. 4. Right lower extremity arteries: The right iliac arteries are occluded. The right common femoral and the right superficial femoral arteries are patent, supplied by the axillofemoral vascular graft. The right axillopopliteal vascular graft component supplies the anterior tibial artery and the peroneal artery down to the ankle and foot. The posterior tibial artery appears occluded at the level of the middle third of the right tibia. 5. Left lower extremity arteries: The left iliac arteries are occluded. 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 6. Minimal dependent atelectasis is seen in both lung bases. 7. The heart size is at the upper limits of normal. 8. Hypodense masses are present in the medial and lateral segments of the left lobe of the liver. The largest of these measures 2.7 cm in AP diameter on image 26 of series 201. These masses have benign features with well-defined earl and internal homogeneous low attenuation density of less than 20 Hounsfield units and are likely small simple cysts or hemangiomas. No further follow-up is recommended. Reference: Management of Incidental Liver Lesions on CT: A White Paper of the ACR Incidental Findings Committee. Harman Stokes MD, et al. Journal of [employer] [employer], Feb 2017, Volume 14, Issue 11, 8756-7089. 8. Prior cholecystectomy. The biliary ducts appear normal. 9. There is a Dobbs catheter present within the decompressed urinary bladder. 10. Probable prior hysterectomy. 11/25 CT A/P: Lungs: Minimal dependent atelectasis is seen in both lung bases. Heart: The heart size is at the upper limits of normal. Liver: Hypodense masses are present in the medial and lateral segments of the left lobe of the liver. The largest of these measures 2.7 cm in AP diameter on image 26 of series 201. These masses have benign features with well-defined earl and internal homogeneous low attenuation density of less than 20 Hounsfield units and are likely small simple cysts or hemangiomas. No further follow-up is recommended. Reference: Management of Incidental Liver Lesions on CT: A White Paper of the ACR Incidental Findings Committee. Harman Stokes MD, et al. Journal [employer] [place] [employer], Feb 2017, Volume 14, Issue 11, 4758[address]. Gallbladder and bile ducts: Prior cholecystectomy. The biliary ducts appear normal. Pancreas: Normal. No dilatation of the main pancreatic duct. Spleen: Normal. No splenomegaly. Adrenal glands: Normal. No mass. Kidneys and ureters: Normal. No hydronephrosis. Stomach and bowel: Unremarkable. No obstruction. No mucosal thickening. Appendix: No evidence of appendicitis. Intraperitoneal space: Unremarkable. No free air. No significant fluid collection. Vasculature: No abdominal aortic aneurysm. An aorticobifemoral vascular graft is present, together with a probable axillofemoral graft on the right. Lymph nodes: Unremarkable. No enlarged lymph nodes. Urinary bladder: There is a Dobbs catheter present within the decompressed urinary bladder. Reproductive: Probable prior hysterectomy. Bones/joints: Unremarkable. No acute fracture. Soft tissues: Unremarkable. IMPRESSION: 1. Minimal dependent atelectasis is seen in both lung bases. 2. The heart size is at the upper limits of normal. 3. Hypodense masses are present in the medial and lateral segments of the left lobe of the liver. The largest of these measures 2.7 cm in AP diameter on image 26 of series 201. These masses have benign features with well-defined earl and internal homogeneous low attenuation density of less than 20 Hounsfield units and are likely small simple cysts or hemangiomas. No further follow-up is recommended. MICROBIOLOGY: Respiratory panel is neg ASSESSMENT: 65 yr old W with PVD, Depression, Hypothyroidism, Hx of right arm DVT, Hx of embolic CVA, DLP, Migraines, Chronic HFrEF, CAD, Carotid artery disease who was admitted for acute COPD, HTN urgency, RITU, elevated troponins and subacute anemia with a course that was c/b sudden severe RLE limb pain and found to have fluid collection around the distal aspect of her axillo-fem graft in the right lateral abdominal wall measuring 3.9 x 1.8 x 9.4 cm with RLE acute on chronic limp ischemia now s/p R axilla to bifem thrombectomy, exploration and ligation of deep femoral artery, axillary to popliteal bypass graft and chemical thrombectomy on 11/23, with course now further c/f by anemia with t hrombocytopenia while on heparin gtt. PLAN: Fluid collection around the distal aspect of her axillo-fem graft in the right lateral abdominal wall measuring 3.9 x 1.8 x 9.4 cm i/s/o 08/2020 graft surgery that was c/b graft infection and revision in 09/2020 with severe RLE pain -on cefepime? Pending ID -MRSA negative. Had added vanc post op, ID consulted, for now dc'd vanc. -called [facility] for potential graft infection/abscess, no beds available, now s/p R axilla to bifem thrombectomy, exploration and ligation of deep femoral artery, axillary to popliteal bypass graft and chemical thrombectomy by Dr. Rivera on 11/24/2020 -per vascular had been on heparin gtt c/b anemia thrombocytopenia now switching to argatroban gtt -On dilaudid to 3Q3 IV PRN for severe pain, restarting home oxycontin 60Q12H. PRN narcan for RR<7 Acute on chronic limb ischemic with known severe PVD and noted fluid collection on distal aspect of axillo-fem graft with acute limb pain: -called [facility] for potential graft infection/abscess, no beds available, now s/p R axilla to bifem thrombectomy, exploration and ligation of deep femoral artery, axillary to popliteal bypass graft and chemical thrombectomy by Dr. Azul lara on 11/24/2020 -per vascular had been on heparin gtt c/b anemia thrombocytopenia now switching to argatroban gtt -on ASA 81 QD -On dilaudid to 3Q3 IV PRN for severe pain, restarting home oxycontin 60Q12H. PRN narcan for RR<7 Acute on chronic anemia with bloody franklyn and access dressings and ecchymosis: -CTs did not show a significant hematoma, will image thigh if H/H continues to drop, thus far responded well to 2u, suspect post op losses more than clinically significant hematoma -s/p 2u pRBCs -s/pTLC since she only has a single lumen picc. Appreciate pulm TLC placement -switching from heparin gtt to argatroban at this time, pending PTT to inform timing. Transferring to ICU for argatroban gtt. Thrombocytopenia: -4T score of 4, with intermediate risk for HIT with ~10% likelihood. However I suspect this is likely consumptive after significant bleeding intraop more than it is heparin immunogenicity and thus HIT -To air on the side of caution will switch to argatroban gtt -Will send HIT antibody test and BAY Acute COPD exacerbation -supplemental O2 with goal >89% -aspiration precautions -DuoNeb Q6H -Albuterol Q4HP -DC solumedrol 60mg daily IV to pred 40 PO -smoking cessation education has been provided Hypertensive Crisis: Was asymptomatic but the acute elevation in her CR and elevated troponin may be due to acutely elevated BP. Resolved. -EKG showed NSR w a rate of 91 and PVCs but no acute ST elevation -amlodipine 5mg daily and 25Q6H hydralazine -also was on loop diuretic per nephrology -2g salt diet RITU: congestive i/s/o CHF exacerbation, improved -Likely 2/2 HTN and CHF exacerbation -monitor UOP -manage HTN as above -renal US as above -avoid nephrotoxic drugs -Nephrology consulted, s/p diuresis Elevated Troponin: likely 2/2 acute elevation in BP and reduced renal clearance of troponin because of the RITU -Less likely NSTEMI -telemetry -Troponin eventually downtrended Acute on chronic HFrEF (30% Echo 2016) -Per nephrology, certainly in acute on chronic HF -f/u Is and Os -daily weights -For unclear reasons she is not on a BB, ACEI, ARB or ARNI -f/u TTE read, last was 2015, f/u -s/p diuresis per nephrology PVD / Carotid artery disease/ Chronic CAD / hx of CVA / DLP -ASA, cilostazol & statin -vascular onboard, s/p R axilla to bifem thrombectomy, exploration and ligation of deep femoral artery, axillary to popliteal bypass graft and chemical thrombectomy on 11/23. -Being switched to argatroban per above -On dilaudid to 3Q3 IV PRN for severe pain, restarting home oxycontin 60Q12H Depression -paroxetine Hx of UE DVT -Dc'd rivaroxaban and heparin gtt, now transitioning to argatroban gtt DVT ppx: now transitioning to argatroban gtt Dispo: Transfer to ICU VS,Jana, I+O VS, Jana, I+O Laboratory Tests 11/26/20 05:20 Vital Signs Date Time Temp Pulse Resp B/P (MAP) Pulse Ox O2 Delivery O2 Flow Rate FiO2 11/26/20 07:59 97.6 74 23 136/65 (88) 98 Nasal Cannula 2.0 l I&O- Last 24 Hours up to 6 AM 11/26/20 06:00 Intake Total 1450 ml Output Total 1150 ml Balance 300 ml CAYLA CHAVEZ MD Nov 26, 2020 08:38
[2020-11-26] MEDS ORDERED: VANCOMYCIN HCL 500 MG in D5W MINI-BAG PLUS 100 ML IV SCH (12:00)
[2020-11-26] MEDS ORDERED: PILL CUTTER 1 EACH XX PRN (13:00)
[2020-11-26] MEDS ORDERED: ARGATROBAN 50MG/50ML for non-ESRD patients IV SCH ×2 (13:00)
[2020-11-26] MEDS: ARGATROBAN 250 MG/250ML for non-ESRD patients IV SCH ×2 (16:33)
--- NOTE | 2020-11-26 18:56 | IPN ---
NEPHROLOGY PROGRESS NOTE DATE: 11/26/2020 SUBJECTIVE: Ms. Disla is seen and examined this morning in the intensive care unit. She is in significant pain. Nurse states that it was six hours since she received her last dose of pain medication. She is now on Argatroban infusion. Renal function continues to improve and patient has a Dobbs catheter with good urine output and diuretics have been held these past several days. OBJECTIVE: VITAL SIGNS: Temperature 97.6, pulse 77, respiratory rate 16, blood pressure 127/58, saturating 97% on 2 liters nasal cannula. INTAKE AND OUTPUT: Intake yesterday was 1.6 liters. Urine output yesterday was 1 liter. Urine output thus far today is 1.2 liters. Weight in the bed scale today is 107.1 kg. GENERAL: Patient is seen lying in bed in the intensive care unit (ICU), obese female, in pain, moaning and restless, in mild distress. HEENT: Extraocular muscles are intact. Tongue is moist. Neck is supple. Nasal cannula is in place. Jugular veins were a little difficult to assess today. HEART SOUNDS: Regular. S1, S2. There is edema throughout the right lower extremity. LUNGS: Show symmetric air movement. No crackle or rales. She is comfortable at 2 liters nasal cannula. ABDOMEN: Obese, soft and nontender. GENITOURINARY: Shows indwelling Dobbs catheter. NEUROLOGIC: She is oriented times three. She is cooperative with physical exam. LABORATORY STUDIES: Hemoglobin yesterday was 8.5, today 8.1. Sodium 142, potassium 4.0, BUN 44, creatinine 1.5. IMAGING: Imaging is reviewed. Her last contrast exposure was on November 25, 2020, when she had a CT angiogram with 100 mL of contrast. INPATIENT MEDICATIONS: Patient is now on Argatroban infusion. Her pain medications were adjusted by the primary team. She is now off of heparin drip. She is on prednisone taper, currently 40 mg daily. The remainder of medications are unchanged as compared with yesterday. PROBLEMS: 1. Acute kidney injury in this patient with a baseline creatinine of less than 1. She was in renal recovery. Yesterday, her urine output did slow down. She only made 1 liter of urine yesterday. That is in the setting of contrast exposure. Patient had a CT angiogram on November 25, 2020. I see today she has already made 1.2 liters of urine and I expect that her renal function should remain fairly stable. I would keep her off diuretics at this time. Patient is also not on any intravenous (IV) fluids. She is tolerating oral intake. Nephrology will continue to monitor this patient's renal function, given her significant ongoing issues and risk for recurrent kidney injury. 2. Anemia related to acute blood loss and also related to iron deficiency. Patient has been transfused now a total of 4 units of blood on this admission and continues on CBC monitoring. She is on Argatroban infusion. She has also received a cumulative of 600 mg of Venofer IV on this admission. I would transfuse for hemoglobin less than 8. 3. Hypertension. Blood pressures are acceptably controlled and no changes are being made to the current antihypertensive regimen.
--- NOTE | 2020-11-26 19:58 | IPNPDOC ---
VS, I&O, 24H, Fishbone Vital Signs/I&O Vital Signs Date Time Temp Pulse Resp B/P (MAP) Pulse Ox O2 Delivery O2 Flow Rate FiO2 11/26/20 18:21 80 20 96 Nasal Cannula 2.0 11/26/20 18:11 103/50 11/26/20 16:00 97.6 I&O- Last 24 Hours up to 6 AM 11/26/20 06:00 Intake Total 1850 ml Output Total 1150 ml Balance 700 ml Laboratory Data 24H LABS Laboratory Tests 2 11/26/20 02:47: Activated Partial Thromboplast Time 45.3H 11/26/20 05:20: Immature Granulocyte % (Auto) 3.2H, Neutrophils (%) (Auto) 86.0H, Lymphocytes (%) (Auto) 4.6L, Monocytes (%) (Auto) 6.0, Eosinophils (%) (Auto) 0.0, Basophils (%) (Auto) 0.2, Neutrophils # (Auto) 7.6, Lymphocytes # (Auto) 0.4L, Monocytes # (Auto) 0.5, Eosinophils # (Auto) 0.0, Basophils # (Auto) 0.0, Nucleated Red Blood Cells % (auto) 0.2H, Immature Platelet Fraction 5.0, Anion Gap 4L, Glomerular Filtration Rate 36.0L, Calcium Level 7.2L, Random Vancomycin Level 17.2 11/26/20 08:50: Activated Partial Thromboplast Time 185.1*H 11/26/20 11:17: Activated Partial Thromboplast Time 66.0H 11/26/20 12:10: Activated Partial Thromboplast Time 46.7H 11/26/20 16:10: Activated Partial Thromboplast Time 81.2H 11/26/20 18:08: Activated Partial Thromboplast Time 88.8H CBC/BMP Laboratory Tests 11/26/20 05:20 11/26/20 08:50 Microbiology Microbiology 11/22/20 Blood Culture - Preliminary, Resulted No Growth after 72 hours. All specime... 11/19/20 Respiratory Virus Panel (PCR) ([facility]) - Final, Complete Date of Service The patient was seen on 11/26/20. NOTE CTA reviewed. Graft is patent. No hematoma. Bloody dressing redressed. She is mentally clear today. Without pain. Limit narcotics. agree with argatroban plan for discharge on Sun/Mon to home if plts stabilize. Allen Rivera MD Nov 26, 2020 19:58
[2020-11-27] VITALS (10 sets, daily range): BP systolic 95–180; BP diastolic 49–75
[2020-11-27] MEDS: **hydrALAZINE** 50 MG TAB PO SCH ×2 (00:29→05:48)
[2020-11-27] MEDS: IPRATROPIUM 0.5MG/ALBUTEROL 2.5MG INH SOL UD 3ML (DUONEB) NEB SCH ×4 (02:00→19:19)
[2020-11-27] MEDS ORDERED: ACETAMINOPHEN *IV* 1,000 MG in IV 1 EA IV ONE (05:00)
[2020-11-27 05:47] LABS: BASO % 0.1 % (0.0-1.0); HEMATOCRIT 24.6 % (36.0-47.0); HEMOGLOBIN 7.8 g/dl (12.0-15.5); LYMPH # 0.7 10^3/uL (1.5-5.0); LYMPH % 6.3 % (24.0-44.0); MEAN CORPUSCULAR HGB CONC 31.7 g/dl (32.0-36.5); MEAN CORPUSCULAR VOLUME 85.1 fl (80.0-96.0); MONO # 0.7 10^3/uL (0.0-0.8); NEUTROPHILS # 8.6 10^3/uL (1.5-8.5); NEUTROPHILS % 83.5 % (36.0-66.0); RED BLOOD COUNT 2.89 10^6/uL (4.00-5.40); WHITE BLOOD COUNT 10.3 10^3/uL (4.0-10.0)
[2020-11-27 05:52] LABS: PLATELET COUNT, AUTOMATED 83 10^3/uL (150-450)
[2020-11-27 06:39] LABS: CALCIUM LEVEL 7.4 MG/DL (8.8-10.2); CREATININE FOR GFR 1.33 MG/DL (0.55-1.30); GLOMERULAR FILTRATION RATE 42.9 (>45); POTASSIUM SERUM 4.4 MEQ/L (3.5-5.1)
[2020-11-27] MEDS: HYDROmorphone HCL 2 MG/ML 1ML VIAL (J1170) IV PRN (06:44)
[2020-11-27] MEDS: ASPIRIN 81MG ENTERIC TABLET PO SCH (08:21)
[2020-11-27] MEDS: ATORVASTATIN 20 MG TAB PO SCH (08:21)
[2020-11-27] MEDS: oxyCODONE 20 MG CR TAB PO SCH ×2 (08:21→21:00)
[2020-11-27] MEDS: PARoxetine 20MG TABLET PO SCH (08:22)
[2020-11-27] MEDS: CILOSTAZOL 100 MG TAB (PLETAL) PO SCH ×2 (08:23→16:52)
[2020-11-27] MEDS: amLODIPine 5 MG TAB PO SCH (08:23)
[2020-11-27] MEDS: PANTOPRAZOLE 40MG TAB (PROTONIX) PO SCH (08:24)
[2020-11-27] MEDS: predniSONE 20 MG TAB PO SCH (08:24)
[2020-11-27] MEDS: **hydrALAZINE HCL** 25 MG TAB PO SCH ×2 (12:00→17:07)
--- NOTE | 2020-11-27 12:10 | IPNPDOC ---
Text Note Date of Service The patient was seen on 11/27/20. NOTE SUBJECTIVE: -No acute changes -LE pain persists but is stably improved OBJECTIVE: VITALS: see below GENERAL APPEARANCE: NAD, still reports severe pain in leg however. EXTREMITIES: RLE foot pink, warm. TTP and at rest. 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 HEENT: EOMI, MMM CARDIOVASCULAR: RRR, no m/r/g LUNGS: No wheezing on exam this morning, on 2L ABDOMEN: Obese, normoactive bowel sounds, soft, NTND NEUROLOGICAL: speech not dysarthric PSYCHIATRIC: A&Ox 3 LABORATORY DATA: Reviewed WBC 7.8 hgb 7.8 Platelets 83 Cr 1.33 K 4.4 na 141 IMAGING: Chest xray "FINDINGS: lungs clear. Heart not enlarged. No effusion. PICC line in place with tip in right atrium. Ct pelvis: Intraperitoneal space: Unremarkable. No free air. No significant fluid collection. Vasculature: A vascular bypass graft is noted in the right lateral subcutaneous abdominal wall extending to the right common femoral artery. There is a fluid collection around the distal aspect of the graft in the right lateral abdominal wall measuring 3.9 x 1.8 x 9.4 cm. Femoral and iliac stents are noted. Vascular patency cannot be evaluated on this and unenhanced exam. Approximately 50% stenosis of the graft distal graft. Lymph nodes: Unremarkable. No enlarged lymph nodes. Urinary bladder: Urinary bladder is decompressed by a Dobbs catheter. Reproductive: Normal as visualized. Bones/joints: Degenerative changes in the spine and pelvis. Asymmetric osteopenia of the left hip and femur. Soft tissues: Mild subcutaneous edema. Left hip and leg musculature are atrophic. Bilateral LE venous doppler US: IMPRESSION: 1. Subcutaneous fluid collection associated with the distal end of the vascular graft concerning for abscess. 2. Asymmetric atrophy of the left hip and leg musculature and osteopenia of the left hip and femur. Right deep veins: There is a dressing in place at the right groin. Therefore the right common femoral vein could not be evaluated. The femoral, proximal profunda femoral and popliteal veins are patent without thrombus. Normal Doppler waveforms. Normal compressibility and/or augmentation response. Right superficial veins: Unremarkable. Saphenofemoral junction is patent without thrombus. Soft tissues: Leg swelling. IMPRESSION: No evidence of deep vein thrombosis. RLE arterial US: Patient refused the parameters necessary for ankle brachial index calculation. All numeric values represent peak systolic velocity in cm/SEC. 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 The technologist noted some occluded vessels in the right upper extremity. This is a lower extremity exam however. IMPRESSION: As above. Since the technologist imaged some occluded upper extremity vessels on the right, a right upper extremity arterial ultrasound may be prudent if clinically relevant. No upper extremity images were obtained. Renal Ultrasound: Right kidney: No parvus tardus seen in the right kidney. Right renal resistive index measures 0.84 and 0.85 in the upper and mid kidney. The lower pole of the right kidney is obscured. The main right renal artery is obscured by bowel gas. Left kidney: The proximal left main renal artery is obscured by bowel gas. Peak systolic velocity in the mid left renal artery measures 97.6 cm. Peak systolic velocity in the distal left renal artery near the hilum measures 80.6 cm/s. No parvus tardus seen in the left kidney. Resistive index in the left kidney measures 0.76 in the upper pole, 0.76 in the mid pole and 0.81 in the lower pole. Aorta: Aortic peak systolic velocity measures 50.4 cm/s. IMPRESSION: 1. Significantly limited study due to patient's body habitus and gas with a centrally nonvisualization of the right main renal artery. No parvus tardus seen in the right kidney to suggest an indirect sign of hemodynamically significant right renal artery stenosis. 2. No Doppler evidence of renal artery stenosis in the mid and distal segments of the left main renal artery. Proximal left main renal artery is obscured by bowel gas however no parvus tardus seen in the left kidney to suggest an indirect sign of hemodynamically significant left renal artery stenosis. 3. Elevated bilateral renal resistive indices suggestive of medical renal disease CTA abd: Aorta: No aortic aneurysm. No aortic dissection. 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 Celiac trunk and mesenteric arteries: No occlusion or significant stenosis. The superior mesenteric artery is patent. The inferior mesenteric artery appears occluded. Renal arteries: No occlusion or significant stenosis. Right iliac arteries: The right iliac arteries are occluded. Right femoral/popliteal arteries: The right common femoral and the right superficial femoral arteries are patent, supplied by the axillofemoral vascular graft. Right infrapopliteal arteries: The right axillopopliteal vascular graft component supplies the anterior tibial artery and the peroneal artery down to the ankle and foot. The posterior tibial artery appears occluded at the level of the middle third of the right tibia. Left iliac arteries: The left iliac arteries are occluded. 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 Lungs: Minimal dependent atelectasis is seen in both lung bases. Heart: The heart size is at the upper limits of normal. Liver: Hypodense masses are present in the medial and lateral segments of the left lobe of the liver. The largest of these measures 2.7 cm in AP diameter on image 26 of series 201. These masses have benign features with well-defined earl and internal homogeneous low attenuation density of less than 20 Hounsfield units and are likely small simple cysts or hemangiomas. No further follow-up is recommended. Reference: Management of Incidental Liver Lesions on CT: A White Paper of the ACR Incidental Findings Committee. Harman Stokes MD, et al. Journal of the [place] [employer], Feb 2017, Volume 14, Issue 11, 2529-9466. Impression. Gallbladder and bile ducts: Prior cholecystectomy. The biliary ducts appear normal. Pancreas: Normal. No dilatation of the main pancreatic duct. Spleen: Normal. No splenomegaly. Adrenal glands: Normal. No mass. Kidneys and ureters: Normal. No hydronephrosis. Stomach and bowel: Unremarkable. No obstruction. No mucosal thickening. Appendix: No evidence of appendicitis. Intraperitoneal space: Unremarkable. No free air. No significant fluid collection. Vasculature: No abdominal aortic aneurysm. Lymph nodes: Unremarkable. No enlarged lymph nodes. Urinary bladder: There is a Dobbs catheter present within the decompressed urinary bladder. Reproductive: Probable prior hysterectomy. Bones/joints: Unremarkable. No acute fracture. Soft tissues: Unremarkable. IMPRESSION: 1. No aortic aneurysm. No aortic dissection. 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 2. Celiac trunk and mesenteric arteries: No occlusion or significant stenosis. The superior mesenteric artery is patent. The inferior mesenteric artery appears occluded. 3. Renal arteries: No occlusion or significant stenosis. 4. Right lower extremity arteries: The right iliac arteries are occluded. The right common femoral and the right superficial femoral arteries are patent, supplied by the axillofemoral vascular graft. The right axillopopliteal vascular graft component supplies the anterior tibial artery and the peroneal artery down to the ankle and foot. The posterior tibial artery appears occluded at the level of the middle third of the right tibia. 5. Left lower extremity arteries: The left iliac arteries are occluded. 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 6. Minimal dependent atelectasis is seen in both lung bases. 7. The heart size is at the upper limits of normal. 8. Hypodense masses are present in the medial and lateral segments of the left lobe of the liver. The largest of these measures 2.7 cm in AP diameter on image 26 of series 201. These masses have benign features with well-defined earl and internal homogeneous low attenuation density of less than 20 Hounsfield units and are likely small simple cysts or hemangiomas. No further follow-up is recommended. Reference: Management of Incidental Liver Lesions on CT: A White Paper of the ACR Incidental Findings Committee. Harman Stokes MD, et al. Journal of the [place] [employer], Feb 2017, Volume 14, Issue 11, 9987-6255. 8. Prior cholecystectomy. The biliary ducts appear normal. 9. There is a Dobbs catheter present within the decompressed urinary bladder. 10. Probable prior hysterectomy. 11/25 CT A/P: Lungs: Minimal dependent atelectasis is seen in both lung bases. Heart: The heart size is at the upper limits of normal. Liver: Hypodense masses are present in the medial and lateral segments of the left lobe of the liver. The largest of these measures 2.7 cm in AP diameter on image 26 of series 201. These masses have benign features with well-defined earl and internal homogeneous low attenuation density of less than 20 Hounsfield units and are likely small simple cysts or hemangiomas. No further follow-up is recommended. Reference: Management of Incidental Liver Lesions on CT: A White Paper of the ACR Incidental Findings Committee. Harman Stokes MD, et al. Journal of the [place] [employer], Feb 2017, Volume 14, Issue 11, 2312-0248. Gallbladder and bile ducts: Prior cholecystectomy. The biliary ducts appear normal. Pancreas: Normal. No dilatation of the main pancreatic duct. Spleen: Normal. No splenomegaly. Adrenal glands: Normal. No mass. Kidneys and ureters: Normal. No hydronephrosis. Stomach and bowel: Unremarkable. No obstruction. No mucosal thickening. Appendix: No evidence of appendicitis. Intraperitoneal space: Unremarkable. No free air. No significant fluid collection. Vasculature: No abdominal aortic aneurysm. An aorticobifemoral vascular graft is present, together with a probable axillofemoral graft on the right. Lymph nodes: Unremarkable. No enlarged lymph nodes. Urinary bladder: There is a Dobbs catheter present within the decompressed urinary bladder. Reproductive: Probable prior hysterectomy. Bones/joints: Unremarkable. No acute fracture. Soft tissues: Unremarkable. IMPRESSION: 1. Minimal dependent atelectasis is seen in both lung bases. 2. The heart size is at the upper limits of normal. 3. Hypodense masses are present in the medial and lateral segments of the left lobe of the liver. The largest of these measures 2.7 cm in AP diameter on image 26 of series 201. These masses have benign features with well-defined earl and internal homogeneous low attenuation density of less than 20 Hounsfield units and are likely small simple cysts or hemangiomas. No further follow-up is recommended. MICROBIOLOGY: Respiratory panel is neg ASSESSMENT: 65 yr old W with PVD, Depression, Hypothyroidism, Hx of right arm DVT, Hx of embolic CVA, DLP, Migraines, Chronic HFrEF, CAD, Carotid artery disease who was admitted for acute COPD, HTN urgency, RITU, elevated troponins and subacute anemia with a course that was c/b sudden severe RLE limb pain and found to have fluid collection around the distal aspect of her axillo-fem graft in the right lateral abdominal wall measuring 3.9 x 1.8 x 9.4 cm with RLE acute on chronic limp ischemia now s/p R axilla to bifem thrombectomy, exploration and ligation of deep femoral artery, axillary to popliteal bypass graft and chemical thrombectomy on 11/23, with course now further c/f by anemia with thrombocytopenia while on heparin gtt and switched to argatroban. PLAN: Fluid collection around the distal aspect of her axillo-fem graft in the right lateral abdominal wall measuring 3.9 x 1.8 x 9.4 cm i/s/o 08/2020 graft surgery that was c/b graft infection and revision in 09/2020 with severe RLE pain -Dc'd IV abx, discussed with ID -MRSA negative. Had added vanc post op, ID consulted, for now dc'd vanc. -called [facility] for potential graft infection/abscess, no beds available, now s/p R axilla to bifem thrombectomy, exploration and ligation of deep femoral artery, axillary to popliteal bypass graft and chemical thrombectomy by Dr. Rivera on 11/24/2020 -Had been on heparin gtt c/b anemia thrombocytopenia now switched to argatroban gtt -On dilaudid to 3Q3 IV PRN for severe pain, restarting home oxycontin 60Q12H. PRN narcan for RR<7 Acute on chronic limb ischemic with known severe PVD and noted fluid collection on distal aspect of axillo-fem graft with acute limb pain: -called [facility] for potential graft infection/abscess, no beds available, now s/p R axilla to bifem thrombectomy, exploration and ligation of deep femoral artery, axillary to popliteal bypass graft and chemical thrombectomy by Dr. Rivera on 11/24/2020 -per vascular had been on heparin gtt c/b anemia thrombocytopenia now switching to argatroban gtt -on ASA 81 QD -On dilaudid to 3Q3 IV PRN for severe pain, restarting home oxycontin 60Q12H. PRN narcan for RR<7 Acute on chronic anemia s/p surgery: -CTs did not show a significant hematoma, will image thigh if H/H continues to drop, thus far responded well to 2u, suspect post op losses more than clinically significant hematoma -s/p 2u pRBCs, will give 1u pRBC today. -s/pTLC since she only has a single lumen picc. Appreciate pulm TLC placement -continue argatroban gtt Thrombocytopenia: -4T score of 4, with intermediate risk for HIT with ~10% likelihood. However I suspect this is likely consumptive after significant bleeding intraop more than it is heparin immunogenicity and thus HIT -To air on the side of caution switched to argatroban gtt -Pending HIT antibody test and BAY Acute COPD exacerbation -supplemental O2 with goal >89% -aspiration precautions -DuoNeb Q6H -Albuterol Q4HP -DC solumedrol IV, decrease pred to 30 PO -smoking cessation education has been provided Hypertensive Crisis: Was asymptomatic but the acute elevation in her CR and elevated troponin may be due to acutely elevated BP. Resolved. -EKG showed NSR w a rate of 91 and PVCs but no acute ST elevation -amlodipine 5mg daily and 25Q6H hydralazine -also was on loop diuretic per nephrology -2g salt diet RITU: congestive i/s/o CHF exacerbation, improved -Likely 2/2 HTN and CHF exacerbation -monitor UOP -manage HTN as above -renal US as above -avoid nephrotoxic drugs -Nephrology consulted, s/p diuresis Elevated Troponin: likely 2/2 acute elevation in BP and reduced renal clearance of troponin because of the RITU -Less likely NSTEMI -telemetry -Troponin eventually downtrended Acute on chronic HFrEF (30% Echo 2016) -Per nephrology, certainly in acute on chronic HF -f/u Is and Os -daily weights -For unclear reasons she is not on a BB, ACEI, ARB or ARNI -f/u TTE read, last was 2015, f/u -s/p diuresis per nephrology PVD / Carotid artery disease/ Chronic CAD / hx of CVA / DLP -ASA, cilostazol & statin -vascular onboard, s/p R axilla to bifem thrombectomy, exploration and ligation of deep femoral artery, axillary to popliteal bypass graft and chemical thrombectomy on 11/23. -Being switched to argatroban per above -On dilaudid to 3Q3 IV PRN for severe pain, restarting home oxycontin 60Q12H Depression -paroxetine Hx of UE DVT -Dc'd rivaroxaban and heparin gtt, now on argatroban gtt DVT ppx: argatroban gtt Dispo: PCU VS,Fishbone, I+O VS, Fishbone, I+O Laboratory Tests 11/26/20 08:50 11/27/20 04:58 Vital Signs Date Time Temp Pulse Resp B/P (MAP) Pulse Ox O2 Delivery O2 Flow Rate FiO2 11/27/20 08:23 75 129/60 11/27/20 08:21 12 11/27/20 07:40 98.0 90 Nasal Cannula 2.0 I&O- Last 24 Hours up to 6 AM 11/27/20 06:00 Intake Total 1152.9 ml Output Total 1720 ml Balance -567.1 ml CAYLA CHAVEZ MD Nov 27, 2020 08:53
[2020-11-27] MEDS: ARGATROBAN 250 MG/250ML for non-ESRD patients IV SCH ×2 (12:13)
[2020-11-27] MEDS: busPIRone 5 MG TAB PO SCH ×2 (12:15→21:00)
--- NOTE | 2020-11-27 13:24 | IPN ---
NEPHROLOGY PROGRESS NOTE DATE: 11/27/2020 SUBJECTIVE: Ms. Disla is seen this morning on her bedside. She reports feeling better and is currently laying in the bed without any acute distress. She denies any nausea, vomiting, fever or chills. PHYSICAL EXAMINATION: GENERAL: She is awake and at her baseline mentation without acute distress. VITAL SIGNS: Temperature 98 degrees Fahrenheit, heart rate 75 per minute, respiratory rate 16 per minute, blood pressure 129/60 mmHg, oxygen saturation 90% on 2 liters oxygen. INTAKE AND OUTPUT: Records from yesterday show a positive fluid balance of about 220 mL. HEAD: Atraumatic. NECK: Supple and jugular venous distention (JVD) difficult to be assessed. HEART SOUNDS: Regular. LUNGS: Slightly diminished breath sounds at dependent parts. ABDOMEN: Obese. Bowel sounds are present. EXTREMITIES: Without any cyanosis or clubbing. She has a previous left [id number] amputation. Surgical incision on her right thigh has franklyn and is without any drainage or bleeding. She does have significant edema of her right lower extremity. NEUROLOGIC: She seems to be grossly intact. LABORATORY REVIEW: Today's labs show sodium 141, potassium 4.4, CO2 26, BUN 44, creatinine 1.33, glucose 99, calcium 7.4. Hemoglobin 7.8, hematocrit 24.6, WBC 10.3, platelets 83. PROBLEMS: 1. Acute kidney injury superimposed on chronic kidney disease. Kidney function is improving nicely. Electrolytes are stable. Her volume status seems to be compensated, though she has localized edema on her right lower extremity, which is most likely related to recent surgery and vascular disease. 2. Anemia. Patient has been transfused 4 units of packed red blood cells so far and is scheduled for another unit today. 3. Generalized vascular disease. Patient has generalized vascular disease and had bypass surgery on her leg. She is being followed by vascular surgery and seems to be doing well.
--- NOTE | 2020-11-27 16:24 | CR ---
INFECTIOUS DISEASE CONSULTATION DATE: 11/25/2020 TIME: 6:00 p.m. REASON FOR CONSULTATION: Asked to consult by Dr. Schulz, hospitalist, for evaluation of flank collection in a patient who is status post aortobifemoral bypass. HISTORY OF PRESENT ILLNESS: Mrs. Disla is a 65-year-old female with a history of Buerger's disease and recent complicated hospitalization at [facility], admitted on September 27, 2020, discharged on October 26, 2020. The patient has a history of left above-knee amputation and right lower extremity superficial femoral artery (SFA) to above-knee (AK) bypass with cephalic vein in December 2019. The patient was transferred to [facility] on 09/27/2020 for wound dehiscence and infection of her previous aortofemoral bypass of the right leg. The patient had bacteremia with Staphylococcus schleiferi and she was treated with cefazolin 2 grams every 8 hours. The patient, on 10/01/2020, underwent a right flank and groin washout with wound vacuum assisted closure (VAC) placement for an abscess. The patient had a mucocutaneous fasciocutaneous flap reconstruction with plastic surgery on 10/07/2020. She continued with intravenous (IV) antibiotics with cefazolin. On 10/15/2020, she was hemodynamically stable and was going to be discharged, but then developed hypertensive crisis and remained in the hospital. Patient then developed acute decompensation, felt to be an anaphylactic reaction to cefazolin, although she did not have a rash with that. Cefazolin was eventually discontinued and the patient was switched to IV vancomycin, which was supposed to be completed on 11/09/2020. The patient went home with a peripherally inserted central catheter (PICC) line in her right arm and did her own infusion. On 10/26/2020, the patient had to be re-qualified for bilevel positive airway pressure (BiPAP), but decided that she was going to leave against medical advice. She left with IV vancomycin infusion through [facility]. The patient presented to our hospital with increasing shortness of breath, but no fever or chills. She did not have complaint of flank pain, but was complaining of increasing right leg pain, right calf pain similar to the pain she was having before her bypass. Dr. Belle was the vascular surgeon at [facility] and Dr. Allen Rivera took care of her during her stay at [facility]. She underwent, on 11/23/2020, a right axiliary to femoral artery bypass graft thrombectomy. Exploration of the profunda femoral artery and ligation of the profunda artery of the right leg, right axillofemoral bypass to right below the knee artery bypass graft using 6 mm polytetrafluoroethylene in an extra anatomic fashion, and that was done in the setting of a right leg acute limb ischemia. Patient did well postoperatively. Dr. Rivera did not feel that the patient was having any evidence of infection and flank collection was from previous hospitalization. Of note, the patient was treated with IV vancomycin and Zosyn and her end of therapy was scheduled to be on 11/09/2020. PAST MEDICAL HISTORY: Significant for: 1. Peripheral vascular disease. 2. Buerger's disease. 3. Cerebrovascular accident (CVA). 4. Left carotid endarterectomy December 2019 for carotid artery stenosis. 5. Right carotid endarterectomy 2015. 6. Left above-knee amputation 2018. 7. Hypertension. 8. Hyperlipidemia. 9. Tobacco abuse. ALLERGIES: ZETIA, FENTANYL, KETORALAC, SUMATRIPTAN, TETRACYCLINE. MEDICATIONS: - prednisone 30 mg daily - hydralazine 25 mg every 6 hours - argatroban 250 mg IV - oxycodone 60 mg twice a day - Dilaudid 3 mg IV every 3 hours as needed - Lidoderm patch - amlodipine 5 mg daily - Paxil 60 mg daily - pantoprazole 80 mg daily - atorvastatin 80 mg daily - aspirin 81 mg daily - albuterol/Atrovent nebulizers every 6 hours as needed - Pletal 100 mg twice a day - BuSpar 5 mg by mouth twice a day - Milk of Magnesia as needed PHYSICAL EXAMINATION: VITAL SIGNS: Temperature 98.2, pulse 85, respirations 20, blood pressure 112/54, oxygen saturation 97% on 2 liters nasal cannula. GENERAL: She is an irritated female in no acute distress, swearing at the nurses for poor care. HEART: Normal. S1, S2. Distant with systolic ejection murmur 2/6 left upper sternal border. Right internal jugular (IJ) line in place. LUNGS: Diminished air entry but clear. No wheezes, rales or rhonchi. ABDOMEN: Obese, soft. Multiple healed scars on the abdomen. EXTREMITIES: Left above knee amputation, well-healed. Right leg with multiple ecchymosis scars, trace edema. NEUROLOGIC: Alert and oriented times three. Moves all extremities. LABORATORY DATA: White count 9.2, hemoglobin 6.3, hematocrit 21.1, platelets 112, 89% neutrophils, 3% lymphocytes, 5% monocytes. Sodium 144, potassium 3.8, chloride 113, bicarbonate 25, BUN 48, creatinine 1.6, glucose 129, calcium 7.2. Procalcitonin on 11/21/2020 was 0.26 Blood culture on 11/22/2020 was no growth. Respiratory panel was negative. IMAGING DATA: 2D echocardiogram technically difficult, but ejection fraction 79%, diastolic function normal, mild aortic stenosis, right ventricular systolic pressure 46 mmHg, pulmonary artery pressure mildly increased. CT angiogram done on 11/25/2020: No aortic aneurysm. No dissection. Celiac trunk and mesenteric arteries with no significant stenosis. Renal arteries with no stenosis. Prior cholecystectomy. Dobbs catheter and prior hysterectomy. Hypodense masses are present in the medial and lateral aspect of the left lobe of the liver, the largest measuring 2.7 cm. These masses have benign features. CT abdomen and pelvis done on 11/25/2020 showed a fluid collection measuring 3.9 x 1.8 x 9.4 cm in the right lateral abdominal wall. Femoral and iliac stents are noted. Renal ultrasound showed no evidence of renal artery stenosis. Chest x-ray on 11/25/2020: No acute changes. Internal jugular (IJ) line in satisfactory position. Lungs are relatively clear. IMPRESSION: This is a 64-year-old lady with a history of peripheral vascular disease, Buerger's disease, status post aortofemoral bypass with wound dehiscence, Staphylococcus bacteremia, not Staphylococcus aureus, who has finished IV antibiotics on 11/09/2020 with a combination of cefazolin and vancomycin. The patient has a peripherally inserted central catheter (PICC) line in her right arm, which needs to be removed. Patient does not have any evidence of a current infection at this time. She finished her antibiotic and probably her collection in the abdomen is postoperative seroma or bleeding. I did discuss the case with Dr. Rivera, vascular surgery, who does not feel that she needs IV antibiotics. I did review the discharge summary from [facility] for the hospitalization from September 27, 2020 to October 26, 2020 and the antibiotics were to be discontinued on 11/09/2020. At this point, I do not see any evidence of infection and antibiotics could be discontinued. This message was relayed to Dr. Schulz, who discontinued antibiotics. Continue to monitor fever, white count.
[2020-11-27] MEDS ORDERED: ONDANSETRON 4MG/2ML VIAL IV PRN (20:40)
[2020-11-27] MEDS ORDERED: LORazepam 2 MG/ML VIAL IV PRN (20:40)
[2020-11-28] VITALS: BP 144/65
[2020-11-28] MEDS: IPRATROPIUM 0.5MG/ALBUTEROL 2.5MG INH SOL UD 3ML (DUONEB) NEB SCH ×4 (01:42→20:08)
[2020-11-28 04:00] VITALS: BP 147/65
[2020-11-28] MEDS: **hydrALAZINE HCL** 25 MG TAB PO SCH ×2 (05:53)
[2020-11-28 07:18] VITALS: BP 137/60
[2020-11-28] MEDS: SYMBICORT 160/4.5MCG INHALER 6GM INH SCH ×2 (07:31→20:00)
[2020-11-28 08:33] LABS: BASO % 0.2 % (0.0-1.0); EOS % 0.1 % (0.0-3.0); HEMATOCRIT 24.3 % (36.0-47.0); HEMOGLOBIN 7.8 g/dl (12.0-15.5); MEAN CORPUSCULAR HEMOGLOBIN 26.8 pg (27.0-33.0); MEAN CORPUSCULAR HGB CONC 32.1 g/dl (32.0-36.5); MEAN CORPUSCULAR VOLUME 83.5 fl (80.0-96.0); MONO # 0.7 10^3/uL (0.0-0.8); MONO % 6.9 % (2.0-8.0); NEUTROPHILS # 7.6 10^3/uL (1.5-8.5); NEUTROPHILS % 79.1 % (36.0-66.0); RED BLOOD COUNT 2.91 10^6/uL (4.00-5.40); WHITE BLOOD COUNT 9.6 10^3/uL (4.0-10.0)
[2020-11-28 08:38] LABS: PLATELET COUNT, AUTOMATED 84 10^3/uL (150-450)
[2020-11-28 08:53] LABS: CALCIUM LEVEL 7.6 MG/DL (8.8-10.2); CREATININE FOR GFR 1.13 MG/DL (0.55-1.30); GLOMERULAR FILTRATION RATE 51.8 (>45); POTASSIUM SERUM 3.9 MEQ/L (3.5-5.1)
[2020-11-28] MEDS: RIVAROXABAN 20 MG TAB (XARELTO) PO SCH (09:05)
[2020-11-28] MEDS: PARoxetine 20MG TABLET PO SCH (09:05)
[2020-11-28] MEDS: busPIRone 5 MG TAB PO SCH ×2 (09:05→20:31)
[2020-11-28] MEDS: ATORVASTATIN 20 MG TAB PO SCH (09:06)
[2020-11-28] MEDS: predniSONE 10 MG TAB PO SCH (09:06)
[2020-11-28] MEDS: PANTOPRAZOLE 40MG TAB (PROTONIX) PO SCH (09:06)
[2020-11-28] MEDS: CILOSTAZOL 100 MG TAB (PLETAL) PO SCH (09:07)
[2020-11-28] MEDS: amLODIPine 5 MG TAB PO SCH (09:07)
[2020-11-28] MEDS: oxyCODONE 20 MG CR TAB PO SCH ×2 (09:07→20:30)
[2020-11-28 09:17] LABS: INR 2.01; PROTHROMBIN TIME 23.1 SECONDS (12.7-14.5)
[2020-11-28 09:18] LABS: PARTIAL THROMBOPLASTIN TIME 52.7 SECONDS (25.9-37.0)
[2020-11-28 11:41] VITALS: BP 105/58
[2020-11-28] MEDS: CLOPIDOGREL 75 MG TAB PO SCH (12:04)
[2020-11-28] MEDS: GABAPENTIN 400MG CAP PO SCH ×2 (13:14→20:29)
--- NOTE | 2020-11-28 15:04 | IPN ---
PROGRESS NOTE DATE: 11/28/2020 SUBJECTIVE: Ms. Disla is seen this morning on her bedside. She reports feeling well and wants to know when she can go home. She denies any dyspnea, chest pain, nausea or vomiting. She does have some bloody drainage from her incision site and her gown is stained. PHYSICAL EXAMINATION: VITALS: Temperature 97.2 degrees Fahrenheit, heart rate 86 per minute, respiratory rate 18 per minute, blood pressure 105/58 mmHg, oxygen saturation 93% on room air. HEENT: Head is atraumatic. Neck is supple and JVD difficult to be assessed. LUNGS: Clear to auscultation. HEART: Sounds are regular. ABDOMEN: Soft and nontender. Bowel sounds are normal. EXTREMITIES: Without any cyanosis or clubbing. Right leg has edema and surgical incisions are intact with franklyn intact. She has left above the knee amputation previously. LABORATORY STUDIES: Today's labs showed WBC 9.6, hemoglobin 7.8 and hematocrit 24.3. Sodium 144, potassium 3.9, BUN 44 and creatinine 1.13, glucose 120 and calcium 7.6. PROBLEMS: 1. Acute kidney injury: Kidney function has improved significantly and she is currently not receiving any I.V. fluid or diuretic. Electrolytes are stable. 2. Anemia: She has required transfusions during this hospitalization and her anemia is essentially unchanged for the last couple of days. She can probably be transfused one more unit before she gets discharged. 3. Peripheral vascular disease; status post bypass surgery on right leg: Patient seems to be doing well, however, does have edema on her leg. At this point, there is no active infection noticed. 4. Hypertension: Blood pressure seems very well controlled, in fact somewhat soft today. I will suggest to not use Hydralazine anymore and hold her Amlodipine for systolic blood pressure less than 120 mmHg.
--- NOTE | 2020-11-28 15:05 | IPNPDOC ---
Subjective Date Seen The patient was seen on 11/28/20. Subjective Chief Complaint/HPI Patient reports that she is doing okay. Does not have any complaints this morning. Wants to go home. She reports that she was able to transfer herself from bed to wheelchair prior to admission. She reports that she has family members to help and if she cannot do it by herself at this time. Will request PT and OT eval. Patient pulled out her PICC line and other IV lines. She reports that she probably did it during her sleep. As per nursing she was picking on the IVs and dressings on the skin. Objective Physical Examination General Exam: Positive: Alert, Cooperative, No Acute Distress Eye Exam: Positive: PERRLA, Conjunctiva & lids normal, EOMI; Negative: Sclera icteric Neck Exam: Positive: Supple; Negative: JVD, thyromegaly Chest Exam: Positive: Clear to auscultation, Normal air movement Heart Exam: Positive: Rate Normal, Regular Rhythm, Normal S1, Normal S2; Negative: Murmurs, Rubs Abdomen Exam: Positive: Normal bowel sounds, Soft; Negative: Tenderness Extremity Exam: Positive: Other (Left AKA 10 years ago) Skin Exam: Positive: Other skin issue (Multiple franklyn in the right lower leg, in the right thigh, and the right lateral part of the abdomen) Neuro Exam: Positive: Normal Speech Psych Exam: Positive: Memory Intact, Oriented x 3 Assessment /Plan Assessment 65 yr old W with Peripheral arterial disease, s/p right axillo fem bypass in August of 2020 at [facility] complicated by infection and wound dehiscence requiring revision (09/26/20- 10/26/20), COPD, H/o Left AKA 10 years ago (prior hx of left fem-pop bypass with subsequent thrombectomy & balloon angioplasty to manage thrombosis, subsequent debridement to manage skin & fat necrosis of groin incision ) Depression, Hypothyroidism, Hx of right arm DVT, Hx of embolic CVA, DLP, Migraines, Chronic HFrEF, CAD, Carotid artery disease who was admitted for acute COPD, HTN urgency, RITU, elevated troponins and subacute anemia with a course that was c/b sudden severe RLE limb pain and found to have fluid collection around the distal aspect of her axillo-fem graft in the right lateral abdominal wall measuring 3.9 x 1.8 x 9.4 cm with RLE acute on chronic limb ischemia now s/p R axilla to bifem thrombectomy, exploration and ligation of deep femoral artery, axillary to popliteal bypass graft and chemical thrombectomy on 11/23, with course now further complicated by anemia with thrombocytopenia while on heparin gtt and switched to argatroban. SAMEERA and BAY are pending. Acute on chronic right leg ischemia And sudden onset severe right lower extremity pain Noted fluid collection around the distal aspect of her right axillo-fem graft in the right lateral abdominal wall measuring 3.9 x 1.8 x 9.4 cm On 08/2020 had right axillofemoral graft surgery that was c/b graft infection and wound dehiscence at the groin and required revision and sartorius muscle flap placement in 09/2020 all done at [facility]. Finished antibiotics started at [facility] on 11/09/20 Dr. Malone at [facility] vascular surgery who is her vascular surgeon and accepted her as a transfer however no bed was available so had to undergo urgent complicated vascular procedure at our hospital. Now s/p R axillary to femoral graft chemical thrombectomy, exploration and ligation of profunda femoris artery of the right leg, right axillofemoral bypass to right below the knee popliteal artery bypass graft by Dr. Rivera on 11/23/2020 Had been on heparin gtt c/b anemia thrombocytopenia so was switched to argatroban gtt. Now argatroban stopped and really restarted on home Xarelto Will as per Dr. Rivera to stop aspirin and cilostazol and start the patient on Plavix Continue home oxycontin 60Q12H. PRN narcan for RR<7, oxycodone 10 mg every 6 hours as needed, restart gabapentin. Dc'd IV abx, No infection at this time. Acute on chronic anemia s/p surgery: CTs did not show a significant hematoma, suspected operative losses more than clinically significant hematoma s/p 4u pRBCs hh stable Thrombocytopenia: suspected this is likely consumptive after significant bleeding intraop more than it is heparin immunogenicity and thus HIT To air on the side of caution switched to argatroban gtt Now on Xarelto Pending HIT antibody test and BAY Acute COPD exacerbation resolved DuoNeb Q6H Albuterol Q4HP, symbicort, prednisone taper. smoking cessation education has been provided Hypertensive Crisis resolved. No h/o hypertension and not on any antihypertensives at home May have been due to acute illness. BP controlled with only amlodipine. RITU improved likely due to CHF exacerbation. volume status now compensated. Elevated Troponin: likely 2/2 acute elevation in BP and reduced renal clearance of troponin because of the RITU Troponin eventually downtrended Acute on chronic HFrEF (30% Echo 2016) f/u Is and Os daily weights For unclear reasons she is not on a BB, ACEI, ARB or ARNI s/p diuresis as per nephrology PVD / Carotid artery disease/ Chronic CAD / hx of CVA / DLP plavix, statin , xarelto s/p R axilla to fem graft thrombectomy, exploration and ligation of deep femoral artery, axillofemoral bypass to below knee popliteal artery bypass graft on 11/23. Pain control with home oxycontin 60Q12H and oxycodone will restart gabapentin Depression paroxetine Hx of UE DVT Restart Xarelto Plan/VTE VTE Prophylaxis Ordered?: Yes VS, I&O, 24H, Fishbone Vital Signs/I&O Vital Signs Date Time Temp Pulse Resp B/P (MAP) Pulse Ox O2 Delivery O2 Flow Rate FiO2 11/28/20 05:53 121/91 11/28/20 04:00 96.6 89 13 99 Nasal Cannula 2.0 I&O- Last 24 Hours up to 6 AM 11/28/20 06:00 Intake Total 580 ml Output Total 1600 ml Balance -1020 ml Laboratory Data Microbiology Microbiology 11/22/20 Blood Culture - Final, Complete NO GROWTH AFTER 5 DAYS 11/19/20 Respiratory Virus Panel (PCR) (JOHN) - Final, Complete Brooklyn Giles MD Nov 28, 2020 07:39
[2020-11-28 19:48] VITALS: BP 128/80
--- NOTE | 2020-11-28 22:04 | IPNPDOC ---
VS, I&O, 24H, Jana Vital Signs/I&O Vital Signs Date Time Temp Pulse Resp B/P (MAP) Pulse Ox O2 Delivery O2 Flow Rate FiO2 11/28/20 20:30 18 11/28/20 19:48 97.0 98 128/80 (96) 97 Room Air 11/28/20 09:05 2.0 I&O- Last 24 Hours up to 6 AM 11/28/20 06:00 Intake Total 580 ml Output Total 1600 ml Balance -1020 ml Laboratory Data 24H LABS Laboratory Tests 2 11/28/20 08:14: Immature Granulocyte % (Auto) 3.7H, Neutrophils (%) (Auto) 79.1H, Lymphocytes (%) (Auto) 10.0L, Monocytes (%) (Auto) 6.9, Eosinophils (%) (Auto) 0.1, B asophils (%) (Auto) 0.2, Neutrophils # (Auto) 7.6, Lymphocytes # (Auto) 1.0L, Monocytes # (Auto) 0.7, Eosinophils # (Auto) 0.0, Basophils # (Auto) 0.0, Nucleated Red Blood Cells % (auto) 0.0, Immature Platelet Fraction 5.2, Prothrombin Time 23.1H, Prothromb Time International Ratio 2.01, Activated P artial Thromboplast Time 52.7H, Anion Gap 3L, Glomerular Filtration Rate 51.8, Calcium Level 7.6L CBC/BMP Laboratory Tests 11/28/20 08:14 Microbiology Microbiology 11/22/20 Blood Culture - Final, Complete NO GROWTH AFTER 5 DAYS 11/19/20 Respiratory Virus Panel (PCR) (JOHN) - Final, Complete Date of Service The patient was seen on 11/28/20. NOTE She feels much better today. She is preparing for discharge home tomorrow with home physical therapy. Still has some thigh pain. Incision are healing nicely otherwise Right foot is quite edematous (reperfusion), warm and good PT and DP signals Plan for discharge with follow up with Dr. Belle at [facility]. Plavix and NOAC to remain onboard lifelong unless grafts thrombose. Allen Rivera MD Nov 28, 2020 22:03
[2020-11-29] VITALS (8 sets, daily range): BP systolic 114–162; BP diastolic 59–75
[2020-11-29] MEDS: IPRATROPIUM 0.5MG/ALBUTEROL 2.5MG INH SOL UD 3ML (DUONEB) NEB SCH ×4 (02:00→20:00)
[2020-11-29] MEDS: oxyCODONE 5MG TAB PO PRN ×2 (05:52→15:49)
[2020-11-29 06:33] LABS: BASO % 0.3 % (0.0-1.0); EOS % 0.1 % (0.0-3.0); HEMATOCRIT 22.7 % (36.0-47.0); HEMOGLOBIN 7.2 g/dl (12.0-15.5); LYMPH # 1.2 10^3/uL (1.5-5.0); LYMPH % 12.5 % (24.0-44.0); MEAN CORPUSCULAR HEMOGLOBIN 26.9 pg (27.0-33.0); MEAN CORPUSCULAR HGB CONC 31.7 g/dl (32.0-36.5); MEAN CORPUSCULAR VOLUME 84.7 fl (80.0-96.0); MONO # 0.7 10^3/uL (0.0-0.8); MONO % 7.2 % (2.0-8.0); NEUTROPHILS # 7.2 10^3/uL (1.5-8.5); PLATELET COUNT, AUTOMATED 100 10^3/uL (150-450); RED BLOOD COUNT 2.68 10^6/uL (4.00-5.40); WHITE BLOOD COUNT 9.6 10^3/uL (4.0-10.0)
[2020-11-29 06:51] LABS: CALCIUM LEVEL 7.7 MG/DL (8.8-10.2); CREATININE FOR GFR 1.05 MG/DL (0.55-1.30); GLOMERULAR FILTRATION RATE 56.3 (>45); POTASSIUM SERUM 3.9 MEQ/L (3.5-5.1)
[2020-11-29] MEDS: SYMBICORT 160/4.5MCG INHALER 6GM INH SCH ×2 (07:30→19:56)
[2020-11-29] MEDS: ATORVASTATIN 20 MG TAB PO SCH (08:20)
[2020-11-29] MEDS: amLODIPine 5 MG TAB PO SCH (08:21)
[2020-11-29] MEDS: GABAPENTIN 400MG CAP PO SCH ×2 (08:21→20:44)
[2020-11-29] MEDS: busPIRone 5 MG TAB PO SCH ×2 (08:21→20:44)
[2020-11-29] MEDS: CLOPIDOGREL 75 MG TAB PO SCH (08:21)
[2020-11-29] MEDS: PANTOPRAZOLE 40MG TAB (PROTONIX) PO SCH (08:21)
[2020-11-29] MEDS: predniSONE 10 MG TAB PO SCH (08:21)
[2020-11-29] MEDS: RIVAROXABAN 20 MG TAB (XARELTO) PO SCH (08:22)
[2020-11-29] MEDS: PARoxetine 20MG TABLET PO SCH (08:22)
[2020-11-29] MEDS: oxyCODONE 20 MG CR TAB PO SCH ×2 (10:10→20:45)
--- NOTE | 2020-11-29 11:55 | IPN ---
PROGRESS NOTE DATE: 11/29/2020 SUBJECTIVE: Mrs. Disla is seen this morning on her bedside. She is feeling about the same but does report pain in her right lower extremity. She had a bypass done on her right lower extremity last week. The patient denies any nausea, vomiting, dyspnea or chest pain. OBJECTIVE: VITAL SIGNS: Temperature is 98.4 degrees Fahrenheit, heart rate is 80 per minute and respiratory rate is 18 per minute. Blood pressure is 150/98 mmHg. Oxygen saturation is 98% on room air. HEENT: Head is atraumatic. NECK: She has no JVD or thyroid enlargement. HEART: The heart sounds are regular. LUNGS: Clear to auscultation. ABDOMEN: Soft and nontender. Bowel sounds are present. EXTREMITIES: Without any cyanosis or clubbing. She has a prior left above the knee amputation. Her right leg is quite swollen. Surgical incision is intact with franklyn in place. LABORATORY DATA: Today's labs shows a WBC count of 9.6, hemoglobin 7.2 and hematocrit 22.7. Sodium is 142, potassium is 3.9, CO2 27, BUN 39 and creatinine 1.05. PROBLEMS: 1. Acute kidney injury. Kidney function has improved and electrolytes are stable. Her volume status is well-compensated. 2. Anemia. Her anemia has worsened once again and I would recommend transfusion. 3. Right lower extremity edema, most likely this is due to recent surgery. Her overall volume status is well-compensated and she does not need diuretic at present. 4. Peripheral vascular disease status post right lower extremity bypass procedure. She is being followed by Vascular Surgery. From a renal standpoint, the patient is doing well with improved kidney function and normal electrolytes. At this point she does not need daily follow-up by nephrology. I am signing off her case. Please do not hesitate to call me back should you need any further assistance.
--- NOTE | 2020-11-29 15:07 | IPNPDOC ---
Subjective Date Seen The patient was seen on 11/29/20. Subjective Chief Complaint/HPI Complains of numbness of the right leg and no strength in that leg. Leg is pink and warm. was able to sit by the side of bed but declined to stand up on right leg with PT. PT recommending continued rehab. Objective Physical Examination General Exam: Positive: Alert, Cooperative, No Acute Distress Eye Exam: Positive: PERRLA, Conjunctiva & lids normal, EOMI; Negative: Sclera icteric Neck Exam: Positive: Supple; Negative: JVD, thyromegaly Chest Exam: Positive: Clear to auscultation, Normal air movement Heart Exam: Positive: Rate Normal, Regular Rhythm, Normal S1, Normal S2; Negative: Murmurs, Rubs Abdomen Exam: Positive: Normal bowel sounds, Soft; Negative: Tenderness Extremity Exam: Positive: Swelling (right leg), Other (right leg pink and warm, left AKA. ) Skin Exam: Positive: Other skin issue (Multiple franklyn in the right lower leg, in the right thigh, and the right lateral part of the abdomen) Neuro Exam: Positive: Normal Speech Psych Exam: Positive: Memory Intact, Oriented x 3 Assessment /Plan Assessment 65 yr old W with Peripheral arterial disease, s/p right axillo fem bypass in August of 2020 at [facility] complicated by infection and wound dehiscence requiring revision (09/26/20- 10/26/20), COPD, H/o Left AKA 10 years ago (prior hx of left fem-pop bypass with subsequent thrombectomy & balloon angioplasty to manage thrombosis, subsequent debridement to manage skin & fat necrosis of groin incision ) Depression, Hypothyroidism, Hx of right arm DVT, Hx of embolic CVA, DLP, Migraines, Chronic HFrEF, CAD, Carotid artery disease who was admitted for acute COPD, HTN urgency, RITU, elevated troponins and subacute anemia with a course that was c/b sudden severe RLE limb pain and found to have fluid collection around the distal aspect of her axillo-fem graft in the right lateral abdominal wall measuring 3.9 x 1.8 x 9.4 cm with RLE acute on chronic limb ischemia now s/p R axilla to bifem thrombectomy, exploration and ligation of deep femoral artery, axillary to popliteal bypass graft and chemical thrombectomy on 11/23, with course now further complicated by anemia with thrombocytopenia while on heparin gtt and switched to argatroban. SAMEERA and BAY are pending. Acute on chronic right leg ischemia And sudden onset severe right lower extremity pain Noted fluid collection around the distal aspect of her right axillo-fem graft in the right lateral abdominal wall measuring 3.9 x 1.8 x 9.4 cm On 08/2020 had right axillofemoral graft surgery that was c/b graft infection and wound dehiscence at the groin and required revision and sartorius muscle flap placement in 09/2020 all done at [facility]. Finished antibiotics started at [facility] on 11/09/20 Dr. Malone at [facility] vascular surgery who is her vascular surgeon had accepted her as a transfer however no bed was available so had to undergo urgent complicated vascular procedure at our hospital. Now s/p R axillary to femoral graft chemical thrombectomy, exploration and ligation of profunda femoris artery of the right leg, right axillofemoral bypass to right below the knee popliteal artery bypass graft by Dr. Rivera on 11/23/2020 Had been on heparin gtt c/b anemia thrombocytopenia so was switched to argatroban gtt. SAMEERA antibody is negative restarted on home Xarelto Will as per Dr. Rivera to stop aspirin and cilostazol and start the patient on Plavix Continue home oxycontin 60Q12H. PRN narcan for RR<7, oxycodone 10 mg every 6 hours as needed, restart gabapentin. Acute on chronic anemia s/p surgery: CTs did not show a significant hematoma, suspected operative losses more than clinically significant hematoma s/p 5u pRBCs Hb again trending down will transfuse 2 units. Thrombocytopenia: improving suspected this is likely consumptive after significant bleeding intraop SAMEERA antibody is negative. BAY pending Now on Xarelto RITU Now resolved likely due to CHF exacerbation. volume status now compensated. Off any regular diuretics at this time. Renal has signed off. Acute COPD exacerbation resolved DuoNeb Q6H Albuterol Q4HP, symbicort, prednisone taper. smoking cessation education has been provided Hypertensive Crisis resolved. No h/o hypertension and not on any antihypertensives at home May have been due to acute illness. BP controlled with only amlodipine. Elevated Troponin: likely 2/2 acute elevation in BP and reduced renal clearance of troponin because of the RITU Troponin eventually downtrended Acute on chronic HFrEF (30% Echo 2016) f/u Is and Os and daily weights For unclear reasons she is not on a BB, ACEI, ARB or ARNI as an outpatient. s/p diuresis as per nephrology Now appears Euvolemic. PVD / Carotid artery disease/ Chronic CAD / hx of CVA / DLP plavix, statin , xarelto s/p R axilla to fem graft thrombectomy, exploration and ligation of deep femoral artery, axillofemoral bypass to below knee popliteal artery bypass graft on 11/23. Pain control with home oxycontin 60Q12H and oxycodone restarted gabapentin Depression paroxetine Hx of UE DVT Restarted Xarelto Plan/VTE VTE Prophylaxis Ordered?: Yes VS, I&O, 24H, Fishbone Vital Signs/I&O Vital Signs Date Time Temp Pulse Resp B/P (MAP) Pulse Ox O2 Delivery O2 Flow Rate FiO2 11/29/20 10:10 18 11/29/20 08:21 80 150/98 11/29/20 06:22 Room Air 11/29/20 06:00 98.4 98 11/28/20 09:05 2.0 I&O- Last 24 Hours up to 6 AM0 11/29/20 07:00 Intake Total 1020 ml Output Total 1800 ml Balance -780 ml Laboratory Data 24H LABS Laboratory Tests 2 11/29/20 06:06: Immature Granulocyte % (Auto) 4.9H, Neutrophils (%) (Auto) 75.0H, Lymphocytes (%) (Auto) 12.5L, Monocytes (%) (Auto) 7.2, Eosinophils (%) (Auto) 0.1, Basophils (%) (Auto) 0.3, Neutrophils # (Auto) 7.2, Lymphocytes # (Auto) 1.2L, Monocytes # (Auto) 0.7, Eosinophils # (Auto) 0.0, Basophils # (Auto) 0.0, Nucleated Red Blood Cells % (auto) 0.0, Anion Gap 6L, Glomerular Filtration Rate 56.3, Calcium Level 7.7L CBC/BMP Laboratory Tests 11/29/20 06:06 Microbiology Microbiology 11/22/20 Blood Culture - Final, Complete NO GROWTH AFTER 5 DAYS 11/19/20 Respiratory Virus Panel (PCR) (JOHN) - Final, Complete Brooklyn Giles MD Nov 29, 2020 15:07
[2020-11-29] MEDS ORDERED: FUROSEMIDE 40MG/4ML VIAL (J1940) IV ONE (16:00)
[2020-11-30] VITALS (11 sets, daily range): BP systolic 124–185; BP diastolic 64–75; O2SAT 88–91
[2020-11-30] MEDS: IPRATROPIUM 0.5MG/ALBUTEROL 2.5MG INH SOL UD 3ML (DUONEB) NEB SCH ×4 (02:00→20:00)
[2020-11-30] MEDS: oxyCODONE 5MG TAB PO PRN ×2 (02:43→12:53)
[2020-11-30 07:29] LABS: BASO # 0.1 10^3/uL (0.0-0.2); BASO % 0.5 % (0.0-1.0); EOS % 0.1 % (0.0-3.0); HEMATOCRIT 29.2 % (36.0-47.0); LYMPH # 1.2 10^3/uL (1.5-5.0); MEAN CORPUSCULAR HEMOGLOBIN 27.6 pg (27.0-33.0); MEAN CORPUSCULAR HGB CONC 32.2 g/dl (32.0-36.5); MEAN CORPUSCULAR VOLUME 85.9 fl (80.0-96.0); MONO # 0.9 10^3/uL (0.0-0.8); MONO % 7.8 % (2.0-8.0); NEUTROPHILS # 8.1 10^3/uL (1.5-8.5); NEUTROPHILS % 74.1 % (36.0-66.0); PLATELET COUNT, AUTOMATED 113 10^3/uL (150-450)
[2020-11-30 07:43] LABS: HEMOGLOBIN 9.4 g/dl (12.0-15.5)
[2020-11-30 07:50] LABS: CALCIUM LEVEL 7.3 MG/DL (8.8-10.2); CREATININE FOR GFR 1.06 MG/DL (0.55-1.30); GLOMERULAR FILTRATION RATE 55.7 (>45)
[2020-11-30] MEDS: oxyCODONE 20 MG CR TAB PO SCH ×2 (09:00→21:28)
[2020-11-30] MEDS: ATORVASTATIN 20 MG TAB PO SCH (09:04)
[2020-11-30] MEDS: GABAPENTIN 400MG CAP PO SCH ×2 (09:05→21:26)
[2020-11-30] MEDS: RIVAROXABAN 20 MG TAB (XARELTO) PO SCH (09:05)
[2020-11-30] MEDS: PANTOPRAZOLE 40MG TAB (PROTONIX) PO SCH (09:06)
[2020-11-30] MEDS: CLOPIDOGREL 75 MG TAB PO SCH (09:06)
[2020-11-30] MEDS: PARoxetine 20MG TABLET PO SCH (09:06)
[2020-11-30] MEDS: predniSONE 20 MG TAB PO SCH (09:06)
[2020-11-30] MEDS: amLODIPine 5 MG TAB PO SCH (09:10)
[2020-11-30] MEDS: busPIRone 5 MG TAB PO SCH ×2 (09:48→21:27)
[2020-11-30] MEDS: SYMBICORT 160/4.5MCG INHALER 6GM INH SCH ×2 (11:21→20:00)
[2020-11-30] MEDS ORDERED: oxyCODONE 15 MG CR TAB PO ONE (15:00)
[2020-11-30 15:10] LABS: UNFRACTIONATED HEPARIN HI DOSE 2 % (0-20); UNFRACTIONATED HEPARIN LOW DOS 9 % (0-20)
--- NOTE | 2020-11-30 16:38 | IPNPDOC ---
Subjective Date Seen The patient was seen on 11/30/20. Subjective Chief Complaint/HPI Patient refuses to go to rehab says that she wants to go home. Spoke with healthcare proxy Mary who is also one of her caregivers along with her sister Lorie. As per Mary if he can arrange for transportation home she thinks they will be able to take care of her at home. She was requesting if we could apply for increasing her home care service hours. We will talk to [facility] about this. Patient does not want anything else done for her in this hospital and she just wants to go home and go see her vascular surgeon Dr. Belle. She in fact had indicated to the nurses that she just wanted to be comfortable however she did not indicate that way to me. She did want to continue her current treatment but does not want to work with physical therapy or go to rehab. She insists on going home. Objective Physical Examination General Exam: Positive: Alert, Cooperative, No Acute Distress Eye Exam: Positive: PERRLA, Conjunctiva & lids normal, EOMI; Negative: Sclera icteric Neck Exam: Positive: Supple; Negative: JVD, thyromegaly Chest Exam: Positive: Clear to auscultation, Normal air movement Heart Exam: Positive: Rate Normal, Regular Rhythm, Normal S1, Normal S2; Negative: Murmurs, Rubs Abdomen Exam: Positive: Normal bowel sounds, Soft; Negative: Tenderness Extremity Exam: Positive: Swelling (right leg), Other (right leg pink and warm, left AKA. ) Skin Exam: Positive: Other skin issue (Multiple franklyn in the right lower leg, in the right thigh, and the right lateral part of the abdomen) Neuro Exam: Positive: Normal Speech Psych Exam: Positive: Memory Intact, Oriented x 3 Assessment /Plan Assessment 65 yr old W with Peripheral arterial disease, s/p right axillo fem bypass in August of 2020 at [facility] complicated by infection and wound dehiscence requiring revision (09/26/20- 10/26/20), COPD, H/o Left AKA 10 years ago (prior hx of left fem-pop bypass with subsequent thrombectomy & balloon angioplasty to manage thrombosis, subsequent debridement to manage skin & fat necrosis of groin incision ) Depression, Hypothyroidism, Hx of right arm DVT, Hx of embolic CVA, DLP, Migraines, Chronic HFrEF, CAD, Carotid artery disease who was admitted for acute COPD, HTN urgency, RITU, elevated troponins and subacute anemia with a course that was c/b sudden severe RLE limb pain and found to have fluid collection around the distal aspect of her axillo-fem graft in the right lateral abdominal wall measuring 3.9 x 1.8 x 9.4 cm with RLE acute on chronic limb ischemia now s/p R axilla to bifem thrombectomy, exploration and ligation of deep femoral artery, axillary to popliteal bypass graft and chemical thrombectomy on 11/23, with course now further complicated by anemia with thrombocytopenia while on heparin gtt and switched to argatroban. SAMEERA and BAY are pending. Acute on chronic right leg ischemia And sudden onset severe right lower extremity pain Noted fluid collection around the distal aspect of her right axillo-fem graft in the right lateral abdominal wall measuring 3.9 x 1.8 x 9.4 cm On 08/2020 had right axillofemoral graft surgery that was c/b graft infection and wound dehiscence at the groin and required revision and sartorius muscle flap placement in 09/2020 all done at [facility]. Finished antibiotics started at [facility] on 11/09/20 Dr. Malone at [facility] vascular surgery who is her vascular surgeon had accepted her as a transfer however no bed was available so had to undergo urgent complicated vascular procedure at our hospital. Now s/p R axillary to femoral graft chemical thrombectomy, exploration and ligation of profunda femoris artery of the right leg, right axillofemoral bypass to right below the knee popliteal artery bypass graft by Dr. Rivera on 11/23/2020 Had been on heparin gtt c/b anemia thrombocytopenia so was switched to argatroban gtt. SAMEERA antibody is negative restarted on home Xarelto Will as per Dr. Rivera to stop aspirin and cilostazol and start the patient on Plavix Continue home oxycontin 60Q12H. PRN narcan for RR<7, oxycodone 10 mg every 6 hours as needed, restart gabapentin. Acute on chronic anemia s/p surgery: CTs did not show a significant hematoma, suspected operative losses more than clinically significant hematoma s/p 5u pRBCs Hb again trending down will transfuse 2 units. Thrombocytopenia: improving suspected this is likely consumptive after significant bleeding intraop SAMEERA antibody is negative. BAY pending Now on Xarelto RITU Now resolved likely due to CHF exacerbation. volume status now compensated. Off any regular diuretics at this time. Renal has signed off. Acute COPD exacerbation resolved DuoNeb Q6H Albuterol Q4HP, symbicort, prednisone taper. smoking cessation education has been provided Hypertensive Crisis resolved. No h/o hypertension and not on any antihypertensives at home May have been due to acute illness. BP controlled with only amlodipine. Elevated Troponin: likely 2/2 acute elevation in BP and reduced renal clearance of troponin because of the RITU Troponin eventually downtrended Acute on chronic HFrEF (30% Echo 2016) f/u Is and Os and daily weights For unclear reasons she is not on a BB, ACEI, ARB or ARNI as an outpatient. s/p diuresis as per nephrology Now appears Euvolemic. PVD / Carotid artery disease/ Chronic CAD / hx of CVA / DLP plavix, statin , xarelto s/p R axilla to fem graft thrombectomy, exploration and ligation of deep femoral artery, axillofemoral bypass to below knee popliteal artery bypass graft on 11/23. Pain control with home oxycontin 60Q12H and oxycodone restarted gabapentin Depression paroxetine Hx of UE DVT Restarted Xarelto Plan/VTE VTE Prophylaxis Ordered?: Yes VS, I&O, 24H, Fishbone Vital Signs/I&O Vital Signs Date Time Temp Pulse Resp B/P (MAP) Pulse Ox O2 Delivery O2 Flow Rate FiO2 11/30/20 16:02 17 11/30/20 14:00 98.7 88 185/67 (106) Room Air 11/30/20 06:35 88 11/28/20 09:05 2.0 I&O- Last 24 Hours up to 6 AM 11/30/20 06:00 Intake Total 2453 ml Output Total 100 ml Balance 2353 ml Laboratory Data 24H LABS Laboratory Tests 2 11/30/20 07:19: Immature Granulocyte % (Auto) 6.5H, Neutrophils (%) (Auto) 74.1H, Lymphocytes (%) (Auto) 11.0L, Monocytes (%) (Auto) 7.8, Eosinophils (%) (Auto) 0.1, Basophils (%) (Auto) 0.5, Neutrophils # (Auto) 8.1, Lymphocytes # (Auto) 1.2L, Monocytes # (Auto) 0.9H, Eosinophils # (Auto) 0.0, Basophils # (Auto) 0.1, Nucleated Red Blood Cells % (auto) 0.3H, Anion Gap 3L, Glomerular Filtration Rate 55.7, Calcium Level 7.3L CBC/BMP Laboratory Tests 11/30/20 07:19 Microbiology Microbiology 11/22/20 Blood Culture - Final, Complete NO GROWTH AFTER 5 DAYS Brooklyn Giles MD Nov 30, 2020 16:38
[2020-11-30] MEDS: ACETAMINOPHEN TAB 650MG DOSE (2X325MG) PO PRN (23:08)
[2020-12-01] VITALS: BP 176/64
[2020-12-01] MEDS: oxyCODONE 5MG TAB PO PRN ×2 (00:58→14:22)
[2020-12-01] MEDS: IPRATROPIUM 0.5MG/ALBUTEROL 2.5MG INH SOL UD 3ML (DUONEB) NEB SCH ×3 (02:00→13:16)
[2020-12-01 05:00] VITALS: BP_DIAS 64
[2020-12-01 06:41] LABS: HEMOGLOBIN 9.4 g/dl (12.0-15.5); MEAN CORPUSCULAR HEMOGLOBIN 27.8 pg (27.0-33.0); MEAN CORPUSCULAR HGB CONC 32.4 g/dl (32.0-36.5); MEAN CORPUSCULAR VOLUME 85.8 fl (80.0-96.0); PLATELET COUNT, AUTOMATED 119 10^3/uL (150-450); RED BLOOD COUNT 3.38 10^6/uL (4.00-5.40)
[2020-12-01] MEDS: ACETAMINOPHEN TAB 650MG DOSE (2X325MG) PO PRN (06:47)
[2020-12-01 07:06] LABS: CALCIUM LEVEL 7.6 MG/DL (8.8-10.2); CREATININE FOR GFR 1.15 MG/DL (0.55-1.30); GLOMERULAR FILTRATION RATE 50.7 (>45); POTASSIUM SERUM 3.6 MEQ/L (3.5-5.1)
[2020-12-01] MEDS: SYMBICORT 160/4.5MCG INHALER 6GM INH SCH (07:22)
[2020-12-01 07:39] LABS: ATYPICAL LYMPH 4 % (0-5); LYMPHOCYTES 20 % (16-44); MONOCYTES 3 % (0-5); MYELOCYTES 2 % (0-0); NEUTROPHILS 69 % (28-66)
[2020-12-01 07:40] LABS: PLATELET ESTIMATE DECREASED (NORMAL)
[2020-12-01 07:41] LABS: ANISOCYTOSIS 1+
[2020-12-01 09:00] VITALS: O2SAT 92
[2020-12-01] MEDS: PARoxetine 20MG TABLET PO SCH (09:07)
[2020-12-01] MEDS: ATORVASTATIN 20 MG TAB PO SCH (09:08)
[2020-12-01] MEDS: CLOPIDOGREL 75 MG TAB PO SCH (09:08)
[2020-12-01] MEDS: oxyCODONE 20 MG CR TAB PO SCH (09:08)
[2020-12-01] MEDS: PANTOPRAZOLE 40MG TAB (PROTONIX) PO SCH (09:08)
[2020-12-01] MEDS: RIVAROXABAN 20 MG TAB (XARELTO) PO SCH (09:08)
[2020-12-01] MEDS: GABAPENTIN 400MG CAP PO SCH (09:09)
[2020-12-01] MEDS: busPIRone 5 MG TAB PO SCH (09:09)
[2020-12-01] MEDS: predniSONE 20 MG TAB PO SCH (09:09)
[2020-12-01] MEDS: amLODIPine 5 MG TAB PO SCH (09:10)
[2020-12-01] MEDS ORDERED: CLOP75TA2 PO (10:28)
[2020-12-01] MEDS ORDERED: AMLO1TAB24 PO (10:28)
[2020-12-01] MEDS ORDERED: PRED10TA2 PO (10:28)
--- NOTE | 2020-12-01 12:08 | DS.PDOC ---
Discharge Summary General Date of Admission Nov 19, 2020 at 21:30 Date of Discharge 12/01/20 Discharge Summary PROCEDURES PERFORMED DURING STAY: Right axillary to femoral graft chemical thrombectomy, exploration and ligation of profunda femoris artery of the right leg, right axillofemoral bypass to right below the knee popliteal artery bypass graft by Dr. Rivera on 11/23/2020 DISCHARGE DIAGNOSES: Acute on chronic right leg ischemia Acute on chronic anemia Thrombocytopenia Acute on chronic congestive heart failure with reduced ejection fraction COPD exacerbation RITU resolved Hypertensive urgency resolved Secondary diagnosis Peripheral arterial disease with left AKA 10 years ago and right leg with multiple surgeries angioplasties and grafts, chronic pain in the leg on narcotics, COPD, depression, Hypothyroidism, Hx of right arm DVT, Hx of embolic CVA, DLP, Migraines, Chronic HFrEF, CAD, Carotid artery disease COMPLICATIONS/CHIEF COMPLAINT: Ritu (Acute Kidney Injury), Dyspnea,Hypertensive. HOSPITAL COURSE: 65 yr old W with Peripheral arterial disease, s/p right axillo fem bypass in August of 2020 at [facility] complicated by infection and wound dehiscence requiring revision (09/26/20- 10/26/20), COPD, H/o Left AKA 10 years ago (prior hx of left fem-pop bypass with subsequent thrombectomy & balloon angioplasty to manage thrombosis, subsequent debridement to manage skin & fat necrosis of groin incision ) Depression, Hypothyroidism, Hx of right arm DVT, Hx of embolic CVA, DLP, Migraines, Chronic HFrEF, CAD, Carotid artery disease who was admitted for acute COPD, HTN urgency, RITU, elevated troponins and subacute anemia with a course that was c/b sudden severe RLE limb pain and found to have fluid collection around the distal aspect of her axillo-fem graft in the right lateral abdominal wall measuring 3.9 x 1.8 x 9.4 cm with RLE acute on chronic limb ischemia now s/p R axilla to bifem thrombectomy, exploration and ligation of deep femoral artery, axillary to popliteal bypass graft and chemical thrombectomy on 11/23, with course now further complicated by anemia with thrombocytopenia while on heparin gtt and switched to argatroban. Now patient has been restarted on Xarelto SAMEERA and BAY are negative. Acute on chronic right leg ischemia And sudden onset severe right lower extremity pain Noted fluid collection around the distal aspect of her right axillo-fem graft in the right lateral abdominal wall measuring 3.9 x 1.8 x 9.4 cm On 08/2020 had right axillofemoral graft surgery that was c/b graft infection and wound dehiscence at the groin and required revision and sartorius muscle flap placement in 09/2020 all done at [facility]. Finished antibiotics started at [facility] on 11/09/20 Dr. Malone at [facility] vascular surgery who is her vascular surgeon had accepted her as a transfer however no bed was available so had to undergo urgent complicated vascular procedure at our hospital. Now s/p R axillary to femoral graft chemical thrombectomy, exploration and ligation of profunda femoris artery of the right leg, right axillofemoral bypass to right below the knee popliteal artery bypass graft by Dr. Rivera on 11/23/2020 Had been on heparin gtt c/b anemia thrombocytopenia so was switched to argatroban gtt. SAMEERA antibody is negative restarted on home Xarelto Will as per Dr. Rivera to stop aspirin and cilostazol and start the patient on Plavix Continue home oxycontin 60Q12H. PRN narcan for RR<7, oxycodone 10 mg every 6 hours as needed, restart gabapentin. Patient to follow-up with Dr. Malone at the earliest Acute on chronic anemia s/p surgery: CTs did not show a significant hematoma, suspected operative losses more than clinically significant hematoma s/p 7u pRBCs Thrombocytopenia: improving suspected this is likely consumptive after significant bleeding intraop SAMEERA antibody and BAY negative Now on Xarelto RITU Now resolved likely due to CHF exacerbation. volume status now compensated. Off any regular diuretics at this time. Acute COPD exacerbation resolved Albuterol Q4HP, symbicort, prednisone taper. smoking cessation education has been provided Hypertensive urgency resolved. No h/o hypertension and not on any antihypertensives at home May have been due to acute illness. BP controlled with only amlodipine. Elevated Troponin: likely 2/2 acute elevation in BP and reduced renal clearance of troponin because of the RITU Troponin eventually downtrended Acute on chronic HFrEF (30% Echo 2016) f/u Is and Os and daily weights For unclear reasons she is not on a BB, ACEI, ARB or ARNI as an outpatient. s/p diuresis as per nephrology Now appears Euvolemic. PVD / Carotid artery disease/ Chronic CAD / hx of CVA / DLP plavix, statin , xarelto s/p R axilla to fem graft thrombectomy, exploration and ligation of deep femoral artery, axillofemoral bypass to below knee popliteal artery bypass graft on 11/23. Pain control with home oxycontin 60Q12H and oxycodone restarted gabapentin Depression paroxetine Hx of UE DVT Restarted Xarelto DISCHARGE MEDICATIONS: Please see below. ALLERGIES: Please see below. PHYSICAL EXAMINATION ON DISCHARGE: VITAL SIGNS: Please see below. General Exam: Positive: Alert, Cooperative, No Acute Distress Eye Exam: Positive: PERRLA, Conjunctiva & lids normal, EOMI; Negative: Sclera icteric Neck Exam: Positive: Supple; Negative: JVD, thyromegaly Chest Exam: Positive: Clear to auscultation, Normal air movement Heart Exam: Positive: Rate Normal, Regular Rhythm, Normal S1, Normal S2; Negative: Murmurs, Rubs Abdomen Exam: Positive: Normal bowel sounds, Soft; Negative: Tenderness Extremity Exam: Positive: Swelling (right leg), Other (right leg pink and warm, left AKA. ) Dopplerable pulses present in the right posterior tibial and dorsalis pedis. Skin Exam: Positive: Other skin issue (Multiple franklyn in the right lower leg, in the right thigh, and the right lateral part of the abdomen) Neuro Exam: Positive: Normal Speech Psych Exam: Positive: Memory Intact, Oriented x 3 LABORATORY DATA: Please see below. ACTIVITY: [As tolerated]. DIET: As tolerated DISCHARGE PLAN: Home with services DISCHARGE INSTRUCTIONS: Follow-up with Dr. Barbra GARCIA PMElli in 1 week DISCHARGE CONDITION: [Stable]. TIME SPENT ON DISCHARGE: 35 minutes. Vital Signs/I&Os Vital Signs Date Time Temp Pulse Resp B/P (MAP) Pulse Ox O2 Delivery O2 Flow Rate FiO2 12/01/20 09:08 18 Room Air 12/01/20 05:00 /64 (43) 12/01/20 01:28 95 12/01/20 00:00 97.4 77 11/28/20 09:05 2.0 I&O- Last 24 Hours up to 6 AM 12/01/20 06:00 Intake Total 120 ml Output Total 0 ml Balance 120 ml Laboratory Data Labs 24H Laboratory Tests 2 12/01/20 06:10: Immature Granulocyte % (Auto) , Neutrophils (%) (Auto) , Nucleated Red Blood Cells % (auto) 0.3H, Neutrophils 69H, Band Neutrophils 2, Lymphocytes (Manual) 20, Monocytes (Manual) 3, Myelocytes 2H, Atypical Lymphocytes 4, Anisocytosis 1+, Platelet Estimate DECREASED, Anion Gap 5L, Glomerular Filtration Rate 50.7, Calcium Level 7.6L CBC/BMP Laboratory Tests 12/01/20 06:10 Microbiology Microbiology 11/22/20 Blood Culture - Final, Complete NO GROWTH AFTER 5 DAYS Discharge Medications Scheduled Amlodipine Besylate (Amlodipine Besylate) 5 Mg Tablet, 5 MG PO DAILY Atorvastatin Calcium (Atorvastatin Calcium) 80 Mg Tablet, 80 MG PO DAILY, (Re ported) Budesonide/Formoterol (Symbicort 160-4.5 Mcg Inhaler) 60 Puff/Inhaler Aers, 2 PUFF INH BID, (Reported) Buspirone HCl (Buspirone HCl) 5 Mg Tablet, 5 MG PO BID, (Reported) Clopidogrel Bisulfate (Clopidogrel) 75 Mg Tablet, 75 MG PO DAILY Gabapentin (Neurontin) 800 Mg Tab, 800 MG PO BID, (Reported) Oxycodone HCl (Oxycontin) 60 Mg Tab, 60 MG PO Q12H, (Reported) Pantoprazole Sodium (Pantoprazole Sodium) 40 Mg Tablet.dr, 80 MG PO DAILY, (Reported) Paroxetine HCl (Paroxetine HCl) 40 Mg Tab, 60 MG PO DAILY, (Reported) Prednisone (Prednisone) 10 Mg Tablet, 10 MG PO TAPER 2 tabs daily x 1 day, then 1 tab daily x 3 days and stop Pregabalin (Lyrica) 200 Mg Cap, 200 MG PO BID, (Reported) Rivaroxaban (Xarelto) 20 Mg Tab, 20 MG PO DAILY, (Reported) Scheduled PRN Albuterol Sulf (Albuterol Sulfate) 2.5 Mg/3 Ml Vial.neb, 3 ML NEB Q4H PRN for SHORTNESS OF BREATH, (Reported) Albuterol Sulfate (Ventolin Hfa) 108 Mcg/Act Aer, 2 PUFFS INH Q4H PRN for SHORTNESS OF BREATH, (Reported) Oxycodone Hcl (Oxycodone HCl) 20 Mg Tablet, 20 MG PO Q4-6HP PRN for PAIN LEVEL 6-10, (Reported) Allergies Coded Allergies: fentanyl (Verified Allergy, Severe, Can't Breath, 01/03/19) ketorolac (Verified Allergy, Intermediate, Hives, 01/03/19) tetracycline (Verified Allergy, Intermediate, Rash, 01/03/19) ezetimibe (Verified Allergy, Unknown, 01/01/20) sumatriptan (Verified Adverse Reaction, Intermediate, Elevated HR & BP , 01/03/19) Brooklyn Giles MD Dec 01, 2020 12:08
== END 2020-12-01 17:51 | disposition home health service (06) | DRG 181 ==
LOC: M ED 15:15 → M ED INP 21:30 → ENRESERV 22:43 → M PCU 11-20 01:48 → M ICU 11-24 01:09 → M PCU 11-24 07:45 → M ICU 11-26 09:30 → M PCU 11-26 16:30 → M MSPAV 11-28 23:55
PROVIDERS: ADMIT Internal Medicine; ATTEND Internal Medicine Nephrology
PROC: 041K0JL Bypass Right Femoral Artery to Popliteal Artery with Synthetic Substitute, Open Approach (ICD-10-PCS; 2020-11-23)
PROC: 30233N1 Transfusion of Nonautologous Red Blood Cells into Peripheral Vein, Percutaneous Approach (ICD-10-PCS; 2020-11-23)
PROC: 04CK0ZZ Extirpation of Matter from Right Femoral Artery, Open Approach (ICD-10-PCS; principal; 2020-11-23 17:09)
PROC: 02HV33Z Insertion of Infusion Device into Superior Vena Cava, Percutaneous Approach (ICD-10-PCS; 2020-11-25)
DX: I16.9 Hypertensive crisis, unspecified (principal); I50.23 Acute on chronic systolic (congestive) heart failure; N17.9 Acute kidney failure, unspecified; T82.898A Other specified complication of vascular prosthetic devices, implants and grafts, initial encounter; D69.6 Thrombocytopenia, unspecified; J44.1 Chronic obstructive pulmonary disease with (acute) exacerbation; D62 Acute posthemorrhagic anemia; Z89.612 Acquired absence of left leg above knee; I70.721 Atherosclerosis of other type of bypass graft(s) of the extremities with rest pain, right leg; E03.9 Hypothyroidism, unspecified; Z86.73 Personal history of transient ischemic attack (TIA), and cerebral infarction without residual deficits; G43.909 Migraine, unspecified, not intractable, without status migrainosus; I25.10 Atherosclerotic heart disease of native coronary artery without angina pectoris; Z79.899 Other long term (current) drug therapy; Z88.8 Allergy status to other drugs, medicaments and biological substances; K21.9 Gastro-esophageal reflux disease without esophagitis; Z85.42 Personal history of malignant neoplasm of other parts of uterus; F32.9 Major depressive disorder, single episode, unspecified; E66.9 Obesity, unspecified; F17.200 Nicotine dependence, unspecified, uncomplicated; Z79.82 Long term (current) use of aspirin; G47.33 Obstructive sleep apnea (adult) (pediatric); D50.9 Iron deficiency anemia, unspecified; I11.0 Hypertensive heart disease with heart failure